=== PATIENT | male | born 1945 | race Caucasian/White ===

== ENCOUNTER → 2017-03-11 09:25 | Outpatient (CLI) | payer MEDICARE, SELFPAY ==
--- NOTE | 2017-03-11 12:16 | RAD_ITS ---
STUDY: X-RAY - ABDOMEN/PELVIS REASON FOR EXAM: Male, 71 years old. Nausea and vomiting. TECHNIQUE: Two AP supine views of the abdomen and pelvis. COMPARISON: None. FINDINGS: Normal visualized lung bases. There is an unremarkable bowel gas pattern. The patient is status post cholecystectomy. Normal soft tissue structures. There are diffuse degenerative changes of the visualized lumbar spine. RAD/Abdomen Single View IMPRESSION: Nonspecific bowel gas pattern. Status post cholecystectomy. Electronically Signed: Bjorn Naqvi MD at 13:04 EST Tel [phone], Service support ,
[2017-03-11 12:27] LABS: Absolute Neutrophil Count 6.7 X10^3/uL (2.0-7.7); Basophil# 0.05 X10^3/uL; Basophil% 0.5 % (0-1); Eosinophils% 2.1 % (0-5); Hematocrit 51.1 % (40-54); Hemoglobin 17.6 g/dl (13.0-16.5); Lymphocyte % 17.9 % (19-41); Mean Corp Hgb Conc 34.4 g/gl (32-36); Mean Corpuscular Hgb 27.4 pg (27.0-32.0); Mean Corpuscular Volume 79.6 fL (80-94); Mean Platelet Vol. 11.3 fl (6.2-12.0); Monocyte# 0.77 X10^3/uL; Monocyte% 8.1 % (0-10); Neutrophil # 6.74 X10^3/uL (2.7-7.7); Neutrophil % 71.1 % (47-70); Platelet Count 261 K/mm3 (150-450); RBC Distribution Width CV 14.4 % (11.6-14.6); RBC Distribution Width SD 41.8 fl (35.1-43.9); Red Blood Count 6.42 M/mm3 (4.6-6.2); White Blood Count 9.5 K/mm3 (4.4-11.0)
[2017-03-11 12:31] LABS: POSITIVE COUNT NO; POSITIVE DIFFERENTIAL NO; POSITIVE MORPHOLOGY NO
[2017-03-11 12:36] LABS: ALB/GLOB Ratio 0.8 RATIO (0.9-2.4); AST(SGOT) 18 U/L (15-37); Alanine Aminotransfer ALT/SGPT 27 U/L (16-61); Albumin, Serum 3.6 g/dL (3.2-5.0); Alkaline Phosphatase 114 U/L (45-117); Anion Gap 10 (5-15); BUN 24 mg/dL (7-18); BUN/Creat Ratio 16.1 RATIO (10-20); Calcium,Total 10.5 mg/dL (8.5-10.1); Chloride 103 mmol/L (98-107); Creatinine, Serum 1.49 mg/dL (0.70-1.30); EST Glomerular Filtration Rate 50 mL/min (>60); Est Glom Filt Rate - Afr Amer 60 mL/min (>60); Globulin 4.4 g/dL (2.2-4.2); Glucose 278 mg/dL (70-110); Potassium 3.8 mmol/L (3.5-5.1); Sodium Level 138 mmol/L (136-145)
== END ==
LOC: POLAB3 09:29 → RAD 12:14
PROVIDERS: Family Provider Family Medicine Geriatric Medicine; PCP Family Medicine Geriatric Medicine; Visit Provider Family Medicine Geriatric Medicine
DX: E11.9 Type 2 diabetes mellitus without complications (principal); E23.6 Other disorders of pituitary gland; I10 Essential (primary) hypertension; R11.2 Nausea with vomiting, unspecified
CPT/HCPCS: 36415; 74018; 80053; 84403; 84443; 85025

== ENCOUNTER 2017-07-04 13:54 | Inpatient (IN) | payer MEDICARE, SELFPAY ==
[2017-07-04] VITALS (19 sets, daily range): BP systolic 148–195; BP diastolic 63–130; PULSE 83–124; RESP 13–25; TEMP 37.1–38.7; O2SAT 90–97; BMI 37.5; BMI 35.4
--- NOTE | 2017-07-04 14:10 | RAD_ITS ---
STUDY: X-RAY CHEST REASON FOR EXAM: Male, 71 years old. Decreased level of consciousness. TECHNIQUE: Single AP portable view of the chest. COMPARISON: Comparison is made with prior study dated October 12, 2016. FINDINGS: EKG electrodes are seen. The lungs are clear and expanded. There is no demonstrated pleural abnormality. There is borderline cardiomegaly. Normal mediastinum and paula. Normal visualized pulmonary arteries. There is atherosclerotic tortuosity of the aortic arch and descending thoracic aorta. Normal visualized thoracic spine. Normal visualized ribs, clavicles, and shoulders. There is no demonstrated abnormality of the visualized soft tissue structures of the upper abdomen. RAD/Chest 1 View (Portable) IMPRESSION: Borderline cardiomegaly. No acute abnormality is seen. Electronically Signed: Bjorn Naqvi MD at 14:53 EDT Tel [phone], Service support ,
--- NOTE | 2017-07-04 14:10 | CT_ITS ---
STUDY: CT BRAIN WITHOUT CONTRAST REASON FOR EXAM: Male, 71 years old. Altered level of consciousness. RADIATION DOSAGE (If Supplied By Facility): CTDIvol = ( 44.99 ) mGy, DLP = ( 654.65 ) mGycm TECHNIQUE: Transaxial CT imaging of the brain was performed without administration of intravenous contrast material. Individualized dose optimization techniques were used for this CT. COMPARISON: Comparison is made with prior examination dated October 12, 2016. FINDINGS: Normal soft tissue structures. Normal calvarium. There is disproportionate enlargement of the lateral and third ventricles, as compared to the extra-axial spaces. The findings suggest normal pressure hydrocephalus (NPH). There are areas of decreased attenuation within the white matter tracts of the supratentorial brain, consistent with microvascular disease changes. Normal basal ganglia and thalami. Normal brainstem. Normal cerebellum. There is no intracranial hemorrhage. There are no findings of an acute ischemic infarction. Normal visualized paranasal sinuses. CT/Brain/Head without Contrast IMPRESSION: Chronic involutional changes of the brain. Findings suggestive of a normal pressure hydrocephalus. Electronically Signed: Bjorn Naqvi MD at 15:12 EDT Tel [phone], Service support ,
--- NOTE | 2017-07-04 14:10 | EKG12_ITS ---
Test Reason : ALTERED MENTAL STATU Blood Pressure : / mmHG Vent. Rate : 121 BPM Atrial Rate : 121 BPM P-R Int : 162 ms QRS Dur : 108 ms QT Int : 310 ms P-R-T Axes : 045 002 010 degrees QTc Int : 440 ms Sinus tachycardia with occasional Premature ventricular complexes Poor R wave progression Inferior infarct , age undetermined Abnormal ECG Confirmed by LEEROY SOSA, MAGED ([id number]), acquisition editor AUDI TIJERINA ([id number]) on 07/09/2017 1:55:38 PM Referred By: MARIO
--- NOTE | 2017-07-04 14:11 | CT_ITS ---
STUDY: CT CERVICAL SPINE WITHOUT CONTRAST REASON FOR EXAM: Male, 71 years old. Altered level of consciousness. RADIATION DOSAGE (If Supplied By Facility): CTDIvol = ( 30.39 ) mGy, DLP = ( 654.65 ) mGycm TECHNIQUE: High resolution transaxial imaging was performed without contrast material. Sagittal and coronal images were reconstructed. Individualized dose optimization techniques were used for this CT. COMPARISON: Comparison is made with prior study dated October 12, 2016. FINDINGS: Normal craniovertebral junction. Normal anterior atlantoaxial articulation. Normal odontoid process. Normal cervical lordosis. Normal vertebral bodies and posterior osseous elements. C2-3: Normal endplates. Normal disc height and morphology. Normal central canal and intervertebral neuroforamina. C3-4: Facet joint osteoarthritis and hypertrophy worse on the right side with mild degree of right neural foraminal stenosis. C4-5: Facet joint osteoarthritis. Mild degree of bilateral neural foraminal stenosis. C5-6: Normal endplates. Normal disc height and morphology. Normal central canal and intervertebral neuroforamina. C6-7: Normal endplates. Normal disc height and morphology. Normal central canal and intervertebral neuroforamina. C7-T1: Normal endplates. Normal disc height and morphology. Normal central canal and intervertebral neuroforamina. Normal visualized soft tissue structures. CT/Spine Cervical without Contras IMPRESSION: Multilevel degenerative changes, as described above. Electronically Signed: Bjorn Naqvi MD at 15:14 EDT Tel [phone], Service support ,
[2017-07-04 14:24] LABS: Bacteria 0 SEEN /hpf (None Seen); Mucous, Urine 0 SEEN /hpf (<or=2+); Red Blood Cells-Urine 0 SEEN /hpf (0-5); Squamous Epithelial Cells - UA 0 SEEN /hpf (0-5)
[2017-07-04 14:27] LABS: Color, Urine Straw (Yellow); Glucose, Dipstick 1000 mg/dl (Normal); Ketone-Dipstick Negative (Negative); Leukocyte Esterase-Dipstick Negative /ul (Negative); Nitrite-Dipstick Negative (Negative); Occult Blood-Urine 10 /ul (Negative); Protein-Dipstick 100 mg/dl (Negative); Specific Gravity, Urine 1.005 (1.002-1.030); Urine Bilirubin Dipstick Negative (Negative); Urine Clarity Clear (Clear); Urine Urobilinogen Normal (Normal); Urine pH 6.5 (5.0 - 8.0)
[2017-07-04] MEDS: 0.9% Normal Saline 1,000 ML 1000 ML IV ×2 (14:29)
[2017-07-04 14:32] LABS: Absolute Lymphocyte Count 0.88 X10^3/ul (0.83-4.51); Absolute Neutrophil Count 10.8 X10^3/uL (2.0-7.7); Basophil# 0.05 X10^3/uL; Basophil% 0.4 % (0-1); Eosinophil# 0.03 X10^3/uL; Eosinophils% 0.2 % (0-5); Hematocrit 47.1 % (40-54); Hemoglobin 16.4 g/dl (13.0-16.5); Lymphocyte # 0.88 X10^3/ul (4.0); Mean Corp Hgb Conc 34.8 g/gl (32-36); Mean Corpuscular Hgb 28.1 pg (27.0-32.0); Mean Corpuscular Volume 80.7 fL (80-94); Mean Platelet Vol. 10.9 fl (6.2-12.0); Monocyte# 0.86 X10^3/uL; Monocyte% 6.8 % (0-10); Neutrophil % 85.4 % (47-70); POSITIVE COUNT NO; POSITIVE DIFFERENTIAL NO; POSITIVE MORPHOLOGY NO; Platelet Count 211 K/mm3 (150-450); RBC Distribution Width CV 13.6 % (11.6-14.6); RBC Distribution Width SD 39.6 fl (35.1-43.9); Red Blood Count 5.84 M/mm3 (4.6-6.2); White Blood Count 12.7 K/mm3 (4.4-11.0)
[2017-07-04 14:35] LABS: Allen Test POS; Base Excess -2 mmol/L (-2 to +2); Bicarbonate 22.5 mmol/L (22-26); Blood Gas Specimen Type ART; O2 Delivery Device Nasal Can; PO2 63 mmHG (75-100); SITE R Radial; SO2 92 % (95-99); Time Given 1425; Total Carbon Dioxide 24 mmol/L; pCO2 35.1 mmHg (35-45); pH 7.42 (7.35-7.45)
[2017-07-04 14:36] LABS: White Blood Cells 0-5 SEEN /hpf (0-5)
[2017-07-04 14:38] LABS: Prothrombin Time (Protime)PT. 13.1 SECONDS (11.7-14.9)
[2017-07-04 14:39] LABS: Partial Thromboplast Time 25.2 Seconds (24.1-36.2)
[2017-07-04 14:48] LABS: ALB/GLOB Ratio 0.9 RATIO (0.9-2.4); AST(SGOT) 10 U/L (15-37); Alanine Aminotransfer ALT/SGPT 18 U/L (16-61); Albumin, Serum 3.5 g/dL (3.2-5.0); Alkaline Phosphatase 145 U/L (45-117); Anion Gap 13 (5-15); BUN 9 mg/dL (7-18); BUN/Creat Ratio 6.2 RATIO (10-20); CPK Total, Creatine Kinase 65 U/L (39-308); Calcium,Total 9.7 mg/dL (8.5-10.1); Chloride 104 mmol/L (98-107); Creatinine, Serum 1.45 mg/dL (0.70-1.30); EST Glomerular Filtration Rate 51 mL/min (>60); Est Glom Filt Rate - Afr Amer 62 mL/min (>60); Estimated Creatinine Clearance 48.08 ml/min; Globulin 4.1 g/dL (2.2-4.2); Glucose 652 mg/dL (74-106); Potassium 3.5 mmol/L (3.5-5.1); Protein, Total 7.6 g/dL (6.4-8.2); Sodium Level 140 mmol/L (136-145)
[2017-07-04 14:49] LABS: Amphetamine Urine VISTA NEGATIVE (<1000 ng/mL); Barbiturate Urine VISTA NEGATIVE (< 200 ng/mL); Benzodiazepine Urine VISTA NEGATIVE (< 200 ng/mL); Cocaine Urine VISTA NEGATIVE (< 300 ng/mL); Ecstacy Urine VISTA NEGATIVE (< 500 ng/mL); Methadone Urine VISTA NEGATIVE (< 300 ng/mL); PCP Urine VISTA NEGATIVE (< 25 ng/mL); THC Urine VISTA NEGATIVE (< 50 ng/mL); Vista UDS pH Range 6
--- NOTE | 2017-07-04 15:07 | NURSING ---
GLUCOSE READ HIGH
--- NOTE | 2017-07-04 15:35 | NURSING ---
UNABLE TO OBTAIN A MEDICATION LIST FROM THE PT.
[2017-07-04 15:40] LABS: Bedside Glucose > 500 mg/dL (70-110)
--- NOTE | 2017-07-04 15:43 | HP.PCM_ITS ---
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 The patient is a 71 year old M who presents to the emergency room after being found unresponsive. Squad report states patient was lying on the sidewalk of his home unclothed. He was found by mailman who called the squad. Patient is unable to respond appropriately or provide any information during assessment. He does open eyes to noxious stimuli and mumbles incoherently. Mouth is very dry and he has areas of sunburn on front side of body. Per records, patient was admitted October 2016 for a very similar presenting symptoms. He was found at home by his son at that time who noted he was unresponsive. He was found to have acute cystitis, hypotension, and pulmonary embolism at that time. He was discharged to half-way facility at that time but had since returned home. He appears unkempt. Per records, patient has a past medical history of type 2 diabetes mellitus, pulmonary embolism, hypertension, history of SVT, hyperlipidemia, BPH, obesity, right lower kidney pole mass, normal pressure hydrocephalus. Past Medical History Past Medical History (Chronic Problems): Chronic Problems (Last Updated 02/26/17 @ 09:40 by Nikolas Prasad) Diabetes mellitus (Chronic) HTN (hypertension) (Chronic) HLD (hyperlipidemia) (Chronic) Syncope and collapse (Chronic) Pulmonary embolism (Chronic) Fall (Chronic) Normal pressure hydrocephalus (Chronic) SVT (supraventricular tachycardia) (Chronic) BPH with obstruction/lower urinary tract symptoms (Chronic) Ventricular tachycardia (paroxysmal) (Chronic) Allergies No Known Allergies Allergy (Verified 02/26/17 09:34) Home Medications: Ambulatory Orders Medication Instructions Recorded Tamsulosin HCl [Flomax] 0.4 mg PO BID 02/13/16 Finasteride [Proscar] 5 mg PO DAILY 05/14/16 Liraglutide [Victoza 2-Dario] 1.2 mg SQ DAILY 05/15/16 Aspirin [Aspirin, Baby] 81 mg PO DAILY@0800 #30 tab.chew 10/13/16 Apixaban [Eliquis] 5 mg PO BID #60 tab 10/19/16 Insulin Aspart [Novolog Flexpen] 0 units SC ACHS 10/19/16 Insulin Detemir [Levemir FlexPen] 20 units SC BREAKFAST 10/19/16 Lisinopril [Zestril] 10 mg PO BID tab 10/19/16 Metoprolol Tartrate [Lopressor 25 mg PO BID tab 10/19/16 (beta luz maria)] amiodarone 200 mg tablet 200 mg PO QDAY tab 02/26/17 empagliflozin 25 mg tablet 25 mg PO QDAY 02/26/17 famotidine 20 mg tablet 20 mg PO QDAY tab 02/26/17 Surgical History: cholecystectomy, - - right meniscus surgery, deviated septum, Lives: Alone Smoking Status: Unknown if ever smoked - *Family History Paternal History Items: - - als Maternal History Items: Heart Disease - CAD; CABG Review of Systems Unable to obtain accurate/complete ROS d/t: lethargy, confusion. VTE Information - Inpt Only VTE Present on Admission: No VTE Mechan Device Prophylaxis: None VTE Pharm Prophylaxis ordered?: Yes - Physical Exam General: Lethargic, - - Responds to noxious stimuli, tracks visually, and comprehensive mumbling. Oral: Dry Mucosa Neck: Supple, No JVD, Negative Carotid Bruits Lungs: Clear to auscultation, Diminished Cardiovascular: Normal S1, Normal S2, No murmurs, Tachycardic Abdomen: Bowel Sounds Present, Soft, Non Tender, Non-Distended, Obese Extremities: No clubbing, No cyanosis, No edema, Capillary Refill Less than 3 Seconds Skin: No rashes, No breakdown Musculoskeletal: No Tenderness to Palpation of Joints or Extremities Neurological: Cranial nerves II-XII grossly intact Psych/Mental Status: - - Unable to assess. Vital Signs Temp Pulse Resp BP Pulse Ox 99.9 F H 103 H 19 H 176/105 H 93 07/04/17 15:06 07/04/17 15:06 07/04/17 15:06 07/04/17 15:06 07/04/17 15:06 Oxygen Flow Rate (L/min) 2 Oxygen Delivery Method Nasal Cannula Weight: 115.3 kg Body Mass Index (BMI) 37.5 Finger Stick Blood Glucose 439 Laboratory Tests Past 24 Hrs 07/04/17 07/04/17 07/04/17 14:00 14:00 14:00 WBC 12.7 H RBC 5.84 Hgb 16.4 Hct 47.1 MCV 80.7 MCH 28.1 MCHC 34.8 RDW 13.6 RDW Differential 39.6 Plt Count 211 MPV 10.9 Immature Gran % (Auto) 0.200 Neut % (Auto) 85.4 H Lymph % (Auto) 7.0 L [place] % (Auto) 6.8 Eos % (Auto) 0.2 Baso % (Auto) 0.4 Absolute Neuts (auto) 10.8 H Absolute Lymphs (auto) 0.88 Total Counted Not Reportable PT 13.1 INR 1.0 APTT 25.2 Specimen Type Sample Site pH Bicarbonate Actual POC Total CO2 Base Excess O2 Saturation ABG pCO2 ABG pO2 Paras Test O2 Delivery Device Liter Flow Blood Gas Notified Whom Blood Gas Notified Time Sodium 140 Potassium 3.5 Chloride 104 Carbon Dioxide 23.0 Anion Gap 13 BUN 9 Creatinine 1.45 H Estim Creat Clear Calc 48.08 Est GFR (MDRD) Af Amer 62 Est GFR (MDRD) Non-Af 51 L BUN/Creatinine Ratio 6.2 L Glucose 652 H* Lactic Acid Calcium 9.7 Total Bilirubin 0.90 AST 10 L ALT 18 Alkaline Phosphatase 145 H Total Creatine Kinase Troponin I 0.068 H Total Protein 7.6 Albumin 3.5 Globulin 4.1 Albumin/Globulin Ratio 0.9 Urine Color Urine Clarity Urine pH Ur Specific [place] Urine Protein Urine Glucose (UA) Urine Ketones Urine Occult Blood Urine Nitrite Urine Bilirubin Urine Urobilinogen Ur Leukocyte Esterase Urine RBC Urine WBC Ur Squamous Epith Cells Urine Bacteria Urine Mucus Urine Opiates Screen Urine Methadone Screen Ur Barbiturates Screen Ur Phencyclidine Scrn Ur Amphetamines Screen U Methamphetamin-MDMA U Benzodiazepines Scrn Urine Cocaine Screen U Cannabinoids Screen Ur Drug Screen Comment Ethyl Alcohol 07/04/17 07/04/17 07/04/17 14:00 14:00 14:00 WBC RBC Hgb Hct MCV MCH MCHC RDW RDW Differential Plt Count MPV Immature Gran % (Auto) Neut % (Auto) Lymph % (Auto) [place] % (Auto) Eos % (Auto) Baso % (Auto) Absolute Neuts (auto) Absolute Lymphs (auto) Total Counted PT INR APTT Specimen Type Sample Site pH Bicarbonate Actual POC Total CO2 Base Excess O2 Saturation ABG pCO2 ABG pO2 Paras Test O2 Delivery Device Liter Flow Blood Gas Notified Whom Blood Gas Notified Time Sodium Potassium Chloride Carbon Dioxide Anion Gap BUN Creatinine Estim Creat Clear Calc Est GFR (MDRD) Af Amer Est GFR (MDRD) Non-Af BUN/Creatinine Ratio Glucose Lactic Acid 3.0 H Calcium Total Bilirubin AST ALT Alkaline Phosphatase Total Creatine Kinase 65 Troponin I Total Protein Albumin Globulin Albumin/Globulin Ratio Urine Color Urine Clarity Urine pH Ur Specific [place] Urine Protein Urine Glucose (UA) Urine Ketones Urine Occult Blood Urine Nitrite Urine Bilirubin Urine Urobilinogen Ur Leukocyte Esterase Urine RBC Urine WBC Ur Squamous Epith Cells Urine Bacteria Urine Mucus Urine Opiates Screen Urine Methadone Screen Ur Barbiturates Screen Ur Phencyclidine Scrn Ur Amphetamines Screen U Methamphetamin-MDMA U Benzodiazepines Scrn Urine Cocaine Screen U Cannabinoids Screen Ur Drug Screen Comment Ethyl Alcohol 11.0 07/04/17 07/04/17 07/04/17 14:08 14:08 14:29 WBC RBC Hgb Hct MCV MCH MCHC RDW RDW Differential Plt Count MPV Immature Gran % (Auto) Neut % (Auto) Lymph % (Auto) [place] % (Auto) Eos % (Auto) Baso % (Auto) Absolute Neuts (auto) Absolute Lymphs (auto) Total Counted PT INR APTT Specimen Type ART Sample Site R Radial pH 7.42 Bicarbonate Actual 22.5 POC Total CO2 24 Base Excess -2 O2 Saturation 92 L ABG pCO2 35.1 ABG pO2 63 L Paras Test POS O2 Delivery Device Nasal Can Liter Flow 2.0 Blood Gas Notified Whom ED Blood Gas Notified Time 1425 Sodium Potassium Chloride Carbon Dioxide Anion Gap BUN Creatinine Estim Creat Clear Calc Est GFR (MDRD) Af Amer Est GFR (MDRD) Non-Af BUN/Creatinine Ratio Glucose Lactic Acid Calcium Total Bilirubin AST ALT Alkaline Phosphatase Total Creatine Kinase Troponin I Total Protein Albumin Globulin Albumin/Globulin Ratio Urine Color Straw Urine Clarity Clear Urine pH 6.5 Ur Specific [place] 1.005 Urine Protein 100 H Urine Glucose (UA) 1000 H Urine Ketones Negative Urine Occult Blood 10 H Urine Nitrite Negative Urine Bilirubin Negative Urine Urobilinogen Normal Ur Leukocyte Esterase Negative Urine RBC 0 SEEN Urine WBC 0-5 SEEN Ur Squamous Epith Cells 0 SEEN Urine Bacteria 0 SEEN Urine Mucus 0 SEEN Urine Opiates Screen NEGATIVE Urine Methadone Screen NEGATIVE Ur Barbiturates Screen NEGATIVE Ur Phencyclidine Scrn NEGATIVE Ur Amphetamines Screen NEGATIVE U Methamphetamin-MDMA NEGATIVE U Benzodiazepines Scrn NEGATIVE Urine Cocaine Screen NEGATIVE U Cannabinoids Screen NEGATIVE Ur Drug Screen Comment Ethyl Alcohol Assessment/Plan 1. Acute encephalopathy-unclear etiology. Patient had very similar presenting episode in the past. Cycle enzymes. MRI of brain. Consult neurology. PT/OT/ ST. NPO pending ST assessment. Urinalysis unremarkable. Brain CT shows no acute changes. Chest x-ray unremarkable. CT of cervical spine showed multilevel degenerative changes. 2. Acute kidney injury-IV fluids. Monitor BMP. Check FENa. 3. Lactic acidosis-unclear etiology. Repeat lactic acid. Do not suspect infectious etiology. 4. Elevated troponin-cycle enzymes. Consult cardiology. Patient was recommended to complete outpatient cardiac catheterization during previous admission October 2016. Patient failed to complete this. Rectal aspirin. 5. Hyperglycemia in the presence of type 2 diabetes mellitus-glucose on admission 652. Previous hemoglobin A1c 05/15/16 8.6%. Insulin gtt with Accu- Cheks per protocol. Repeat hemoglobin A1c. 6. History of pulmonary embolism-occurred in October 2016. Eliquis listed on home medication list. Unclear if patient is compliant. Begin heparin drip. 7. Hypertension-permissive given unclear cause of #1/rule out neural etiology. As needed hydralazine. Resume home oral regimen including amiodarone, lisinopril, metoprolol when able to tolerate oral intake. 8. History of SVT-on amiodarone regimen at home. Monitor telemetry. 9. Hyperlipidemia-not on statin. Check fasting lipid panel. 10. BPH-continue Flomax, Proscar regimen when cleared by speech therapy. 11. Obesity-nutrition consult when patient alert and able to participate in education regarding diet and lifestyle modifications. 12. Normal pressure hydrocephalus-chronic. Continue outpatient follow-up with neurology. DVT prophylaxis-heparin drip. Discharge planning- consult CM for possible need for placement. This patient was seen by CRISS Anderson under the supervision of Dr. Thomas.
--- NOTE | 2017-07-04 15:59 | NURSING ---
Dr. Gallardo's office closed. Unable to obtain home medication list.
--- NOTE | 2017-07-04 16:22 | NURSING ---
ADMISSION NURSE CALLING FOR MEDICATIONS AT [facility].
--- NOTE | 2017-07-04 16:26 | NURSING ---
Jaspreet muñoz contacted to attempt to update medlist. Pt has not filled any medications there since .
--- NOTE | 2017-07-04 16:32 | ED.VISSUMM ---
- ER Visit Summary Date of Service: 07/04/17 Chief Complaint: Found unresponsive History of Present Illness: The patient is a 71 M who EMS reports was found sleeping naked outside. Is unclear how long he was like this. Patient is not speaking with them. I am unable to obtain any history. Physical Examination: Vitals: 98.7, 183/103, 124, 18, 90% on room air which is hypoxic. General: Well-nourished and well-developed. Head: Normocephalic atraumatic. Neck: Supple, no lymphadenopathy. No JVD. Nontender. Cardiovascular: Tachycardic regular rhythm with no murmur. Respiratory: No respiratory distress. Clear to auscultation bilaterally. Abdominal: Soft, nontender, nondistended, normal bowel sounds. No guarding, rebound, or peritoneal signs. Back: Nontender. Extremities: Nontender, no edema. Skin: Sunburn to chest and abdomen. Sunburn to medial right thigh and lateral left thigh. There are no blisters. He also has a candidal rash in the intertriginous regions.. Neurologic: Lethargic. Arouses to voice. Moves all extremities to painful stimulus.. Psych: Normal affect. Test Results: EKG is sinus tach 121 with PVCs. Initial troponin 0 0.068. CPK is 65. UA shows glucose. LFTs marked for alk phos 145 and AST of 10. Coags are normal. Chem-7 is marked for glucose of 652 and creatinine 1.45. CBC is marked for white count of 12.7 with 85 segmented neutrophils and 7 lymphocytes. ABG shows a pH of 7.42 with PCO2 35 and a PO2 of 63 on 2 L nasal cannula. Lactic acid is 3.0. Blood alcohol level 0. Tox screen is negative. Chest x-ray shows borderline cardiomegaly no acute disease. CT C-spine shows degenerative changes. CT brain shows chronic changes and questionable NPH. Emergency Department Course and Treatment: Patient was given 2 L of normal saline his heart rate is decreased into the low 100s and he is more arousable. He is still not conversational. However, he is protecting his airway. Treatment Plan: Patient was discussed with Dr. Thomas. He was started on insulin drip. He will be admitted to the hospital for further evaluation and treatment. Disposition: Admitted in serious condition. Impression: 1. Hyperosmolar nonketotic hyperglycemia. 2. Type 2 diabetes mellitus. 3. Acute delirium. 4. Sunburn. 5. Intertriginous jono. 6. Elevated troponin. 7. Critical care time 30 minutes. This note was generated with [employer] dictation software. It may contain incorrect words, spelling, and punctuation that were not noted in review of the chart prior to signing ED Disposition - Plan for ED Patient: Chief Complaint: Alt LOC
[2017-07-04 16:36] LABS: Bedside Glucose 485 mg/dL (70-110)
--- NOTE | 2017-07-04 17:01 | MRI_ITS ---
STUDY: MRA NECK WITHOUT CONTRAST REASON FOR EXAM: Male, 71 years old. Confusion and unresponsiveness TECHNIQUE: Source images were obtained, MIPs were performed. The study was performed unenhanced. COMPARISON: None. FINDINGS: Exam is limited due to patient motion artifact. RIGHT CAROTID ARTERIES: Normal right common carotid artery (CCA). Normal right common carotid bulb. Normal origin of the right internal carotid (ICA) artery without a hemodynamically significant stenosis. Normal visualized cervical portion of the right internal carotid artery. Normal origin of the right external carotid artery (ECA). LEFT CAROTID ARTERIES: Normal left common carotid artery (CCA). Normal left common carotid bulb. Normal origin of the left internal carotid (ICA) artery without a hemodynamically significant stenosis. Normal visualized cervical portion of the left internal carotid artery. Normal origin of the left external carotid artery (ECA). VERTEBRAL ARTERIES: Normal antegrade flow within the bilateral vertebral artery without a hemodynamically significant stenosis. MRI/MRA Neck without Contrast IMPRESSION: Limited study due to motion artifact but no definitive evidence for hemodynamically significant stenosis of the carotids. Would recommend correlation with CTA or ultrasound for further assessment if clinically warranted Electronically Signed: Tate Hendrix MD at 21:18 EDT , Service support ,
--- NOTE | 2017-07-04 17:01 | MRI_ITS ---
STUDY: MRI BRAIN WITHOUT CONTRAST REASON FOR EXAM: Male, 71 years old. Confusion and unresponsive TECHNIQUE: Standardized multiplanar fat and water weighted pulse sequences were obtained. COMPARISON: CT of the brain July 04, 2017 MRI of the brain on November 23, 2016 FINDINGS: There is diffuse ventricular dilatation with is disproportionate to the size of the cortical sulci. With mild periventricular white matter hyperintensity likely representing resorption of CSF which may be consistent with communicating hydrocephalus or NPH. . Cannot exclude coexisting ischemic changes in the white matter but no evidence for acute infarct. Normal bilateral basal ganglia. Normal thalami. There is no extra-axial fluid accumulation. Normal flow voids within the major intracranial circulation suggesting patency by spin echo criteria. Empty sella deformity of uncertain significance. Normal, infundibular stalk, optic chiasm and hypothalamus. Normal tectal plate and pineal gland. Normal midbrain, michael and medulla. Normal cerebellum. Normal basal cisterns. Normal bilateral temporal bones. Normal bilateral internal auditory canals. No demonstrated orbital abnormality, within the constraints of a routine brain study. Normal visualized paranasal sinuses. Normal calvarium and skull base. Normal visualized soft tissue structures. Normal visualized upper cervical spine. MRI/Brain without Contrast IMPRESSION: Findings which may be consistent with communicating hydrocephalus or NPH in association with periventricular white matter ischemic changes. No evidence for acute infarct Electronically Signed: Tate Hendrix MD at 20:13 EDT , Service support ,
--- NOTE | 2017-07-04 17:01 | MRI_ITS ---
STUDY: MRA OF THE HEAD WITHOUT CONTRAST REASON FOR EXAM: Male, 71 years old. Confusion TECHNIQUE: 3-D [id number] (TOF) imaging was performed with MIPs. The study was performed unenhanced. COMPARISON: None. FINDINGS: Normal bilateral petrous carotid arteries. Normal right cavernous carotid artery with a normal supraclinoid bifurcation. Normal left cavernous carotid artery with a normal supraclinoid bifurcation. Normal right A1 segments of the anterior cerebral artery. Normal left A1 segments of the anterior cerebral artery. Normal intact anterior communicating artery (ACOM). Normal bilateral A2 segments of the anterior cerebral arteries. Normal right M1 and M2 segments of the middle cerebral arteries, with a normal M1 bifurcation. Normal left M1 and M2 segments of the middle cerebral arteries, with a normal M1 bifurcation. Posterior communicating arteries are not visualized consistent with normal variant). The left vertebral is normal. The right vertebral is nonvisualized possibly due to proximal occlusion.. Normal basilar artery with a normal basilar bifurcation. The visualized bilateral superior cerebellar (SCA) arteries are normal. Normal bilateral P1, P2 and visualized P3 segments of the posterior cerebral arteries. There is no demonstrated aneurysm of the [place]. There is no major vessel occlusion or hemodynamically significant stenosis. There is no demonstrated abnormality of the visualized brain. MRI/MRA Head ONLY without Contrast IMPRESSION: Nonvisualization of the right vertebral possibly due to proximal occlusion. MRA of the neck would be helpful for further evaluation in this regard if indicated Electronically Signed: Tate Hendrix MD at 20:36 EDT , Service support ,
--- NOTE | 2017-07-04 17:01 | ECHOD_ITS ---
Reason For Study: Arrhythmia Procedure This was a 2D Doppler, Color Flow transthoracic echocardiogram. Techncially difficult study due to patient body habitus. Patient was also in restraints and had a hard time remaining still for the test. The study was technically difficult. Exam performed portable in ICU/CCU. Left Ventricle Mild concentric left ventricular hypertrophy. Based upon the 2D echocardiographic images obtained there appears to be grossly normal left size, ventricular wall motion, and systolic function. The estimated ejection fraction is 55 %. Unable to assess diastolic dysfunction. Right Ventricle Normal RV size. Normal systolic function. Atria The left atrium is mildly enlarged. Normal right atrium. No doppler evidence for ASD. Mitral Valve There is no mitral annular calcification. Mild focal mitral valve calcification of the anterior leaflet. Trivial mitral valve insufficiency. Tricuspid Valve Normal tricuspid valve. Trivial tricuspid valve insufficiency. Unable to estimate RV systolic pressure/pulmonary artery pressure due to technically difficult study. Aortic Valve Trisinus/trileaflet aortic valve. Mild focal aortic valve thickening. Pulmonic Valve The pulmonic valve is not well visualized. Great Vessels Normal sized aortic root. Pericardium/Pleural No pericardial effusion. MMode/2D Measurements & Calculations LVIDd: 4.7 cm IVSd: 1.3 cm Ao root diam: 3.9 cm LVIDs: 3.2 cm LVPWd: 1.4 cm LA dimension: 4.1 cm FS: 32.6 % LAV(MOD-sp4): 50.2 ml LA A4 area: 19.0 cm2 Time Measurements MV dec time: 0.26 sec Doppler Measurements & Calculations MV E max bettina: 72.2 cm/sec MV V2 max: 121.3 cm/sec MV P1/2t max bettina: 54.9 cm/sec MV A max bettina: 108.7 cm/sec MV max P.9 mmHg MV P1/2t: 89.6 msec MV E/A: 0.66 MV V2 mean: 49.9 cm/sec MV dec slope: 179.5 cm/sec2 MV mean P.3 mmHg MVA(P1/2t): 2.5 cm2 MV V2 VTI: 25.8 cm Ao V2 max: 137.7 cm/sec LV V1 max: 92.7 cm/sec PA V2 max: 103.0 cm/sec Ao max P.6 mmHg LV V1 max P.4 mmHg Ao V2 mean: 99.4 cm/sec LV V1 mean P.5 mmHg Ao mean P.4 mmHg LV V1 mean: 54.7 cm/sec Ao V2 VTI: 22.8 cm LV V1 VTI: 16.5 cm Interpretation Summary The study was technically difficult. Based upon the 2D echocardiographic images obtained there appears to be grossly normal left size, ventricular wall motion, and systolic function. The estimated ejection fraction is 55 %. Mild concentric left ventricular hypertrophy. The left atrium is mildly enlarged. Mild focal mitral valve calcification of the anterior leaflet. Trivial mitral valve insufficiency. Trivial tricuspid valve insufficiency. Mild focal aortic valve thickening. Unable to estimate RV systolic pressure/pulmonary artery pressure due to technically difficult study. Unable to assess diastolic dysfunction. Ordering Physician: Peggy Thomas Referring Physician: Moisés Gallardo Chi Performed By: Efrem Kelley RCS
[2017-07-04] MEDS: 0.9% Normal Saline 1,000 ML 999 ML IV (17:31)
[2017-07-04 17:32] LABS: M R Staph aureus DNA By PCR Negative (Negative); Probe Check PASS; Specimen Processing Control PASS
[2017-07-04] MEDS: Heparin Injection 5,000 UNITS/ML Syringe 9500 UNITS IV (17:40)
[2017-07-04 17:55] LABS: Phosphorus 1.9 mg/dL (2.5-4.9)
[2017-07-04 17:57] LABS: Urine Sodium 49 mmol/L (Not Establ.)
[2017-07-04 18:09] LABS: Lactic Acid 2.3 mmol/L (0.4-2.0)
[2017-07-04 18:10] LABS: Anion Gap 9 (5-15); BUN 8 mg/dL (7-18); Calcium,Total 9.7 mg/dL (8.5-10.1); Chloride 109 mmol/L (98-107); Creatinine, Serum 1.34 mg/dL (0.70-1.30); EST Glomerular Filtration Rate 56 mL/min (>60); Est Glom Filt Rate - Afr Amer 68 mL/min (>60); Estimated Creatinine Clearance 50.34 ml/min; Glucose 460 mg/dL (74-106); Potassium 3.3 mmol/L (3.5-5.1); Sodium Level 143 mmol/L (136-145)
[2017-07-04 18:14] LABS: Osmolality, Serum 320 mOsm/KG (280-301)
[2017-07-04 18:20] LABS: Reflex Lactate? Y
[2017-07-04] MEDS: 0.9% Normal Saline 1,000 ML 150 ML IV (18:26)
[2017-07-04] MEDS: Haloperidol Lactate 5 MG/ML Vial IV (18:40)
[2017-07-04 18:45] LABS: Bedside Glucose 471 mg/dL (70-110)
[2017-07-04 18:45] LABS: Bedside Glucose 329 mg/dL (70-110)
[2017-07-04 19:32] LABS: Hemoglobin A1c 11.8 % (4.2-6.3)
[2017-07-04] MEDS: LORazepam 2 MG/ML Syringe IV (19:45)
--- NOTE | 2017-07-04 21:09 | CON.PCM_ITS ---
"Problem List (1) Abnormal cardiac enzyme level Status: Acute (2) SVT (supraventricular tachycardia) Status: Chronic (3) Ventricular tachycardia (paroxysmal) Status: Chronic (4) HLD (hyperlipidemia) Status: Chronic (5) HTN (hypertension) Status: Chronic (6) Diabetes mellitus Status: Chronic (7) Mental status change Status: Chronic Reason for Consult Date of Consultation: 07/04/17 History of Present Illness: The patient is a 71 year old white male past medical history including syncope, PSVT, PVT, positive tilt table study, who is referred for evaluation of abnormal cardiac enzymes in the setting of recurrent acute mental status changes superimposed upon additional findings of fever, leukocytosis, and hyperglycemia. The patient presented being found down at his home, reportedly nearly naked, and unresponsive. He was brought to the [facility] ED where he was evaluated and found to have the aforementioned concerns. He was subsequently placed in the ICU for further evaluation and care. He has remained unresponsive. He has had to be restrained. He is undergoing noncardiovascular evaluation at this time. He was noted to have indeterminate cardiac enzymes. His ECG has demonstrated sinus rhythm with poor R-wave progression with inferior NV of indeterminate age. His cardiac rhythm monitor is demonstrated sinus rhythm with ventricular ectopy including ventricular couplets/triplets. [] Past Medical History Allergies/Adverse Reactions: Allergies No Known Allergies Allergy (Verified 02/26/17 09:34) Home Medications: Ambulatory Orders Medication Instructions Recorded Tamsulosin HCl [Flomax] 0.4 mg PO BID 02/13/16 Finasteride [Proscar] 5 mg PO DAILY 05/14/16 Liraglutide [Victoza 2-Dario] 1.2 mg SQ DAILY 05/15/16 Aspirin [Aspirin, Baby] 81 mg PO DAILY@0800 #30 tab.chew 10/13/16 Apixaban [Eliquis] 5 mg PO BID #60 tab 10/19/16 Insulin Aspart [Novolog Flexpen] 0 units SC ACHS 10/19/16 Insulin Detemir [Levemir FlexPen] 20 units SC BREAKFAST 10/19/16 Lisinopril [Zestril] 10 mg PO BID tab 10/19/16 Metoprolol Tartrate [Lopressor 25 mg PO BID tab 10/19/16 (beta luz maria)] amiodarone 200 mg tablet 200 mg PO QDAY tab 02/26/17 empagliflozin 25 mg tablet 25 mg PO QDAY 02/26/17 famotidine 20 mg tablet 20 mg PO QDAY tab 02/26/17 Past Medical History (Chronic Problems): Chronic Problems (Last Updated 02/26/17 @ 09:40 by Nikolas Prasad) Diabetes mellitus (Chronic) HTN (hypertension) (Chronic) HLD (hyperlipidemia) (Chronic) Syncope and collapse (Chronic) Pulmonary embolism (Chronic) Fall (Chronic) Normal pressure hydrocephalus (Chronic) SVT (supraventricular tachycardia) (Chronic) BPH with obstruction/lower urinary tract symptoms (Chronic) Ventricular tachycardia (paroxysmal) (Chronic) Surgical History: cholecystectomy, - - right meniscus surgery, deviated septum, - *Family History Paternal Family History: Family History (Last Updated 02/26/17 @ 09:36 by Nikolas Prasad) Father Gisella Pierce disease History Items: - - als Maternal Family History: Family History (Last Updated 02/26/17 @ 09:36 by Nikolas Prasad) Father Gisella Pierce disease History Items: Heart Disease - CAD; CABG Lives: Alone Smoking Status: Unknown if ever smoked Review of Systems - Review of Systems General: Reports: Fever. Denies: Fatigue, Night Sweats Neurological: Reports: Falls Subjectve: This is a 71-year-old white male who appears to be unresponsive at this time, demonstrating evidence of sunburn, but in no acute distress. Objective: Vital Signs Temp Pulse Resp BP Pulse Ox 99.6 F H 95 18 180/117 H 95 07/04/17 18:00 07/04/17 18:00 07/04/17 18:00 07/04/17 18:00 07/04/17 20:20 Oxygen Flow Rate (L/min) 2 Oxygen Delivery Method Room Air Weight: 239 lb 10.279 oz Body Mass Index (BMI) 35.4 Finger Stick Blood Glucose 366 Intake and Output for Last 24 Hours 07/02/17 07/03/17 07/04/17 23:59 23:59 23:59 Intake Total 1014 / 1014 Output Total 1250 / 1250 Balance -236 / -236 Lungs: Clear to auscultation Cardiovascular: Regular Rhythm, Premature Ectopic Beats, Normal S1, Normal S2 Abdomen: Bowel Sounds Present, Soft, Non Tender Extremities: Trace RLE Edema, Trace LLE Edema 07/04/17 17:00: Sodium 143, Potassium 3.3 L, Chloride 109 H, Carbon Dioxide 25.0 , Anion Gap 9, BUN 8, Creatinine 1.34 H, Est GFR (MDRD) Af Amer 68, Est GFR ( MDRD) Non-Af 56 L, BUN/Creatinine Ratio 6.0 L, Glucose 460 H*, Calcium 9.7, Magnesium 2.0 07/04/17 17:00: Phosphorus 1.9 L 07/04/17 17:00: Serum Osmolality 320 H 07/04/17 17:00: Lactic Acid 2.3 H 07/04/17 17:00: Troponin I 0.066 H Rhythm: As noted above EKG: As noted above ECHO: 10/16/2016: Left ventricle thought to be normal with an LVEF of 55%; mild concentric LVH; mild left atrial enlargement; trivial MR/TR; mild focal aortic valve calcification Stress Test: 10/03/2013: Pharmacologic stress nuclear imaging study: Considered negative for myocardial ischemia/infarction Event monitor: 06/25/2016: Sinus rhythm with PVCs Electrophysiology consultation: 08/20/2016: [facility]: Findings compatible with SVT with probable reentry mechanism: Conclusion to continue conservative medical management with no immediate plans for further invasive evaluation or care CXR: Preliminary evaluation: No acute cardiopulmonary disease process appreciated: Please see official report Assessment/Plan 1. Abnormal cardiac enzymes The patient does have indeterminant troponin I levels. The etiology is unclear whether this represents a primary acute coronary syndrome event to explain his situation versus a type II event secondary to supply demand mismatch. The patient has had a previous similar presentation. He is undergone noninvasive evaluation in the past. Based upon his mental status changes and other medical conditions including a history of pulmonary emboli, the patient has never proceeded with further invasive evaluation or care. At the present time it is unclear as to whether or not the patient, other than conservative medical management and noninvasive studies, will ever be able to undergo invasive evaluation such as diagnostic cardiac catheterization. In the interim the patient should continue medical therapy as deemed appropriate. It would include agents such as aspirin, nitrates, beta-blockers, lipid-lowering agents, anticoagulant agents, etc. 2. 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 With respect to his electrophysiology history he has been evaluated [facility] in consultation. At that point in time the recommendations were for continued conservative medical management. Thus his medications will be reviewed. He should continue medical therapy which may include beta-luz maria therapy. He can have an echocardiogram to reassess his ventricular wall motion and systolic function based upon his underlying ventricular ectopy. At some point in time if he is able from a medical standpoint and medical standpoint to undergo further evaluation with diagnostic cardiac catheterization to evaluate for coronary artery disease it may not be unreasonable. 3. Hyperlipidemia the patient should should continue lipid-lowering therapy as deemed appropriate. 4. Hypertension The patient's blood pressure will be followed. He should continue medical management as deemed appropriate. 5. Diabetes mellitus The patient presents with hyperglycemia. He is undergoing evaluation care per internal medicine. 6. Mental status changes She does have recurrence of mental status changes. The etiology is unclear. He will continue evaluation per internal medicine, pulmonology/critical care medicine, and neurology. However, in the interim, from a cardiovascular standpoint, this leaves him with continued conservative medical management. Comment: The patient's case was discussed and reviewed with Dr. Eid of the [facility] emergency department staff. This note was generated with [id number] dictation software. It may contain incorrect words, spelling, and punctuation that were not noted in checking the note before signing."
[2017-07-04 21:14] LABS: Reflex Lactate? Y
[2017-07-04 21:44] LABS: Anion Gap 9 (5-15); BUN 7 mg/dL (7-18); BUN/Creat Ratio 5.2 RATIO (10-20); Calcium,Total 9.7 mg/dL (8.5-10.1); Chloride 112 mmol/L (98-107); Creatinine, Serum 1.34 mg/dL (0.70-1.30); EST Glomerular Filtration Rate 56 mL/min (>60); Est Glom Filt Rate - Afr Amer 68 mL/min (>60); Estimated Creatinine Clearance 50.34 ml/min; Glucose 326 mg/dL (74-106); Potassium 3.6 mmol/L (3.5-5.1); Sodium Level 146 mmol/L (136-145)
[2017-07-04] MEDS: Nystatin Powder 15gm Bottle 1 APPLIC TOPICAL (21:47)
[2017-07-04] MEDS: Acetaminophen 650 MG Suppository RECTAL (22:52)
[2017-07-04 23:00] LABS: Bedside Glucose 366 mg/dL (70-110)
[2017-07-04 23:00] LABS: Bedside Glucose 290 mg/dL (70-110)
[2017-07-04] MEDS: Metoprolol Tartrate 5 MG/5 ML Vial IV (23:35)
[2017-07-04] MEDS: 0.9% NaCl Peripheral Flush Adult/Peds IV ×2 (23:35→23:41)
[2017-07-04 23:56] LABS: Bedside Glucose 256 mg/dL (70-110)
[2017-07-04 23:56] LABS: Bedside Glucose 280 mg/dL (70-110)
[2017-07-05] VITALS (15 sets, daily range): BP systolic 117–168; BP diastolic 62–111; PULSE 32–89; RESP 16–24; TEMP 37.4–38.6; O2SAT 93–99
[2017-07-05 00:05] LABS: Anion Gap 5 (5-15); BUN 7 mg/dL (7-18); BUN/Creat Ratio 5.7 RATIO (10-20); Calcium,Total 9.5 mg/dL (8.5-10.1); Chloride 114 mmol/L (98-107); Creatinine, Serum 1.23 mg/dL (0.70-1.30); EST Glomerular Filtration Rate 62 mL/min (>60); Est Glom Filt Rate - Afr Amer 75 mL/min (>60); Estimated Creatinine Clearance 54.84 ml/min; Glucose 234 mg/dL (74-106); Potassium 3.7 mmol/L (3.5-5.1); Sodium Level 146 mmol/L (136-145)
[2017-07-05 00:10] LABS: Partial Thromboplast Time 62.7 Seconds (24.1-36.2)
[2017-07-05 00:51] LABS: Reflex Lactate? Y
[2017-07-05] MEDS: Enalaprilat 1.25 MG/ML Vial 0.625 MG IV ×2 (00:52→05:11)
[2017-07-05 01:46] LABS: Bedside Glucose 186 mg/dL (70-110)
[2017-07-05 01:46] LABS: Bedside Glucose 197 mg/dL (70-110)
[2017-07-05 03:56] LABS: Bedside Glucose 218 mg/dL (70-110)
[2017-07-05 05:10] LABS: Bedside Glucose 220 mg/dL (70-110)
[2017-07-05] MEDS: Nystatin Powder 15gm Bottle 1 APPLIC TOPICAL (05:10)
[2017-07-05] MEDS: 0.9% NaCl Peripheral Flush Adult/Peds IV (05:10)
[2017-07-05] MEDS: Metoprolol Tartrate 5 MG/5 ML Vial IV (05:11)
[2017-07-05] MEDS: CHLORHEXIDINE GLUC 2% CLOTH 1 EACH TOWELETTE TOPICAL (05:28)
--- NOTE | 2017-07-05 05:55 | EKG12_ITS ---
Test Reason : AM EKG Blood Pressure : / mmHG Vent. Rate : 076 BPM Atrial Rate : 076 BPM P-R Int : 080 ms QRS Dur : 136 ms QT Int : 468 ms P-R-T Axes : 074 -53 104 degrees QTc Int : 526 ms Junctional rhythm Right bundle branch block Ventricular pre-excitation, WPW pattern type A Abnormal ECG When compared with ECG of 04-JUL-2017 13:57, MANUAL COMPARISON REQUIRED, DATA IS UNCONFIRMED Confirmed by ROSHAN SOSA, MAURICE ([id number]), medical transcription editor AUDI TIJERINA ([id number]) on 07/24/2017 5:03:23 PM Referred By: ALYSON Confirmed By:MAURICE ISLAS MD
[2017-07-05 06:15] LABS: Absolute Neutrophil Count 12.1 X10^3/uL (2.0-7.7); Basophil# 0.05 X10^3/uL; Basophil% 0.3 % (0-1); Eosinophil# 0.01 X10^3/uL; Eosinophils% 0.1 % (0-5); Hematocrit 45.9 % (40-54); Hemoglobin 15.8 g/dl (13.0-16.5); Lymphocyte % 13.6 % (19-41); Mean Corp Hgb Conc 34.4 g/gl (32-36); Mean Corpuscular Hgb 27.9 pg (27.0-32.0); Mean Platelet Vol. 11.3 fl (6.2-12.0); Monocyte# 1.18 X10^3/uL; Monocyte% 7.6 % (0-10); Neutrophil # 12.05 X10^3/uL (2.7-7.7); Platelet Count 222 K/mm3 (150-450); RBC Distribution Width CV 14.6 % (11.6-14.6); RBC Distribution Width SD 42.9 fl (35.1-43.9); Red Blood Count 5.67 M/mm3 (4.6-6.2); White Blood Count 15.5 K/mm3 (4.4-11.0)
[2017-07-05 06:21] LABS: POSITIVE COUNT NO; POSITIVE DIFFERENTIAL NO; POSITIVE MORPHOLOGY NO
[2017-07-05 06:23] LABS: Partial Thromboplast Time 43.6 Seconds (24.1-36.2)
--- NOTE | 2017-07-05 06:27 | PCM.CON.CC ---
Reason for Consult Date of Consultation: 07/05/17 Reason for Consultation: Encephalopathy History of Present Illness: The patient is a 71-year-old male, with a history as outlined below, who presented to the emergency department on July 04 in an unresponsive state after being found down. The patient does have a history of a prior similar presentation in October 2016. The patient does have a history of normal pressure hydrocephalus along with a prior history of pulmonary embolism. On presentation to the emergency department, the patient was noted to be febrile, tachycardic and hypertensive. Laboratory evaluation revealed a mildly elevated white blood cell count. Coagulation profile revealed an INR of 1.0. Arterial blood gas was within normal limits. Chemistry profile revealed evidence of acute kidney injury with creatinine 1.45. Glucose was elevated to 652. The patient's last hemoglobin A1c was noted to be 11.8. Serum lactate was elevated at 3.0. There was also a troponin leak, which peaked at 0.068. Toxicology screen was negative. Head CT revealed chronic involutional changes with findings suggestive of normal pressure hydrocephalus. Chest x-ray revealed no acute cardiopulmonary process. Overnight, MR/MRA brain was obtained and revealed findings consistent with NPH in association with periventricular white matter ischemic changes. MRA neck revealed no definitive evidence for hemodynamically significant stenosis. However, the study was limited by motion artifact. The patient had been maintained on an insulin drip overnight. Blood sugars have been well controlled. Past Medical History Past Medical History (Chronic Problems): Chronic Problems (Last Updated 02/26/17 @ 09:40 by Nikolas Prasad) Diabetes mellitus (Chronic) HTN (hypertension) (Chronic) HLD (hyperlipidemia) (Chronic) Syncope and collapse (Chronic) Pulmonary embolism (Chronic) Fall (Chronic) Normal pressure hydrocephalus (Chronic) SVT (supraventricular tachycardia) (Chronic) BPH with obstruction/lower urinary tract symptoms (Chronic) Ventricular tachycardia (paroxysmal) (Chronic) Allergies No Known Allergies Allergy (Verified 02/26/17 09:34) Home Medications: Ambulatory Orders Medication Instructions Recorded Tamsulosin HCl [Flomax] 0.4 mg PO BID 02/13/16 Finasteride [Proscar] 5 mg PO DAILY 05/14/16 Liraglutide [Victoza 2-Dario] 1.2 mg SQ DAILY 05/15/16 Aspirin [Aspirin, Baby] 81 mg PO DAILY@0800 #30 tab.chew 10/13/16 Apixaban [Eliquis] 5 mg PO BID #60 tab 10/19/16 Insulin Aspart [Novolog Flexpen] 0 units SC ACHS 10/19/16 Insulin Detemir [Levemir FlexPen] 20 units SC BREAKFAST 10/19/16 Lisinopril [Zestril] 10 mg PO BID tab 10/19/16 Metoprolol Tartrate [Lopressor 25 mg PO BID tab 10/19/16 (beta luz maria)] amiodarone 200 mg tablet 200 mg PO QDAY tab 02/26/17 empagliflozin 25 mg tablet 25 mg PO QDAY 02/26/17 famotidine 20 mg tablet 20 mg PO QDAY tab 02/26/17 Surgical History: cholecystectomy, - - right meniscus surgery, deviated septum, Lives: Alone Smoking Status: Unknown if ever smoked - *Family History Paternal History Items: - - als Maternal History Items: Heart Disease - CAD; CABG Review of Systems Unable to obtain accurate/complete ROS d/t: Due to encephalopathic state Patient Problems: Active and Suspected Problems (Last Updated 02/26/17 @ 09:40 by Nikolas Prasad) Mental status change (Acute) Objective: The patient's most recent lab work, culture data and imaging studies have all been personally reviewed. Blood and urine cultures are pending. - Physical Exam General: Alert, Confused, Disoriented HEENT: Atraumatic, PERRLA, Normocephalic Oral: Dry Mucosa, - - Poor generalized dentition Neck: Supple, No Nodes, Trachea Midline Lungs: No rhonchi, No wheeze, No rales, Diminished Cardiovascular: Regular rate, Regular Rhythm, Normal S1, Normal S2, No murmurs Abdomen: Bowel Sounds Present, Soft, Non Tender, Obese Extremities: No clubbing, No cyanosis, No edema Skin: - - +Sunburn Musculoskeletal: No Muscle Wasting Lymphatic: No Cervical, Supraclavicular, or Inguinal Adenopathy Neurological: - - The patient awakens to verbal stimulation and tracks appropriately. His speech is currently garbled and nonsensical. He is moving all extremities spontaneously. Psych/Mental Status: Restless Vital Signs Temp Pulse Resp BP Pulse Ox 100.0 F H 80 19 H 117/99 H 95 07/05/17 04:00 07/05/17 05:11 07/05/17 05:00 07/05/17 05:11 07/05/17 05:00 Oxygen Flow Rate (L/min) 2 Oxygen Delivery Method Room Air Weight: 241 lb 13.553 oz Body Mass Index (BMI) 35.4 Finger Stick Blood Glucose 218 Intake and Output for Last 24 Hours 07/03/17 07/04/17 07/05/17 23:59 23:59 23:59 Intake Total 1589.2 / 1589.2 Output Total 1725 / 1725 Balance -135.8 / -135.8 Laboratory Tests Past 24 Hrs 07/04/17 07/04/17 07/04/17 17:00 17:00 17:00 WBC RBC Hgb Hct MCV MCH MCHC RDW RDW Differential Plt Count MPV Immature Gran % (Auto) Neut % (Auto) Lymph % (Auto) [place] % (Auto) Eos % (Auto) Baso % (Auto) Absolute Neuts (auto) Absolute Lymphs (auto) Total Counted APTT Sodium 143 Potassium 3.3 L Chloride 109 H Carbon Dioxide 25.0 Anion Gap 9 BUN 8 Creatinine 1.34 H Estim Creat Clear Calc 50.34 Est GFR (MDRD) Af Amer 68 Est GFR (MDRD) Non-Af 56 L BUN/Creatinine Ratio 6.0 L Glucose 460 H* Serum Osmolality 320 H Lactic Acid Calcium 9.7 Phosphorus 1.9 L Magnesium 2.0 Total Bilirubin AST ALT Alkaline Phosphatase Ammonia Troponin I Total Protein Albumin Triglycerides Cholesterol LDL Cholesterol VLDL Cholesterol HDL Cholesterol Ur Random Sodium Urine Creatinine MRSA (PCR) 07/04/17 07/04/17 07/04/17 17:00 17:00 17:00 WBC RBC Hgb Hct MCV MCH MCHC RDW RDW Differential Plt Count MPV Immature Gran % (Auto) Neut % (Auto) Lymph % (Auto) [place] % (Auto) Eos % (Auto) Baso % (Auto) Absolute Neuts (auto) Absolute Lymphs (auto) Total Counted APTT Sodium Potassium Chloride Carbon Dioxide Anion Gap BUN Creatinine Estim Creat Clear Calc Est GFR (MDRD) Af Amer Est GFR (MDRD) Non-Af BUN/Creatinine Ratio Glucose Serum Osmolality Lactic Acid 2.3 H Calcium Phosphorus Magnesium Total Bilirubin AST ALT Alkaline Phosphatase Ammonia 14.0 Troponin I 0.066 H Total Protein Albumin Triglycerides Cholesterol LDL Cholesterol VLDL Cholesterol HDL Cholesterol Ur Random Sodium Urine Creatinine MRSA (PCR) 07/04/17 07/04/17 07/04/17 17:05 17:30 17:30 WBC RBC Hgb Hct MCV MCH MCHC RDW RDW Differential Plt Count MPV Immature Gran % (Auto) Neut % (Auto) Lymph % (Auto) [place] % (Auto) Eos % (Auto) Baso % (Auto) Absolute Neuts (auto) Absolute Lymphs (auto) Total Counted APTT Sodium Potassium Chloride Carbon Dioxide Anion Gap BUN Creatinine Estim Creat Clear Calc Est GFR (MDRD) Af Amer Est GFR (MDRD) Non-Af BUN/Creatinine Ratio Glucose Serum Osmolality Lactic Acid Calcium Phosphorus Magnesium Total Bilirubin AST ALT Alkaline Phosphatase Ammonia Troponin I Total Protein Albumin Triglycerides Cholesterol LDL Cholesterol VLDL Cholesterol HDL Cholesterol Ur Random Sodium 49 Urine Creatinine 35.60 MRSA (PCR) Negative 07/04/17 07/04/17 07/04/17 20:45 20:45 20:45 WBC RBC Hgb Hct MCV MCH MCHC RDW RDW Differential Plt Count MPV Immature Gran % (Auto) Neut % (Auto) Lymph % (Auto) [place] % (Auto) Eos % (Auto) Baso % (Auto) Absolute Neuts (auto) Absolute Lymphs (auto) Total Counted APTT Sodium 146 H Potassium 3.6 Chloride 112 H Carbon Dioxide 25.0 Anion Gap 9 BUN 7 Creatinine 1.34 H Estim Creat Clear Calc 50.34 Est GFR (MDRD) Af Amer 68 Est GFR (MDRD) Non-Af 56 L BUN/Creatinine Ratio 5.2 L Glucose 326 H Serum Osmolality Lactic Acid 4.0 H* Calcium 9.7 Phosphorus Magnesium Total Bilirubin AST ALT Alkaline Phosphatase Ammonia Troponin I 0.058 H Total Protein Albumin Triglycerides Cholesterol LDL Cholesterol VLDL Cholesterol HDL Cholesterol Ur Random Sodium Urine Creatinine MRSA (PCR) 07/04/17 07/04/17 07/05/17 23:35 23:35 05:50 WBC 15.5 H RBC 5.67 Hgb 15.8 Hct 45.9 MCV 81.0 MCH 27.9 MCHC 34.4 RDW 14.6 RDW Differential 42.9 Plt Count 222 MPV 11.3 Immature Gran % (Auto) 0.400 Neut % (Auto) 78.0 H Lymph % (Auto) 13.6 L [place] % (Auto) 7.6 Eos % (Auto) 0.1 Baso % (Auto) 0.3 Absolute Neuts (auto) 12.1 H Absolute Lymphs (auto) 2.10 Total Counted Not Reportable APTT 62.7 H Sodium 146 H Potassium 3.7 Chloride 114 H Carbon Dioxide 27.0 Anion Gap 5 BUN 7 Creatinine 1.23 Estim Creat Clear Calc 54.84 Est GFR (MDRD) Af Amer 75 Est GFR (MDRD) Non-Af 62 BUN/Creatinine Ratio 5.7 L Glucose 234 H Serum Osmolality Lactic Acid Calcium 9.5 Phosphorus Magnesium Total Bilirubin AST ALT Alkaline Phosphatase Ammonia Troponin I Total Protein Albumin Triglycerides Cholesterol LDL Cholesterol VLDL Cholesterol HDL Cholesterol Ur Random Sodium Urine Creatinine MRSA (PCR) 07/05/17 07/05/17 07/05/17 05:50 05:50 05:50 WBC RBC Hgb Hct MCV MCH MCHC RDW RDW Differential Plt Count MPV Immature Gran % (Auto) Neut % (Auto) Lymph % (Auto) [place] % (Auto) Eos % (Auto) Baso % (Auto) Absolute Neuts (auto) Absolute Lymphs (auto) Total Counted APTT 43.6 H Sodium Pending Potassium Pending Chloride Pending Carbon Dioxide Pending Anion Gap Pending BUN Pending Creatinine Pending Estim Creat Clear Calc Est GFR (MDRD) Af Amer Pending Est GFR (MDRD) Non-Af Pending BUN/Creatinine Ratio Pending Glucose Pending Serum Osmolality Lactic Acid Pending Calcium Pending Phosphorus Magnesium Total Bilirubin Pending AST Pending ALT Pending Alkaline Phosphatase Pending Ammonia Troponin I Total Protein Pending Albumin Pending Triglycerides Pending Cholesterol Pending LDL Cholesterol Pending VLDL Cholesterol Pending HDL Cholesterol Pending Ur Random Sodium Urine Creatinine MRSA (PCR) POC Glucose 07/05/17 07/05/17 07/05/17 03:47 02:46 01:38 POC Glucose 220 H 218 H 186 H 07/05/17 07/04/17 07/04/17 00:50 23:46 22:57 POC Glucose 197 H 256 H 280 H 07/04/17 07/04/17 07/04/17 21:44 20:32 18:23 POC Glucose 290 H 366 H 329 H 07/04/17 07/04/17 17:17 16:27 POC Glucose 471 H* 485 H* Clinical Impression(s) from Imaging Studies Brain CT 07/04/17 14:10 IMPRESSION: Chronic involutional changes of the brain. Findings suggestive of a normal pressure hydrocephalus. Electronically Signed: Bjorn Naqvi MD at 15:12 EDT Tel [phone], Service support , Chest X-Ray 07/04/17 14:10 IMPRESSION: Borderline cardiomegaly. No acute abnormality is seen. Electronically Signed: Bjorn Naqvi MD at 14:53 EDT Tel [phone], Service support , Cervical Spine CT 07/04/17 14:11 IMPRESSION: Multilevel degenerative changes, as described above. Electronically Signed: Bjorn Naqvi MD at 15:14 EDT Tel [phone], Service support , Brain MRI 07/04/17 17:01 IMPRESSION: Findings which may be consistent with communicating hydrocephalus or NPH in association with periventricular white matter ischemic changes. No evidence for acute infarct Electronically Signed: Tate Hendrix MD at 20:13 EDT , Service support , Head MRA 07/04/17 17:01 IMPRESSION: Nonvisualization of the right vertebral possibly due to proximal occlusion. MRA of the neck would be helpful for further evaluation in this regard if indicated Electronically Signed: Tate Hendrix MD at 20:36 EDT , Service support , Neck MRA 07/04/17 17:01 IMPRESSION: Limited study due to motion artifact but no definitive evidence for hemodynamically significant stenosis of the carotids. Would recommend correlation with CTA or ultrasound for further assessment if clinically warranted Electronically Signed: Tate Hendrix MD at 21:18 EDT , Service support , Assessment/Plan Active and Suspected Problems (Last Updated 02/26/17 @ 09:40 by Harumi DeFinis) Mental status change (Acute) RECOMMENDATIONS: 1. Given rising sodium and chloride levels, discontinue normal saline and transition to D5W 2. Okay to discontinue insulin drip and transition to sliding scale coverage 3. Repeat chest x-ray and start empiric antibiotics, given fevers noted overnight. 4. Continue heparin drip 5. Potassium repletion 6. Discontinue checking lactic acid levels 7. Avoid sedating medications IMPRESSIONS: 1. Encephalopathy, likely metabolic in etiology / personal history of normal pressure hydrocephalus Per nursing account, the patient appears to be improving slowly. His metabolic/electrolyte derangements are being corrected. Continue current supportive measures as noted above. The patient's normal saline fluid will be transitioned to D5W, given rising sodium and chloride levels. His insulin drip can be transitioned to a medium intensity sliding scale. Given the fevers noted overnight, a repeat plain film chest x-ray will be obtained and broad-spectrum antibiotics initiated. 2. Troponin elevation Cardiology is following. Continue to trend troponins accordingly. The patient does have a history of PSVT and VT. He was evaluated by an flux mixer at [facility] previously. Over concern for his underlying cardiac dysrhythmias, cardiology is recommending consideration for transfer to a tertiary care facility for repeat evaluation by EP. 3. Acute kidney injury Likely prerenal in etiology, as the patient's creatinine stabilized with volume expansion. Continue to monitor urine output. No indication for renal replacement therapy at this time. 4. Hyperosmolar hyperglycemic state The patient's blood glucose levels are under adequate control. His continuous insulin drip can be discontinued and he can be transitioned to sliding scale insulin coverage for now. 5. Personal history of VTE Continue heparin drip as ordered. 6. Questionable medical compliance/hypertension/hyperlipidemia/BPH Complicates care, management, recovery and prognosis. The patient will require eventual evaluation by physical therapy, once medically stabilized. This note was generated with [employer] dictation software. It may contain incorrect words, spelling, and punctuation that were not noted in checking the note before signing. Code Visit Inpatient E&M: 49805 Init Hosp L3
--- NOTE | 2017-07-05 06:35 | CON.PCM_ITS ---
Reason for Consult Date of Consultation: 07/05/17 Reason for Consultation: Encephalopathy History of Present Illness: The patient is a 71-year-old male, with a history as outlined below, who presented to the emergency department on July 04 in an unresponsive state after being found down. The patient does have a history of a prior similar presentation in October 2016. The patient does have a history of normal pressure hydrocephalus along with a prior history of pulmonary embolism. On presentation to the emergency department, the patient was noted to be febrile , tachycardic and hypertensive. Laboratory evaluation revealed a mildly elevated white blood cell count. Coagulation profile revealed an INR of 1.0. Arterial blood gas was within normal limits. Chemistry profile revealed evidence of acute kidney injury with creatinine 1.45. Glucose was elevated to 652. The patient's last hemoglobin A1c was noted to be 11.8. Serum lactate was elevated at 3.0. There was also a troponin leak, which peaked at 0.068. Toxicology screen was negative. Head CT revealed chronic involutional changes with findings suggestive of normal pressure hydrocephalus. Chest x-ray revealed no acute cardiopulmonary process. Overnight, MR/MRA brain was obtained and revealed findings consistent with NPH in association with periventricular white matter ischemic changes. MRA neck revealed no definitive evidence for hemodynamically significant stenosis. However, the study was limited by motion artifact. The patient had been maintained on an insulin drip overnight. Blood sugars have been well controlled. Past Medical History Past Medical History (Chronic Problems): Chronic Problems (Last Updated 02/26/17 @ 09:40 by Nikolas Prasad) Diabetes mellitus (Chronic) HTN (hypertension) (Chronic) HLD (hyperlipidemia) (Chronic) Syncope and collapse (Chronic) Pulmonary embolism (Chronic) Fall (Chronic) Normal pressure hydrocephalus (Chronic) SVT (supraventricular tachycardia) (Chronic) BPH with obstruction/lower urinary tract symptoms (Chronic) Ventricular tachycardia (paroxysmal) (Chronic) Allergies No Known Allergies Allergy (Verified 02/26/17 09:34) Home Medications: Ambulatory Orders Medication Instructions Recorded Tamsulosin HCl [Flomax] 0.4 mg PO BID 02/13/16 Finasteride [Proscar] 5 mg PO DAILY 05/14/16 Liraglutide [Victoza 2-Dario] 1.2 mg SQ DAILY 05/15/16 Aspirin [Aspirin, Baby] 81 mg PO DAILY@0800 #30 tab.chew 10/13/16 Apixaban [Eliquis] 5 mg PO BID #60 tab 10/19/16 Insulin Aspart [Novolog Flexpen] 0 units SC ACHS 10/19/16 Insulin Detemir [Levemir FlexPen] 20 units SC BREAKFAST 10/19/16 Lisinopril [Zestril] 10 mg PO BID tab 10/19/16 Metoprolol Tartrate [Lopressor 25 mg PO BID tab 10/19/16 (beta luz maria)] amiodarone 200 mg tablet 200 mg PO QDAY tab 02/26/17 empagliflozin 25 mg tablet 25 mg PO QDAY 02/26/17 famotidine 20 mg tablet 20 mg PO QDAY tab 02/26/17 Surgical History: cholecystectomy, - - right meniscus surgery, deviated septum, Lives: Alone Smoking Status: Unknown if ever smoked - *Family History Paternal History Items: - - als Maternal History Items: Heart Disease - CAD; CABG Review of Systems Unable to obtain accurate/complete ROS d/t: Due to encephalopathic state Patient Problems: Active and Suspected Problems (Last Updated 02/26/17 @ 09:40 by Nikolas Prasad) Mental status change (Acute) Objective: The patient's most recent lab work, culture data and imaging studies have all been personally reviewed. Blood and urine cultures are pending. - Physical Exam General: Alert, Confused, Disoriented HEENT: Atraumatic, PERRLA, Normocephalic Oral: Dry Mucosa, - - Poor generalized dentition Neck: Supple, No Nodes, Trachea Midline Lungs: No rhonchi, No wheeze, No rales, Diminished Cardiovascular: Regular rate, Regular Rhythm, Normal S1, Normal S2, No murmurs Abdomen: Bowel Sounds Present, Soft, Non Tender, Obese Extremities: No clubbing, No cyanosis, No edema Skin: - - +Sunburn Musculoskeletal: No Muscle Wasting Lymphatic: No Cervical, Supraclavicular, or Inguinal Adenopathy Neurological: - - The patient awakens to verbal stimulation and tracks appropriately. His speech is currently garbled and nonsensical. He is moving all extremities spontaneously. Psych/Mental Status: Restless Vital Signs Temp Pulse Resp BP Pulse Ox 100.0 F H 80 19 H 117/99 H 95 07/05/17 04:00 07/05/17 05:11 07/05/17 05:00 07/05/17 05:11 07/05/17 05:00 Oxygen Flow Rate (L/min) 2 Oxygen Delivery Method Room Air Weight: 241 lb 13.553 oz Body Mass Index (BMI) 35.4 Finger Stick Blood Glucose 218 Intake and Output for Last 24 Hours 07/03/17 07/04/17 07/05/17 23:59 23:59 23:59 Intake Total 1589.2 / 1589.2 Output Total 1725 / 1725 Balance -135.8 / -135.8 Laboratory Tests Past 24 Hrs 07/04/17 07/04/17 07/04/17 17:00 17:00 17:00 WBC RBC Hgb Hct MCV MCH MCHC RDW RDW Differential Plt Count MPV Immature Gran % (Auto) Neut % (Auto) Lymph % (Auto) [place] % (Auto) Eos % (Auto) Baso % (Auto) Absolute Neuts (auto) Absolute Lymphs (auto) Total Counted APTT Sodium 143 Potassium 3.3 L Chloride 109 H Carbon Dioxide 25.0 Anion Gap 9 BUN 8 Creatinine 1.34 H Estim Creat Clear Calc 50.34 Est GFR (MDRD) Af Amer 68 Est GFR (MDRD) Non-Af 56 L BUN/Creatinine Ratio 6.0 L Glucose 460 H* Serum Osmolality 320 H Lactic Acid Calcium 9.7 Phosphorus 1.9 L Magnesium 2.0 Total Bilirubin AST ALT Alkaline Phosphatase Ammonia Troponin I Total Protein Albumin Triglycerides Cholesterol LDL Cholesterol VLDL Cholesterol HDL Cholesterol Ur Random Sodium Urine Creatinine MRSA (PCR) 07/04/17 07/04/17 07/04/17 17:00 17:00 17:00 WBC RBC Hgb Hct MCV MCH MCHC RDW RDW Differential Plt Count MPV Immature Gran % (Auto) Neut % (Auto) Lymph % (Auto) [place] % (Auto) Eos % (Auto) Baso % (Auto) Absolute Neuts (auto) Absolute Lymphs (auto) Total Counted APTT Sodium Potassium Chloride Carbon Dioxide Anion Gap BUN Creatinine Estim Creat Clear Calc Est GFR (MDRD) Af Amer Est GFR (MDRD) Non-Af BUN/Creatinine Ratio Glucose Serum Osmolality Lactic Acid 2.3 H Calcium Phosphorus Magnesium Total Bilirubin AST ALT Alkaline Phosphatase Ammonia 14.0 Troponin I 0.066 H Total Protein Albumin Triglycerides Cholesterol LDL Cholesterol VLDL Cholesterol HDL Cholesterol Ur Random Sodium Urine Creatinine MRSA (PCR) 07/04/17 07/04/17 07/04/17 17:05 17:30 17:30 WBC RBC Hgb Hct MCV MCH MCHC RDW RDW Differential Plt Count MPV Immature Gran % (Auto) Neut % (Auto) Lymph % (Auto) [place] % (Auto) Eos % (Auto) Baso % (Auto) Absolute Neuts (auto) Absolute Lymphs (auto) Total Counted APTT Sodium Potassium Chloride Carbon Dioxide Anion Gap BUN Creatinine Estim Creat Clear Calc Est GFR (MDRD) Af Amer Est GFR (MDRD) Non-Af BUN/Creatinine Ratio Glucose Serum Osmolality Lactic Acid Calcium Phosphorus Magnesium Total Bilirubin AST ALT Alkaline Phosphatase Ammonia Troponin I Total Protein Albumin Triglycerides Cholesterol LDL Cholesterol VLDL Cholesterol HDL Cholesterol Ur Random Sodium 49 Urine Creatinine 35.60 MRSA (PCR) Negative 07/04/17 07/04/17 07/04/17 20:45 20:45 20:45 WBC RBC Hgb Hct MCV MCH MCHC RDW RDW Differential Plt Count MPV Immature Gran % (Auto) Neut % (Auto) Lymph % (Auto) [place] % (Auto) Eos % (Auto) Baso % (Auto) Absolute Neuts (auto) Absolute Lymphs (auto) Total Counted APTT Sodium 146 H Potassium 3.6 Chloride 112 H Carbon Dioxide 25.0 Anion Gap 9 BUN 7 Creatinine 1.34 H Estim Creat Clear Calc 50.34 Est GFR (MDRD) Af Amer 68 Est GFR (MDRD) Non-Af 56 L BUN/Creatinine Ratio 5.2 L Glucose 326 H Serum Osmolality Lactic Acid 4.0 H* Calcium 9.7 Phosphorus Magnesium Total Bilirubin AST ALT Alkaline Phosphatase Ammonia Troponin I 0.058 H Total Protein Albumin Triglycerides Cholesterol LDL Cholesterol VLDL Cholesterol HDL Cholesterol Ur Random Sodium Urine Creatinine MRSA (PCR) 07/04/17 07/04/17 07/05/17 23:35 23:35 05:50 WBC 15.5 H RBC 5.67 Hgb 15.8 Hct 45.9 MCV 81.0 MCH 27.9 MCHC 34.4 RDW 14.6 RDW Differential 42.9 Plt Count 222 MPV 11.3 Immature Gran % (Auto) 0.400 Neut % (Auto) 78.0 H Lymph % (Auto) 13.6 L [place] % (Auto) 7.6 Eos % (Auto) 0.1 Baso % (Auto) 0.3 Absolute Neuts (auto) 12.1 H Absolute Lymphs (auto) 2.10 Total Counted Not Reportable APTT 62.7 H Sodium 146 H Potassium 3.7 Chloride 114 H Carbon Dioxide 27.0 Anion Gap 5 BUN 7 Creatinine 1.23 Estim Creat Clear Calc 54.84 Est GFR (MDRD) Af Amer 75 Est GFR (MDRD) Non-Af 62 BUN/Creatinine Ratio 5.7 L Glucose 234 H Serum Osmolality Lactic Acid Calcium 9.5 Phosphorus Magnesium Total Bilirubin AST ALT Alkaline Phosphatase Ammonia Troponin I Total Protein Albumin Triglycerides Cholesterol LDL Cholesterol VLDL Cholesterol HDL Cholesterol Ur Random Sodium Urine Creatinine MRSA (PCR) 07/05/17 07/05/17 07/05/17 05:50 05:50 05:50 WBC RBC Hgb Hct MCV MCH MCHC RDW RDW Differential Plt Count MPV Immature Gran % (Auto) Neut % (Auto) Lymph % (Auto) [place] % (Auto) Eos % (Auto) Baso % (Auto) Absolute Neuts (auto) Absolute Lymphs (auto) Total Counted APTT 43.6 H Sodium Pending Potassium Pending Chloride Pending Carbon Dioxide Pending Anion Gap Pending BUN Pending Creatinine Pending Estim Creat Clear Calc Est GFR (MDRD) Af Amer Pending Est GFR (MDRD) Non-Af Pending BUN/Creatinine Ratio Pending Glucose Pending Serum Osmolality Lactic Acid Pending Calcium Pending Phosphorus Magnesium Total Bilirubin Pending AST Pending ALT Pending Alkaline Phosphatase Pending Ammonia Troponin I Total Protein Pending Albumin Pending Triglycerides Pending Cholesterol Pending LDL Cholesterol Pending VLDL Cholesterol Pending HDL Cholesterol Pending Ur Random Sodium Urine Creatinine MRSA (PCR) POC Glucose 07/05/17 07/05/17 07/05/17 03:47 02:46 01:38 POC Glucose 220 H 218 H 186 H 07/05/17 07/04/17 07/04/17 00:50 23:46 22:57 POC Glucose 197 H 256 H 280 H 07/04/17 07/04/17 07/04/17 21:44 20:32 18:23 POC Glucose 290 H 366 H 329 H 07/04/17 07/04/17 17:17 16:27 POC Glucose 471 H* 485 H* Clinical Impression(s) from Imaging Studies Brain CT 07/04/17 14:10 IMPRESSION: Chronic involutional changes of the brain. Findings suggestive of a normal pressure hydrocephalus. Electronically Signed: Bjorn Naqvi MD at 15:12 EDT Tel [phone], Service support , Chest X-Ray 07/04/17 14:10 IMPRESSION: Borderline cardiomegaly. No acute abnormality is seen. Electronically Signed: Bjorn Naqvi MD at 14:53 EDT Tel [phone], Service support , Cervical Spine CT 07/04/17 14:11 IMPRESSION: Multilevel degenerative changes, as described above. Electronically Signed: Bjorn Naqvi MD at 15:14 EDT Tel [phone], Service support , Brain MRI 07/04/17 17:01 IMPRESSION: Findings which may be consistent with communicating hydrocephalus or NPH in association with periventricular white matter ischemic changes. No evidence for acute infarct Electronically Signed: Tate Hendrix MD at 20:13 EDT , Service support , Head MRA 07/04/17 17:01 IMPRESSION: Nonvisualization of the right vertebral possibly due to proximal occlusion. MRA of the neck would be helpful for further evaluation in this regard if indicated Electronically Signed: Tate Hendrix MD at 20:36 EDT , Service support , Neck MRA 07/04/17 17:01 IMPRESSION: Limited study due to motion artifact but no definitive evidence for hemodynamically significant stenosis of the carotids. Would recommend correlation with CTA or ultrasound for further assessment if clinically warranted Electronically Signed: Tate Hendrix MD at 21:18 EDT , Service support , Assessment/Plan Active and Suspected Problems (Last Updated 02/26/17 @ 09:40 by Harumi DeFinis) Mental status change (Acute) RECOMMENDATIONS: 1. Given rising sodium and chloride levels, discontinue normal saline and transition to D5W 2. Okay to discontinue insulin drip and transition to sliding scale coverage 3. Repeat chest x-ray and start empiric antibiotics, given fevers noted overnight. 4. Continue heparin drip 5. Potassium repletion 6. Discontinue checking lactic acid levels 7. Avoid sedating medications IMPRESSIONS: 1. Encephalopathy, likely metabolic in etiology / personal history of normal pressure hydrocephalus Per nursing account, the patient appears to be improving slowly. His metabolic/ electrolyte derangements are being corrected. Continue current supportive measures as noted above. The patient's normal saline fluid will be transitioned to D5W, given rising sodium and chloride levels. His insulin drip can be transitioned to a medium intensity sliding scale. Given the fevers noted overnight, a repeat plain film chest x-ray will be obtained and broad- spectrum antibiotics initiated. 2. Troponin elevation Cardiology is following. Continue to trend troponins accordingly. The patient does have a history of PSVT and VT. He was evaluated by an licensed insurance sales agent at [facility] previously. Over concern for his underlying cardiac dysrhythmias, cardiology is recommending consideration for transfer to a tertiary care facility for repeat evaluation by EP. 3. Acute kidney injury Likely prerenal in etiology, as the patient's creatinine stabilized with volume expansion. Continue to monitor urine output. No indication for renal replacement therapy at this time. 4. Hyperosmolar hyperglycemic state The patient's blood glucose levels are under adequate control. His continuous insulin drip can be discontinued and he can be transitioned to sliding scale insulin coverage for now. 5. Personal history of VTE Continue heparin drip as ordered. 6. Questionable medical compliance/hypertension/hyperlipidemia/BPH Complicates care, management, recovery and prognosis. The patient will require eventual evaluation by physical therapy, once medically stabilized. This note was generated with #waywire dictation software. It may contain incorrect words, spelling, and punctuation that were not noted in checking the note before signing. Code Visit Inpatient E&M: 44060 Init Hosp L3
--- NOTE | 2017-07-05 06:35 | PCM.PN.HOSP ---
Patient Problems: Active and Suspected Problems (Last Updated 02/26/17 @ 09:40 by Nikolas Prasad) Mental status change (Acute) Subjective: Patient overnight with continued agitation and intermittent increased alertness requiring restraints and sedation intermittently. Overnight telemetry w/ new atypical wide complex arrhythmia possible per Cardiology secondary to pre-excitation syndrome/idioventricular rhythm w/ encouraged transfer to Tertiary Facility for EP evaluation, insulin drip d/c 7 am given improvement w/ HHS. Patient occasionally answering but still lethargic and unsafe oral intake. MRI without acute CVA. Unable to answer ROS questions secondary to lethargy and mental status alteration. Objective: Physical Examination: General: awakens to stimuli, intermittently alert, not oriented, not cooperative, trying to occasional exit ICU bed. Skin: Sunburn to the abdomen as well as the right lower extremity, improved but initially notable intertrigo beneath the pannus and in the groin folds, decreased skin turgor. HEENT: AT/NC, EOM difficult to be assessed secondary to inability to follow commands, PERRLA, improved less dry MM. Lungs: Diminished BS BL, > bases, poor effort, no rales, ronchi or wheezing. Heart: Irregular; no gallop, rub audible. Abdomen: soft, obese, NTTP, ND, normal BS, sunburn on thorax/abd. Extremities: no cyanosis, clubbing, see skin. Neurological: awakens to stimuli, intermittently alert, not oriented, not cooperative; cognitive function not baseline intact; pupils equally reactive to light and accomodation; cranial nerves II-XII grossly normal and moving extremities but not following commands, difficult to assess strength but appears severely diffusely dimininshed. Psychiatric: affect appears fatigued, not interactive, flat, no acute evidence of depressive or anxiety feelings. Vitals/I&O's: Vital Signs Temp Pulse Resp BP Pulse Ox 100.0 F H 64 16 132/97 H 94 07/05/17 04:00 07/05/17 06:00 07/05/17 06:00 07/05/17 06:00 07/05/17 06:00 Oxygen Flow Rate (L/min) 2 Oxygen Delivery Method Room Air Weight: 241 lb 13.553 oz Body Mass Index (BMI) 35.4 Finger Stick Blood Glucose 218 Intake and Output for Last 24 Hours 07/03/17 07/04/17 07/05/17 23:59 23:59 23:59 Intake Total 1589.2 / 1589.2 945.4 / 945.4 Output Total 1725 / 1725 150 / 150 Balance -135.8 / -135.8 795.4 / 795.4 Laboratory Results 07/04/17 16:27: POC Glucose 485 H* 07/04/17 17:00: Sodium 143, Potassium 3.3 L, Chloride 109 H, Carbon Dioxide 25.0, Anion Gap 9, BUN 8, Creatinine 1.34 H, Estim Creat Clear Calc 50.34, Est GFR (MDRD) Af Amer 68, Est GFR (MDRD) Non-Af 56 L, BUN/Creatinine Ratio 6.0 L, Glucose 460 H*, Calcium 9.7, Magnesium 2.0 07/04/17 17:00: Phosphorus 1.9 L 07/04/17 17:00: Serum Osmolality 320 H 07/04/17 17:00: Ammonia 14.0 07/04/17 17:00: Lactic Acid 2.3 H 07/04/17 17:00: Troponin I 0.066 H 07/04/17 17:05: MRSA (PCR) Negative 07/04/17 17:17: POC Glucose 471 H* 07/04/17 17:30: Urine Creatinine 35.60 07/04/17 17:30: Ur Random Sodium 49 07/04/17 18:23: POC Glucose 329 H 07/04/17 20:32: POC Glucose 366 H 07/04/17 20:45: Sodium 146 H, Potassium 3.6, Chloride 112 H, Carbon Dioxide 25.0, Anion Gap 9, BUN 7, Creatinine 1.34 H, Estim Creat Clear Calc 50.34, Est GFR (MDRD) Af Amer 68, Est GFR (MDRD) Non-Af 56 L, BUN/Creatinine Ratio 5.2 L, Glucose 326 H, Calcium 9.7 07/04/17 20:45: Troponin I 0.058 H 07/04/17 20:45: Lactic Acid 4.0 H* 07/04/17 21:44: POC Glucose 290 H 07/04/17 22:57: POC Glucose 280 H 07/04/17 23:35: Sodium 146 H, Potassium 3.7, Chloride 114 H, Carbon Dioxide 27.0, Anion Gap 5, BUN 7, Creatinine 1.23, Estim Creat Clear Calc 54.84, Est GFR (MDRD) Af Amer 75, Est GFR (MDRD) Non-Af 62, BUN/Creatinine Ratio 5.7 L, Glucose 234 H, Calcium 9.5 07/04/17 23:35: APTT 62.7 H 07/04/17 23:46: POC Glucose 256 H 07/05/17 00:50: POC Glucose 197 H 07/05/17 01:38: POC Glucose 186 H 07/05/17 02:46: POC Glucose 218 H 07/05/17 03:47: POC Glucose 220 H 07/05/17 05:50: WBC 15.5 H, RBC 5.67, Hgb 15.8, Hct 45.9, MCV 81.0, MCH 27.9, MCHC 34.4, RDW 14.6, RDW Differential 42.9, Plt Count 222, MPV 11.3, Immature Gran % (Auto) 0.400, Neut % (Auto) 78.0 H, Lymph % (Auto) 13.6 L, [place] % (Auto) 7.6, Eos % (Auto) 0.1, Baso % (Auto) 0.3, Absolute Neuts (auto) 12.1 H, Absolute Lymphs (auto) 2.10, Total Counted Not Reportable 07/05/17 05:50: Sodium Pending, Potassium Pending, Chloride Pending, Carbon Dioxide Pending, Anion Gap Pending, BUN Pending, Creatinine Pending, Est GFR (MDRD) Af Amer Pending, Est GFR (MDRD) Non-Af Pending, BUN/Creatinine Ratio Pending, Glucose Pending, Calcium Pending, Total Bilirubin Pending, AST Pending, ALT Pending, Alkaline Phosphatase Pending, Total Protein Pending, Albumin Pending, Triglycerides Pending, Cholesterol Pending, LDL Cholesterol Pending, VLDL Cholesterol Pending, HDL Cholesterol Pending 07/05/17 05:50: Lactic Acid Pending 07/05/17 05:50: APTT 43.6 H Current Medications Acetaminophen (Tylenol) 650 mg RECTAL Q6H PRN PRN PRN Reason: Pain/Fever Last Admin: 07/04/17 22:52 Dose: 650 mg Aspirin (Aspirin) 300 mg RECTAL DAILY SHANELLE Chlorhexidine Gluconate () 1 each TOPICAL DAILY [facility] Last Admin: 07/05/17 05:28 Dose: 1 each Dextrose (D50w Syringe) 0 gm IV X1 PRN; Protocol PRN Reason: HYPOGLYCEMIA Enalaprilat (Vasotec) 0.625 mg IV Q6 [facility] Last Admin: 07/05/17 05:11 Dose: 0.625 mg Haloperidol Lactate (Haldol) 1 mg IV Q4H PRN PRN PRN Reason: AGITATION Heparin Sodium (Porcine) () 0 units IV UD PRN PRN Reason: Protocol Sodium Chloride () 1,000 mls @ 150 mls/hr IV .Q6H40M [facility] Last Admin: 07/05/17 01:01 Dose: Not Given Insulin Aspart 100 unit/ (Sodium Chloride) 100 mls @ 11.53 mls/hr IV .Q8H41M [facility]; 0.1 UNITS/KG/HR PRN Reason: Protocol Last Admin: 07/05/17 01:54 Dose: Not Given Pantoprazole Sodium 40 mg/ (Sodium Chloride) 110 mls @ 330 mls/hr IV Q12 [facility] Last Admin: 07/04/17 21:47 Dose: 330 mls/hr Heparin Sodium/Sodium Chloride () 25,000 unit in 250 mls @ 16 mls/hr IV .[id number] [facility]; As Directed PRN Reason: Protocol Last Admin: 07/04/17 17:50 Dose: 16 mls/hr Labetalol HCl (Trandate) 10 mg IV Q10M PRN PRN Reason: MAINTAIN SBP GOALS Stop: 07/05/17 17:02 Magnesium Hydroxide (Milk Of Magnesia) 30 ml PO DAILY PRN PRN Reason: Constipation Metoprolol Tartrate (Lopressor (Beta Audrey)) 5 mg IV Q6 [facility] Last Admin: 07/05/17 05:11 Dose: 5 mg Nystatin (Mycostatin Powder) 1 applic TOPICAL TID [facility] PRN Reason: Protocol Last Admin: 07/05/17 05:10 Dose: 1 applicatio Ondansetron HCl (Zofran) 4 mg IV Q8H PRN PRN PRN Reason: NAUSEA Sodium Chloride () 5 - 30 ml IV UD PRN PRN Reason: SALINE FLUSH Last Admin: 07/05/17 05:10 Dose: 30 ml Throat Lozenges (Dermoplast (Sp)) 1 applic TOPICAL TID SHANELLE PRN Reason: Protocol Last Admin: 07/05/17 05:09 Dose: 1 applic Medical Necessity - Tobacco Use Smoking Status: Unknown if ever smoked Assessment/Plan Active and Suspected Problems (Last Updated 02/26/17 @ 09:40 by Nikolas Prasad) Mental status change (Acute) The patient is a 71 y/o M w/ PMHx: Diabetes mellitus type II, Hx PE, Hx SVT, NPH, BPH, HTN, HLD, history of frequent presentations w/ similar history of found unresponsive w/ elevated BS, elevated LA who presents to the [facility] ED on 07/04/17 w/ history of again being found unresponsive on his front lawn, nearly naked per the post delivery individual. In the ED patient noted markedly responsiven although did improved w/ occasional word following hydration. (1) Acute Encephalopathy, Unclear Etiology, Possible CVA, Possible Metabolic secondary to concurrently noted #2, #3, #4: Admitted to the ICU, MRI Brain with findings consistent with communicating hydrocephalus or NPH in association with periventricular white matter ischemic changes with no acute evidence of acute infarct, MRA Head with nonvisualization of the right vertebral possibly due to proximal occlusion and MRA Neck w/ limited study secondary to motion artifact with no definitive evidence for hemodynamically significant stenosis of the carotids, ECHO pending, PT/OT/Speech/Nutrition evaluation per protocol. Pending consultation w/ Neurology, Cardiology and ICU physician for evaluation. Initially permissive HTN pending imaging, Cardiology added scheduled ACEI and BB IV w/ PRN hydralazine. Mental status still not improved markedly, not following commands, maintain on [place] asa, heparin drip as noted for concurrent PE history not able to take oral regimen currently, AM FLP, fall precautions, position changes, Mag, phos, ammonia not marked. (2) Acute kidney injury: Secondary to poor intake w/ possible HHS. Admission BUN/Cr 9/1.45, prior baseline creatinine noted to be 1. Hydrated, held nephrotoxic medications, UA not marked appearing. 07/05/17 BUN/Cr 7/1.23, improved. (3) Hyperglycemia Hyperosmolar State: Serum Osm obtained, elevated, consistent w/ HHS, initially insulin drip, levels improved, still poor mental status, unsafe oral intake, mag and phos levels obtained and supplemented as needed. Transitioned off insulin drip, nutrition consulted once able to interact, HgbA1c 11.8%. (4) Indeterminate cardiac enzymes w/ Hx PSVT and PVT w/ New Wide Complex Arrhythmia: EKG in ED w/ sinus rhythm with poor R-wave progression with inferior DC of indeterminate age, CXR w/ chronic changes, Trop elevated, 0.068 in ED. Trending w/ 0.068-->0.066-->0.058. Maintained on a monitored bed. Mag normal. Prior admission w/ elevated enzymes w/ SVT w/ prior evaluation per EP per Cardiology note at that time. Patient was supposed to follow-up for outpatient cardiac catheterization but per records did not thus will consult Cardiology for assessment. Repeat ECHO requested. Continued [place] ASA. Telemetry per review and discussion with Cardiology noting new wide complex tachycardia, suspected secondary to pre-excitation syndrome/idioventricular rhythm w/ recommendation for transfer to Tertiary Facility for EP Cardiology evaluation. Cardiology addition scheduled enalapril, metoprolol IV. (5) History of PE: On anticoagulation per history, unclear when taken last, unclear down time but TCK not markedly elevated and sunburn not severe, administered heparin bolus and maintain on drip until clinical status w/ po intake allowance. (6) Sunburn, Distal Thorax, RLE: Continue TID administration of aloe mixture/spray. 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 Neurology consulted, pending. (8) Hypertension: MRI negative for acute ischemic events thus once appropriate for oral intake will add back home hypertensive regimen, PRN hydralazine in interim. (9) Hyperlipidemia: Not on statin, FLP with triglyceride 176, cholesterol 224, LDL 147, VLDL 35, HDL 42.. (10) BPH: Holding oral agents. (11) DVT Prophylaxis: SCDs, heparin drip as noted. Code Visit Inpatient E&M: 99699 Subs Hosp L3
--- NOTE | 2017-07-05 06:43 | PN_ITS ---
Patient Problems: Active and Suspected Problems (Last Updated 02/26/17 @ 09:40 by Nikolas Prasad) Mental status change (Acute) Subjective: Patient overnight with continued agitation and intermittent increased alertness requiring restraints and sedation intermittently. Overnight telemetry w/ new atypical wide complex arrhythmia possible per Cardiology secondary to pre- excitation syndrome/idioventricular rhythm w/ encouraged transfer to Tertiary Facility for EP evaluation, insulin drip d/c 7 am given improvement w/ HHS. Patient occasionally answering but still lethargic and unsafe oral intake. MRI without acute CVA. Unable to answer ROS questions secondary to lethargy and mental status alteration. Objective: Physical Examination: General: awakens to stimuli, intermittently alert, not oriented, not cooperative , trying to occasional exit ICU bed. Skin: Sunburn to the abdomen as well as the right lower extremity, improved but initially notable intertrigo beneath the pannus and in the groin folds, decreased skin turgor. HEENT: AT/NC, EOM difficult to be assessed secondary to inability to follow commands, PERRLA, improved less dry MM. Lungs: Diminished BS BL, > bases, poor effort, no rales, ronchi or wheezing. Heart: Irregular; no gallop, rub audible. Abdomen: soft, obese, NTTP, ND, normal BS, sunburn on thorax/abd. Extremities: no cyanosis, clubbing, see skin. Neurological: awakens to stimuli, intermittently alert, not oriented, not cooperative; cognitive function not baseline intact; pupils equally reactive to light and accomodation; cranial nerves II-XII grossly normal and moving extremities but not following commands, difficult to assess strength but appears severely diffusely dimininshed. Psychiatric: affect appears fatigued, not interactive, flat, no acute evidence of depressive or anxiety feelings. Vitals/I&O's: Vital Signs Temp Pulse Resp BP Pulse Ox 100.0 F H 64 16 132/97 H 94 07/05/17 04:00 07/05/17 06:00 07/05/17 06:00 07/05/17 06:00 07/05/17 06:00 Oxygen Flow Rate (L/min) 2 Oxygen Delivery Method Room Air Weight: 241 lb 13.553 oz Body Mass Index (BMI) 35.4 Finger Stick Blood Glucose 218 Intake and Output for Last 24 Hours 07/03/17 07/04/17 07/05/17 23:59 23:59 23:59 Intake Total 1589.2 / 1589.2 945.4 / 945.4 Output Total 1725 / 1725 150 / 150 Balance -135.8 / -135.8 795.4 / 795.4 Laboratory Results 07/04/17 16:27: POC Glucose 485 H* 07/04/17 17:00: Sodium 143, Potassium 3.3 L, Chloride 109 H, Carbon Dioxide 25.0 , Anion Gap 9, BUN 8, Creatinine 1.34 H, Estim Creat Clear Calc 50.34, Est GFR ( MDRD) Af Amer 68, Est GFR (MDRD) Non-Af 56 L, BUN/Creatinine Ratio 6.0 L, Glucose 460 H*, Calcium 9.7, Magnesium 2.0 07/04/17 17:00: Phosphorus 1.9 L 07/04/17 17:00: Serum Osmolality 320 H 07/04/17 17:00: Ammonia 14.0 07/04/17 17:00: Lactic Acid 2.3 H 07/04/17 17:00: Troponin I 0.066 H 07/04/17 17:05: MRSA (PCR) Negative 07/04/17 17:17: POC Glucose 471 H* 07/04/17 17:30: Urine Creatinine 35.60 07/04/17 17:30: Ur Random Sodium 49 07/04/17 18:23: POC Glucose 329 H 07/04/17 20:32: POC Glucose 366 H 07/04/17 20:45: Sodium 146 H, Potassium 3.6, Chloride 112 H, Carbon Dioxide 25.0 , Anion Gap 9, BUN 7, Creatinine 1.34 H, Estim Creat Clear Calc 50.34, Est GFR ( MDRD) Af Amer 68, Est GFR (MDRD) Non-Af 56 L, BUN/Creatinine Ratio 5.2 L, Glucose 326 H, Calcium 9.7 07/04/17 20:45: Troponin I 0.058 H 07/04/17 20:45: Lactic Acid 4.0 H* 07/04/17 21:44: POC Glucose 290 H 07/04/17 22:57: POC Glucose 280 H 07/04/17 23:35: Sodium 146 H, Potassium 3.7, Chloride 114 H, Carbon Dioxide 27.0 , Anion Gap 5, BUN 7, Creatinine 1.23, Estim Creat Clear Calc 54.84, Est GFR ( MDRD) Af Amer 75, Est GFR (MDRD) Non-Af 62, BUN/Creatinine Ratio 5.7 L, Glucose 234 H, Calcium 9.5 07/04/17 23:35: APTT 62.7 H 07/04/17 23:46: POC Glucose 256 H 07/05/17 00:50: POC Glucose 197 H 07/05/17 01:38: POC Glucose 186 H 07/05/17 02:46: POC Glucose 218 H 07/05/17 03:47: POC Glucose 220 H 07/05/17 05:50: WBC 15.5 H, RBC 5.67, Hgb 15.8, Hct 45.9, MCV 81.0, MCH 27.9, MCHC 34.4, RDW 14.6, RDW Differential 42.9, Plt Count 222, MPV 11.3, Immature Gran % (Auto) 0.400, Neut % (Auto) 78.0 H, Lymph % (Auto) 13.6 L, [place] % (Auto) 7.6, Eos % (Auto) 0.1, Baso % (Auto) 0.3, Absolute Neuts (auto) 12.1 H, Absolute Lymphs (auto) 2.10, Total Counted Not Reportable 07/05/17 05:50: Sodium Pending, Potassium Pending, Chloride Pending, Carbon Dioxide Pending, Anion Gap Pending, BUN Pending, Creatinine Pending, Est GFR ( MDRD) Af Amer Pending, Est GFR (MDRD) Non-Af Pending, BUN/Creatinine Ratio Pending, Glucose Pending, Calcium Pending, Total Bilirubin Pending, AST Pending , ALT Pending, Alkaline Phosphatase Pending, Total Protein Pending, Albumin Pending, Triglycerides Pending, Cholesterol Pending, LDL Cholesterol Pending, VLDL Cholesterol Pending, HDL Cholesterol Pending 07/05/17 05:50: Lactic Acid Pending 07/05/17 05:50: APTT 43.6 H Current Medications Acetaminophen (Tylenol) 650 mg RECTAL Q6H PRN PRN PRN Reason: Pain/Fever Last Admin: 07/04/17 22:52 Dose: 650 mg Aspirin (Aspirin) 300 mg RECTAL DAILY SHANELLE Chlorhexidine Gluconate () 1 each TOPICAL DAILY [facility] Last Admin: 07/05/17 05:28 Dose: 1 each Dextrose (D50w Syringe) 0 gm IV X1 PRN; Protocol PRN Reason: HYPOGLYCEMIA Enalaprilat (Vasotec) 0.625 mg IV Q6 [facility] Last Admin: 07/05/17 05:11 Dose: 0.625 mg Haloperidol Lactate (Haldol) 1 mg IV Q4H PRN PRN PRN Reason: AGITATION Heparin Sodium (Porcine) () 0 units IV UD PRN PRN Reason: Protocol Sodium Chloride () 1,000 mls @ 150 mls/hr IV .Q6H40M [facility] Last Admin: 07/05/17 01:01 Dose: Not Given Insulin Aspart 100 unit/ (Sodium Chloride) 100 mls @ 11.53 mls/hr IV .Q8H41M [facility]; 0.1 UNITS/KG/HR PRN Reason: Protocol Last Admin: 07/05/17 01:54 Dose: Not Given Pantoprazole Sodium 40 mg/ (Sodium Chloride) 110 mls @ 330 mls/hr IV Q12 [facility] Last Admin: 07/04/17 21:47 Dose: 330 mls/hr Heparin Sodium/Sodium Chloride () 25,000 unit in 250 mls @ 16 mls/hr IV .[id number] [facility]; As Directed PRN Reason: Protocol Last Admin: 07/04/17 17:50 Dose: 16 mls/hr Labetalol HCl (Trandate) 10 mg IV Q10M PRN PRN Reason: MAINTAIN SBP GOALS Stop: 07/05/17 17:02 Magnesium Hydroxide (Milk Of Magnesia) 30 ml PO DAILY PRN PRN Reason: Constipation Metoprolol Tartrate (Lopressor (Beta Audrey)) 5 mg IV Q6 [facility] Last Admin: 07/05/17 05:11 Dose: 5 mg Nystatin (Mycostatin Powder) 1 applic TOPICAL TID [facility] PRN Reason: Protocol Last Admin: 07/05/17 05:10 Dose: 1 applicatio Ondansetron HCl (Zofran) 4 mg IV Q8H PRN PRN PRN Reason: NAUSEA Sodium Chloride () 5 - 30 ml IV UD PRN PRN Reason: SALINE FLUSH Last Admin: 07/05/17 05:10 Dose: 30 ml Throat Lozenges (Dermoplast (Sp)) 1 applic TOPICAL TID SHANELLE PRN Reason: Protocol Last Admin: 07/05/17 05:09 Dose: 1 applic Medical Necessity - Tobacco Use Smoking Status: Unknown if ever smoked Assessment/Plan Active and Suspected Problems (Last Updated 02/26/17 @ 09:40 by Nikolas Prasad) Mental status change (Acute) The patient is a 71 y/o M w/ PMHx: Diabetes mellitus type II, Hx PE, Hx SVT, NPH , BPH, HTN, HLD, history of frequent presentations w/ similar history of found unresponsive w/ elevated BS, elevated LA who presents to the [facility] ED on 07/04/17 w / history of again being found unresponsive on his front lawn, nearly naked per the post delivery individual. In the ED patient noted markedly responsiven although did improved w/ occasional word following hydration. (1) Acute Encephalopathy, Unclear Etiology, Possible CVA, Possible Metabolic secondary to concurrently noted #2, #3, #4: Admitted to the ICU, MRI Brain with findings consistent with communicating hydrocephalus or NPH in association with periventricular white matter ischemic changes with no acute evidence of acute infarct, MRA Head with nonvisualization of the right vertebral possibly due to proximal occlusion and MRA Neck w/ limited study secondary to motion artifact with no definitive evidence for hemodynamically significant stenosis of the carotids, ECHO pending, PT/OT/Speech/Nutrition evaluation per protocol. Pending consultation w/ Neurology, Cardiology and ICU physician for evaluation. Initially permissive HTN pending imaging, Cardiology added scheduled ACEI and BB IV w/ PRN hydralazine. Mental status still not improved markedly, not following commands, maintain on [place] asa, heparin drip as noted for concurrent PE history not able to take oral regimen currently, AM FLP, fall precautions, position changes, Mag, phos, ammonia not marked. (2) Acute kidney injury: Secondary to poor intake w/ possible HHS. Admission BUN /Cr 9/1.45, prior baseline creatinine noted to be 1. Hydrated, held nephrotoxic medications, UA not marked appearing. 07/05/17 BUN/Cr 7/1.23, improved. (3) Hyperglycemia Hyperosmolar State: Serum Osm obtained, elevated, consistent w / HHS, initially insulin drip, levels improved, still poor mental status, unsafe oral intake, mag and phos levels obtained and supplemented as needed. Transitioned off insulin drip, nutrition consulted once able to interact, HgbA1c 11.8%. (4) Indeterminate cardiac enzymes w/ Hx PSVT and PVT w/ New Wide Complex Arrhythmia: EKG in ED w/ sinus rhythm with poor R-wave progression with inferior ID of indeterminate age, CXR w/ chronic changes, Trop elevated, 0.068 in ED. Trending w/ 0.068-->0.066-->0.058. Maintained on a monitored bed. Mag normal. Prior admission w/ elevated enzymes w/ SVT w/ prior evaluation per EP per Cardiology note at that time. Patient was supposed to follow-up for outpatient cardiac catheterization but per records did not thus will consult Cardiology for assessment. Repeat ECHO requested. Continued [place] ASA. Telemetry per review and discussion with Cardiology noting new wide complex tachycardia, suspected secondary to pre-excitation syndrome/idioventricular rhythm w/ recommendation for transfer to Tertiary Facility for EP Cardiology evaluation. Cardiology addition scheduled enalapril, metoprolol IV. (5) History of PE: On anticoagulation per history, unclear when taken last, unclear down time but TCK not markedly elevated and sunburn not severe, administered heparin bolus and maintain on drip until clinical status w/ po intake allowance. (6) Sunburn, Distal Thorax, RLE: Continue TID administration of aloe mixture/ spray. 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 Neurology consulted, pending. (8) Hypertension: MRI negative for acute ischemic events thus once appropriate for oral intake will add back home hypertensive regimen, PRN hydralazine in interim. (9) Hyperlipidemia: Not on statin, FLP with triglyceride 176, cholesterol 224, LDL 147, VLDL 35, HDL 42.. (10) BPH: Holding oral agents. (11) DVT Prophylaxis: SCDs, heparin drip as noted. Code Visit Inpatient E&M: 50509 Subs Hosp L3
[2017-07-05 06:45] LABS: ALB/GLOB Ratio 0.8 RATIO (0.9-2.4); AST(SGOT) 16 U/L (15-37); Alanine Aminotransfer ALT/SGPT 13 U/L (16-61); Albumin, Serum 2.9 g/dL (3.2-5.0); Alkaline Phosphatase 116 U/L (45-117); Anion Gap 6 (5-15); BUN 8 mg/dL (7-18); BUN/Creat Ratio 7.3 RATIO (10-20); Calcium,Total 9.2 mg/dL (8.5-10.1); Chloride 116 mmol/L (98-107); Cholesterol 224 mg/dL (200); Creatinine, Serum 1.09 mg/dL (0.70-1.30); EST Glomerular Filtration Rate 71 mL/min (>60); Est Glom Filt Rate - Afr Amer 86 mL/min (>60); Estimated Creatinine Clearance 61.88 ml/min; Globulin 3.8 g/dL (2.2-4.2); Glucose 140 mg/dL (74-106); High Density Lipoprotein 42 mg/dL; Potassium 3.2 mmol/L (3.5-5.1); Protein, Total 6.7 g/dL (6.4-8.2); Sodium Level 148 mmol/L (136-145); Triglycerides 176 mg/dL; Very Low Density Lipoprotein 35 mg/dL (5-40)
[2017-07-05] MEDS: Heparin Injection 5,000 UNITS/ML Syringe IV (06:55)
[2017-07-05] MEDS: 0.9% Normal Saline 1,000 ML 150 ML IV (06:56)
[2017-07-05 07:07] LABS: Lactic Acid 2.5 mmol/L (0.4-2.0)
[2017-07-05 08:01] LABS: Bedside Glucose 150 mg/dL (70-110)
[2017-07-05 08:01] LABS: Bedside Glucose 141 mg/dL (70-110)
[2017-07-05 08:01] LABS: Bedside Glucose 165 mg/dL (70-110)
[2017-07-05] MEDS: Piperacil/Tazobactam 3.375 GM/50 ML ML IV (08:04)
--- NOTE | 2017-07-05 08:50 | NURSING ---
Son Jevon notified this am of his fathers admission to ICU [facility]. condition report given.
--- NOTE | 2017-07-05 09:10 | PCM.PN.CARD ---
Subjectve: The patient remains positive. Straight spontaneous movement of all extremities. Objective: Vital Signs Temp Pulse Resp BP Pulse Ox 100.0 F H 64 16 132/97 H 94 07/05/17 04:00 07/05/17 06:00 07/05/17 06:00 07/05/17 06:00 07/05/17 06:00 Oxygen Flow Rate (L/min) 2 Oxygen Delivery Method Room Air Weight: 241 lb 13.553 oz Body Mass Index (BMI) 35.4 Finger Stick Blood Glucose 141 Intake and Output for Last 24 Hours 07/03/17 07/04/17 07/05/17 23:59 23:59 23:59 Intake Total 1589.2 / 1589.2 945.4 / 945.4 Output Total 1725 / 1725 150 / 150 Balance -135.8 / -135.8 795.4 / 795.4 Neck: No JVD Lungs: Clear to auscultation Cardiovascular: Regular Rhythm, Premature Ectopic Beats, Normal S1, Normal S2 Abdomen: Bowel Sounds Present, Soft, Non Tender Extremities: Trace RLE Edema, Trace LLE Edema 07/04/17 17:00: Sodium 143, Potassium 3.3 L, Chloride 109 H, Carbon Dioxide 25.0, Anion Gap 9, BUN 8, Creatinine 1.34 H, Est GFR (MDRD) Af Amer 68, Est GFR (MDRD) Non-Af 56 L, BUN/Creatinine Ratio 6.0 L, Glucose 460 H*, Calcium 9.7, Magnesium 2.0 07/04/17 17:00: Phosphorus 1.9 L 07/04/17 17:00: Serum Osmolality 320 H 07/04/17 17:00: Lactic Acid 2.3 H 07/04/17 17:00: Troponin I 0.066 H 07/04/17 20:45: Sodium 146 H, Potassium 3.6, Chloride 112 H, Carbon Dioxide 25.0, Anion Gap 9, BUN 7, Creatinine 1.34 H, Est GFR (MDRD) Af Amer 68, Est GFR (MDRD) Non-Af 56 L, BUN/Creatinine Ratio 5.2 L, Glucose 326 H, Calcium 9.7 07/04/17 20:45: Troponin I 0.058 H 07/04/17 20:45: Lactic Acid 4.0 H* 07/04/17 23:35: Sodium 146 H, Potassium 3.7, Chloride 114 H, Carbon Dioxide 27.0, Anion Gap 5, BUN 7, Creatinine 1.23, Est GFR (MDRD) Af Amer 75, Est GFR (MDRD) Non-Af 62, BUN/Creatinine Ratio 5.7 L, Glucose 234 H, Calcium 9.5 07/04/17 23:35: APTT 62.7 H 07/05/17 05:50: WBC 15.5 H, RBC 5.67, Hgb 15.8, Hct 45.9, MCV 81.0, MCH 27.9, MCHC 34.4, RDW 14.6, RDW Differential 42.9, Plt Count 222, MPV 11.3, Immature Gran % (Auto) 0.400, Neut % (Auto) 78.0 H, Lymph % (Auto) 13.6 L, [place] % (Auto) 7.6, Eos % (Auto) 0.1, Baso % (Auto) 0.3, Absolute Neuts (auto) 12.1 H, Total Counted Not Reportable 07/05/17 05:50: Sodium 148 H, Potassium 3.2 L, Chloride 116 H, Carbon Dioxide 26.0, Anion Gap 6, BUN 8, Creatinine 1.09, Est GFR (MDRD) Af Amer 86, Est GFR (MDRD) Non-Af 71, BUN/Creatinine Ratio 7.3 L, Glucose 140 H, Calcium 9.2, Total Bilirubin 0.90, Triglycerides 176, Cholesterol 224 H, LDL Cholesterol 147 H, VLDL Cholesterol 35, HDL Cholesterol 42 07/05/17 05:50: Lactic Acid 2.5 H 07/05/17 05:50: APTT 43.6 H Rhythm: Sinus rhythm; PACs; PVCs; episodes of wide complex rhythm potentially compatible with an underlying idioventricular rhythm EKG: Wide complex rhythm with a right bundle branch block pattern potentially compatible with an underlying idioventricular rhythm Medical Necessity - Tobacco Use Smoking Status: Unknown if ever smoked Assessment/Plan 1. Abnormal cardiac enzymes The patient does have indeterminant troponin I levels. The etiology is unclear whether this represents a primary acute coronary syndrome event to explain his situation versus a type II event secondary to supply demand mismatch. The patient has had a previous similar presentation. He is undergone noninvasive evaluation in the past. Based upon his mental status changes and other medical conditions including a history of pulmonary emboli, the patient has never proceeded with further invasive evaluation or care. At the present time it is unclear as to whether or not the patient, other than conservative medical management and noninvasive studies, will ever be able to undergo invasive evaluation such as diagnostic cardiac catheterization. In the interim the patient should continue medical therapy as deemed appropriate. It would include agents such as aspirin, nitrates, beta-blockers, lipid-lowering agents, anticoagulant agents, etc. 2. 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 With respect to his electrophysiology history he has been evaluated [facility] in consultation. At that point in time the recommendations were for continued conservative medical management. Thus his medications will be reviewed. He should continue medical therapy which may include beta-luz maria therapy. He can have an echocardiogram to reassess his ventricular wall motion and systolic function based upon his underlying ventricular ectopy. At some point in time if he is able from a medical standpoint and medical standpoint to undergo further evaluation with diagnostic cardiac catheterization to evaluate for coronary artery disease it may not be unreasonable. In the interim, he has noted prolonged episodes of an underlying wide complex rhythm. He episodes are concerning for an underlying idioventricular rhythm, however, other cardiac dysrhythmias being supraventricular with conduction system abnormalities cannot necessarily be excluded. Thus, noting his complex cardiac dysrhythmias, it would not be unreasonable for the patient to be considered to be transferred to a tertiary care center or electrophysiology is available to further comment on his underlying multiple cardiac dysrhythmias. 3. Hyperlipidemia The patient should should continue lipid-lowering therapy as deemed appropriate. 4. Hypertension The patient's blood pressure will be followed. He should continue medical management as deemed appropriate. 5. Diabetes mellitus The patient presents with hyperglycemia. He is undergoing evaluation care per internal medicine. 6. Mental status changes She does have recurrence of mental status changes. The etiology is unclear. He will continue evaluation per internal medicine, pulmonology/critical care medicine, and neurology. However, in the interim, from a cardiovascular standpoint, this leaves him with continued conservative medical management. Comment: The patient's case was discussed and reviewed with Dr. Thomas and Dr. Thomas of the [facility] medical staff. This note was generated with [employer] software. It may contain incorrect words, spelling, and punctuation that were not noted in checking the note before signing.
--- NOTE | 2017-07-05 09:14 | PN.CARD_ITS ---
Subjectve: The patient remains positive. Straight spontaneous movement of all extremities. Objective: Vital Signs Temp Pulse Resp BP Pulse Ox 100.0 F H 64 16 132/97 H 94 07/05/17 04:00 07/05/17 06:00 07/05/17 06:00 07/05/17 06:00 07/05/17 06:00 Oxygen Flow Rate (L/min) 2 Oxygen Delivery Method Room Air Weight: 241 lb 13.553 oz Body Mass Index (BMI) 35.4 Finger Stick Blood Glucose 141 Intake and Output for Last 24 Hours 07/03/17 07/04/17 07/05/17 23:59 23:59 23:59 Intake Total 1589.2 / 1589.2 945.4 / 945.4 Output Total 1725 / 1725 150 / 150 Balance -135.8 / -135.8 795.4 / 795.4 Neck: No JVD Lungs: Clear to auscultation Cardiovascular: Regular Rhythm, Premature Ectopic Beats, Normal S1, Normal S2 Abdomen: Bowel Sounds Present, Soft, Non Tender Extremities: Trace RLE Edema, Trace LLE Edema 07/04/17 17:00: Sodium 143, Potassium 3.3 L, Chloride 109 H, Carbon Dioxide 25.0 , Anion Gap 9, BUN 8, Creatinine 1.34 H, Est GFR (MDRD) Af Amer 68, Est GFR ( MDRD) Non-Af 56 L, BUN/Creatinine Ratio 6.0 L, Glucose 460 H*, Calcium 9.7, Magnesium 2.0 07/04/17 17:00: Phosphorus 1.9 L 07/04/17 17:00: Serum Osmolality 320 H 07/04/17 17:00: Lactic Acid 2.3 H 07/04/17 17:00: Troponin I 0.066 H 07/04/17 20:45: Sodium 146 H, Potassium 3.6, Chloride 112 H, Carbon Dioxide 25.0 , Anion Gap 9, BUN 7, Creatinine 1.34 H, Est GFR (MDRD) Af Amer 68, Est GFR ( MDRD) Non-Af 56 L, BUN/Creatinine Ratio 5.2 L, Glucose 326 H, Calcium 9.7 07/04/17 20:45: Troponin I 0.058 H 07/04/17 20:45: Lactic Acid 4.0 H* 07/04/17 23:35: Sodium 146 H, Potassium 3.7, Chloride 114 H, Carbon Dioxide 27.0 , Anion Gap 5, BUN 7, Creatinine 1.23, Est GFR (MDRD) Af Amer 75, Est GFR (MDRD ) Non-Af 62, BUN/Creatinine Ratio 5.7 L, Glucose 234 H, Calcium 9.5 07/04/17 23:35: APTT 62.7 H 07/05/17 05:50: WBC 15.5 H, RBC 5.67, Hgb 15.8, Hct 45.9, MCV 81.0, MCH 27.9, MCHC 34.4, RDW 14.6, RDW Differential 42.9, Plt Count 222, MPV 11.3, Immature Gran % (Auto) 0.400, Neut % (Auto) 78.0 H, Lymph % (Auto) 13.6 L, [place] % (Auto) 7.6, Eos % (Auto) 0.1, Baso % (Auto) 0.3, Absolute Neuts (auto) 12.1 H, Total Counted Not Reportable 07/05/17 05:50: Sodium 148 H, Potassium 3.2 L, Chloride 116 H, Carbon Dioxide 26.0, Anion Gap 6, BUN 8, Creatinine 1.09, Est GFR (MDRD) Af Amer 86, Est GFR ( MDRD) Non-Af 71, BUN/Creatinine Ratio 7.3 L, Glucose 140 H, Calcium 9.2, Total Bilirubin 0.90, Triglycerides 176, Cholesterol 224 H, LDL Cholesterol 147 H, VLDL Cholesterol 35, HDL Cholesterol 42 07/05/17 05:50: Lactic Acid 2.5 H 07/05/17 05:50: APTT 43.6 H Rhythm: Sinus rhythm; PACs; PVCs; episodes of wide complex rhythm potentially compatible with an underlying idioventricular rhythm EKG: Wide complex rhythm with a right bundle branch block pattern potentially compatible with an underlying idioventricular rhythm Medical Necessity - Tobacco Use Smoking Status: Unknown if ever smoked Assessment/Plan 1. Abnormal cardiac enzymes The patient does have indeterminant troponin I levels. The etiology is unclear whether this represents a primary acute coronary syndrome event to explain his situation versus a type II event secondary to supply demand mismatch. The patient has had a previous similar presentation. He is undergone noninvasive evaluation in the past. Based upon his mental status changes and other medical conditions including a history of pulmonary emboli, the patient has never proceeded with further invasive evaluation or care. At the present time it is unclear as to whether or not the patient, other than conservative medical management and noninvasive studies, will ever be able to undergo invasive evaluation such as diagnostic cardiac catheterization. In the interim the patient should continue medical therapy as deemed appropriate. It would include agents such as aspirin, nitrates, beta-blockers, lipid-lowering agents, anticoagulant agents, etc. 2. 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 With respect to his electrophysiology history he has been evaluated [facility] in consultation. At that point in time the recommendations were for continued conservative medical management. Thus his medications will be reviewed. He should continue medical therapy which may include beta-luz maria therapy. He can have an echocardiogram to reassess his ventricular wall motion and systolic function based upon his underlying ventricular ectopy. At some point in time if he is able from a medical standpoint and medical standpoint to undergo further evaluation with diagnostic cardiac catheterization to evaluate for coronary artery disease it may not be unreasonable. In the interim, he has noted prolonged episodes of an underlying wide complex rhythm. He episodes are concerning for an underlying idioventricular rhythm, however, other cardiac dysrhythmias being supraventricular with conduction system abnormalities cannot necessarily be excluded. Thus, noting his complex cardiac dysrhythmias, it would not be unreasonable for the patient to be considered to be transferred to a tertiary care center or electrophysiology is available to further comment on his underlying multiple cardiac dysrhythmias. 3. Hyperlipidemia The patient should should continue lipid-lowering therapy as deemed appropriate. 4. Hypertension The patient's blood pressure will be followed. He should continue medical management as deemed appropriate. 5. Diabetes mellitus The patient presents with hyperglycemia. He is undergoing evaluation care per internal medicine. 6. Mental status changes She does have recurrence of mental status changes. The etiology is unclear. He will continue evaluation per internal medicine, pulmonology/critical care medicine, and neurology. However, in the interim, from a cardiovascular standpoint, this leaves him with continued conservative medical management. Comment: The patient's case was discussed and reviewed with Dr. Thomas and Dr. Thomas of the [facility] medical staff. This note was generated with [employer] software. It may contain incorrect words, spelling, and punctuation that were not noted in checking the note before signing.
--- NOTE | 2017-07-05 09:21 | PCM.DC.SUM ---
Discharge Date and Diagnosis - Problem List Patient Problems: Active and Suspected Problems (Last Updated 02/26/17 @ 09:40 by Nikolas Prasad) Mental status change (Acute) Date of Admission: 07/04/17 Date of Discharge: 07/05/17 - Primary Discharge Diagnosis Active and Suspected Problems (Last Updated 02/26/17 @ 09:40 by Nikolas Prasad) (1) Acute Encephalopathy, Unclear Etiology, Multifactorial, Metabolic secondary to concurrently noted #2, #3, #4 (2) Acute kidney injury (3) Hyperglycemia Hyperosmolar State (4) Indeterminate cardiac enzymes w/ Hx PSVT and PVT w/ New Wide Complex Arrhythmia (5) History of PE w/ unclear anticoagulant last intake upon presentation (6) Sunburn, Distal Thorax, RLE (7) Hx NPH (8) Hypertension (9) Hyperlipidemia (10) BPH (11) Intertrigo - Secondary Discharge Diagnosis Chronic Problems (Last Updated 02/26/17 @ 09:40 by Nikolas Prasad) Diabetes mellitus (Chronic) HTN (hypertension) (Chronic) HLD (hyperlipidemia) (Chronic) Syncope and collapse (Chronic) Pulmonary embolism (Chronic) Fall (Chronic) Normal pressure hydrocephalus (Chronic) SVT (supraventricular tachycardia) (Chronic) BPH with obstruction/lower urinary tract symptoms (Chronic) Ventricular tachycardia (paroxysmal) (Chronic) Hospital Course and Treatment Dr. Fernandez Cardiology Dr. Thomas ICU physician Dr. Corral Neurology Operations: None Procedures: 2-D Echocardiogram Summary of Care Provided: The patient is a 71 y/o M w/ PMHx: Diabetes mellitus type II, Hx PE, Hx SVT, NPH, BPH, HTN, HLD, history of frequent presentations w/ similar history of found unresponsive w/ elevated BS, elevated LA who presented to the [facility] ED on 07/04/17 w/ history of again being found unresponsive on his front lawn, nearly naked per the post delivery individual. In the ED patient noted markedly responsive although did improved w/ occasional word following hydration. Admitted to the ICU, MRI Brain with findings consistent with communicating hydrocephalus or NPH in association with periventricular white matter ischemic changes with no acute evidence of acute infarct, MRA Head with nonvisualization of the right vertebral possibly due to proximal occlusion and MRA Neck w/ limited study secondary to motion artifact with no definitive evidence for hemodynamically significant stenosis of the carotids, ECHO pending upon transfer, PT/OT/Speech/Nutrition evaluation per protocol. Pending consultation w/ Neurology upon transfer. Evaluated per Cardiology and ICU physician. Initially permissive HTN pending imaging w/ then Cardiology addition scheduled ACEI and BB IV w/ PRN hydralazine. Mental status still did not improved markedly, continued to not follow commands and required restraints. He was maintained on MA asa, heparin drip as noted for concurrent PE history not able to take oral regimen currently. Mag, phos, ammonia not marked. Admission BUN/Cr 9/1.45, prior baseline creatinine noted to be 1. Hydrated, held nephrotoxic medications initially, UA not marked appearing. 07/05/17 BUN/Cr 7/1.23, improved. Upon ED presentation appeared likely HHS, serum Osm obtained, elevated, consistent w/ HHS, initially insulin drip, levels improved, transitioned off insulin drip 07/05/17 7 am w/ transition to ISS, nutrition consulted once able to interact, HgbA1c 11.8%. History of PE on anticoagulation per history, unclear when taken last, unclear down time but TCK not markedly elevated and sunburn not severe, administered heparin bolus and maintained on drip until clinical status especially given possible interventional needs. Additionally, patient w/ indeterminate cardiac enzymes w/ Hx PSVT and PVT w/ New Wide Complex Arrhythmia w/ EKG in ED w/ sinus rhythm with poor R-wave progression with inferior TN of indeterminate age, CXR w/ chronic changes, Trop elevated, 0.068 in ED. Trending w/ 0.068-->0.066-->0.058. Prior admission w/ elevated enzymes w/ SVT w/ prior evaluation per EP per Cardiology note at that time. Patient was supposed to follow-up for outpatient cardiac catheterization but per records did not follow up and had been evaluated and following w/ EP Adjunct Professor Of [employer] at [facility]. Repeat ECHO requested, pending upon transfer. Telemetry per review and discussion with Cardiology noting new wide complex tachycardia, suspected secondary to pre-excitation syndrome/idioventricular rhythm w/ recommendation for transfer to Tertiary Facility for EP Cardiology evaluation. Given ongoing presentation and cardiac concerns, patient transferred to [facility], [facility] ED per CCU Fellow with Dr. Hernandez for evaluation for consideration of placement/intervention needs. DAY OF DISCHARGE PROGRESS NOTE: Subjective: Patient overnight with continued agitation and intermittent increased alertness requiring restraints and sedation intermittently. Overnight telemetry w/ new atypical wide complex arrhythmia possible per Cardiology secondary to pre-excitation syndrome/idioventricular rhythm w/ encouraged transfer to Tertiary Facility for EP evaluation, insulin drip d/c 7 am given improvement w/ HHS. Patient occasionally answering but still lethargic and unsafe oral intake. MRI without acute CVA. Unable to answer ROS questions secondary to lethargy and mental status alteration. Objective: T1 100, heart rate 89, BP 136/72, respiratory rate 17, 95% on room air. Physical Examination: General: awakens to stimuli, intermittently alert, not oriented, not cooperative, trying to occasional exit ICU bed. Skin: Sunburn to the abdomen as well as the right lower extremity, improved but initially notable intertrigo beneath the pannus and in the groin folds, decreased skin turgor. HEENT: AT/NC, EOM difficult to be assessed secondary to inability to follow commands, PERRLA, improved less dry MM. Lungs: Diminished BS BL, > bases, poor effort, no rales, ronchi or wheezing. Heart: Irregular; no gallop, rub audible. Abdomen: soft, obese, NTTP, ND, normal BS, sunburn on thorax/abd. Extremities: no cyanosis, clubbing, see skin. Neurological: awakens to stimuli, intermittently alert, not oriented, not cooperative; cognitive function not baseline intact; pupils equally reactive to light and accomodation; cranial nerves II-XII grossly normal and moving extremities but not following commands, difficult to assess strength but appears severely diffusely dimininshed. Psychiatric: affect appears fatigued, not interactive, flat, no acute evidence of depressive or anxiety feelings. Assessment and Plan: Please see hospital summary above. Prolonged CARE time: Patient evaluation, transfer, coordination of care with ICU as well as cardiology required 65 minutes beyond 70 minutes initial evaluation. Active Medications Generic Name Dose Route Start Last Admin Trade Name Freq PRN Reason Stop Dose Admin Acetaminophen 650 mg 07/04/17 22:02 07/04/17 22:52 Tylenol RECTAL 650 mg Q6H PRN PRN Administration Pain/Fever Aspirin 300 mg 07/05/17 10:00 Aspirin RECTAL DAILY SHANELLE Chlorhexidine Gluconate 1 each 07/05/17 10:00 07/05/17 05:28 TOPICAL 1 each DAILY SHANELLE Administration Dextrose 0 gm 07/04/17 17:01 D50w Syringe IV X1 PRN HYPOGLYCEMIA Protocol Enalaprilat 0.625 mg 07/05/17 00:00 07/05/17 05:11 Vasotec IV 0.625 mg Q6 SHANELLE Administration Haloperidol Lactate 1 mg 07/04/17 18:33 Haldol IV Q4H PRN PRN AGITATION Heparin Sodium (Porcine) 0 units 07/04/17 17:09 07/05/17 06:55 IV 1,000 units UD PRN Administration Protocol Pantoprazole Sodium 40 mg/ 110 mls @ 330 mls/hr 07/04/17 22:00 07/04/17 21:47 Sodium Chloride IV 330 mls/hr Q12 SHANELLE Administration Heparin Sodium/Sodium Chloride 25,000 unit in 250 mls @ 16 mls/hr 07/04/17 17:45 07/04/17 17:50 IV 16 mls/hr .[id number] SHANELLE Administration Protocol As Directed Dextrose 1,000 mls @ 125 mls/hr 07/05/17 07:45 07/05/17 08:08 IV 125 mls/hr .Q8H SHANELLE Administration Piperacillin Sod/Tazobactam Sod 3.375 gm in 50 mls @ 12.5 mls/hr 07/05/17 08:00 07/05/17 08:04 Zosyn IV 12.5 mls/hr Q8 SHANELLE Administration Potassium Chloride 10 meq in 100 mls @ 100 mls/hr 07/05/17 09:00 07/05/17 09:02 Kcl 10meq/100ml IV BOLUS 07/05/17 12:59 100 mls/hr Q1H SHANELLE Administration Insulin Human Lispro 0 unit 07/05/17 10:00 Humalog Kwikpen (Bkc) SC Q4 SHANELLE Protocol Labetalol HCl 10 mg 07/04/17 17:01 Trandate IV 07/05/17 17:02 Q10M PRN MAINTAIN SBP GOALS Magnesium Hydroxide 30 ml 07/04/17 17:01 Milk Of Magnesia PO DAILY PRN Constipation Metoprolol Tartrate 5 mg 07/05/17 00:00 07/05/17 05:11 Lopressor (Beta Audrey) IV 5 mg Q6 SHANELLE Administration Nystatin 1 applic 07/04/17 22:00 07/05/17 05:10 Mycostatin Powder TOPICAL 1 applicatio TID SHANELLE Administration Protocol Ondansetron HCl 4 mg 07/04/17 17:01 Zofran IV Q8H PRN PRN NAUSEA Sodium Chloride 5 - 30 ml 07/04/17 16:41 07/05/17 05:10 IV 30 ml UD PRN Administration SALINE FLUSH Throat Lozenges 1 applic 07/04/17 22:00 07/05/17 05:09 Dermoplast (Sp) TOPICAL 1 applic TID SHANELLE Administration Protocol Home Medications: Medications to take at Discharge Tamsulosin HCl [Flomax] 0.4 mg PO BID 02/13/16 Finasteride [Proscar] 5 mg PO DAILY 05/14/16 Liraglutide [Victoza 2-Dario] 1.2 mg SQ DAILY 05/15/16 Aspirin [Aspirin, Baby] 81 mg PO DAILY@0800 #30 tab.chew 10/13/16 Apixaban [Eliquis] 5 mg PO BID #60 tab 10/19/16 Insulin Aspart [Novolog Flexpen] 0 units SC ACHS 10/19/16 Insulin Detemir [Levemir FlexPen] 20 units SC BREAKFAST 10/19/16 Lisinopril [Zestril] 10 mg PO BID tab 10/19/16 Metoprolol Tartrate [Lopressor (beta audrey)] 25 mg PO BID tab 10/19/16 amiodarone 200 mg tablet 200 mg PO QDAY tab 02/26/17 empagliflozin 25 mg tablet 25 mg PO QDAY 02/26/17 famotidine 20 mg tablet 20 mg PO QDAY tab 02/26/17 Primary Care Physician: Moisés Gallardo Chi, MD [Primary Care Provider] - Medical Necessity - Tobacco Use Smoking Status: Unknown if ever smoked Meaningful Use Info Meaningful Use Diagnoses (Choose all that apply): None applicable Code Visit Inpatient E&M: 64035 Disch Hosp Procedures: 10897 Prolonged InPt Service; first hour
--- NOTE | 2017-07-05 09:38 | DS.PCM_ITS ---
Discharge Date and Diagnosis - Problem List Patient Problems: Active and Suspected Problems (Last Updated 02/26/17 @ 09:40 by Nikolas Prasad) Mental status change (Acute) Date of Admission: 07/04/17 Date of Discharge: 07/05/17 - Primary Discharge Diagnosis Active and Suspected Problems (Last Updated 02/26/17 @ 09:40 by Nikolas Prasad) (1) Acute Encephalopathy, Unclear Etiology, Multifactorial, Metabolic secondary to concurrently noted #2, #3, #4 (2) Acute kidney injury (3) Hyperglycemia Hyperosmolar State (4) Indeterminate cardiac enzymes w/ Hx PSVT and PVT w/ New Wide Complex Arrhythmia (5) History of PE w/ unclear anticoagulant last intake upon presentation (6) Sunburn, Distal Thorax, RLE (7) Hx NPH (8) Hypertension (9) Hyperlipidemia (10) BPH (11) Intertrigo - Secondary Discharge Diagnosis Chronic Problems (Last Updated 02/26/17 @ 09:40 by Nikolas Prasad) Diabetes mellitus (Chronic) HTN (hypertension) (Chronic) HLD (hyperlipidemia) (Chronic) Syncope and collapse (Chronic) Pulmonary embolism (Chronic) Fall (Chronic) Normal pressure hydrocephalus (Chronic) SVT (supraventricular tachycardia) (Chronic) BPH with obstruction/lower urinary tract symptoms (Chronic) Ventricular tachycardia (paroxysmal) (Chronic) Hospital Course and Treatment Dr. Fernandez Cardiology Dr. Thomas ICU physician Dr. Corral Neurology Operations: None Procedures: 2-D Echocardiogram Summary of Care Provided: The patient is a 71 y/o M w/ PMHx: Diabetes mellitus type II, Hx PE, Hx SVT, NPH , BPH, HTN, HLD, history of frequent presentations w/ similar history of found unresponsive w/ elevated BS, elevated LA who presented to the [facility] ED on 07/04/17 w/ history of again being found unresponsive on his front lawn, nearly naked per the post delivery individual. In the ED patient noted markedly responsive although did improved w/ occasional word following hydration. Admitted to the ICU, MRI Brain with findings consistent with communicating hydrocephalus or NPH in association with periventricular white matter ischemic changes with no acute evidence of acute infarct, MRA Head with nonvisualization of the right vertebral possibly due to proximal occlusion and MRA Neck w/ limited study secondary to motion artifact with no definitive evidence for hemodynamically significant stenosis of the carotids, ECHO pending upon transfer, PT/OT/Speech/ Nutrition evaluation per protocol. Pending consultation w/ Neurology upon transfer. Evaluated per Cardiology and ICU physician. Initially permissive HTN pending imaging w/ then Cardiology addition scheduled ACEI and BB IV w/ PRN hydralazine. Mental status still did not improved markedly, continued to not follow commands and required restraints. He was maintained on UT asa, heparin drip as noted for concurrent PE history not able to take oral regimen currently. Mag, phos, ammonia not marked. Admission BUN/Cr 9/1.45, prior baseline creatinine noted to be 1. Hydrated, held nephrotoxic medications initially, UA not marked appearing. 07/05/17 BUN/Cr 7/1.23, improved. Upon ED presentation appeared likely HHS, serum Osm obtained, elevated, consistent w/ HHS, initially insulin drip, levels improved, transitioned off insulin drip 07/05 7 am w/ transition to ISS, nutrition consulted once able to interact, HgbA1c 11.8%. History of PE on anticoagulation per history, unclear when taken last, unclear down time but TCK not markedly elevated and sunburn not severe, administered heparin bolus and maintained on drip until clinical status especially given possible interventional needs. Additionally, patient w/ indeterminate cardiac enzymes w/ Hx PSVT and PVT w/ New Wide Complex Arrhythmia w/ EKG in ED w/ sinus rhythm with poor R-wave progression with inferior FL of indeterminate age, CXR w/ chronic changes, Trop elevated, 0.068 in ED. Trending w/ 0.068-->0.066-->0.058. Prior admission w/ elevated enzymes w/ SVT w/ prior evaluation per EP per Cardiology note at that time. Patient was supposed to follow-up for outpatient cardiac catheterization but per records did not follow up and had been evaluated and following w/ EP Poultry Trimmer at [facility]. Repeat ECHO requested, pending upon transfer. Telemetry per review and discussion with Cardiology noting new wide complex tachycardia, suspected secondary to pre-excitation syndrome/idioventricular rhythm w/ recommendation for transfer to Tertiary Facility for EP Cardiology evaluation. Given ongoing presentation and cardiac concerns, patient transferred to [facility], [facility] ED per CCU Fellow with Dr. Hernandez for evaluation for consideration of placement/ intervention needs. DAY OF DISCHARGE PROGRESS NOTE: Subjective: Patient overnight with continued agitation and intermittent increased alertness requiring restraints and sedation intermittently. Overnight telemetry w/ new atypical wide complex arrhythmia possible per Cardiology secondary to pre-excitation syndrome/idioventricular rhythm w/ encouraged transfer to Tertiary Facility for EP evaluation, insulin drip d/c 7 am given improvement w/ HHS. Patient occasionally answering but still lethargic and unsafe oral intake. MRI without acute CVA. Unable to answer ROS questions secondary to lethargy and mental status alteration. Objective: T1 100, heart rate 89, BP 136/72, respiratory rate 17, 95% on room air. Physical Examination: General: awakens to stimuli, intermittently alert, not oriented, not cooperative , trying to occasional exit ICU bed. Skin: Sunburn to the abdomen as well as the right lower extremity, improved but initially notable intertrigo beneath the pannus and in the groin folds, decreased skin turgor. HEENT: AT/NC, EOM difficult to be assessed secondary to inability to follow commands, PERRLA, improved less dry MM. Lungs: Diminished BS BL, > bases, poor effort, no rales, ronchi or wheezing. Heart: Irregular; no gallop, rub audible. Abdomen: soft, obese, NTTP, ND, normal BS, sunburn on thorax/abd. Extremities: no cyanosis, clubbing, see skin. Neurological: awakens to stimuli, intermittently alert, not oriented, not cooperative; cognitive function not baseline intact; pupils equally reactive to light and accomodation; cranial nerves II-XII grossly normal and moving extremities but not following commands, difficult to assess strength but appears severely diffusely dimininshed. Psychiatric: affect appears fatigued, not interactive, flat, no acute evidence of depressive or anxiety feelings. Assessment and Plan: Please see hospital summary above. Prolonged CARE time: Patient evaluation, transfer, coordination of care with ICU as well as cardiology required 65 minutes beyond 70 minutes initial evaluation. Active Medications Generic Name Dose Route Start Last Admin Trade Name Freq PRN Reason Stop Dose Admin Acetaminophen 650 mg 07/04/17 22:02 07/04/17 22:52 Tylenol RECTAL 650 mg Q6H PRN PRN Administration Pain/Fever Aspirin 300 mg 07/05/17 10:00 Aspirin RECTAL DAILY SHANELLE Chlorhexidine Gluconate 1 each 07/05/17 10:00 07/05/17 05:28 TOPICAL 1 each DAILY SHANELLE Administration Dextrose 0 gm 07/04/17 17:01 D50w Syringe IV X1 PRN HYPOGLYCEMIA Protocol Enalaprilat 0.625 mg 07/05/17 00:00 07/05/17 05:11 Vasotec IV 0.625 mg Q6 SHANELLE Administration Haloperidol Lactate 1 mg 07/04/17 18:33 Haldol IV Q4H PRN PRN AGITATION Heparin Sodium (Porcine) 0 units 07/04/17 17:09 07/05/17 06:55 IV 1,000 units UD PRN Administration Protocol Pantoprazole Sodium 40 mg/ 110 mls @ 330 mls/hr 07/04/17 22:00 07/04/17 21:47 Sodium Chloride IV 330 mls/hr Q12 SHANELLE Administration Heparin Sodium/Sodium Chloride 25,000 unit in 250 mls @ 16 mls/hr 07/04/17 17: 45 07/04/17 17:50 IV 16 mls/hr .[id number] SHANELLE Administration Protocol As Directed Dextrose 1,000 mls @ 125 mls/hr 07/05/17 07:45 07/05/17 08:08 IV 125 mls/hr .Q8H SHANELLE Administration Piperacillin Sod/Tazobactam Sod 3.375 gm in 50 mls @ 12.5 mls/hr 07/05/17 08: 00 07/05/17 08:04 Zosyn IV 12.5 mls/hr Q8 SHANELLE Administration Potassium Chloride 10 meq in 100 mls @ 100 mls/hr 07/05/17 09:00 07/05/17 09: 02 Kcl 10meq/100ml IV BOLUS 07/05/17 12:59 100 mls/hr Q1H SHANELLE Administration Insulin Human Lispro 0 unit 07/05/17 10:00 Humalog Kwikpen (Bkc) SC Q4 SHANELLE Protocol Labetalol HCl 10 mg 07/04/17 17:01 Trandate IV 07/05/17 17:02 Q10M PRN MAINTAIN SBP GOALS Magnesium Hydroxide 30 ml 07/04/17 17:01 Milk Of Magnesia PO DAILY PRN Constipation Metoprolol Tartrate 5 mg 07/05/17 00:00 07/05/17 05:11 Lopressor (Beta Audrey) IV 5 mg Q6 SHANELLE Administration Nystatin 1 applic 07/04/17 22:00 07/05/17 05:10 Mycostatin Powder TOPICAL 1 applicatio TID SHANELLE Administration Protocol Ondansetron HCl 4 mg 07/04/17 17:01 Zofran IV Q8H PRN PRN NAUSEA Sodium Chloride 5 - 30 ml 07/04/17 16:41 07/05/17 05:10 IV 30 ml UD PRN Administration SALINE FLUSH Throat Lozenges 1 applic 07/04/17 22:00 07/05/17 05:09 Dermoplast (Sp) TOPICAL 1 applic TID SHANELLE Administration Protocol Home Medications: Medications to take at Discharge Tamsulosin HCl [Flomax] 0.4 mg PO BID 02/13/16 Finasteride [Proscar] 5 mg PO DAILY 05/14/16 Liraglutide [Victoza 2-Dario] 1.2 mg SQ DAILY 05/15/16 Aspirin [Aspirin, Baby] 81 mg PO DAILY@0800 #30 tab.chew 10/13/16 Apixaban [Eliquis] 5 mg PO BID #60 tab 10/19/16 Insulin Aspart [Novolog Flexpen] 0 units SC ACHS 10/19/16 Insulin Detemir [Levemir FlexPen] 20 units SC BREAKFAST 10/19/16 Lisinopril [Zestril] 10 mg PO BID tab 10/19/16 Metoprolol Tartrate [Lopressor (beta audrey)] 25 mg PO BID tab 10/19/16 amiodarone 200 mg tablet 200 mg PO QDAY tab 02/26/17 empagliflozin 25 mg tablet 25 mg PO QDAY 02/26/17 famotidine 20 mg tablet 20 mg PO QDAY tab 02/26/17 Primary Care Physician: Moisés Gallardo Chi, MD [Primary Care Provider] - Medical Necessity - Tobacco Use Smoking Status: Unknown if ever smoked Meaningful Use Info Meaningful Use Diagnoses (Choose all that apply): None applicable Code Visit Inpatient E&M: 02408 Disch Hosp Procedures: 80046 Prolonged InPt Service; first hour
[2017-07-05 10:07] LABS: Reflex Lactate? Y
[2017-07-05] MEDS: Insulin Lispro 100 UNIT/ML INSULN.PEN SC (10:32)
[2017-07-05] MEDS: Aspirin 300 MG Suppository RECTAL (10:32)
[2017-07-05 11:06] LABS: Bedside Glucose 264 mg/dL (70-110)
--- NOTE | 2017-07-05 11:15 | NURSING ---
to [facility] per mobile unit. report called to Shaniqua HASKINS
== END 2017-07-05 11:20 | disposition short-term general hospital (02) | DRG 70 ==
LOC: ED 14:19 → ICU 16:05
PROVIDERS: Internal Medicine; Admitting Provider Family Medicine; Emergency Provider Emergency Medicine; Family Provider Family Medicine Geriatric Medicine; PCP Family Medicine Geriatric Medicine; Visit Provider Family Medicine
DX: G93.41 Metabolic encephalopathy (principal); E11.00 Type 2 diabetes mellitus with hyperosmolarity without nonketotic hyperglycemic-hyperosmolar coma (NKHHC); I47.1 Supraventricular tachycardia; N17.9 Acute kidney failure, unspecified; I47.2 Ventricular tachycardia; G91.0 Communicating hydrocephalus; G91.2 (Idiopathic) normal pressure hydrocephalus; L30.4 Erythema intertrigo; L55.9 Sunburn, unspecified; I45.6 Pre-excitation syndrome; R74.8 Abnormal levels of other serum enzymes; I10 Essential (primary) hypertension; E78.5 Hyperlipidemia, unspecified; N40.0 Benign prostatic hyperplasia without lower urinary tract symptoms; Z78.1 Physical restraint status; Z79.01 Long term (current) use of anticoagulants; Z79.82 Long term (current) use of aspirin; Z79.4 Long term (current) use of insulin; Z79.899 Other long term (current) drug therapy; I25.2 Old myocardial infarction; Z86.711 Personal history of pulmonary embolism; Z86.718 Personal history of other venous thrombosis and embolism
CPT/HCPCS: 36600; 51702; 70450; 70544; 70547; 70551; 71045; 72125; 80048; 80053; 80061; 80307; 80320; 81001; 82140; 82550; 82570; 82803; 82962; 83036; 83605; 83735; 83930; 84100; 84300; 84484; 85025; 85610; 85730; 87040; 87086; 87641; 93005; 93306; 99285; J7030; A4216; G0480

== ENCOUNTER → 2017-08-20 08:00 | Outpatient (CLI) | payer MEDICARE, SELFPAY ==
[2017-08-20 10:38] LABS: AST(SGOT) 17 U/L (15-37); Alanine Aminotransfer ALT/SGPT 23 U/L (16-61); Albumin, Serum 3.2 g/dL (3.2-5.0); Alkaline Phosphatase 96 U/L (45-117); Anion Gap 9 (5-15); BUN 15 mg/dL (7-18); Bilirubin, Direct 0.09 mg/dL (0.00-0.30); Calcium,Total 9.6 mg/dL (8.5-10.1); Chloride 105 mmol/L (98-107); Cholesterol 219 mg/dL (200); Creatinine, Serum 0.94 mg/dL (0.70-1.30); EST Glomerular Filtration Rate 85 mL/min (>60); Est Glom Filt Rate - Afr Amer 102 mL/min (>60); Glucose 148 mg/dL (74-106); High Density Lipoprotein 44 mg/dL; PSA,Total - Annual Screen 2.34 ng/mL (0.00-4.00); Potassium 3.9 mmol/L (3.5-5.1); Protein, Total 7.2 g/dL (6.4-8.2); Sodium Level 142 mmol/L (136-145); Triglycerides 173 mg/dL; Very Low Density Lipoprotein 35 mg/dL (5-40)
[2017-08-20 11:16] LABS: Microalbumin:Creatinine Ratio 1708.7 mg/g CRE (<30 mg/g CRE)
== END ==
PROVIDERS: Family Provider Family Medicine; PCP Family Medicine; Visit Provider Family Medicine
DX: E11.9 Type 2 diabetes mellitus without complications (principal); N40.0 Benign prostatic hyperplasia without lower urinary tract symptoms; Z12.5 Encounter for screening for malignant neoplasm of prostate
CPT/HCPCS: 36415; 80048; 80061; 80076; 82043; 82570; 83036; 84153; G0103

== ENCOUNTER → 2017-09-01 14:28 | Outpatient (CLI) | payer MEDICARE, SELFPAY ==
--- NOTE | 2017-09-01 14:33 | RAD_ITS ---
STUDY: X-RAY - RIGHT KNEE REASON FOR EXAM: Male, 71 years old. Right knee pain TECHNIQUE: 3 view(s) of the knee. With weightbearing COMPARISON: None. FINDINGS: Normal visualized distal femur. Normal visualized proximal tibia and fibula. Normal proximal tibiofibular articulation. There is severe degenerative arthrosis of the medial femorotibial compartment with severe joint space narrowing. No complete joint space loss of the medial compartment. There is moderate degenerative arthrosis of the lateral femorotibial compartment with moderate joint space narrowing. There is moderate degenerative arthrosis of the patellofemoral articulation. The soft tissue structures are unremarkable. RAD/Knee 3 Views IMPRESSION: Moderate to severe tricompartmental degenerative changes Electronically Signed: Rohan Holly DO at 15:25 EDT Tel , Service support ,
== END ==
PROVIDERS: Family Provider Family Medicine; PCP Family Medicine; Visit Provider Family Medicine
DX: M25.561 Pain in right knee (principal)
CPT/HCPCS: 73562

== ENCOUNTER → 2018-12-03 10:07 | Outpatient (CLI) | payer MEDICARE, SELFPAY ==
[2017-09-19 14:20] VITALS: BMI 39.8
[2018-12-03 12:51] LABS: Absolute Lymphocyte Count 1.32 X10^3/uL (0.83-4.51); Basophil% 1.3 % (0-1); Eosinophil# 0.49 X10^3/uL; Eosinophils% 6.6 % (0-5); Hematocrit 49.4 % (40-54); Hemoglobin 16.3 g/dL (13.0-16.5); Lymphocyte # 1.32 X10^3/ul (4.0); Lymphocyte % 17.7 % (19-41); Mean Corpuscular Hgb 27.1 pg (27.0-32.0); Mean Corpuscular Volume 82.1 fL (80-94); Mean Platelet Vol. 11.5 fl (6.2-12.0); Monocyte# 0.55 X10^3/uL; Monocyte% 7.4 % (0-10); NRBC Flagged by Analyzer 0 % (0-5); Neutrophil # 4.98 X10^3/uL (2.7-7.7); Neutrophil % 66.6 % (47-70); Platelet Count 242 K/mm3 (150-450); RBC Distribution Width CV 13.3 % (11.6-14.6); RBC Distribution Width SD 39.7 fl (35.1-43.9); Red Blood Count 6.02 M/mm3 (4.6-6.2); White Blood Count 7.5 K/mm3 (4.4-11.0)
[2018-12-03 13:32] LABS: ALB/GLOB Ratio 0.8 RATIO (0.9-2.4); AST(SGOT) 14 U/L (15-37); Alanine Aminotransfer ALT/SGPT 17 U/L (16-61); Albumin, Serum 3.4 g/dL (3.2-5.0); Alkaline Phosphatase 113 U/L (45-117); Anion Gap 10 (5-15); BUN 12 mg/dL (7-18); BUN/Creat Ratio 10.1 RATIO (10-20); Calcium,Total 9.6 mg/dL (8.5-10.1); Chloride 101 mmol/L (98-107); Cholesterol 227 mg/dL (200); Creatinine, Serum 1.19 mg/dL (0.70-1.30); EST Glomerular Filtration Rate 64 mL/min (>60); Est Glom Filt Rate - Afr Amer 78 mL/min (>60); Globulin 4.2 g/dL (2.2-4.2); Glucose 303 mg/dL (74-106); High Density Lipoprotein 45 mg/dL; Potassium 3.7 mmol/L (3.5-5.1); Protein, Total 7.6 g/dL (6.4-8.2); Sodium Level 136 mmol/L (136-145); Thyroid Stim Hormone (TSH) 2.22 uIU/mL (0.358-3.74); Triglycerides 189 mg/dL; Very Low Density Lipoprotein 38 mg/dL (5-40)
== END ==
PROVIDERS: Visit Provider Family Medicine Geriatric Medicine
DX: E11.9 Type 2 diabetes mellitus without complications (principal); I10 Essential (primary) hypertension; E78.5 Hyperlipidemia, unspecified; E55.9 Vitamin D deficiency, unspecified; E23.6 Other disorders of pituitary gland
CPT/HCPCS: 36415; 80053; 80061; 82306; 84403; 84443; 85025

== ENCOUNTER 2019-01-16 18:22 | Inpatient (IN) | payer MEDICARE, SELFPAY ==
[2019-01-16 18:23] VITALS: BP 186/112; PULSE 83; RESP 15; TEMP 36.7; O2SAT 98; BMI 38.5
--- NOTE | 2019-01-16 19:04 | EKG12_ITS ---
Test Reason : DYSRHYTHMIA Blood Pressure : / mmHG Vent. Rate : 092 BPM Atrial Rate : 092 BPM P-R Int : 168 ms QRS Dur : 112 ms QT Int : 354 ms P-R-T Axes : 016 -07 043 degrees QTc Int : 437 ms Sinus rhythm with Premature supraventricular complexes Inferior infarct , age undetermined Abnormal ECG Confirmed by FRANK SOSA, ANKITA ([id number]), editor greeting card AUDI TIJERINA ([id number]) on 01/17/2019 12:07:00 PM Referred By: AMERICA Confirmed By:JJ MARIE MD
--- NOTE | 2019-01-16 19:04 | CT_ITS ---
STUDY: CT BRAIN WITHOUT CONTRAST REASON FOR EXAM: Male, 73 years old. LEFT ARM WEAKNESS,DIARRHEA AND SEVERAL FALLS OVER THE PAST 2 DAYS HX:DIABETES,HTN,CKD,DC,SEPSIS RADIATION DOSAGE (If Supplied By Facility): CTDIvol = ( 044.99 ) mGy, DLP = ( 849.54 ) mGycm TECHNIQUE: Transaxial CT imaging of the brain was performed without administration of intravenous contrast material. Individualized dose optimization techniques were used for this CT. COMPARISON: Head CT dated July 04, 2017 FINDINGS: Normal soft tissue structures. Normal calvarium. There is mild cerebral atrophy with widening of the extra-axial spaces and ventricular dilatation. There are areas of decreased attenuation within the white matter tracts of the supratentorial brain, consistent with microvascular disease changes. Normal basal ganglia and thalami. Normal brainstem. Normal cerebellum. There is no intracranial hemorrhage. There are no findings of an acute ischemic infarction. Normal visualized paranasal sinuses. CT/Brain/Head without Contrast IMPRESSION: Chronic ischemic and involutional changes of the brain. Electronically Signed: Elieser Dorman MD at 20:29 EST , Service support ,
--- NOTE | 2019-01-16 19:08 | ED.VISSUMM ---
- ER Visit Summary Date of Service: 01/16/19 Chief Complaint: Diarrhea, falls and weakness left hand and arm History of Present Illness: The patient is a 73 M with he and his dog. History of diabetes, hypertension and A. fib. Currently not on any blood thinners. Said since Friday has had diarrhea episodes for last 4 days. No melena. He is never had C. difficile. No recent hospitalization. He is on no antibiotics. Denies fever chills. He also had nausea vomiting for couple days that is since resolved. Says he was lightheaded and fell several times did not hit his head. Denies any LOC. States yesterday morning he awoke and was not using his left arm well. It has been continuous for probably 40 hours now. He is never had a stroke before. He denies any headache. Physical Examination: Older male vital signs are stable. He is afebrile. He does not look septic or toxic. He is actively nauseated and vomiting into a bag. H EENT exam pupils are unreactive eyes motions are intact. Moist his membranes. No signs of trauma to his face or scalp. C-spine nontender. Trachea midline. No lymphadenopathy. Lungs clear to auscultation bilaterally. Heart regular rhythm rate about 80 no murmur. Chest were nontender. Abdomen soft and nontender. Normal bowel sounds no peritoneal signs. No signs of obstruction. Pelvic girdle intact. 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 He also has decreased dexterity of the left arm. His right upper, right lower extremity and left lower extremity otherwise are unremarkable nontender. There is no tenderness or deformity of the left upper extremity. Neurologically is awake alert. Answering questions. No facial droop. Extra motions are intact. Patient has normal strength and sensation of the right upper, right lower and left lower extremities. The left hand is weak and clenched. He also has weakness and loss dexterity to the left upper extremity. He has an NIH score of 4. Again this is more than 40 hours old. Test Results: Chest x-ray portable 1 view shows no acute abnormality. Read both by myself and the radiologist. CAT scan of the brain without contrast shows no acute abnormality. Chronic changes read by the radiologist and reviewed by me. EKG sinus rhythm rate of 92 no acute signs of NH or ischemia. CBC White count 12.5. Hemoglobin 16. No bands. Electrolytes potassium 3.3. Normal gap. Creatinine 1.3. Troponin normal. Emergency Department Course and Treatment: Normal with diarrhea that could be C. difficile. He is also been nausea vomiting for which he be given Zofran. Screening labs. IV fluids. And a CAT scan for possible stroke involving his left arm. He will need to be admitted. Treatment Plan: Repeat exam unchanged. C. difficile is pending. Spoke to the hospitalist about the admission. Disposition: Admission Impression: Acute nausea, vomiting and diarrhea Acute falls Acute left upper extremity weakness secondary to acute stroke. History of diabetes and hypertension This note was generated with Ang[employer] dictation software. It may contain incorrect words, spelling, and punctuation that were not noted in review of the chart prior to signing ED Disposition - Plan for ED Patient: Referrals: Moisés Gallardo Chi, MD [Primary Care Provider] -
[2019-01-16 19:10] VITALS: BP 194/98; PULSE 91; RESP 17
[2019-01-16] MEDS: 0.9% Normal Saline 1,000 ML 1000 ML IV (19:18)
[2019-01-16] MEDS: Ondansetron 4 MG/2 ML Vial IV (19:18)
[2019-01-16 19:19] LABS: Absolute Lymphocyte Count 1.44 X10^3/uL (0.83-4.51); Absolute Neutrophil Count 9.8 X10^3/uL (2.0-7.7); Basophil# 0.03 X10^3/uL; Basophil% 0.2 % (0-1); Eosinophil# 0.39 X10^3/uL; Eosinophils% 3.1 % (0-5); Hemoglobin 16.8 g/dL (13.0-16.5); Lymphocyte # 1.44 X10^3/ul (4.0); Lymphocyte % 11.5 % (19-41); Mean Corp Hgb Conc 33.6 g/dL (32-36); Mean Corpuscular Hgb 27.2 pg (27.0-32.0); Mean Corpuscular Volume 80.9 fL (80-94); Mean Platelet Vol. 10.2 fl (6.2-12.0); Monocyte# 0.79 X10^3/uL; Monocyte% 6.3 % (0-10); NRBC Flagged by Analyzer 0 % (0-5); Neutrophil % 78.5 % (47-70); Platelet Count 233 K/mm3 (150-450); RBC Distribution Width CV 13.1 % (11.6-14.6); RBC Distribution Width SD 37.4 fl (35.1-43.9); Red Blood Count 6.18 M/mm3 (4.6-6.2); White Blood Count 12.5 K/mm3 (4.4-11.0)
--- NOTE | 2019-01-16 19:30 | RAD_ITS ---
STUDY: X-RAY CHEST REASON FOR EXAM: Male, 73 years old. diarrhea, generalized weakness TECHNIQUE: Single AP portable view of the chest. COMPARISON: July 04, 2017 FINDINGS: The lungs are clear and expanded. There is no demonstrated pleural abnormality. Normal size heart. Normal mediastinum and paula. Stable osseous structures. RAD/Chest 1 View (Portable) IMPRESSION: No acute process Electronically Signed: Elieser Dorman MD at 20:18 EST , Service support ,
[2019-01-16 19:45] LABS: ALB/GLOB Ratio 0.8 RATIO (0.9-2.4); AST(SGOT) 11 U/L (15-37); Alanine Aminotransfer ALT/SGPT 16 U/L (16-61); Albumin, Serum 3.4 g/dL (3.2-5.0); Alkaline Phosphatase 110 U/L (45-117); Anion Gap 6 (5-15); BUN 14 mg/dL (7-18); BUN/Creat Ratio 10.7 RATIO (10-20); Calcium,Total 9.8 mg/dL (8.5-10.1); Chloride 105 mmol/L (98-107); Creatinine, Serum 1.31 mg/dL (0.70-1.30); EST Glomerular Filtration Rate 57 mL/min (>60); Est Glom Filt Rate - Afr Amer 69 mL/min (>60); Estimated Creatinine Clearance 48.36 ml/min; Globulin 4.3 g/dL (2.2-4.2); Glucose 272 mg/dL (74-106); Potassium 3.3 mmol/L (3.5-5.1); Protein, Total 7.7 g/dL (6.4-8.2); Sodium Level 137 mmol/L (136-145)
[2019-01-16 20:12] VITALS: BP 188/98; PULSE 86; RESP 16
--- NOTE | 2019-01-16 21:37 | PCM.HP.STD ---
History of Present Illness Date of Admission: 01/16/19 Chief Complaint: Diarrhea and left arm weakness The patient is a 73 year old M with a PMH as below who presents with 4 days of acute onset diarrhea. He says at its unrelenting and watery. He denies eating anything the day that the diarrhea started over the day before, he lives alone with his dog so has no sick contacts. Denies any abdominal pain or bloody stools. Also for the last several days he has felt weak in his left lower extremity and has had some falls without any head injury or loss of consciousness. And then yesterday morning he states that that he noticed he could not move his left arm. In the ER he had a normal CT scan of his brain and a C. difficile was sent for the diarrhea which was ultimately negative. He says that he is never had a stroke before, but he says that he has significant arthritis and thinks that his left leg has been weak for years now. Past Medical History Past Medical History (Chronic Problems): Chronic Problems (Last Updated 10/26/18 @ 15:35 by Millicent Parkinson) Type 2 diabetes mellitus (Chronic) Pure hypercholesterolemia (Chronic) Essential hypertension (Chronic) Syncope and collapse (Chronic) SVT (supraventricular tachycardia) (Chronic) Medical History: Medical History (Last Updated 10/26/18 @ 15:35 by Millicent Parkinson) Type 2 diabetes mellitus (Chronic) E11.9 Pure hypercholesterolemia (Chronic) E78.00 Paroxysmal ventricular tachycardia (Acute) I47.2 Essential hypertension (Chronic) I10 Syncope and collapse (Chronic) R55 SVT (supraventricular tachycardia) (Chronic) I47.1 Abnormal cardiac enzyme level (Acute) R74.8 BPH (benign prostatic hyperplasia) N40.0 BPH with obstruction/lower urinary tract symptoms N40.1, N13.8 Fall W19.XXXA Normal pressure hydrocephalus G91.2 Pulmonary embolism I26.99 ZE (acute kidney injury) (Resolved) N17.9 Mental status change (Resolved) R41.82 Allergies No Known Allergies Allergy (Verified 01/16/19 18:54) Home Medications: Ambulatory Orders Medication Instructions Recorded Tamsulosin HCl [Flomax] 0.4 mg PO BID 02/13/16 Atorvastatin Calcium [Lipitor] 40 mg PO QHS 01/16/19 Furosemide [Lasix] 40 mg PO DAILY 01/16/19 Metformin HCl 1,000 mg PO BID 01/16/19 Semaglutide [Ozempic] 0.25 mg SQ QWEEK 01/16/19 Valsartan/Hydrochlorothiazide 1 ea PO DAILY 01/16/19 [Valsartan-Hctz 320-12.5 mg Tab] Surgical History: Surgical History (Last Updated 02/26/17 @ 09:40 by Nikolas Prasad) H/O nasal septoplasty Z98.890 H/O vasectomy Z98.52 Hx of cholecystectomy Z98.890, Z90.49 Surgical History: cholecystectomy, - - right meniscus surgery, deviated septum, Smoking Status: Never smoker Alcohol: None Drugs: None - *Family History Paternal Family History: Family History (Last Updated 02/26/17 @ 09:36 by Nikolas Prasad) Father Gisella Pierce disease History Items: - - als Maternal Family History: Family History (Last Updated 02/26/17 @ 09:36 by Nikolas Prasad) Father Gisella Pierce disease History Items: Heart Disease - CAD; CABG Review of Systems Constitutional: Denies: Chills, Fever, Weight Change HEENT: Denies: Head Aches, Sinus Congestion, Sinus Drainage Cardiovascular: Denies: Chest Pain, Palpitations Respiratory: Denies: Cough, Shortness of breath at rest, Sputum production Gastrointestinal: Reports: Diarrhea. Denies: Abdominal Pain, Nausea, Melena, Vomiting Genitourinary: Denies: Dysuria Musculoskeletal: Denies: Joint Pain, Joint Tenderness Skin: Denies: Rash, Wounds Neurological: Reports: Focal weakness. Denies: Numbness, Tingling Psychiatric: Denies: Anxiety, Depression Hematologic/ Lymphatic: Denies: Easy Bruising, Easy Bleeding VTE Information - Inpt Only VTE Present on Admission: No - Physical Exam Vitals/I&O's: Vital Signs Temp Pulse Resp BP Pulse Ox 98.1 F 86 16 188/98 H 98 01/16/19 18:23 01/16/19 20:12 01/16/19 20:12 01/16/19 20:12 01/16/19 18:23 Oxygen Delivery Method Room Air Weight: 245 lb 9.519 oz Body Mass Index (BMI) 38.5 Finger Stick Blood Glucose 141 General: Alert, Oriented x3, Cooperative, No apparent distress HEENT: Atraumatic, PERRLA, EOMI, Normocephalic Oral: Dry Mucosa Neck: Supple, No JVD Lungs: Clear to auscultation, Normal air movement, No rhonchi, No wheeze, No rales, Diminished Cardiovascular: Regular rate, Regular Rhythm, Normal S1, Normal S2, No murmurs Abdomen: Soft, Non Tender, Non-Distended, No Hepato-splenomegaly Extremities: Capillary Refill Less than 3 Seconds, Edema - 2+ Skin: No rashes, No breakdown, - - Chronic venous stasis Neurological: Cranial nerves II-XII grossly intact, Sensory exam intact to light touch and pain, - - 1 out of 5 left upper extremity, 5 out of 5 right upper extremity no change in his lower extremity baseline strength. NIH of 4 Psych/Mental Status: Normal Affect, Appropriate Microbiology Past 72 Hours 01/16/19 19:00 Stool C. difficile DNA Amplification - Final Laboratory Results 01/16/19 19:10: WBC 12.5 H, RBC 6.18, Hgb 16.8 H, Hct 50.0, MCV 80.9, MCH 27.2, MCHC 33.6, RDW Std Deviation 37.4, RDW Coeff of Srikanth 13.1, Plt Count 233, MPV 10.2, Immature Gran % (Auto) 0.400, Neut % (Auto) 78.5 H, Lymph % (Auto) 11.5 L, Grimes % (Auto) 6.3, Eos % (Auto) 3.1, Baso % (Auto) 0.2, Absolute Neuts (auto) 9.8 H, Absolute Lymphs (auto) 1.44, Nucleated RBC % 0 01/16/19 19:10: PT 13.0, INR 1.0 01/16/19 19:10: Sodium 137, Potassium 3.3 L, Chloride 105, Carbon Dioxide 26.0, Anion Gap 6, BUN 14, Creatinine 1.31 H, Estim Creat Clear Calc 48.36, Est GFR (MDRD) Af Amer 69, Est GFR (MDRD) Non-Af 57 L, BUN/Creatinine Ratio 10.7, Glucose 272 H, Calcium 9.8, Total Bilirubin 0.60, AST 11 L, ALT 16, Alkaline Phosphatase 110, Troponin I 0.027, Total Protein 7.7, Albumin 3.4, Globulin 4.3 H, Albumin/Globulin Ratio 0.8 L Assessment/Plan All Active Problems (Last Updated 10/26/18 @ 15:35 by Millicent Parkinson) Paroxysmal ventricular tachycardia (Acute) Abnormal cardiac enzyme level (Acute) ZE (acute kidney injury) (Resolved) Mental status change (Resolved) Sepsis (Resolved) 1. Likely CVA -Over 24 hours of being unable to move his arm -I discussed with him the fact that we do not have any neurology coverage for non-acute stroke at this facility however he would prefer to stay for an MRI and an echo on Friday -We will continue with PT/OT -Case management for discharge planning -[facility] per protocol -We will start him on aspirin -Increase Lipitor to 80 mg 2. Diarrhea -C. difficile was negative -Enteric pathogens pending -Continue with supportive treatments with IV fluids 3. HTN/HLD/history of SVT -We will hold off on his Lasix for now while he is getting fluid given his diarrhea -We will continue with Lipitor and add aspirin -We will hold his valsartan hydrochlorothiazide for permissive hypertension for another 12 to 24 hours 4. DM 2 -We will hold his oral medications -Short on Lantus 5 units nightly with sliding scale insulin and Accu-Cheks AC at bedtime 5. BPH -Stable -Continue with Flomax DVT: Lovenox Code Visit Inpatient E&M: 44526 Init Hosp L3
[2019-01-16 22:38] VITALS: BMI 37.0
[2019-01-16 22:40] VITALS: BP 154/73; PULSE 96; RESP 18; TEMP 36.7; O2SAT 97
--- NOTE | 2019-01-16 22:54 | MRI_ITS ---
STUDY: MRA NECK WITHOUT CONTRAST REASON FOR EXAM: Male, 73 years old. Left arm flaccid. TECHNIQUE: Source images were obtained, MIPs were performed. The study was performed unenhanced. There is motion artifact COMPARISON: July 04, 2017 FINDINGS: RIGHT CAROTID ARTERIES: Normal right common carotid artery (CCA). Normal right common carotid bulb. Normal origin of the right internal carotid (ICA) artery without a hemodynamically significant stenosis. Normal visualized cervical portion of the right internal carotid artery. Normal origin of the right external carotid artery (ECA). LEFT CAROTID ARTERIES: Normal left common carotid artery (CCA). Normal left common carotid bulb. Normal origin of the left internal carotid (ICA) artery without a hemodynamically significant stenosis. Normal visualized cervical portion of the left internal carotid artery. Normal origin of the left external carotid artery (ECA). VERTEBRAL ARTERIES: There is antegrade flow within the bilateral vertebral arteries with a small left vertebral artery, and a dominant right vertebral artery. MRI/MRA Neck without Contrast IMPRESSION: No occlusion or focal stenosis. Detail limited by motion. Electronically Signed: Steve Weston MD at 10:59 EST , Service support ,
--- NOTE | 2019-01-16 22:54 | ECHOCS_ITS ---
Reason For Study: TIA/CVA Procedure This was a 2D Doppler, Color Flow transthoracic echocardiogram. The study was technically difficult. Contrast injection was performed. Exam performed portable in patient room. Left Ventricle Normal LV size. Left ventricular systolic function is normal. The estimated ejection fraction is 55 %. Stage 1 diastolic dysfunction. No regional wall motion abnormalities noted. Right Ventricle Normal RV size. Normal systolic function. Atria The left atrium is moderately enlarged. Normal right atrium. Mitral Valve Mitral valve not well visualized. Tricuspid Valve The tricuspid valve is not well visualized. Aortic Valve Mild focal aortic valve calcification. Trisinus/trileaflet aortic valve. Pulmonic Valve Normal pulmonic valve. Great Vessels Normal aortic root. The pulmonary artery is normal size. Normal inferior vena cava. Pericardium/Pleural No pericardial effusion. Medication Performed a rapid injection of agitated mix of 9 cc saline and 1cc air to assess for atrial septal defect. Diluted definity 4ml given slow IV push to enhance endocardial definition. MMode/2D Measurements & Calculations LVIDd: 5.7 cm IVSd: 1.3 cm Ao root diam: 3.8 cm LVIDs: 4.1 cm LVPWd: 1.0 cm RVDd: 4.1 cm FS: 28.4 % LAV(MOD-bp): 82.9 ml LVAd ap4: 39.5 cm2 SV(MOD-sp4): 91.5 ml LAV(MOD-bp) Indexed: 37.6 ml/m2 EDV(MOD-sp4): 145.7 ml LAV(MOD-sp2): 79.1 ml EDV(sp4-el): 152.6 ml LAV(MOD-sp4): 80.6 ml LVAs ap4: 22.0 cm2 ESV(MOD-sp4): 54.2 ml ESV(sp4-el): 54.8 ml EF(MOD-sp4): 62.8 % EF(sp4-el): 64.1 % SV(sp4-el): 97.8 ml LA A4 area: 25.3 cm2 LA dimension(2D): 4.2 cm RA A4 area: 15.0 cm2 Doppler Measurements & Calculations MV E max jordy: 70.2 cm/sec Lat Peak E' Jordy: 7.9 cm/sec Med Peak E' Jordy: 6.0 cm/sec MV A max jordy: 117.8 cm/sec E/E' lat: 8.8 E/E' med: 11.7 MV E/A: 0.60 Ao V2 max: 154.7 cm/sec LV V1 max: 104.0 cm/sec PA V2 max: 94.4 cm/sec Ao max P.6 mmHg LV V1 max P.3 mmHg Ao V2 mean: 115.5 cm/sec Ao mean P.8 mmHg Ao V2 VTI: 29.3 cm Interpretation Summary Normal LV size. Left ventricular systolic function is normal. The estimated ejection fraction is 55 %. Stage 1 diastolic dysfunction. The left atrium is moderately enlarged. Contrast injection was performed. Ordering Physician: Arthur Harrell Referring Physician: Moisés Gallardo Chi Performed By: Imani Arias, CANDIE, RVT
--- NOTE | 2019-01-16 22:54 | MRI_ITS ---
STUDY: MRA OF THE HEAD WITHOUT CONTRAST REASON FOR EXAM: Male, 73 years old. Left arm flaccid TECHNIQUE: 3-D [id number] (TOF) imaging was performed with MIPs. The study was performed unenhanced. There is motion artifact. COMPARISON: July 04, 2017. FINDINGS: Normal bilateral petrous carotid arteries. Normal right cavernous carotid artery with a normal supraclinoid bifurcation. Normal left cavernous carotid artery with a normal supraclinoid bifurcation. Normal right A1 segments of the anterior cerebral artery. Normal left A1 segments of the anterior cerebral artery. Normal intact anterior communicating artery (ACOM). Normal bilateral A2 segments of the anterior cerebral arteries. Normal right M1 and M2 segments of the middle cerebral arteries, with a normal M1 bifurcation. There is irregularity of the left M1 and M2 branches with moderate to severe luminal narrowing, suggesting atherosclerotic plaque formation, without an occlusion. There is non-visualization of the right posterior communicating artery (PCOM). There is a persistent origin of the left posterior cerebral artery with absence of the P1 segment of the left posterior cerebral artery. There is a small atretic right vertebral artery with a dominant left vertebral artery. Normal basilar artery with a normal basilar bifurcation. The visualized bilateral superior cerebellar (SCA) arteries are normal. Normal bilateral P2 and visualized P3 segments of the posterior cerebral arteries. There is no demonstrated aneurysm of the [place] of [place]. There is no major vessel occlusion . There is no demonstrated abnormality of the visualized brain. 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 Electronically Signed: Steve Weston MD at 10:57 EST , Service support ,
--- NOTE | 2019-01-16 22:54 | MRI_ITS ---
We are attempting to reach an attending provider to discuss findings. An addendum with communication details will be sent when the communication is complete. STUDY: MRI BRAIN WITHOUT CONTRAST REASON FOR EXAM: Male, 73 years old. Left arm flaccid. TECHNIQUE: Standardized multiplanar fat and water weighted pulse sequences were obtained. COMPARISON: CT January 16, 2019. FINDINGS: There is disproportionate ventricular enlargement with prominence of the anterior horns and temporal tips of the bilateral lateral ventricles. There is confluent periventricular hyperintensity cloaking the lateral ventricles. There is thinning with bowing of the corpus callosum. There is moderate enlargement of the third ventricle. 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 There are a limited number of small white matter hyperintensities, distributed throughout the deep white matter tracts of the cerebral hemispheres, consistent with mild chronic white matter ischemic changes. There is focal restricted diffusion of the right frontal, parietal, and occipital lobes with recent, acute or subacute, infarct, series 4 images through . Normal bilateral basal ganglia. Normal thalami. There is no extra-axial fluid accumulation. Normal flow voids within the major intracranial circulation suggesting patency by spin echo criteria. Normal sella turcica, pituitary gland, infundibular stalk, optic chiasm and hypothalamus. Normal tectal plate and pineal gland. Normal midbrain, michael and medulla. Normal cerebellum. Normal basal cisterns. Normal bilateral temporal bones. Normal bilateral internal auditory canals. No demonstrated orbital abnormality, within the constraints of a routine brain study. Normal visualized paranasal sinuses. Normal calvarium and skull base. Normal visualized soft tissue structures. Normal visualized upper cervical spine. MRI/Brain without Contrast IMPRESSION: Involutional changes of the brain, as described above. Acute or subacute right frontal, parietal, and occipital infarcts. No hemorrhage. Electronically Signed: Steve Weston MD at 10:52 EST , Service support ,
[2019-01-16] MEDS: 0.9% Normal Saline 1,000 ML 100 ML IV (23:52)
[2019-01-16] MEDS: Aspirin 81 MG TAB.CHEW PO (23:52)
[2019-01-16] MEDS: Insulin Lispro 100 UNIT/ML INSULN.PEN SC (23:52)
[2019-01-16] MEDS: 0.9% Saline Lock 10 ML Syringe IV (23:53)
[2019-01-17] VITALS (11 sets, daily range): BP systolic 136–169; BP diastolic 71–98; PULSE 68–88; RESP 14–18; TEMP 36.6–36.9; O2SAT 94–97; BMI 37.0
[2019-01-17 00:10] LABS: Bedside Glucose 262 mg/dL (70-110)
[2019-01-17] MEDS: Insulin Lispro 100 UNIT/ML INSULN.PEN SC ×5 (06:51→22:24)
[2019-01-17 07:05] LABS: Bedside Glucose 231 mg/dL (70-110)
[2019-01-17 07:10] LABS: Absolute Lymphocyte Count 1.24 X10^3/uL (0.83-4.51); Basophil# 0.01 X10^3/uL; Basophil% 0.1 % (0-1); Eosinophil# 0.36 X10^3/uL; Eosinophils% 3.5 % (0-5); Hematocrit 45.6 % (40-54); Hemoglobin 15.1 g/dL (13.0-16.5); Lymphocyte # 1.24 X10^3/ul (4.0); Lymphocyte % 12.1 % (19-41); Mean Corp Hgb Conc 33.1 g/dL (32-36); Mean Corpuscular Volume 81.6 fL (80-94); Mean Platelet Vol. 10.6 fl (6.2-12.0); Monocyte# 0.63 X10^3/uL; Monocyte% 6.1 % (0-10); NRBC Flagged by Analyzer 0 % (0-5); Neutrophil # 7.98 X10^3/uL (2.7-7.7); Neutrophil % 77.8 % (47-70); Platelet Count 201 K/mm3 (150-450); RBC Distribution Width CV 13.2 % (11.6-14.6); RBC Distribution Width SD 38.8 fl (35.1-43.9); Red Blood Count 5.59 M/mm3 (4.6-6.2); White Blood Count 10.3 K/mm3 (4.4-11.0)
[2019-01-17 07:26] LABS: Anion Gap 6 (5-15); BUN 13 mg/dL (7-18); BUN/Creat Ratio 13.7 RATIO (10-20); Calcium,Total 8.9 mg/dL (8.5-10.1); Chloride 110 mmol/L (98-107); Cholesterol 172 mg/dL (200); Creatinine, Serum 0.95 mg/dL (0.70-1.30); EST Glomerular Filtration Rate 83 mL/min (>60); Est Glom Filt Rate - Afr Amer 100 mL/min (>60); Estimated Creatinine Clearance 66.68 ml/min; Glucose 237 mg/dL (74-106); High Density Lipoprotein 37 mg/dL; Potassium 4.2 mmol/L (3.5-5.1); Sodium Level 141 mmol/L (136-145); Triglycerides 155 mg/dL; Very Low Density Lipoprotein 31 mg/dL (5-40)
[2019-01-17] MEDS: Nystatin Powder 15gm Bottle 1 APPLIC TOPICAL ×2 (07:34→22:19)
[2019-01-17] MEDS: Tamsulosin HCl 0.4 MG Capsule PO ×2 (07:35→22:23)
[2019-01-17] MEDS: Aspirin 81 MG TAB.CHEW PO (07:35)
[2019-01-17] MEDS: Enoxaparin 40 MG/0.4 ML Syringe SC (07:35)
[2019-01-17] MEDS: 0.9% Normal Saline 1,000 ML 100 ML IV ×2 (08:51→20:22)
[2019-01-17 09:38] LABS: Hemoglobin A1c 10.7 % (4.2-6.3)
[2019-01-17 09:41] LABS: Magnesium 1.7 mg/dL (1.6-2.6); Thyroid Stim Hormone (TSH) 1.17 uIU/mL (0.358-3.74)
[2019-01-17] MEDS: Menthol/Lanolin/Calamine/Znox 113 GM Tube 1 APPLIC TOPICAL ×4 (10:34→22:20)
[2019-01-17 10:40] LABS: Bedside Glucose 304 mg/dL (70-110)
[2019-01-17] MEDS: oxyCODONE 5 MG Tablet PO (11:35)
--- NOTE | 2019-01-17 12:43 | PCM.PROGNOTE ---
Subjective: Patient seen and examined. Discussed MRI results with patient and son which showed acute right frontal, parietal and occipital infarcts. Patient continues to have severe left-sided weakness. Reports left eye vision changes overnight which have since resolved. Denies new neurologic symptoms or complaints. - Physical Exam Vitals/I&O's: Vital Signs Temp Pulse Resp BP Pulse Ox 98.0 F 88 18 155/98 H 95 01/17/19 10:40 01/17/19 10:40 01/17/19 10:40 01/17/19 10:40 01/17/19 10:40 Oxygen Delivery Method Room Air Weight: 236 lb 8.896 oz Body Mass Index (BMI) 37.0 Finger Stick Blood Glucose 141 Intake and Output for Last 24 Hours 01/15/19 01/16/19 01/17/19 23:59 23:59 23:59 Intake Total 1000 / 1000 1250.00 / 1250.00 Balance 1000 / 1000 1250.00 / 1250.00 General: Alert, Oriented x3, Cooperative HEENT: Atraumatic, PERRLA, EOMI, Normocephalic, - - Left hemianopia Neck: Supple, No JVD, Negative Carotid Bruits Lungs: Clear to auscultation, Normal air movement Cardiovascular: Regular rate, Regular Rhythm, Normal S1, Normal S2, No murmurs Abdomen: Bowel Sounds Present, Soft, Non Tender, Non-Distended, Obese Extremities: No clubbing, No cyanosis, No edema, Capillary Refill Less than 3 Seconds Skin: No rashes, No breakdown Neurological: Cranial nerves II-XII grossly intact, - - Left upper extremity and left lower extremity 1/5 strength. Psych/Mental Status: Normal Affect, Appropriate Microbiology Past 72 Hours 01/16/19 17:00 Stool Enteric Bacteriology - Final 01/16/19 19:00 Stool C. difficile DNA Amplification - Final Laboratory Results 01/16/19 19:10: WBC 12.5 H, RBC 6.18, Hgb 16.8 H, Hct 50.0, MCV 80.9, MCH 27.2, MCHC 33.6, RDW Std Deviation 37.4, RDW Coeff of Srikanth 13.1, Plt Count 233, MPV 10.2, Immature Gran % (Auto) 0.400, Neut % (Auto) 78.5 H, Lymph % (Auto) 11.5 L, [place] % (Auto) 6.3, Eos % (Auto) 3.1, Baso % (Auto) 0.2, Absolute Neuts (auto) 9.8 H, Absolute Lymphs (auto) 1.44, Nucleated RBC % 0 01/16/19 19:10: PT 13.0, INR 1.0 01/16/19 19:10: Sodium 137, Potassium 3.3 L, Chloride 105, Carbon Dioxide 26.0, Anion Gap 6, BUN 14, Creatinine 1.31 H, Estim Creat Clear Calc 48.36, Est GFR (MDRD) Af Amer 69, Est GFR (MDRD) Non-Af 57 L, BUN/Creatinine Ratio 10.7, Glucose 272 H, Calcium 9.8, Total Bilirubin 0.60, AST 11 L, ALT 16, Alkaline Phosphatase 110, Troponin I 0.027, Total Protein 7.7, Albumin 3.4, Globulin 4.3 H, Albumin/Globulin Ratio 0.8 L 01/16/19 23:51: POC Glucose 262 H 01/17/19 06:21: WBC 10.3, RBC 5.59, Hgb 15.1, Hct 45.6, MCV 81.6, MCH 27.0, MCHC 33.1, RDW Std Deviation 38.8, RDW Coeff of Srikanth 13.2, Plt Count 201, MPV 10.6, Immature Gran % (Auto) 0.400, Neut % (Auto) 77.8 H, Lymph % (Auto) 12.1 L, [place] % (Auto) 6.1, Eos % (Auto) 3.5, Baso % (Auto) 0.1, Absolute Neuts (auto) 8.0 H, Absolute Lymphs (auto) 1.24, Nucleated RBC % 0 01/17/19 06:21: Sodium 141, Potassium 4.2, Chloride 110 H, Carbon Dioxide 25.0, Anion Gap 6, BUN 13, Creatinine 0.95, Estim Creat Clear Calc 66.68, Est GFR (MDRD) Af Amer 100, Est GFR (MDRD) Non-Af 83, BUN/Creatinine Ratio 13.7, Glucose 237 H, Calcium 8.9, Triglycerides 155, Cholesterol 172, LDL Cholesterol 104, VLDL Cholesterol 31, HDL Cholesterol 37 L 01/17/19 06:21: Magnesium 1.7, TSH 1.17 01/17/19 06:21: Hemoglobin A1c 10.7 H 01/17/19 06:43: POC Glucose 231 H 01/17/19 10:31: POC Glucose 304 H Current Medications Acetaminophen (Tylenol) 650 mg PO Q6H PRN PRN PRN Reason: Pain Score 1-10/10 Aspirin (Aspirin, Baby) 81 mg PO DAILY@0800 [facility] Last Admin: 01/17/19 07:35 Dose: 81 mg Documented by: Atorvastatin Calcium (Lipitor) 80 mg PO QHS [facility] Calamine/Phenol (Calmoseptine Ointment) 1 applic TOPICAL 4X/DAY [facility]; Protocol Last Admin: 01/17/19 10:34 Dose: 1 applicatio Documented by: Dextrose (D50w Syringe) 0 gm IV X1 PRN; Protocol PRN Reason: Hypoglycemia Enoxaparin Sodium (Lovenox) 40 mg SC DAILY [facility] Last Admin: 01/17/19 07:35 Dose: 40 mg Documented by: Glucagon () 1 mg IM .X1 PRN PRN Reason: Hypoglycemia Sodium Chloride () 250 mls @ 15 mls/hr IV .[id number] PRN PRN Reason: Saline Flush Sodium Chloride () 1,000 mls @ 100 mls/hr IV .Q10H [facility] Last Infusion: 01/17/19 08:52 Dose: 0 mls/hr Documented by: Insulin Glargine (Lantus (Bkc)) 5 units SC QHS [facility] Last Admin: 01/16/19 23:53 Dose: 5 u Documented by: Insulin Human Lispro (Humalog Kwikpen (Bk)) 0 unit SC ACHS [facility]; Protocol Last Admin: 01/17/19 10:34 Dose: 6 u Documented by: Nystatin (Mycostatin Powder) 1 applic TOPICAL BID [facility]; Protocol Last Admin: 01/17/19 07:34 Dose: 1 applic Documented by: Oxycodone HCl (Oxyir) 5 mg PO Q4H PRN PRN PRN Reason: Pain Score 6-10/10 Last Admin: 01/17/19 11:35 Dose: 5 mg Documented by: Sodium Chloride () 10 - 40 ml IV UD PRN PRN Reason: SALINE FLUSH Last Admin: 01/16/19 23:53 Dose: 10 ml Documented by: Tamsulosin HCl (Flomax) 0.4 mg PO BID [facility] Last Admin: 01/17/19 07:35 Dose: 0.4 mg Documented by: Medical Necessity - Tobacco Use Smoking Status: Never smoker Tobacco Use: Non-smoker Assessment/Plan All Active Problems (Last Updated 10/26/18 @ 15:35 by Millicent Parkinson) Paroxysmal ventricular tachycardia (Acute) Abnormal cardiac enzyme level (Acute) ZE (acute kidney injury) (Resolved) Mental status change (Resolved) Sepsis (Resolved) 1. Acute right frontal, parietal and occipital infarcts-Per MRI of brain. MRA of head shows narrowing of right middle cerebral artery. MRA of neck shows no occlusion or focal stenosis. Continue aspirin, high-dose statin. PT/OT/ST. Obtain echo. Will obtain tele-neurology consult in a.m. 2. Suspected viral gastroenteritis with diarrhea-C. difficile and enteric pathogen negative. Calmoseptine for perineum excoriation. PRN Imodium if diarrhea remains persistent. 3. History of paroxysmal ventricular tachycardia-follows with Dr. Fernandez. 4. Type 2 diabetes mellitus, uncontrolled-hemoglobin A1c 10.7%. Accu-Cheks ACHS with SSI. Lantus 15 units nightly. 5. 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 6. Hypertension-permissive given #1. Home BP regimen on hold. 7. Hyperlipidemia-increased to high-dose statin. 8. BPH-continue Flomax regimen. 9. Noncompliance with medication regimen and [id number] with son who reports patient has not been following with his doctors over the last year and does not feel he has been taking his prescribed medications. Consult case management for discharge planning. DVT prophylaxis-Lovenox subcu This patient was seen by CRISS Anderson under the supervision of Dr. Thomas.
[2019-01-17] MEDS: Loperamide 2 MG Capsule PO (13:55)
[2019-01-17 17:05] LABS: Bedside Glucose 216 mg/dL (70-110)
[2019-01-17] MEDS: Atorvastatin Calcium 80 MG Tablet PO (22:23)
[2019-01-17 22:40] LABS: Bedside Glucose 218 mg/dL (70-110)
[2019-01-18] VITALS (13 sets, daily range): BP systolic 141–176; BP diastolic 78–98; PULSE 65–92; RESP 16–18; TEMP 36.5–37.1; O2SAT 93–97; BMI 37.0
[2019-01-18] MEDS: 0.9% Normal Saline 1,000 ML 100 ML IV ×2 (04:47→14:08)
[2019-01-18] MEDS: Insulin Lispro 100 UNIT/ML INSULN.PEN SC ×7 (07:56→21:39)
[2019-01-18 08:00] LABS: Bedside Glucose 176 mg/dL (70-110)
--- NOTE | 2019-01-18 09:56 | CASEMGMT ---
Assessment- SW completed assessment with patient. Living situation- Patient lives alone with his dog in a 1 story home with 7 entry steps. PCP: Dr Gallardo Specialists: He said he saw a foot and ankle Dr, but could not remember the Dr.'s name Pharmacy: [facility]: wheeled walker, standard walker, standard cane, shower chair, grab bars ADL's/IADL's: Patient usually uses his cane to get around. Otherwise he is independent Past SNF/rehab: none Past HH: none LW: He said he has one, but does not know where it is located POA: He said he has one, but does not know where it is located SW met with patient, introduced self and role at [facility]. Patient had a Stroke and he is very debilitated. He has a son who lives in [place]. He said he is out of town right now. Discussed d/c plan and patient said he would like to stay at [facility] for rehab. SW told him SW can check on bed availability. SW did give him a list of other facilities that are in network with his insurance in the event our units don't work out. SW told him SW will work on this. Patient mentioned he would like to do a new healthcare POA and LW since he cannot find the ones he did previously. SW will also need to complete a PHQ 9 with patient since he had a stroke. SW called [facility] post acute referral line and left a message regarding patient for rehab vs TCU Plan: TCU VS Rehab VS community SNF [facility]
[2019-01-18] MEDS: Tamsulosin HCl 0.4 MG Capsule PO ×2 (10:12→21:39)
[2019-01-18] MEDS: Aspirin 81 MG TAB.CHEW PO (10:12)
[2019-01-18] MEDS: Enoxaparin 40 MG/0.4 ML Syringe SC (10:13)
[2019-01-18] MEDS: Nystatin Powder 15gm Bottle 1 APPLIC TOPICAL ×2 (10:14→21:39)
[2019-01-18] MEDS: Menthol/Lanolin/Calamine/Znox 113 GM Tube 1 APPLIC TOPICAL ×4 (10:18→21:38)
[2019-01-18] MEDS: Loperamide 2 MG Capsule PO (10:22)
[2019-01-18 11:25] LABS: Bedside Glucose 198 mg/dL (70-110)
--- NOTE | 2019-01-18 11:44 | CASEMGMT ---
SW received a return call from Maegan and she will talk with therapy about patient to see if they feel he could do three hours of therapy. She said if they don't think he can do three hours she will start the pre-cert for TCU. YANET will let patient know this information. Plan: [facility] 4th floor Rehab Unit vs [facility] TCU Fab[facility] MACEDO MSW
--- NOTE | 2019-01-18 11:56 | NURSING ---
Was asked to see patient for redness to groin. pt is incontinent and states he thinks it is just diaper rash. states seems much better today. there is some redness noted to the perianal area and scrotum. calmoseptine is currently being used. will monitor the redness. does appear to be from incontinence.
--- NOTE | 2019-01-18 13:23 | CASEMGMT ---
SW completed a PHQ 9 with patient as he had a Stroke. He scored a 6 which indicates mild Depression. He would not take any resources. He does not like counseling as, They just mess with your head. SW tried to share with him that they can help him with coping skills and dealing with his feelings regarding recent Stroke. Fabienne MACEDO MSW
--- NOTE | 2019-01-18 13:28 | CASEMGMT ---
SW completed Healthcare POA and Healthcare LW with patient. Copies were made and given to patient along with originals. SW also placed a copy in patient's chart. Plan: Inpatient rehab vs TCU [facility]
--- NOTE | 2019-01-18 14:07 | PCM.PROGNOTE ---
<Rema Matias - Last Filed: 01/18/19 14:11> Subjective: Patient seen and examined. No new neurologic symptoms or deficits. Continues to have severe left-sided weakness. Denies vision changes. - Physical Exam Vitals/I&O's: Vital Signs Temp Pulse Resp BP Pulse Ox 97.9 F 66 18 141/83 H 97 01/18/19 10:00 01/18/19 10:59 01/18/19 10:00 01/18/19 10:00 01/18/19 10:00 Oxygen Delivery Method Room Air Weight: 236 lb 8.896 oz Body Mass Index (BMI) 37.0 Finger Stick Blood Glucose 141 Intake and Output for Last 24 Hours 01/16/19 01/17/19 01/18/19 23:59 23:59 23:59 Intake Total 1000 / 1000 3091.66 / 3291.66 886.67 / 886.67 Balance 1000 / 1000 3091.66 / 3291.66 886.67 / 886.67 General: Alert, Oriented x3, Cooperative HEENT: Atraumatic, PERRLA, EOMI, Normocephalic, - - Left hemianopia Neck: Supple, No JVD, Negative Carotid Bruits Lungs: Clear to auscultation, Normal air movement Cardiovascular: Regular rate, Regular Rhythm, Normal S1, Normal S2, No murmurs Abdomen: Bowel Sounds Present, Soft, Non Tender, Non-Distended Extremities: No edema, Capillary Refill Less than 3 Seconds Skin: No rashes, No breakdown Musculoskeletal: No Tenderness to Palpation of Joints or Extremities Neurological: Cranial nerves II-XII grossly intact, - - Left upper extremity and left lower extremity 1/5 strength. Psych/Mental Status: Normal Affect, Appropriate Microbiology Past 72 Hours 01/16/19 17:00 Stool Enteric Bacteriology - Final 01/16/19 19:00 Stool C. difficile DNA Amplification - Final Laboratory Results 01/17/19 16:55: POC Glucose 216 H 01/17/19 22:18: POC Glucose 218 H 01/18/19 07:48: POC Glucose 176 H 01/18/19 11:19: POC Glucose 198 H Current Medications Acetaminophen (Tylenol) 650 mg PO Q6H PRN PRN PRN Reason: Pain Score 1-10/10 Aspirin (Aspirin, Baby) 81 mg PO DAILY@0800 [facility] Last Admin: 01/18/19 10:12 Dose: 81 mg Documented by: Atorvastatin Calcium (Lipitor) 80 mg PO QHS [facility] Last Admin: 01/17/19 22:23 Dose: 80 mg Documented by: Calamine/Phenol (Calmoseptine Ointment) 1 applic TOPICAL 4X/DAY [facility]; Protocol Last Admin: 01/18/19 10:18 Dose: 1 applicatio Documented by: Dextrose (D50w Syringe) 0 gm IV X1 PRN; Protocol PRN Reason: Hypoglycemia Dextrose (D50w Syringe) 0 gm IV X1 PRN; Protocol PRN Reason: Hypoglycemia Enoxaparin Sodium (Lovenox) 40 mg SC DAILY [facility] Last Admin: 01/18/19 10:13 Dose: 40 mg Documented by: Glucagon () 1 mg IM .X1 PRN PRN Reason: Hypoglycemia Glucagon () 1 mg IM .X1 PRN PRN Reason: Hypoglycemia Sodium Chloride () 250 mls @ 15 mls/hr IV .[id number] PRN PRN Reason: Saline Flush Sodium Chloride () 1,000 mls @ 100 mls/hr IV .Q10H [facility] Last Admin: 01/18/19 04:47 Dose: 100 mls/hr Documented by: Insulin Glargine (Lantus (Bkc)) 20 units SC BID [facility] Last Admin: 01/18/19 10:13 Dose: 20 unit Documented by: Insulin Human Lispro (Humalog Kwikpen (Bkc)) 0 unit SC ACHS [facility]; Protocol Last Admin: 01/18/19 11:20 Dose: 2 u Documented by: Insulin Human Lispro (Humalog Kwikpen (Bkc)) 5 unit SC TIDAC [facility] Last Admin: 01/18/19 11:20 Dose: 5 units Documented by: Loperamide HCl (Imodium) 2 mg PO Q4H PRN PRN PRN Reason: Diarrhea Last Admin: 01/18/19 10:22 Dose: 2 mg Documented by: Nystatin (Mycostatin Powder) 1 applic TOPICAL BID [facility]; Protocol Last Admin: 01/18/19 10:14 Dose: 1 applic Documented by: Oxycodone HCl (Oxyir) 5 mg PO Q4H PRN PRN PRN Reason: Pain Score 6-10/10 Last Admin: 01/17/19 11:35 Dose: 5 mg Documented by: Sodium Chloride () 10 - 40 ml IV UD PRN PRN Reason: SALINE FLUSH Last Admin: 01/16/19 23:53 Dose: 10 ml Documented by: Tamsulosin HCl (Flomax) 0.4 mg PO BID [facility] Last Admin: 01/18/19 10:12 Dose: 0.4 mg Documented by: Medical Necessity - Tobacco Use Smoking Status: Never smoker Tobacco Use: Non-smoker Assessment/Plan 1. Acute right frontal, parietal and occipital infarcts-Per MRI of brain. MRA of head shows narrowing of right middle cerebral artery. MRA of neck shows no occlusion or focal stenosis. Continue aspirin, high-dose statin. PT/OT/ST. echo pending. Telemetry neurology consult pending. 2. Suspected viral gastroenteritis with diarrhea-C. difficile and enteric pathogen negative. Calmoseptine for perineum excoriation. PRN Imodium if diarrhea remains persistent. Ova and parasites added. 3. History of paroxysmal ventricular tachycardia-follows with Dr. Fernandez. 4. Type 2 diabetes mellitus, uncontrolled-hemoglobin A1c 10.7%. Accu-Cheks ACHS with SSI. Lantus 20 units twice daily. 5. 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 6. Hypertension-permissive given #1. Resume home BP regimen. 7. Hyperlipidemia-increased to high-dose statin. 8. BPH-continue Flomax regimen. 9. Noncompliance with medication regimen and [id number] with son who reports patient has not been following with his doctors over the last year and does not feel he has been taking his prescribed medications. Consult case management for discharge planning. DVT prophylaxis-Lovenox subcu This patient was seen by CRISS Anderson under the supervision of Dr. Colon. <Juliane Colon - Last Filed: 01/18/19 14:44> - Physical Exam Vitals/I&O's: Vital Signs Temp Pulse Resp BP Pulse Ox 98.3 F 92 18 153/84 H 96 01/18/19 14:00 01/18/19 14:00 01/18/19 14:00 01/18/19 14:00 01/18/19 14:00 Oxygen Delivery Method Room Air Weight: 236 lb 8.896 oz Body Mass Index (BMI) 37.0 Finger Stick Blood Glucose 141 Intake and Output for Last 24 Hours 01/16/19 01/17/19 01/18/19 23:59 23:59 23:59 Intake Total 1000 / 1000 3091.66 / 3291.66 1821.67 / 1821.67 Balance 1000 / 1000 3091.66 / 3291.66 1821.67 / 1821.67 Microbiology Past 72 Hours 01/16/19 17:00 Stool Enteric Bacteriology - Final 01/16/19 19:00 Stool C. difficile DNA Amplification - Final Laboratory Results 01/17/19 16:55: POC Glucose 216 H 01/17/19 22:18: POC Glucose 218 H 01/18/19 07:48: POC Glucose 176 H 01/18/19 11:19: POC Glucose 198 H Current Medications Acetaminophen (Tylenol) 650 mg PO Q6H PRN PRN PRN Reason: Pain Score 1-10/10 Aspirin (Aspirin, Baby) 81 mg PO DAILY@0800 [facility] Last Admin: 01/18/19 10:12 Dose: 81 mg Documented by: Atorvastatin Calcium (Lipitor) 80 mg PO QHS [facility] Last Admin: 01/17/19 22:23 Dose: 80 mg Documented by: Calamine/Phenol (Calmoseptine Ointment) 1 applic TOPICAL 4X/DAY [facility]; Protocol Last Admin: 01/18/19 14:08 Dose: 1 applicatio Documented by: Dextrose (D50w Syringe) 0 gm IV X1 PRN; Protocol PRN Reason: Hypoglycemia Dextrose (D50w Syringe) 0 gm IV X1 PRN; Protocol PRN Reason: Hypoglycemia Enoxaparin Sodium (Lovenox) 40 mg SC DAILY [facility] Last Admin: 01/18/19 10:13 Dose: 40 mg Documented by: Furosemide (Lasix) 40 mg PO DAILY [facility] Glucagon () 1 mg IM .X1 PRN PRN Reason: Hypoglycemia Glucagon () 1 mg IM .X1 PRN PRN Reason: Hypoglycemia Hydrochlorothiazide () 12.5 mg PO DAILY [facility] Sodium Chloride () 250 mls @ 15 mls/hr IV .[id number] PRN PRN Reason: Saline Flush Sodium Chloride () 1,000 mls @ 100 mls/hr IV .Q10H [facility] Last Admin: 01/18/19 14:08 Dose: 100 mls/hr Documented by: Insulin Glargine (Lantus (Bk)) 20 units SC BID [facility] Last Admin: 01/18/19 10:13 Dose: 20 unit Documented by: Insulin Human Lispro (Humalog Kwikpen (Bk)) 0 unit SC ACHS [facility]; Protocol Last Admin: 01/18/19 11:20 Dose: 2 u Documented by: Insulin Human Lispro (Humalog Kwikpen (Bk)) 5 unit SC TIDAC [facility] Last Admin: 01/18/19 11:20 Dose: 5 units Documented by: Loperamide HCl (Imodium) 2 mg PO Q4H PRN PRN PRN Reason: Diarrhea Last Admin: 01/18/19 10:22 Dose: 2 mg Documented by: Losartan Potassium (Cozaar) 100 mg PO DAILY [facility] Nystatin (Mycostatin Powder) 1 applic TOPICAL BID [facility]; Protocol Last Admin: 01/18/19 10:14 Dose: 1 applic Documented by: Oxycodone HCl (Oxyir) 5 mg PO Q4H PRN PRN PRN Reason: Pain Score 6-10/10 Last Admin: 01/17/19 11:35 Dose: 5 mg Documented by: Sodium Chloride () 10 - 40 ml IV UD PRN PRN Reason: SALINE FLUSH Last Admin: 01/16/19 23:53 Dose: 10 ml Documented by: Tamsulosin HCl (Flomax) 0.4 mg PO BID [facility] Last Admin: 01/18/19 10:12 Dose: 0.4 mg Documented by: Assessment/Plan Hospitalist note: I am seeing this patient in conjunction with Rema Matias. I independently seen and examined the patient. Progress note above, laboratory data and imaging studies reviewed and I concur with the above treatment plan. Patient denied any new complaints. Continued to have left-sided weakness, flaccid. Denied headache or vision changes. His vital signs are stable. - Physical Exam General: Alert, Oriented x3, Cooperative, No apparent distress. HEENT: Atraumatic, PERRLA, EOMI, left hemianopsia. Neck: Supple, No JVD, Negative Carotid Bruits, Trachea Midline, Thyroid Normal. Lungs: Clear to auscultation, Normal air movement, No rhonchi, No wheeze, No rales. Cardiovascular: Regular rate, Regular Rhythm, Normal S1, Normal S2, PMI Normal. Abdomen: Bowel Sounds Present, Soft, Non Tender, Non-Distended, No Hepato-splenomegaly. Extremities: No clubbing, No cyanosis, No edema Skin: No rashes, No breakdown Neurological: Left TM obscured, left side hemiparesis. Vital Signs are stable. 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 Patient is on aspirin and statins. His vital signs are stable, blood pressure under control. MRA of the head revealed narrowing of the right middle cerebral artery. MRA of the neck was unremarkable. EKG revealed normal sinus rhythm, no cardiac arrhythmias. 2D echocardiogram done, awaiting the report. Teleneurology consult is pending. Plan to continue same treatment, PT OT evaluation and treatment. #2 gastroenteritis, likely viral: Stool for C. difficile was negative. Vital signs are stable, afebrile. #3 noncompliance: Patient is noncompliant, admitted not taking aspirin for several years but he was on aspirin before that. Plan as above. #4 other chronic medical problems: Stable, continue current medication as above. This note was generated with [employer] dictation software. It may contain incorrect words, spelling, and punctuation that were not noted in checking the note before signing. Code Visit Inpatient E&M: 48533 Subs Hosp L2
--- NOTE | 2019-01-18 14:25 | CASEMGMT ---
YANET received a call from Maegan in rehab and she will work on obtaining pre-cert for patient for the Inpatient Rehab Unit. Plan: [facility] 4th floor Rehab Unit pending insurance approval. Fabienne MACEDO MSW
--- NOTE | 2019-01-18 16:29 | CDU_ITS ---
Reason For Study: CVA Rt. Velocities/BP Lt. Velocities/BP Prox CCA 59.7/11.3 cm/sec. Prox CCA 71.1/11.6 cm/sec. Mid CCA 50.9/10.2 cm/sec. Mid CCA 53.2/12.6 cm/sec. Dist CCA 46.6/9.7 cm/sec. Dist CCA 56.9/9.7 cm/sec. Prox ICA 54.1/11.6 cm/sec. Prox ICA 34.4/11.6 cm/sec. Mid ICA 52.2/13.5 cm/sec. Mid ICA 30.1/8 cm/sec. Dist ICA 59.8/14.5 cm/sec. Dist ICA 57.9/20.9 cm/sec. Rt. ICA/CCA = 1.2. Lt. ICA/CCA = 1.0. Prox ECA 47.5/6 cm/sec. Prox ECA 52.2 cm/sec. Rt. Vert. 28.6/8.8 cm/sec. Lt. Vert. 41.5/13 cm/sec. Right Extracranial There is intimal thickening but no significant atherosclerotic plaque noted in the right common carotid artery. There is heterogeneous, smooth atherosclerotic plaque noted in the right internal carotid artery. There is no significant atherosclerotic plaque noted in the right external carotid artery. Antegrade flow is noted in the right vertebral artery. Left Extracranial There is homogeneous, smooth atherosclerotic plaque noted in the left common carotid artery. There is heterogeneous, irregular atherosclerotic plaque noted in the left internal carotid artery. There is no significant atherosclerotic plaque noted in the left external carotid artery. Antegrade flow is noted in the left vertebral artery. Procedure Carotid Duplex [id number]. Exam performed portable in patient room. Interpretation Summary Minimal plaque at the proximal bilateral internal carotid arteries <50% stenosis bilateral internal carotid arteries <50% stenosis bilateral external carotid arteries Patent, antegrade, <50% stenosis bilateral vertebrals Ordering Physician: Rema Matias Referring Physician: Moisés Gallardo Chi Performed By: Charity Gong RVT
[2019-01-18 16:55] LABS: Bedside Glucose 215 mg/dL (70-110)
[2019-01-18] MEDS: hydroCHLOROthiazide 12.5mg 12.5 MG PO (18:41)
[2019-01-18] MEDS: Losartan Potassium 100 MG Tablet PO (18:42)
[2019-01-18] MEDS: Atorvastatin Calcium 80 MG Tablet PO (21:39)
[2019-01-18 21:50] LABS: Bedside Glucose 158 mg/dL (70-110)
[2019-01-19] VITALS (10 sets, daily range): BP systolic 157–161; BP diastolic 84–118; PULSE 60–77; RESP 14–18; TEMP 36.6–37; O2SAT 94–97; BMI 37.0
[2019-01-19] MEDS: 0.9% Normal Saline 1,000 ML 100 ML IV (00:51)
[2019-01-19 06:40] LABS: Bedside Glucose 176 mg/dL (70-110)
--- NOTE | 2019-01-19 08:54 | CASEMGMT ---
YANET received call from Maegan in the Rehab Unit. She said that [employer] is indicating they are likely going to deny patient for the rehab unit so they are withdrawing it and submitting for TCU pre-cert instead. Plan: [facility] TCU pending insurance approval. Fabienne MACEDO MSW
[2019-01-19] MEDS: Insulin Lispro 100 UNIT/ML INSULN.PEN SC ×6 (09:19→17:22)
[2019-01-19] MEDS: Losartan Potassium 100 MG Tablet PO (09:20)
[2019-01-19] MEDS: Enoxaparin 40 MG/0.4 ML Syringe SC (09:20)
[2019-01-19] MEDS: Aspirin 81 MG TAB.CHEW PO (09:20)
[2019-01-19] MEDS: hydroCHLOROthiazide 12.5mg 12.5 MG PO (09:20)
[2019-01-19] MEDS: Furosemide 40 MG Tablet PO (09:20)
[2019-01-19] MEDS: Nystatin Powder 15gm Bottle 1 APPLIC TOPICAL ×2 (09:21→22:48)
[2019-01-19] MEDS: Tamsulosin HCl 0.4 MG Capsule PO ×2 (09:21→22:49)
[2019-01-19] MEDS: Menthol/Lanolin/Calamine/Znox 113 GM Tube 1 APPLIC TOPICAL ×4 (09:21→22:47)
[2019-01-19 12:10] LABS: Bedside Glucose 203 mg/dL (70-110)
--- NOTE | 2019-01-19 13:24 | CASEMGMT ---
Patient was approved to go to TCU, but he is not ready today. SW let Brigida know patient is not ready today. SW will let patient know he was approved. Fabienne MACEDO MSW
--- NOTE | 2019-01-19 13:33 | PN_ITS ---
<Rema Matias - Last Filed: 01/19/19 13:43> Subjective: Patient seen and examined. No new neurologic symptoms or deficits. Plan for TCU at discharge. - Physical Exam Vitals/I&O's: Vital Signs Temp Pulse Resp BP Pulse Ox 98.0 F 68 14 161/94 H 95 01/19/19 08:00 01/19/19 08:00 01/19/19 08:00 01/19/19 08:00 01/19/19 08:00 Oxygen Delivery Method Room Air Weight: 236 lb 8.896 oz Body Mass Index (BMI) 37.0 Finger Stick Blood Glucose 141 Intake and Output for Last 24 Hours 01/17/19 01/18/19 01/19/19 23:59 23:59 23:59 Intake Total 3091.66 / 3291.66 2281.67 / 2281.67 2059 Balance 3091.66 / 3291.66 2281.67 / 2281.67 2059 General: Alert, Oriented x3, Cooperative HEENT: Atraumatic, PERRLA, EOMI, Normocephalic, - - Left hemianopia Neck: Supple, No JVD, Negative Carotid Bruits Lungs: Clear to auscultation, Normal air movement Cardiovascular: Regular rate, Regular Rhythm, Normal S1, Normal S2, No murmurs Abdomen: Bowel Sounds Present, Soft, Non Tender, Non-Distended Extremities: No clubbing, No cyanosis, No edema, Capillary Refill Less than 3 Seconds Skin: No rashes, No breakdown Musculoskeletal: No Tenderness to Palpation of Joints or Extremities Neurological: Cranial nerves II-XII grossly intact, - - Left upper extremity and left lower extremity 1/5 strength. Psych/Mental Status: Normal Affect, Appropriate Microbiology Past 72 Hours 01/16/19 17:00 Stool Enteric Bacteriology - Final 01/16/19 19:00 Stool C. difficile DNA Amplification - Final Laboratory Results 01/18/19 16:45: POC Glucose 215 H 01/18/19 21:37: POC Glucose 158 H 01/19/19 06:34: POC Glucose 176 H 01/19/19 11:48: POC Glucose 203 H Current Medications Acetaminophen (Tylenol) 650 mg PO Q6H PRN PRN PRN Reason: Pain Score 1-10 Aspirin (Aspirin, Baby) 81 mg PO DAILY@0800 [facility] Last Admin: 01/19/19 09:20 Dose: 81 mg Documented by: Atorvastatin Calcium (Lipitor) 80 mg PO QHS [facility] Last Admin: 01/18/19 21:39 Dose: 80 mg Documented by: Calamine/Phenol (Calmoseptine Ointment) 1 applic TOPICAL 4X/DAY [facility]; Protocol Last Admin: 01/19/19 09:21 Dose: 1 applicatio Documented by: Dextrose (D50w Syringe) 0 gm IV X1 PRN; Protocol PRN Reason: Hypoglycemia Dextrose (D50w Syringe) 0 gm IV X1 PRN; Protocol PRN Reason: Hypoglycemia Enoxaparin Sodium (Lovenox) 40 mg SC DAILY [facility] Last Admin: 01/19/19 09:20 Dose: 40 mg Documented by: Furosemide (Lasix) 40 mg PO DAILY [facility] Last Admin: 01/19/19 09:20 Dose: 40 mg Documented by: Glucagon () 1 mg IM .X1 PRN PRN Reason: Hypoglycemia Glucagon () 1 mg IM .X1 PRN PRN Reason: Hypoglycemia Hydrochlorothiazide () 12.5 mg PO DAILY [facility] Last Admin: 01/19/19 09:20 Dose: 12.5 mg Documented by: Sodium Chloride () 250 mls @ 15 mls/hr IV .[id number] PRN PRN Reason: Saline Flush Insulin Glargine (Lantus (Bkc)) 20 units SC BID [facility] Last Admin: 01/19/19 09:22 Dose: 20 unit Documented by: Insulin Human Lispro (Humalog Kwikpen (Bkc)) 0 unit SC ACHS [facility]; Protocol Last Admin: 01/19/19 11:52 Dose: 4 u Documented by: Insulin Human Lispro (Humalog Kwikpen (Bkc)) 5 unit SC TIDAC [facility] Last Admin: 01/19/19 11:52 Dose: 5 units Documented by: Loperamide HCl (Imodium) 2 mg PO Q4H PRN PRN PRN Reason: Diarrhea Last Admin: 01/18/19 10:22 Dose: 2 mg Documented by: Losartan Potassium (Cozaar) 100 mg PO DAILY [facility] Last Admin: 01/19/19 09:20 Dose: 100 mg Documented by: Nystatin (Mycostatin Powder) 1 applic TOPICAL BID [facility]; Protocol Last Admin: 01/19/19 09:21 Dose: 1 applic Documented by: Oxycodone HCl (Oxyir) 5 mg PO Q4H PRN PRN PRN Reason: Pain Score 6-10 Last Admin: 01/17/19 11:35 Dose: 5 mg Documented by: Sodium Chloride () 10 - 40 ml IV UD PRN PRN Reason: SALINE FLUSH Last Admin: 01/16/19 23:53 Dose: 10 ml Documented by: Tamsulosin HCl (Flomax) 0.4 mg PO BID [facility] Last Admin: 01/19/19 09:21 Dose: 0.4 mg Documented by: Medical Necessity - Tobacco Use Smoking Status: Never smoker Tobacco Use: Non-smoker Assessment/Plan 1. Acute right frontal, parietal and occipital infarcts-Per MRI of brain. MRA of head shows narrowing of right middle cerebral artery. MRA of neck shows no occlusion or focal stenosis. Continue aspirin, high-dose statin. PT/OT/ST. tele-neurology consulted. Recommending SALVADOR. If cardioembolic source found will begin anticoagulation 01/24/2019. 30-day event recorder at discharge. Carotid ultrasound with less than 50% stenosis bilaterally. Echocardiogram demonstrated an EF of 55%, stage I diastolic dysfunction. Will add Plavix 01/21/2019 if no cardioembolic source found. 2. Suspected viral gastroenteritis with diarrhea-C. difficile and enteric pathogen negative. Calmoseptine for perineum excoriation. PRN Imodium if diarrhea remains persistent. Ova and parasites added. 3. History of paroxysmal ventricular tachycardia-follows with Dr. Fernandez. 4. Type 2 diabetes mellitus, uncontrolled-hemoglobin A1c 10.7%. Accu-Cheks ACHS with SSI. Lantus 20 units twice daily. 5. 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 6. Hypertension-permissive given #1. Resume home BP regimen. 7. Hyperlipidemia-increased to high-dose statin. 8. BPH-continue Flomax regimen. 9. Noncompliance with medication regimen and [id number]-sy-[id number] with son who reports patient has not been following with his doctors over the last year and does not feel he has been taking his prescribed medications. Consult case management for discharge planning. DVT prophylaxis-Lovenox subcu Discharge planning: TCU pending SALVADOR and pre-cert. This patient was seen by CRISS Anderson under the supervision of Dr. Colon. <Juliane Colon E - Last Filed: 01/19/19 14:30> - Physical Exam Vitals/I&O's: Vital Signs Temp Pulse Resp BP Pulse Ox 98.6 F 75 16 158/96 H 97 01/19/19 14:00 01/19/19 14:00 01/19/19 14:00 01/19/19 14:00 01/19/19 14:00 Oxygen Delivery Method Room Air Weight: 236 lb 8.896 oz Body Mass Index (BMI) 37.0 Finger Stick Blood Glucose 141 Intake and Output for Last 24 Hours 01/17/19 01/18/19 01/19/19 23:59 23:59 23:59 Intake Total 3091.66 / 3291.66 2281.67 / 2281.67 2059 Balance 3091.66 / 3291.66 2281.67 / 2281.67 2059 Microbiology Past 72 Hours 01/16/19 17:00 Stool Enteric Bacteriology - Final 01/16/19 19:00 Stool C. difficile DNA Amplification - Final Laboratory Results 01/18/19 16:45: POC Glucose 215 H 01/18/19 21:37: POC Glucose 158 H 01/19/19 06:34: POC Glucose 176 H 01/19/19 11:48: POC Glucose 203 H Current Medications Acetaminophen (Tylenol) 650 mg PO Q6H PRN PRN PRN Reason: Pain Score 1-10/10 Aspirin (Aspirin, Baby) 81 mg PO DAILY@0800 [facility] Last Admin: 01/19/19 09:20 Dose: 81 mg Documented by: Atorvastatin Calcium (Lipitor) 80 mg PO QHS [facility] Last Admin: 01/18/19 21:39 Dose: 80 mg Documented by: Calamine/Phenol (Calmoseptine Ointment) 1 applic TOPICAL 4X/DAY [facility]; Protocol Last Admin: 01/19/19 09:21 Dose: 1 applicatio Documented by: Dextrose (D50w Syringe) 0 gm IV X1 PRN; Protocol PRN Reason: Hypoglycemia Dextrose (D50w Syringe) 0 gm IV X1 PRN; Protocol PRN Reason: Hypoglycemia Enoxaparin Sodium (Lovenox) 40 mg SC DAILY [facility] Last Admin: 01/19/19 09:20 Dose: 40 mg Documented by: Furosemide (Lasix) 40 mg PO DAILY [facility] Last Admin: 01/19/19 09:20 Dose: 40 mg Documented by: Glucagon () 1 mg IM .X1 PRN PRN Reason: Hypoglycemia Glucagon () 1 mg IM .X1 PRN PRN Reason: Hypoglycemia Hydrochlorothiazide () 12.5 mg PO DAILY [facility] Last Admin: 01/19/19 09:20 Dose: 12.5 mg Documented by: Sodium Chloride () 250 mls @ 15 mls/hr IV .[id number] PRN PRN Reason: Saline Flush Insulin Glargine (Lantus (Bkc)) 20 units SC BID [facility] Last Admin: 01/19/19 09:22 Dose: 20 unit Documented by: Insulin Human Lispro (Humalog Kwikpen (Bkc)) 0 unit SC ACHS [facility]; Protocol Last Admin: 01/19/19 11:52 Dose: 4 u Documented by: Insulin Human Lispro (Humalog Kwikpen (Bkc)) 5 unit SC TIDAC [facility] Last Admin: 01/19/19 11:52 Dose: 5 units Documented by: Loperamide HCl (Imodium) 2 mg PO Q4H PRN PRN PRN Reason: Diarrhea Last Admin: 01/18/19 10:22 Dose: 2 mg Documented by: Losartan Potassium (Cozaar) 100 mg PO DAILY [facility] Last Admin: 01/19/19 09:20 Dose: 100 mg Documented by: Nystatin (Mycostatin Powder) 1 applic TOPICAL BID [facility]; Protocol Last Admin: 01/19/19 09:21 Dose: 1 applic Documented by: Oxycodone HCl (Oxyir) 5 mg PO Q4H PRN PRN PRN Reason: Pain Score 6-10/10 Last Admin: 01/17/19 11:35 Dose: 5 mg Documented by: Sodium Chloride () 10 - 40 ml IV UD PRN PRN Reason: SALINE FLUSH Last Admin: 01/16/19 23:53 Dose: 10 ml Documented by: Tamsulosin HCl (Flomax) 0.4 mg PO BID [facility] Last Admin: 01/19/19 09:21 Dose: 0.4 mg Documented by: Assessment/Plan Hospitalist note: I am seeing this patient in conjunction with Rema Matias. I independently seen and examined the patient. Progress note above reviewed and I concur with the above treatment plan. Patient denied any new complaints. Continued to have left-sided weakness, flaccid. Blood pressure stable, other vital signs are stable. - Physical Exam General: Alert, Oriented x3, Cooperative, No apparent distress. HEENT: Atraumatic, PERRLA, EOMI, left hemianopsia. Neck: Supple, No JVD, Negative Carotid Bruits, Trachea Midline, Thyroid Normal. Lungs: Clear to auscultation, Normal air movement, No rhonchi, No wheeze, No rales. Cardiovascular: Regular rate, Regular Rhythm, Normal S1, Normal S2, PMI Normal. Abdomen: Bowel Sounds Present, Soft, Non Tender, Non-Distended, No Hepato- splenomegaly. Extremities: No clubbing, No cyanosis, No edema Skin: No rashes, No breakdown Neurological: Left hemianopsia, left side hemiparesis. Vital Signs are stable. 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 Patient is on aspirin and statins. His vital signs are stable, blood pressure under control. MRA of the head revealed narrowing of the right middle cerebral artery. MRA of the neck was unremarkable. EKG revealed normal sinus rhythm, no cardiac arrhythmias. 2D echocardiogram revealed normal LV size, ejection fraction is 55%, stage I diastolic dysfunction. Bilateral carotid Doppler reviewed as above.. Teleneurology consult recommended SALVADOR and to add Plavix in a day or 2. Plan for SALVADOR tomorrow morning. #2 gastroenteritis, likely viral: Stool for C. difficile was negative. Vital signs are stable, afebrile. #3 noncompliance: Patient is noncompliant, admitted not taking aspirin for several years but he was on aspirin before that. Plan as above. #4 other chronic medical problems: Stable, continue current medication as above. This note was generated with [employer] dictation software. It may contain incorrect words, spelling, and punctuation that were not noted in checking the note before signing. Code Visit Inpatient E&M: 02922 Subs Hosp L2
[2019-01-19 16:40] LABS: Bedside Glucose 192 mg/dL (70-110)
[2019-01-19] MEDS: 0.9% Saline Lock 10 ML Syringe IV (19:39)
[2019-01-19] MEDS: Atorvastatin Calcium 80 MG Tablet PO (22:49)
[2019-01-19 23:00] LABS: Bedside Glucose 130 mg/dL (70-110)
[2019-01-20 01:16] VITALS: BMI 37.0
[2019-01-20 03:00] VITALS: PULSE 62
[2019-01-20 04:30] VITALS: BP 152/90; PULSE 72; RESP 18; TEMP 37; O2SAT 93
[2019-01-20 07:00] VITALS: PULSE 68
--- NOTE | 2019-01-20 08:00 | E[place]OTEE_ITS ---
Reason For Study: TIA/CVA Medication SALVADOR probe 6VT-D (SN [id number]) passed without difficulty. No complications were noted. [id number] gargled and swallowed. Cetacaine Topical [place] given X2 orally. Fentanyl 25 mcg given slow IVP. Versed 2 mg given slow IVP. Performed a rapid injection of agitated mix of 9 cc saline and 1cc air to assess for atrial septal defect. Left Ventricle Normal size and thickness. The estimated ejection fraction is 65 %. No regional wall motion abnormalities noted. Right Ventricle Normal size and thickness. The right ventricular wall motion is normal. Atria Normal atrial septum. Bubble contrast study negative for right to left interatrial shunt. Normal left atrium. No thrombus is detected in the left atrial appendage. Normal right atrium. Mitral Valve The mitral valve is structurally normal. No prolapse or stenosis seen. Trivial mitral valve insufficiency. Tricuspid Valve Normal tricuspid valve. Unable to estimate RV systolic pressure due to insufficient tricuspid regurgitant envelope. Aortic Valve Normal aortic valve. Trisinus/trileaflet aortic valve. Pulmonic Valve Normal pulmonic valve. Vessels Normal aortic root. Normal arch. Normal pulmonary veins. Pulmonary venous flow normal. Interpretation Summary There is no comparison study available. The estimated ejection fraction is 65 %. Bubble contrast study negative for right to left interatrial shunt. Trivial mitral valve insufficiency. Unable to estimate RV systolic pressure due to insufficient tricuspid regurgitant envelope. No thrombus is detected in the left atrial appendage. Ordering Physician: Rema Matias Referring Physician: Moisés Gallardo Chi Performed By: Rebecca Chiu RDCS, RVT
[2019-01-20 09:03] VITALS: BP 179/105; PULSE 74; RESP 20; TEMP 36.4; O2SAT 96
[2019-01-20 10:17] VITALS: BP 151/106; PULSE 67; RESP 16; O2SAT 95
[2019-01-20] MEDS: Furosemide 40 MG Tablet PO (10:18)
[2019-01-20] MEDS: Tamsulosin HCl 0.4 MG Capsule PO (10:18)
[2019-01-20] MEDS: Aspirin 81 MG TAB.CHEW PO (10:18)
[2019-01-20] MEDS: Menthol/Lanolin/Calamine/Znox 113 GM Tube 1 APPLIC TOPICAL (10:18)
[2019-01-20] MEDS: Enoxaparin 40 MG/0.4 ML Syringe SC (10:19)
[2019-01-20] MEDS: Nystatin Powder 15gm Bottle 1 APPLIC TOPICAL (10:19)
[2019-01-20 11:30] LABS: Bedside Glucose 153 mg/dL (70-110)
--- NOTE | 2019-01-20 11:50 | PCM.EXTCARCO ---
- Diet 01/20/19 10:42 Diet: Cardiac: Calorie-Controlled Is pt able to select menu?: Yes How many daily calories?: 1600 calorie - Routine Orders/Code Status Enema Type: Fleetz Enema Frequency: Daily PRN Suppository Type: Dulcolax 10mg Suppository Frequency: Daily PRN O2 Liters per Minute: 2 O2 Frequency: Continuous Keep PO Greater than or Equal to (%): 90 Routine Lab Work: CBC, BMP, - - Q Week - Wound(s) RIGHT LEG Wound Type: SCABBED AREA - Suggestions for Active Care Change Position every (hours): 2 Times a day to sit in chair: 3 - Therapies Physical Therapy: Eval and Treat Occupational Therapy: Eval and Treat Speech Therapy: Eval and Treat - Problem/Diagnosis (1) Essential hypertension Status: Chronic Current Visit: No (2) Paroxysmal ventricular tachycardia Status: Chronic Current Visit: No (3) Pure hypercholesterolemia Status: Chronic Current Visit: No (4) Type 2 diabetes mellitus Status: Chronic Current Visit: No (5) Stroke Status: Acute Current Visit: Yes - Allergies/Procedures Done in Hospital Allergies/Adverse Reactions: Allergies No Known Allergies Allergy (Verified 01/16/19 18:54) Procedures: 2-D Echocardiogram, Transesophageal Echo - Type of Care/Length of Stay Estimated LOS: More Than 30 Days Type of Care Needed: Skilled Rehab Potential: Fair Prognosis: Fair - Additional Orders/Day of Discharge H&P will serve as current which was dated: 01/16/19 Day of Discharge: 01/20/19 - Dietary and Speech Recommendations Dietitian Recommendations/Changes: Rec diet change to 1800 calorie; Cardiac. Speech Linguistic Eval Summary: Pt is a 73 y/o male with PMH of DM Type 2, pure hypercholesterolemia, HTN, syncope and collapse, SVT. Pt presented to ED with 4 days acute onset of diarrhea, experienced some falls over the past several days d/t lower extremity weakness but reported no head injury or loss of consciousness. Upon admission, pt dx with CVA (acute or subacute right frontal, parietal, and occipital infarcts), diarrhea, HTN/HLD/hx of SVT, DM 2, and BPH. Informal cognitive-linguistic evaluation completed this date. 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 Oriented to name, age, , place, reason for admission, month, year and day of week. Reoriented to date, off by 4. Answered complex/comparison yes/no ?s and executed 3 step commands w/ 100 accuracy. Immediate recall of 3 word sequence: 3/3 Delayed recall of 3 weord sequence: 0/3, able to accurately recall 1/3 when given category cue and 1/3 when given a choice of 3. Slightly slowed processing speed noted w/ min prompting required for problem solving tasks. Mild dysarthria w/ left sided oral mechanism weakness/asymemtry. No anomia or apraxia identified. Left visual field deficits present, suspected to be neglect w/ further assessment indicated. Required mod verabl and visual cues to attend to the far left to read at the sentence level. Did not assess writing. Patient reports that he managed his pown medications and finances prior to admission and that he was somewhat forgetful but denies any significant premorbid cognitive deficits. No family present to confirm or refute patient's report. Will follow for continued skilled ST intervention targeting the above listed deficits resultant of acute CVA w/ anticipated need for additional intensive skilled ST intervention at the next level of care prior to discharge home. - Follow Up Care Primary Care Physician: Moisés Gallardo Chi, MD [Primary Care Provider] - Please follow up with your Primary Care Physician in: 1 Week Please Follow Up With: Nitesh Fernandez MD When: 4 Weeks Please Follow Up With: Gary Brock MD - Neurology When: May see IRONWORKER MACHINE OPERATOR, 2 Weeks
[2019-01-20] MEDS: Losartan Potassium 100 MG Tablet PO (11:54)
[2019-01-20] MEDS: hydroCHLOROthiazide 12.5mg 12.5 MG PO (11:54)
[2019-01-20] MEDS: Insulin Lispro 100 UNIT/ML INSULN.PEN SC ×2 (11:54→11:55)
--- NOTE | 2019-01-20 11:58 | PCM.DC.SUM ---
<Rema Matias - Last Filed: 01/20/19 12:15> Discharge Date and Diagnosis Date of Admission: 01/16/19 Date of Discharge: 01/20/19 - Primary Discharge Diagnosis Active and Suspected Problems (Last Updated 01/18/19 @ 14:04 by Juliane Colon MD) 1. Acute right frontal, parietal and occipital infarcts 2. Suspected viral gastroenteritis 3. Paroxysmal ventricular tachycardia, chronic 4. Type 2 diabetes mellitus, uncontrolled 5. History of PE 6. Hypertension 7. Hyperlipidemia 8. BPH 9. Noncompliance with medication regimen and follow-up - Secondary Discharge Diagnosis Chronic Problems (Last Updated 01/18/19 @ 14:04 by Juliane Colon MD) Type 2 diabetes mellitus (Chronic) Pure hypercholesterolemia (Chronic) Paroxysmal ventricular tachycardia (Chronic) Essential hypertension (Chronic) Syncope and collapse (Chronic) SVT (supraventricular tachycardia) (Chronic) Hospital Course and Treatment Imaging Results: Diagnostic Data Brain CT 01/16/19 19:04 IMPRESSION: Chronic ischemic and involutional changes of the brain. Electronically Signed: Elieser Dorman MD at 20:29 EST , Service support , Chest X-Ray 01/16/19 19:30 IMPRESSION: No acute process Electronically Signed: Elieser Dorman MD at 20:18 EST , Service support , Brain MRI 01/16/19 22:54 IMPRESSION: Involutional changes of the brain, as described above. Acute or subacute right frontal, parietal, and occipital infarcts. No hemorrhage. Electronically Signed: Steve Weston MD at 10:52 EST , Service support , ADDENDUM: 01/17/19 1105 IMPRESSION: Involutional changes of the brain, as described above. Acute or subacute right frontal, parietal, and occipital infarcts. No hemorrhage. N.B. : The above information has been verbally conveyed by Steve Weston MD to Janet Mtz RN, on 01/17/2019 10:58:54 (ET). Electronically Signed: Steve Weston MD at 10:52 EST , Service support , ADDENDUM: 01/17/19 1107 Head MRA 01/16/19 22:54 IMPRESSION: There is narrowing of the right middle cerebral artery. Electronically Signed: Steve Weston MD at 10:57 EST , Service support , Neck MRA 01/16/19 22:54 IMPRESSION: No occlusion or focal stenosis. Detail limited by motion. Electronically Signed: Steve Weston MD at 10:59 EST , Service support , Consultations 01/17/19 08:36 Consult: Onc/Wound/vaccine customer representative Routine Comment: Tele-neurology Operations: None Procedures: 2-D Echocardiogram, Transesophageal Echo Summary of Care Provided: The patient is a 73 year old M admitted 01/16/19 due to left arm weakness. 1. Acute right frontal, parietal and occipital infarcts-Per MRI of brain. MRA of head shows narrowing of right middle cerebral artery. MRA of neck shows no occlusion or focal stenosis. Continue aspirin, high-dose statin. PT/OT/ST. Tele-neurology consulted. SALVADOR completed and did not show any embolic source. 30-day event recorder at discharge. Carotid ultrasound with less than 50% stenosis bilaterally. Echocardiogram demonstrated an EF of 55%, stage I diastolic dysfunction. Add Plavix 01/21/2019 given no cardioembolic source found. If atrial fibrillation found on a 30-day event monitor, recommend transition to oral anticoagulation and discontinuing aspirin. Follow-up with cardiology in 4 weeks. Patient follows with Dr. Fernandez. Follow-up with neurology in 2 weeks. 2. Suspected viral gastroenteritis with diarrhea-C. difficile and enteric pathogen negative. Calmoseptine for perineum excoriation. 3. History of paroxysmal ventricular tachycardia-follows with Dr. Fernandez. 4. Type 2 diabetes mellitus, uncontrolled-hemoglobin A1c 10.7%. Accu-Cheks ACHS with SSI. Lantus 20 units twice daily. 5. 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 6. Hypertension-stable, continue current regimen. 7. Hyperlipidemia-increased to high-dose statin. 8. BPH-continue Flomax regimen. 9. Noncompliance with medication regimen and [id number] with son who reports patient has not been following with his doctors over the last year and does not feel he has been taking his prescribed medications. General: Alert, Oriented x3, Cooperative HEENT: Atraumatic, PERRLA, EOMI, Normocephalic, Left hemianopia Neck: Supple, No JVD, Negative Carotid Bruits Lungs: Clear to auscultation, Normal air movement Cardiovascular: Regular rate, Regular Rhythm, Normal S1, Normal S2, No murmurs Abdomen: Bowel Sounds Present, Soft, Non Tender, Non-Distended Extremities: No clubbing, No cyanosis, No edema, Capillary Refill Less than 3 Seconds Skin: No rashes, No breakdown Musculoskeletal: No Tenderness to Palpation of Joints or Extremities Neurological: Cranial nerves II-XII grossly intact, left-sided hemiparesis Psych/Mental Status: Normal Affect, Appropriate Patient seen and examined prior to discharge. Physical assessment as noted above. Patient is stable for discharge with follow up recommendations as noted above. This patient was seen by CRISS Anderson under the supervision of Dr. Colon. - Physical Exam Vitals/I&O's: Vital Signs Temp Pulse Resp BP Pulse Ox 97.6 F L 67 16 151/106 H 95 01/20/19 09:03 01/20/19 10:17 01/20/19 10:17 01/20/19 10:17 01/20/19 10:17 Oxygen Flow Rate (L/min) 2 Oxygen Delivery Method Nasal Cannula Weight: 236 lb 8.896 oz Body Mass Index (BMI) 37.0 Finger Stick Blood Glucose 141 Intake and Output for Last 24 Hours 01/18/19 01/19/19 01/20/19 23:59 23:59 23:59 Intake Total 2281.67 / 2281.67 2059 240 / 240 Balance 2281.67 / 2281.67 2059 240 / 240 Microbiology Past 72 Hours 01/16/19 17:00 Stool Enteric Bacteriology - Final Laboratory Results 01/19/19 11:48: POC Glucose 203 H 01/19/19 16:14: POC Glucose 192 H 01/19/19 22:43: POC Glucose 130 H 01/20/19 11:25: POC Glucose 153 H Current Medications Acetaminophen (Tylenol) 650 mg PO Q6H PRN PRN PRN Reason: Pain Score 1-1010 Aspirin (Aspirin, Baby) 81 mg PO DAILY@0800 [facility] Last Admin: 01/20/19 10:18 Dose: 81 mg Documented by: Atorvastatin Calcium (Lipitor) 80 mg PO QHS [facility] Last Admin: 01/19/19 22:49 Dose: 80 mg Documented by: Calamine/Phenol (Calmoseptine Ointment) 1 applic TOPICAL 4X/DAY [facility]; Protocol Last Admin: 01/20/19 10:18 Dose: 1 applicatio Documented by: Clopidogrel Bisulfate (Plavix) 75 mg PO DAILY [facility] Enoxaparin Sodium (Lovenox) 40 mg SC DAILY [facility] Last Admin: 01/20/19 10:19 Dose: 40 mg Documented by: Furosemide (Lasix) 40 mg PO DAILY [facility] Last Admin: 01/20/19 10:18 Dose: 40 mg Documented by: Glucagon () 1 mg IM .X1 PRN PRN Reason: Hypoglycemia Glucagon () 1 mg IM .X1 PRN PRN Reason: Hypoglycemia Hydrochlorothiazide () 12.5 mg PO DAILY [facility] Last Admin: 01/19/19 09:20 Dose: 12.5 mg Documented by: Sodium Chloride () 250 mls @ 15 mls/hr IV .[id number] PRN PRN Reason: Saline Flush Dextrose (Dextrose 10%-Water) 250 mls @ 999 mls/hr IV X1 PRN; Protocol PRN Reason: HYPOGLYCEMIA Insulin Glargine (Lantus (Bkc)) 20 units SC BID [facility] Last Admin: 01/19/19 22:59 Dose: Not Given Documented by: Insulin Human Lispro (Humalog Kwikpen (Bkc)) 0 unit SC ACHS [facility]; Protocol Last Admin: 01/20/19 08:35 Dose: Not Given Documented by: Insulin Human Lispro (Humalog Kwikpen (Bkc)) 5 unit SC TIDAC [facility] Last Admin: 01/20/19 08:36 Dose: Not Given Documented by: Loperamide HCl (Imodium) 2 mg PO Q4H PRN PRN PRN Reason: Diarrhea Last Admin: 01/18/19 10:22 Dose: 2 mg Documented by: Losartan Potassium (Cozaar) 100 mg PO DAILY [facility] Last Admin: 01/19/19 09:20 Dose: 100 mg Documented by: Nystatin (Mycostatin Powder) 1 applic TOPICAL BID [facility]; Protocol Last Admin: 01/20/19 10:19 Dose: 1 applic Documented by: Oxycodone HCl (Oxyir) 5 mg PO Q4H PRN PRN PRN Reason: Pain Score 6-1010 Last Admin: 01/17/19 11:35 Dose: 5 mg Documented by: Sodium Chloride () 10 - 40 ml IV UD PRN PRN Reason: SALINE FLUSH Last Admin: 01/19/19 19:39 Dose: 10 ml Documented by: Tamsulosin HCl (Flomax) 0.4 mg PO BID [facility] Last Admin: 01/20/19 10:18 Dose: 0.4 mg Documented by: Home Medications: Medications to take at Discharge Tamsulosin HCl [Flomax] 0.4 mg PO BID 02/13/16 Furosemide [Lasix] 40 mg PO DAILY 01/16/19 Metformin HCl 1,000 mg PO BID 01/16/19 Semaglutide [Ozempic] 0.25 mg SQ QWEEK 01/16/19 Valsartan/Hydrochlorothiazide [Valsartan-Hctz 320-12.5 mg Tab] 1 ea PO DAILY 01/16/19 Aspirin [Aspirin, Baby] 81 mg PO DAILY@0800 tab.chew 01/20/19 Atorvastatin Calcium [Lipitor] 80 mg PO QHS tab 01/20/19 Clopidogrel Bisulfate [Plavix] 75 mg PO DAILY tab 01/20/19 Insulin Glargine [Lantus SoloStar Pen] 20 units SUBCUT BID pen 01/20/19 Insulin Lispro [Humalog KwikPen] 5 unit SUBCUT TIDAC insuln.pen 01/20/19 Insulin Lispro [Humalog KwikPen] See Protocol SUBCUT ACHS insuln.pen 01/20/19 Menthol/Lanolin/Calamine/Znox [Calmoseptine Ointment] 1 applic TOPICAL 4X/DAY tube 01/20/19 Nystatin Powder [Mycostatin Powder] 1 applic TOPICAL BID bottle 01/20/19 Other Amb Orders: 30-Day Event Recorder [[facility]] Location: None Selected Primary Care Physician: Moisés Gallardo Chi, MD [Primary Care Provider] - Please follow up with your Primary Care Physician in: 1 Week Please Follow Up With: Nitesh Fernandez MD When: 4 Weeks Please Follow Up With: Gary Brock MD - Neurology When: May see TECHNICAL SERVICES MANAGER, 2 Weeks Disposition: Residential facility Minutes spent on discharge:: 35 Patient Condition:: Stable Medical Necessity - Tobacco Use Smoking Status: Never smoker Tobacco Use: Non-smoker Meaningful Use Info Meaningful Use Diagnoses (Choose all that apply): Ischemic CVA - CVA Therapy Assessed for PT,OT and/or ST?: Yes - Ischemic Stroke Antithrombotic order at d/c?: Yes Dx of Atrial fib/flutter?: No Statins at discharge?: Yes Primary Dx Acute Ischemic CVA?: Yes IV tPA ordered during stay?: No Reason IV t-PA not ordered: Medical Contraindication <Juliane Colon - Last Filed: 01/20/19 12:34> Discharge Date and Diagnosis - Secondary Discharge Diagnosis Chronic Problems (Last Updated 01/18/19 @ 14:04 by Juliane Colon MD) Type 2 diabetes mellitus (Chronic) Pure hypercholesterolemia (Chronic) Paroxysmal ventricular tachycardia (Chronic) Essential hypertension (Chronic) Syncope and collapse (Chronic) SVT (supraventricular tachycardia) (Chronic) Hospital Course and Treatment Imaging Results: 01/20/19 08:00 Echo Transesophageal (SALVADOR) [ECHO] Routine Consultations 01/17/19 08:36 Consult: Onc/Wound/vaccine customer representative Routine Comment: Summary of Care Provided: Hospitalist note: Discharge summary above reviewed and I concur with the above discharge and treatment plan. Patient presented to the emergency room because of fall and left-sided body weakness and he was found to have acute versus subacute right MCA stroke. On admission, CT scan brain reported as normal without evidence of acute stroke. Teleneurology consulted and patient was not a candidate for TPA. MRI brain revealed acute or subacute right frontal, parietal and occipital infarcts. Patient was treated with aspirin and statins. MRA of the head revealed narrowing of the right middle cerebral artery. MRA of the neck was unremarkable. His EKG revealed normal sinus rhythm without evidence of cardiac arrhythmias. 2D echocardiogram revealed ejection fraction of 55%, normal LV size and stage I diastolic dysfunction. Bilateral carotid Doppler revealed less than 50% stenosis. Teleneurology consult recommended transesophageal echocardiogram which was done and reportedly was unremarkable without evidence of valve vegetations. 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 His blood pressure has been under fair control which is desired. Routine blood work was unremarkable. Teleneurology recommended 30-day event monitor after discharge as well as to start Plavix 1 day after discharge which will be January 21, 2019. There was no clear evidence that patient has atrial fibrillation. Patient discharged to custodial facility in a stable medical condition, discharged on aspirin and statins, plan to start Plavix tomorrow, plan for 30-day event monitor, follow-up with neurology in 2 weeks and follow-up with cardiology in 4 weeks. - Physical Exam General: Alert, Oriented x3, Cooperative, No apparent distress. HEENT: Atraumatic, PERRLA, EOMI, left hemianopsia. Neck: Supple, No JVD, Negative Carotid Bruits, Trachea Midline, Thyroid Normal. Lungs: Clear to auscultation, Normal air movement, No rhonchi, No wheeze, No rales. Cardiovascular: Regular rate, Regular Rhythm, Normal S1, Normal S2, PMI Normal. Abdomen: Bowel Sounds Present, Soft, Non Tender, Non-Distended, No Hepato-splenomegaly. Extremities: No clubbing, No cyanosis, No edema Skin: No rashes, No breakdown Neurological: Left hemianopsia, left side hemiparesis. Vital Signs are stable. This note was generated with [employer] dictation software. It may contain incorrect words, spelling, and punctuation that were not noted in checking the note before signing. - Physical Exam Vitals/I&O's: Vital Signs Temp Pulse Resp BP Pulse Ox 97.6 F L 67 16 151/106 H 95 01/20/19 09:03 01/20/19 10:17 01/20/19 10:17 01/20/19 10:17 01/20/19 10:17 Oxygen Flow Rate (L/min) 2 Oxygen Delivery Method Nasal Cannula Weight: 236 lb 8.896 oz Body Mass Index (BMI) 37.0 Finger Stick Blood Glucose 141 Intake and Output for Last 24 Hours 01/18/19 01/19/19 01/20/19 23:59 23:59 23:59 Intake Total 2281.67 / 2281.67 2059 240 / 240 Balance 2281.67 / 2281.67 2059 240 / 240 Microbiology Past 72 Hours 01/16/19 17:00 Stool Enteric Bacteriology - Final Laboratory Results 01/19/19 16:14: POC Glucose 192 H 01/19/19 22:43: POC Glucose 130 H 01/20/19 11:25: POC Glucose 153 H Current Medications Acetaminophen (Tylenol) 650 mg PO Q6H PRN PRN PRN Reason: Pain Score 1-11/19 Aspirin (Aspirin, Baby) 81 mg PO DAILY@0800 [facility] Last Admin: 01/20/19 10:18 Dose: 81 mg Documented by: Atorvastatin Calcium (Lipitor) 80 mg PO QHS [facility] Last Admin: 01/19/19 22:49 Dose: 80 mg Documented by: Calamine/Phenol (Calmoseptine Ointment) 1 applic TOPICAL 4X/DAY [facility]; Protocol Last Admin: 01/20/19 10:18 Dose: 1 applicatio Documented by: Clopidogrel Bisulfate (Plavix) 75 mg PO DAILY [facility] Enoxaparin Sodium (Lovenox) 40 mg SC DAILY [facility] Last Admin: 01/20/19 10:19 Dose: 40 mg Documented by: Furosemide (Lasix) 40 mg PO DAILY [facility] Last Admin: 01/20/19 10:18 Dose: 40 mg Documented by: Glucagon () 1 mg IM .X1 PRN PRN Reason: Hypoglycemia Glucagon () 1 mg IM .X1 PRN PRN Reason: Hypoglycemia Hydrochlorothiazide () 12.5 mg PO DAILY [facility] Last Admin: 01/20/19 11:54 Dose: 12.5 mg Documented by: Sodium Chloride () 250 mls @ 15 mls/hr IV .[id number] PRN PRN Reason: Saline Flush Dextrose (Dextrose 10%-Water) 250 mls @ 999 mls/hr IV X1 PRN; Protocol PRN Reason: HYPOGLYCEMIA Insulin Glargine (Lantus (Bk)) 20 units SC BID [facility] Last Admin: 01/20/19 11:55 Dose: 20 unit Documented by: Insulin Human Lispro (Humalog Kwikpen (Bk)) 0 unit SC ACHS [facility]; Protocol Last Admin: 01/20/19 11:55 Dose: 2 u Documented by: Insulin Human Lispro (Humalog Kwikpen (Bkc)) 5 unit SC TIDAC [facility] Last Admin: 01/20/19 11:54 Dose: 5 units Documented by: Loperamide HCl (Imodium) 2 mg PO Q4H PRN PRN PRN Reason: Diarrhea Last Admin: 01/18/19 10:22 Dose: 2 mg Documented by: Losartan Potassium (Cozaar) 100 mg PO DAILY [facility] Last Admin: 01/20/19 11:54 Dose: 100 mg Documented by: Nystatin (Mycostatin Powder) 1 applic TOPICAL BID [facility]; Protocol Last Admin: 01/20/19 10:19 Dose: 1 applic Documented by: Oxycodone HCl (Oxyir) 5 mg PO Q4H PRN PRN PRN Reason: Pain Score 6-1010 Last Admin: 01/17/19 11:35 Dose: 5 mg Documented by: Sodium Chloride () 10 - 40 ml IV UD PRN PRN Reason: SALINE FLUSH Last Admin: 01/19/19 19:39 Dose: 10 ml Documented by: Tamsulosin HCl (Flomax) 0.4 mg PO BID [facility] Last Admin: 01/20/19 10:18 Dose: 0.4 mg Documented by: Disposition: Residential facility Minutes spent on discharge:: 33 Patient Condition:: Stable Meaningful Use Info Meaningful Use Diagnoses (Choose all that apply): Ischemic CVA - CVA Therapy Assessed for PT,OT and/or ST?: Yes - Ischemic Stroke Antithrombotic order at d/c?: Yes Dx of Atrial fib/flutter?: No Statins at discharge?: Yes Primary Dx Acute Ischemic CVA?: Yes IV tPA ordered during stay?: No Reason IV t-PA not ordered: Medical Contraindication Code Visit Inpatient E&M: 09169 Disch Hosp
[2019-01-20 14:35] VITALS: BP 173/90; PULSE 69; RESP 18; TEMP 36.2; O2SAT 97
--- NOTE | 2019-01-20 14:47 | CASEMGMT ---
SW spoke with patient and let him know he will be going to TCU today. YANET asked if he would like SW to call anyone to let them know. He said he did not want SW to call anyone. Plan: d/c to [facility] under skilled level of care. Fabienne BACK
== END 2019-01-20 15:34 | disposition skilled nursing facility (03) | DRG 65 ==
LOC: ED 19:21 → PCU 21:43
PROVIDERS: Family Medicine; Admitting Provider Family Medicine; Emergency Provider Emergency Medicine; Family Provider Family Medicine Geriatric Medicine; PCP Family Medicine Geriatric Medicine; Visit Provider Hospitalist
DX: I63.511 Cerebral infarction due to unspecified occlusion or stenosis of right middle cerebral artery (principal); G81.04 Flaccid hemiplegia affecting left nondominant side; N17.9 Acute kidney failure, unspecified; I47.2 Ventricular tachycardia; H53.47 Heteronymous bilateral field defects; N40.0 Benign prostatic hyperplasia without lower urinary tract symptoms; E78.5 Hyperlipidemia, unspecified; I10 Essential (primary) hypertension; A08.4 Viral intestinal infection, unspecified; E87.6 Hypokalemia; E11.65 Type 2 diabetes mellitus with hyperglycemia; Z86.711 Personal history of pulmonary embolism; Z91.14 Patient's other noncompliance with medication regimen; Z79.84 Long term (current) use of oral hypoglycemic drugs; R29.704 NIHSS score 4
CPT/HCPCS: 36415; 70450; 70544; 70547; 70551; 71045; 80048; 80053; 80061; 82962; 83036; 83735; 84443; 84484; 85025; 85610; 87177; 87209; 87493; 87506; 92507; 92523; 92526; 92610; 93005; 93306; 93312; 93320; 93325; 93880; 94762; 97116; 97162; 97166; 97530; 97803; 99284; J7030; J7040; Q9957; A4216; C8929; J2405

== ENCOUNTER 2019-01-20 15:45 | Inpatient (IN) | payer MEDICARE, SELFPAY ==
[2019-01-20 15:45] VITALS: BMI 38.5
[2019-01-20 15:52] VITALS: BP 176/85; PULSE 71; RESP 20; TEMP 36.4; O2SAT 95
[2019-01-20 15:57] VITALS: BMI 37.1
[2019-01-20 16:00] VITALS: BMI 37.1
[2019-01-20 16:45] LABS: Bedside Glucose 154 mg/dL (70-110)
[2019-01-20 17:13] VITALS: O2SAT 94
[2019-01-20] MEDS: Tamsulosin HCl 0.4 MG Capsule PO (17:27)
[2019-01-20] MEDS: metFORMIN HCl 1,000 MG Tablet 1000 MG PO (17:27)
[2019-01-20] MEDS: Insulin Lispro 100 UNIT/ML INSULN.PEN SC ×3 (17:46→21:48)
[2019-01-20] MEDS: Nystatin Powder 15gm Bottle 1 APPLIC TOPICAL (17:47)
[2019-01-20 21:45] LABS: Bedside Glucose 196 mg/dL (70-110)
[2019-01-20] MEDS: Atorvastatin Calcium 80 MG Tablet PO (21:48)
[2019-01-20] MEDS: Menthol/Lanolin/Calamine/Znox 113 GM Tube 1 APPLIC TOPICAL (21:50)
--- NOTE | 2019-01-20 21:59 | NURSING ---
Code Status discussed with pt. Pt reported he did not want chest compressions during an event of cardiac arrest. Pt reported he would accept intubation. DNRCC-A formed sign and purple bracelet placed.
--- NOTE | 2019-01-20 22:11 | HP.PCM_ITS ---
Problem List (1) Debility Status: Acute (2) Acute right MCA stroke Status: Acute (3) Diarrhea Status: Acute (4) Nausea & vomiting Status: Acute (5) Dehydration Status: Acute (6) Falls Status: Acute (7) Hypertension Status: Chronic (8) Hyperlipidemia Status: Chronic (9) Osteoarthritis Status: Chronic (10) BPH (benign prostatic hyperplasia) Status: Chronic (11) Normal pressure hydrocephalus Status: Chronic (12) Pulmonary hypertension Status: Chronic (13) Acute kidney injury Status: Acute (14) Edema Status: Chronic (15) Type 2 diabetes mellitus Status: Chronic (16) Paroxysmal ventricular tachycardia Status: Chronic History of Present Illness Date of Admission: 01/20/19 Chief Complaint: Here for rehabilitation, strengthening, prior to disposition determination. The patient is a 73 year old Male with below past medical history presented to [facility] Emergency Department 01/16/2019 with left arm weakness, left hand weakness, falls, diarrhea. 01/16/2019 CT brain chronic ischemic involutional changes of brain. 01/16/2019 EKG sinus rhythm with premature supraventricular contractions, inferior infarct, age undetermined. Lives with dog, diarrhea x 4 days, nausea/vomiting x 2 days. Lightheaded, fell several times. Unable to use left arm x 40 hours, too late for TPA. Active nausea, vomiting. Chest X-ray okay, WBC 12.5, Hemoglobin 16, K 3.3. Cr 1.3, Troponin okay. Zofran, IV fluids given. C. Diff pending. 01/16/2019 Admit to Hospital. Aspirin, Atorvastatin 80MG, PT/OT, MRI brain for stroke. IV Fluids, C. difficile negative for diarrhea. Hold Lasix, Hold Valsartan HCT. 01/16/2019 MRI brain acute/subacute right frontal stroke, right parietal stroke, right occipital stroke. 01/16/2019 MRA head right middle cerebral artery narrowing. 01/16/2019 MRA neck negative. 01/18/2019 Carotid duplex negative for significant stenosis. 01/18/2019 Echo Normal LV size. Left ventricular systolic function normal. EF 55% Stage 1 diastolic dysfunction. 01/20/2019 SALVADOR EF 65% No thrombus left atrial appendage. 30 day event recorder upon discharge. Plavix added to Aspirin. If atrial fibrillation, change Aspirin/Plavix to oral anticoagulation. 01/20/2019 Admit to TCU with debility, here for rehabilitation, strengthening, prior to disposition determination. Past Medical History Past Medical History (Chronic Problems): Chronic Problems (Last Updated 01/18/19 @ 14:04 by Juliane Colon MD) Hypertension (Chronic) Hyperlipidemia (Chronic) Osteoarthritis (Chronic) BPH (benign prostatic hyperplasia) (Chronic) Normal pressure hydrocephalus (Chronic) Pulmonary hypertension (Chronic) Edema (Chronic) Type 2 diabetes mellitus (Chronic) Pure hypercholesterolemia (Chronic) Paroxysmal ventricular tachycardia (Chronic) Essential hypertension (Chronic) Syncope and collapse (Chronic) SVT (supraventricular tachycardia) (Chronic) Medical History: Medical History (Last Updated 01/18/19 @ 14:04 by Juliane Colon MD) Type 2 diabetes mellitus (Chronic) E11.9 Pure hypercholesterolemia (Chronic) E78.00 Paroxysmal ventricular tachycardia (Chronic) I47.2 Essential hypertension (Chronic) I10 SVT (supraventricular tachycardia) (Chronic) I47.1 BPH (benign prostatic hyperplasia) N40.0 BPH with obstruction/lower urinary tract symptoms N40.1, N13.8 Normal pressure hydrocephalus G91.2 Pulmonary embolism I26.99 Allergies No Known Allergies Allergy (Verified 01/16/19 18:54) Home Medications: Ambulatory Orders Medication Instructions Recorded Tamsulosin HCl [Flomax] 0.4 mg PO BID 02/13/16 Furosemide [Lasix] 40 mg PO DAILY 01/16/19 Metformin HCl 1,000 mg PO BID 01/16/19 Semaglutide [Ozempic] 0.25 mg SQ QWEEK 01/16/19 Valsartan/Hydrochlorothiazide 1 ea PO DAILY 01/16/19 [Valsartan-Hctz 320-12.5 mg Tab] Aspirin [Aspirin, Baby] 81 mg PO DAILY@0800 01/20/19 Atorvastatin Calcium [Lipitor] 80 mg PO QHS 01/20/19 Clopidogrel Bisulfate [Plavix] 75 mg PO DAILY 01/20/19 Insulin Glargine [Lantus SoloStar 20 units SUBCUT BID 01/20/19 Pen] Insulin Lispro [Humalog KwikPen] 5 unit SUBCUT TIDAC 01/20/19 Insulin Lispro [Humalog KwikPen] See Protocol SUBCUT ACHS 01/20/19 Menthol/Lanolin/Calamine/Znox 1 applic TOPICAL 0600,2200 01/20/19 [Calmoseptine Ointment] Nystatin Powder [Mycostatin Powder] 1 applic TOPICAL BID 01/20/19 Surgical History: Surgical History (Last Updated 02/26/17 @ 09:40 by Nikolas Prasad) H/O nasal septoplasty Z98.890 H/O vasectomy Z98.52 Hx of cholecystectomy Z98.890, Z90.49 Surgical History: cholecystectomy, - - right meniscus surgery, deviated septum, Psychiatric History: Depression Lives: Alone - Lives with dog. Smoking Status: Never smoker Tobacco Use: Non-smoker Alcohol: None Drugs: None - *Family History Paternal Family History: Family History (Last Updated 02/26/17 @ 09:36 by Nikolas Prasad) Father Gisella Gehrig disease History Items: - - als Maternal Family History: Family History (Last Updated 02/26/17 @ 09:36 by Nikolas Prasad) Father Gisella Gehrig disease History Items: Heart Disease - CAD; CABG Review of Systems Constitutional: Reports: Weakness, Fatigue. Denies: Chills, Fever, Weight Change HEENT: Denies: Head Aches, Sinus Congestion, Sinus Drainage Cardiovascular: Denies: Chest Pain, Palpitations Respiratory: Denies: Cough, Shortness of breath at rest, Sputum production Gastrointestinal: Denies: Abdominal Pain, Nausea, Vomiting Genitourinary: Denies: Dysuria Musculoskeletal: Denies: Joint Pain, Joint Tenderness Skin: Denies: Rash, Wounds Neurological: Denies: Numbness, Tingling, Focal weakness Psychiatric: Denies: Anxiety, Depression, Homicidal Ideations, Suicidal Ideations Hematologic/ Lymphatic: Denies: Easy Bruising, Easy Bleeding VTE Information - Inpt Only VTE Present on Admission: No VTE Mechan Device Prophylaxis: Knee High AV Hose VTE Pharm Prophylaxis ordered?: No Reason prophylaxis not ordered:: Treatment Not Indicated Patient Problems: Active and Suspected Problems (Last Updated 01/18/19 @ 14:04 by Juliane Colon MD) Debility (Acute) Acute right MCA stroke (Acute) Diarrhea (Acute) Nausea & vomiting (Acute) Dehydration (Acute) Falls (Acute) Acute kidney injury (Acute) - Physical Exam Vitals/I&O's: Vital Signs Temp Pulse Resp BP Pulse Ox 97.6 F L 71 20 H 176/85 H 94 01/20/19 15:52 01/20/19 15:52 01/20/19 15:52 01/20/19 15:52 01/20/19 17:13 Oxygen Delivery Method Room Air Weight: 107.3 kg Body Mass Index (BMI) 37.1 Finger Stick Blood Glucose 141 General: Alert, Oriented x3, Cooperative HEENT: Atraumatic, PERRLA, EOMI, Normocephalic Neck: Supple, No JVD, Negative Carotid Bruits Lungs: Clear to auscultation, Normal air movement Cardiovascular: Regular rate, No murmurs Abdomen: Bowel Sounds Present, Soft, Non Tender Extremities: No edema, Capillary Refill Less than 3 Seconds Skin: No rashes, No breakdown Musculoskeletal: No Tenderness to Palpation of Joints or Extremities Neurological: Cranial nerves II-XII grossly intact, Facial Droop - Left., - - Left hemiplegia, Left vision loss, Left sided neglect. Psych/Mental Status: Normal Affect, Appropriate Laboratory Results 01/20/19 16:42: POC Glucose 154 H 01/20/19 21:34: POC Glucose 196 H Current Medications Aspirin (Aspirin, Baby) 81 mg PO DAILY@0800 [facility] Atorvastatin Calcium (Lipitor) 80 mg PO QHS [facility] Last Admin: 01/20/19 21:48 Dose: 80 mg Documented by: Calamine/Phenol (Calmoseptine Ointment) 1 applic TOPICAL 0600,2200 [facility]; Protocol Last Admin: 01/20/19 21:50 Dose: 1 applicatio Documented by: Clopidogrel Bisulfate (Plavix) 75 mg PO DAILY [facility] Furosemide (Lasix) 40 mg PO DAILY [facility] Hydrochlorothiazide () 12.5 mg PO DAILY [facility] Insulin Glargine (Lantus (Bkc)) 20 units SC BID [facility] Last Admin: 01/20/19 19:08 Dose: 20 u Documented by: Insulin Human Lispro (Humalog Kwikpen (Bkc)) 5 unit SC TIDAC [facility] Last Admin: 01/20/19 17:46 Dose: 5 u Documented by: Insulin Human Lispro (Humalog Kwikpen (Bkc)) 0 unit SC ACHS [facility]; Protocol Last Admin: 01/20/19 21:48 Dose: 2 u Documented by: Losartan Potassium (Cozaar) 100 mg PO DAILY [facility] Last Admin: 01/20/19 17:27 Dose: 1,000 mg Documented by: Non-Formulary Medication (Semaglutide [Ozempic]) 0.25 mg SQ QWEEK [facility] Nystatin (Mycostatin Powder) 1 applic TOPICAL BID [facility]; Protocol Last Admin: 01/20/19 17:47 Dose: 1 applicatio Documented by: Tamsulosin HCl (Flomax) 0.4 mg PO BID@0830,1730 [facility] Last Admin: 01/20/19 17:27 Dose: 0.4 mg Documented by: Tuberculin PPD (Tubersol, Aplisol, Ppd) 5 tu ID X1 ONE Stop: 01/21/19 10:01 Tuberculin PPD (Tubersol, Aplisol, Ppd) 5 tu ID X1 ONE Stop: 01/28/19 10:01 Assessment/Plan All Active Problems (Last Updated 01/18/19 @ 14:04 by Juliane Colon MD) Debility (Acute) Acute right MCA stroke (Acute) Diarrhea (Acute) Nausea & vomiting (Acute) Dehydration (Acute) Falls (Acute) Acute kidney injury (Acute) Stroke (Acute) 73 year old male with below past medical history hospitalized for acute right middle cerebral artery stroke, admitted to TCU with debility, here for rehabilitation, strengthening, prior to disposition determination. * Debility - PT/OT. * Dysphagia - ST. * Pain - Tylenol 1000MG Q6H PRN pain (1-3) * Bowel - he is having diarrhea, order X-ray of abdomen. * Adult immunization - Administer Prevnar 13, Pneumovax 23, Fluzone as necessary. * DVT prophylaxis - Not necessary, on oral anticoagulation. * Acute right MCA stroke - Rx Eliquis 5MG twice daily, more effective than dual antiplatelet therapy, less risk than warfarin. * Hyperlipidemia - Atorvastatin 80MG QHS. * Edema - Lasix 40MG daily. * Hypertension - Valsartan 320MG daily, HCTZ 12.5MG daily. * Diabetes Mellitus II - Metformin 1000MG twice daily, Lantus 20 units BID, Humalog 5 units TID. * Skin irritation - Calmoseptine BID. * Tinea Corporis - Nystatin powder BID. * BPH - Tamsulosin 0.4MG BID. * Diarrhea - 2/2 to Metformin, may need to lower Metformin dose or stop altogether. * Depression - Rx Citalopram 10MG daily. * Non-compliance with medical card - resident is my personal office patient, he was lost to follow up for over 1 year, and he had stopped all of his medications.
--- NOTE | 2019-01-20 22:40 | RAD_ITS ---
STUDY: X-RAY - ABDOMEN/PELVIS REASON FOR EXAM: Male, 73 years old. Diarrhea. TECHNIQUE: 1 view COMPARISON: None. FINDINGS: Normal visualized lung bases. Mild gaseous distention of the nondependent stomach. Nondistended small bowel and colon. No substantial stool present Negative for gross organomegaly. Status post cholecystectomy. Calcifications of the aorta. Degenerative changes of the spine. RAD/Abdomen Single View (Portable) IMPRESSION: Mild gaseous distention of the nondependent portion of the stomach with no distention of the small bowel or colon. Negative for substantial stool collection. Negative for gross organomegaly. Status post cholecystectomy. Atherosclerotic changes of the aorta. Electronically Signed: Dilcia Sotelo MD at 22:59 EST , Service support ,
[2019-01-20] MEDS: Losartan Potassium 100 MG Tablet PO (22:56)
[2019-01-21] MEDS: hydroCHLOROthiazide 12.5mg 12.5 MG PO (04:26)
[2019-01-21] MEDS: Losartan Potassium 100 MG Tablet PO (04:27)
[2019-01-21] MEDS: Furosemide 40 MG Tablet PO (04:27)
[2019-01-21] MEDS: APIXABAN 5 MG TABLET PO ×2 (04:27→17:50)
[2019-01-21] MEDS: Citalopram 10 MG Tablet PO (04:27)
[2019-01-21] MEDS: Menthol/Lanolin/Calamine/Znox 113 GM Tube 1 APPLIC TOPICAL ×2 (04:29→21:52)
[2019-01-21] MEDS: Nystatin Powder 15gm Bottle 1 APPLIC TOPICAL ×2 (04:30→17:52)
[2019-01-21 06:01] LABS: Absolute Lymphocyte Count 1.62 X10^3/uL (0.83-4.51); Basophil# 0.05 X10^3/uL; Basophil% 0.6 % (0-1); Eosinophil# 0.69 X10^3/uL; Eosinophils% 7.7 % (0-5); Hemoglobin 16.7 g/dL (13.0-16.5); Lymphocyte # 1.62 X10^3/ul (4.0); Mean Corp Hgb Conc 33.4 g/dL (32-36); Mean Corpuscular Hgb 27.1 pg (27.0-32.0); Mean Corpuscular Volume 81.2 fL (80-94); Monocyte# 0.63 X10^3/uL; NRBC Flagged by Analyzer 0 % (0-5); Neutrophil # 5.95 X10^3/uL (2.7-7.7); Neutrophil % 65.9 % (47-70); Platelet Count 208 K/mm3 (150-450); RBC Distribution Width CV 13.3 % (11.6-14.6); RBC Distribution Width SD 38.6 fl (35.1-43.9); Red Blood Count 6.16 M/mm3 (4.6-6.2)
[2019-01-21 06:25] LABS: Bedside Glucose 161 mg/dL (70-110)
[2019-01-21 06:48] LABS: Anion Gap 8 (5-15); BUN 21 mg/dL (7-18); BUN/Creat Ratio 20.2 RATIO (10-20); Chloride 106 mmol/L (98-107); Creatinine, Serum 1.04 mg/dL (0.70-1.30); EST Glomerular Filtration Rate 75 mL/min (>60); Est Glom Filt Rate - Afr Amer 91 mL/min (>60); Estimated Creatinine Clearance 58.79 ml/min; Glucose 134 mg/dL (74-106); Potassium 3.3 mmol/L (3.5-5.1); Sodium Level 139 mmol/L (136-145)
[2019-01-21] MEDS: Insulin Lispro 100 UNIT/ML INSULN.PEN SC ×3 (07:54→17:49)
[2019-01-21] MEDS: metFORMIN HCl 1,000 MG Tablet 1000 MG PO ×2 (07:54→17:50)
[2019-01-21] MEDS: Tamsulosin HCl 0.4 MG Capsule PO ×2 (07:54→17:50)
--- NOTE | 2019-01-21 09:54 | NURSING ---
This nurse entered pt room to administer potassium. This nurse administered potassium and a few minutes later the pt began to vomit. The pt states he also vomits when he drinks orange juice. Charge nurse notified.
[2019-01-21 10:00] VITALS: PULSE 84; RESP 16; O2SAT 96
[2019-01-21 11:05] LABS: Bedside Glucose 128 mg/dL (70-110)
[2019-01-21] MEDS: Tuberculin,Purif.prot.deriv. 50 TU/ML Vial 5 ML ID (12:01)
[2019-01-21 16:00] VITALS: BP 175/82; PULSE 79; RESP 20; TEMP 36.6; O2SAT 95
[2019-01-21 17:11] LABS: Bedside Glucose 234 mg/dL (70-110)
[2019-01-21 21:36] LABS: Bedside Glucose 196 mg/dL (70-110)
[2019-01-21] MEDS: Atorvastatin Calcium 80 MG Tablet PO (21:52)
[2019-01-22 06:46] LABS: Bedside Glucose 149 mg/dL (70-110)
[2019-01-22] MEDS: hydroCHLOROthiazide 12.5mg 12.5 MG PO (06:48)
[2019-01-22] MEDS: Losartan Potassium 100 MG Tablet PO (06:48)
[2019-01-22] MEDS: Citalopram 10 MG Tablet PO (06:48)
[2019-01-22] MEDS: APIXABAN 5 MG TABLET PO ×2 (06:48→17:55)
[2019-01-22] MEDS: Furosemide 40 MG Tablet PO (06:48)
[2019-01-22] MEDS: Menthol/Lanolin/Calamine/Znox 113 GM Tube 1 APPLIC TOPICAL ×2 (06:48→20:32)
[2019-01-22] MEDS: Nystatin Powder 15gm Bottle 1 APPLIC TOPICAL ×2 (06:49→18:03)
[2019-01-22] MEDS: Insulin Lispro 100 UNIT/ML INSULN.PEN SC ×3 (08:13→18:00)
[2019-01-22] MEDS: Tamsulosin HCl 0.4 MG Capsule PO ×2 (08:14→17:55)
[2019-01-22] MEDS: metFORMIN HCl 1,000 MG Tablet 1000 MG PO ×2 (08:14→17:55)
[2019-01-22 11:01] LABS: Bedside Glucose 190 mg/dL (70-110)
--- NOTE | 2019-01-22 12:20 | PHA.CONS_ITS ---
<NighatmitchImani M - Last Filed: 01/22/19 12:20> Progress Note - Pharmacy Subjective: TCU ADMISSION Objective: Allergies No Known Allergies Allergy (Verified 01/16/19 18:54) Current Medications Generic Name Dose Route Start Last Admin Trade Name Freq PRN Reason Stop Dose Admin Acetaminophen 1,000 mg 01/20/19 22:34 Tylenol PO Q6H PRN PRN Pain Score 1-10/10 Apixaban 5 mg 01/21/19 06:00 01/22/19 06:48 Eliquis PO 5 mg BID SHANELLE Administration Atorvastatin Calcium 80 mg 01/20/19 22:00 01/21/19 21:52 Lipitor PO 80 mg QHS SHANELLE Administration Calamine/Phenol 1 applic 01/20/19 22:00 01/22/19 06:48 Calmoseptine Ointment TOPICAL 1 applicatio 0600,2200 [facility] Administration Protocol Citalopram Hydrobromide 10 mg 01/21/19 06:00 01/22/19 06:48 Celexa PO 10 mg DAILY SHANELLE Administration Furosemide 40 mg 01/21/19 06:00 01/22/19 06:48 Lasix PO 40 mg DAILY SHANELLE Administration Glucagon 1 mg 01/21/19 06:53 IM .X1 PRN Hypoglycemia Hydrochlorothiazide 12.5 mg 01/21/19 06:00 01/22/19 06:48 PO 12.5 mg DAILY SHANELLE Administration Dextrose 250 mls @ 999 mls/hr 01/21/19 07:05 Dextrose 10%-Water IV X1 PRN HYPOGLYCEMIA Protocol Insulin Glargine 20 units 01/20/19 18:00 01/22/19 06:49 Lantus (Bkc) SC 20 u BID SHANELLE Administration Insulin Human Lispro 5 unit 01/20/19 16:45 01/22/19 11:50 Humalog Kwikpen (Bkc) SC 5 u TIDAC SHANELLE Administration Losartan Potassium 100 mg 01/21/19 06:00 01/22/19 06:48 Cozaar PO 100 mg DAILY SHANELLE Administration Metformin HCl 1,000 mg 01/20/19 17:00 01/22/19 08:14 Glucophage PO 1,000 mg BIDCM SHANELLE Administration Multi-Ingredient Cream 1 applic 01/21/19 22:00 01/21/19 21:54 Eucerin TOPICAL 1 applicatio QHS [facility] Administration Protocol Nystatin 1 applic 01/20/19 18:00 01/22/19 06:49 Mycostatin Powder TOPICAL 1 applicatio BID [facility] Administration Protocol Potassium Chloride 20 meq 01/22/19 08:00 01/21/19 09:39 K-Dur PO 20 meq DAILYCM SHANELLE Administration Tamsulosin HCl 0.4 mg 01/20/19 17:30 01/22/19 08:14 Flomax PO 0.4 mg BID@0830,1730 SHANELLE Administration Tuberculin PPD 5 tu 01/28/19 10:00 Tubersol, Aplisol, Ppd ID 01/28/19 10:01 X1 ONE Problem List (Last Updated 01/18/19 @ 14:04 by Juliane Colon MD) Debility (Acute) Acute right MCA stroke (Acute) Diarrhea (Acute) Nausea & vomiting (Acute) Dehydration (Acute) Falls (Acute) Hypertension (Chronic) Hyperlipidemia (Chronic) Osteoarthritis (Chronic) BPH (benign prostatic hyperplasia) (Chronic) Normal pressure hydrocephalus (Chronic) Pulmonary hypertension (Chronic) Acute kidney injury (Acute) Edema (Chronic) Vital Signs Temp Pulse Resp BP Pulse Ox 97.9 F 79 20 H 175/82 H 95 01/21/19 16:00 01/21/19 16:00 01/21/19 16:00 01/21/19 16:00 01/21/19 16:00 Oxygen Flow Rate (L/min) 2 Oxygen Delivery Method Room Air Weight: 107.3 kg Body Mass Index (BMI) 37.1 Finger Stick Blood Glucose 141 Sodium 139 mmol/L (136-145) 01/21/19 05:05 Potassium 3.3 mmol/L (3.5-5.1) L 01/21/19 05:05 Chloride 106 mmol/L (98-107) 01/21/19 05:05 Carbon Dioxide 25.0 mmol/L (21.0-32.0) 01/21/19 05:05 Anion Gap 8 (5-15) 01/21/19 05:05 BUN 21 mg/dL (7-18) H 01/21/19 05:05 Creatinine 1.04 mg/dL (0.70-1.30) 01/21/19 05:05 Est GFR (MDRD) Af Amer 91 mL/min (>60) 01/21/19 05:05 Est GFR (MDRD) Non-Af 75 mL/min (>60) 01/21/19 05:05 BUN/Creatinine Ratio 20.2 RATIO (10-20) H 01/21/19 05:05 Glucose 134 mg/dL (74-106) H 01/21/19 05:05 Assessment/Plan: 1. Pain: Tylenol 1000mg PO Q6H PRN pain (-11/19). Please continue to monitor for PRN usage, S/S increased/decreased pain 2. Acute stroke: Eliquis 5mg PO BID, Atorvastatin 80mg PO QHS. Please continue to monitor for S/S bleeding and/or bruising, consider ordering a lipid panel annually or more frequently if clinically indicated 3. Edema: Lasix 40mg PO daily. Please continue to monitor fluid status, electrolytes, renal function 4. Hypokalemia: K-Dur 20mEq PO daily. Please continue to monitor potassium levels 5. Hypertension: Losartan 100mg PO daily, HCTZ 12.5mg PO daily. Please continue to monitor BP, electrolytes 6. Diabetes Mellitus II: Metformin 1000mg PO twice daily, Lantus 20 units BID, Humalog 5 units TID. Please continue to monitor renal function, S/S hypogly cemia, A1C every 3 months as clinically indicated 7. BPH: Tamsulosin 0.4mg PO BID. Please continue to monitor urinary status, clinical improvement with medication use Psychotropic Medications: *8. Depression: Citalopram 10mg PO daily. Please consider a GDR by 06/2019 if clinically indicated Unnecessary Medications: None *Bowel Regimen: None at this time. Per H/P, the patient has had reported diarrhea, so a bowel regimen would not be appropriate at this time. Could consider adding Imodium PRN if diarrhea has not subsided within a reasonable time. Should the patient become constipated during stay, consider adding a bowel regimen at that time if clinically appropriate Date of Note:: 01/22/19 - Provider Comments Provider responsibility: Provider responsible to enter orders to implement recommendations <Moisés Gallardo Chi - Last Filed: 01/22/19 13:34> Progress Note - Pharmacy Subjective: [] Objective: Allergies No Known Allergies Allergy (Verified 01/16/19 18:54) Current Medications Generic Name Dose Route Start Last Admin Trade Name Freq PRN Reason Stop Dose Admin Acetaminophen 1,000 mg 01/20/19 22:34 Tylenol PO Q6H PRN PRN Pain Score 1-10 Apixaban 5 mg 01/21/19 06:00 01/22/19 06:48 Eliquis PO 5 mg BID SHANELLE Administration Atorvastatin Calcium 80 mg 01/20/19 22:00 01/21/19 21:52 Lipitor PO 80 mg QHS SHANELLE Administration Calamine/Phenol 1 applic 01/20/19 22:00 01/22/19 06:48 Calmoseptine Ointment TOPICAL 1 applicatio 0600,2200 [facility] Administration Protocol Citalopram Hydrobromide 10 mg 01/21/19 06:00 01/22/19 06:48 Celexa PO 10 mg DAILY SHAN[facility]LE Administration Furosemide 40 mg 01/21/19 06:00 01/22/19 06:48 Lasix PO 40 mg DAILY SHANELLE Administration Glucagon 1 mg 01/21/19 06:53 IM .X1 PRN Hypoglycemia Hydrochlorothiazide 12.5 mg 01/21/19 06:00 01/22/19 06:48 PO 12.5 mg DAILY SHANELLE Administration Dextrose 250 mls @ 999 mls/hr 01/21/19 07:05 Dextrose 10%-Water IV X1 PRN HYPOGLYCEMIA Protocol Insulin Glargine 20 units 01/20/19 18:00 01/22/19 06:49 Lantus ([facility]) SC 20 u BID SHANELLE Administration Insulin Human Lispro 5 unit 01/20/19 16:45 01/22/19 11:50 Humalog Kwikpen ([facility]) SC 5 u TIDAC SHANELLE Administration Losartan Potassium 100 mg 01/21/19 06:00 01/22/19 06:48 Cozaar PO 100 mg DAILY SHANELLE Administration Metformin HCl 1,000 mg 01/20/19 17:00 01/22/19 08:14 Glucophage PO 1,000 mg BIDCM [facility] Administration Multi-Ingredient Cream 1 applic 01/21/19 22:00 01/21/19 21:54 Eucerin TOPICAL 1 applicatio QHS [facility] Administration Protocol Nystatin 1 applic 01/20/19 18:00 01/22/19 06:49 Mycostatin Powder TOPICAL 1 applicatio BID [facility] Administration Protocol Potassium Chloride 20 meq 01/22/19 08:00 01/21/19 09:39 K-Dur PO 20 meq DAILYCM SHAN[facility]LE Administration Tamsulosin HCl 0.4 mg 01/20/19 17:30 01/22/19 08:14 Flomax PO 0.4 mg BID@0830,1730 [facility] Administration Tuberculin PPD 5 tu 01/28/19 10:00 Tubersol, Aplisol, Ppd ID 01/28/19 10:01 X1 ONE Problem List (Last Updated 01/18/19 @ 14:04 by Juliane Colon MD) Debility (Acute) Acute right MCA stroke (Acute) Diarrhea (Acute) Nausea & vomiting (Acute) Dehydration (Acute) Falls (Acute) Hypertension (Chronic) Hyperlipidemia (Chronic) Osteoarthritis (Chronic) BPH (benign prostatic hyperplasia) (Chronic) Normal pressure hydrocephalus (Chronic) Pulmonary hypertension (Chronic) Acute kidney injury (Acute) Edema (Chronic) Vital Signs Temp Pulse Resp BP Pulse Ox 97.9 F 79 20 H 175/82 H 95 01/21/19 16:00 01/21/19 16:00 01/21/19 16:00 01/21/19 16:00 01/21/19 16:00 Oxygen Flow Rate (L/min) 2 Oxygen Delivery Method Room Air Weight: 107.3 kg Body Mass Index (BMI) 37.1 Finger Stick Blood Glucose 141 Sodium 139 mmol/L (136-145) 01/21/19 05:05 Potassium 3.3 mmol/L (3.5-5.1) L 01/21/19 05:05 Chloride 106 mmol/L (98-107) 01/21/19 05:05 Carbon Dioxide 25.0 mmol/L (21.0-32.0) 01/21/19 05:05 Anion Gap 8 (5-15) 01/21/19 05:05 BUN 21 mg/dL (7-18) H 01/21/19 05:05 Creatinine 1.04 mg/dL (0.70-1.30) 01/21/19 05:05 Est GFR (MDRD) Af Amer 91 mL/min (>60) 01/21/19 05:05 Est GFR (MDRD) Non-Af 75 mL/min (>60) 01/21/19 05:05 BUN/Creatinine Ratio 20.2 RATIO (10-20) H 01/21/19 05:05 Glucose 134 mg/dL (74-106) H 01/21/19 05:05 Assessment/Plan: Psychotropic Medications: Unnecessary Medications: Bowel Regimen: - Provider Comments Provider responsibility: Provider responsible to enter orders to implement recommendations Provider Comments to Recommendations by Pharmacy: Agree
[2019-01-22 16:00] VITALS: BP 125/87; PULSE 94; RESP 14; TEMP 36.8; O2SAT 95
[2019-01-22 17:31] LABS: Bedside Glucose 107 mg/dL (70-110)
[2019-01-22 20:20] VITALS: RESP 16
[2019-01-22] MEDS: Atorvastatin Calcium 80 MG Tablet PO (20:31)
--- NOTE | 2019-01-22 22:21 | NURSING ---
Pt had a one time emesis episode 300cc straw color liquid states, I ate a salad with meatloaf earlier and potato for dinner. BS 108 reported to JOZEF Yusuf.
[2019-01-22 22:25] LABS: Bedside Glucose 108 mg/dL (70-110)
[2019-01-23] MEDS: Acetaminophen 500 MG Tablet 1000 MG PO (01:10)
[2019-01-23] MEDS: Losartan Potassium 100 MG Tablet PO (05:47)
[2019-01-23] MEDS: hydroCHLOROthiazide 12.5mg 12.5 MG PO (05:47)
[2019-01-23] MEDS: Citalopram 10 MG Tablet PO (05:47)
[2019-01-23] MEDS: APIXABAN 5 MG TABLET PO ×2 (05:47→18:34)
[2019-01-23] MEDS: Furosemide 40 MG Tablet PO (05:49)
[2019-01-23] MEDS: Nystatin Powder 15gm Bottle 1 APPLIC TOPICAL ×2 (05:52→18:34)
[2019-01-23] MEDS: Menthol/Lanolin/Calamine/Znox 113 GM Tube 1 APPLIC TOPICAL ×2 (05:53→20:59)
[2019-01-23 06:21] LABS: Bedside Glucose 146 mg/dL (70-110)
[2019-01-23 07:42] LABS: Anion Gap 6 (5-15); BUN 29 mg/dL (7-18); BUN/Creat Ratio 24.2 RATIO (10-20); Calcium,Total 9.8 mg/dL (8.5-10.1); Chloride 102 mmol/L (98-107); EST Glomerular Filtration Rate 63 mL/min (>60); Est Glom Filt Rate - Afr Amer 77 mL/min (>60); Estimated Creatinine Clearance 50.95 ml/min; Glucose 132 mg/dL (74-106); Potassium 3.4 mmol/L (3.5-5.1); Sodium Level 135 mmol/L (136-145)
[2019-01-23] MEDS: metFORMIN HCl 1,000 MG Tablet 1000 MG PO ×2 (09:48→18:34)
[2019-01-23] MEDS: Insulin Lispro 100 UNIT/ML INSULN.PEN SC ×3 (09:48→18:48)
[2019-01-23] MEDS: Tamsulosin HCl 0.4 MG Capsule PO ×2 (09:48→18:34)
[2019-01-23 11:05] LABS: Bedside Glucose 183 mg/dL (70-110)
[2019-01-23 16:00] VITALS: BP 117/78; PULSE 75; RESP 20; TEMP 36.2; O2SAT 96
[2019-01-23 18:45] LABS: Bedside Glucose 177 mg/dL (70-110)
[2019-01-23] MEDS: Atorvastatin Calcium 80 MG Tablet PO (20:57)
[2019-01-23 21:00] VITALS: RESP 16
[2019-01-23 22:01] LABS: Bedside Glucose 120 mg/dL (70-110)
--- NOTE | 2019-01-24 04:41 | ED.RN ---
Pt had a 1 x episode of emesis today 50cc had small chunks in it. Pt has been having diarrhea. Rn made aware put on Dr.Kwok coronado.
[2019-01-24] MEDS: Furosemide 40 MG Tablet PO (06:07)
[2019-01-24] MEDS: APIXABAN 5 MG TABLET PO ×2 (06:07→18:11)
[2019-01-24] MEDS: Citalopram 10 MG Tablet PO (06:07)
[2019-01-24] MEDS: Losartan Potassium 100 MG Tablet PO (06:07)
[2019-01-24] MEDS: Nystatin Powder 15gm Bottle 1 APPLIC TOPICAL ×2 (06:08→18:16)
[2019-01-24] MEDS: Menthol/Lanolin/Calamine/Znox 113 GM Tube 1 APPLIC TOPICAL ×2 (06:08→22:28)
--- NOTE | 2019-01-24 06:12 | NURSING ---
Pt had a 1 x episode of emesis today 50cc had small chunks in it. Pt has been having diarrhea. Rn made aware put on Dr.Kwok coronado. Initialized on 01/24/19 04:41 - END OF NOTE
--- NOTE | 2019-01-24 06:13 | NURSING ---
Battery change to heart monitor at this time. No concerns voiced during this time.
[2019-01-24 06:31] LABS: Bedside Glucose 122 mg/dL (70-110)
[2019-01-24] MEDS: metFORMIN HCl 1,000 MG Tablet 1000 MG PO (08:51)
[2019-01-24] MEDS: Insulin Lispro 100 UNIT/ML INSULN.PEN SC ×3 (08:51→18:11)
[2019-01-24] MEDS: Tamsulosin HCl 0.4 MG Capsule PO ×2 (08:53→18:11)
[2019-01-24 11:05] LABS: Bedside Glucose 191 mg/dL (70-110)
[2019-01-24 14:15] VITALS: RESP 20; O2SAT 98
[2019-01-24 15:57] VITALS: BP 130/83; PULSE 71; RESP 16; TEMP 36.3; O2SAT 93
[2019-01-24 17:41] LABS: Bedside Glucose 160 mg/dL (70-110)
[2019-01-24 21:25] LABS: Bedside Glucose 160 mg/dL (70-110)
[2019-01-24] MEDS: Atorvastatin Calcium 80 MG Tablet PO (22:25)
[2019-01-25] MEDS: Losartan Potassium 100 MG Tablet PO (05:15)
[2019-01-25] MEDS: Furosemide 40 MG Tablet PO (05:15)
[2019-01-25] MEDS: APIXABAN 5 MG TABLET PO ×2 (05:15→17:03)
[2019-01-25] MEDS: Citalopram 10 MG Tablet PO (05:15)
[2019-01-25] MEDS: Menthol/Lanolin/Calamine/Znox 113 GM Tube 1 APPLIC TOPICAL ×2 (05:18→22:45)
[2019-01-25] MEDS: Nystatin Powder 15gm Bottle 1 APPLIC TOPICAL ×2 (05:18→17:04)
[2019-01-25 06:26] LABS: Bedside Glucose 147 mg/dL (70-110)
[2019-01-25 07:33] VITALS: O2SAT 97
[2019-01-25] MEDS: Insulin Lispro 100 UNIT/ML INSULN.PEN SC ×3 (07:56→17:02)
[2019-01-25] MEDS: Tamsulosin HCl 0.4 MG Capsule PO ×2 (07:57→17:03)
[2019-01-25 11:20] LABS: Bedside Glucose 168 mg/dL (70-110)
[2019-01-25 15:43] VITALS: BP 129/83; PULSE 71; RESP 18; TEMP 36.6; O2SAT 96
[2019-01-25 17:00] LABS: Bedside Glucose 170 mg/dL (70-110)
[2019-01-25 20:15] VITALS: PULSE 102
[2019-01-25] MEDS: guaiFENesin 10 ML UDC (200MG/10ML) PO (20:25)
[2019-01-25] MEDS: MELATONIN 10 MG TABLET PO (20:27)
[2019-01-25] MEDS: Atorvastatin Calcium 80 MG Tablet PO (20:27)
[2019-01-25 21:31] LABS: Bedside Glucose 176 mg/dL (70-110)
--- NOTE | 2019-01-26 00:41 | NURSING ---
Addendum entered by Niki Norwood 01/26/19 09:50: Dr Gallardo ordered robitussin, BMX, sputum sample to lab, resp panel, doxy to start now. pt updated on all. placed in droplet precautions. Original Note: Resident is having frequent coughing, robitussin not helping. He is upset and wants to go home. Will let Dr. Gallardo know.
[2019-01-26] MEDS: guaiFENesin 10 ML UDC (200MG/10ML) PO (02:25)
[2019-01-26] MEDS: APIXABAN 5 MG TABLET PO ×2 (06:49→17:23)
[2019-01-26] MEDS: Furosemide 40 MG Tablet PO (06:49)
[2019-01-26] MEDS: Citalopram 10 MG Tablet PO (06:49)
[2019-01-26] MEDS: Losartan Potassium 100 MG Tablet PO (06:50)
[2019-01-26] MEDS: Menthol/Lanolin/Calamine/Znox 113 GM Tube 1 APPLIC TOPICAL ×2 (06:54→21:34)
[2019-01-26] MEDS: Nystatin Powder 15gm Bottle 1 APPLIC TOPICAL ×2 (06:55→17:23)
[2019-01-26 06:56] LABS: Bedside Glucose 133 mg/dL (70-110)
[2019-01-26] MEDS: Tamsulosin HCl 0.4 MG Capsule PO ×2 (07:56→17:23)
[2019-01-26] MEDS: Insulin Lispro 100 UNIT/ML INSULN.PEN SC ×3 (07:58→17:26)
[2019-01-26] MEDS: Doxycycline 100 MG CAPSULE PO ×2 (09:46→17:23)
[2019-01-26] MEDS: guaiFENesin/Codeine 5 ML UDC 10 ML PO ×2 (09:49→17:26)
[2019-01-26 10:30] VITALS: PULSE 68; RESP 18; O2SAT 97
--- NOTE | 2019-01-26 11:01 | NURSING ---
BATTERY TO MONITOR CHANGED BY THIS NURSE.
[2019-01-26 11:05] LABS: Bedside Glucose 153 mg/dL (70-110)
[2019-01-26 15:21] VITALS: BP 124/35; PULSE 68; RESP 18; TEMP 36.7; O2SAT 95
[2019-01-26 17:06] LABS: Bedside Glucose 244 mg/dL (70-110)
[2019-01-26] MEDS: MELATONIN 10 MG TABLET PO (21:31)
[2019-01-26] MEDS: Atorvastatin Calcium 80 MG Tablet PO (21:31)
[2019-01-26 21:41] LABS: Bedside Glucose 203 mg/dL (70-110)
[2019-01-27] MEDS: Furosemide 40 MG Tablet PO (05:11)
[2019-01-27] MEDS: Citalopram 10 MG Tablet PO (05:11)
[2019-01-27] MEDS: Doxycycline 100 MG CAPSULE PO ×2 (05:11→17:42)
[2019-01-27] MEDS: Menthol/Lanolin/Calamine/Znox 113 GM Tube 1 APPLIC TOPICAL ×2 (05:12→21:32)
[2019-01-27] MEDS: Losartan Potassium 100 MG Tablet PO (05:12)
[2019-01-27] MEDS: APIXABAN 5 MG TABLET PO ×2 (05:12→17:42)
[2019-01-27] MEDS: Nystatin Powder 15gm Bottle 1 APPLIC TOPICAL ×2 (05:12→17:38)
[2019-01-27 05:14] VITALS: PULSE 64; RESP 18; O2SAT 95
[2019-01-27 06:27] LABS: Bedside Glucose 158 mg/dL (70-110)
[2019-01-27 07:23] VITALS: O2SAT 95
[2019-01-27] MEDS: Insulin Lispro 100 UNIT/ML INSULN.PEN SC ×3 (07:53→17:37)
[2019-01-27] MEDS: Tamsulosin HCl 0.4 MG Capsule PO ×2 (07:54→17:42)
--- NOTE | 2019-01-27 09:44 | CASEMGMT ---
Social Work IDT met with patient and son via conference call for care plan meeting. Discussed patient's progress in therapy. Pt is max x2-3 for stand pivot transfers with therapy and zachery lift with nursing, total/dependent for ADLs. Pt standing in the parallel bars max x2 for [address] working on dysarthria with max cues, cognition for memory and flat affect. PT starting with ESTEM for left leg. Explained [employer] insurance with [employer] 01/28 and continued stay is not guaranteed. Explained and provided POC with anticipated DC adte 02/09. Discussed alternative DC options. Pt requested referral to [facility] in [place]. Will make referral. Will continue to follow. Idalmis Sims, MOTION PICTURE FILM EXAMINER JAVA TECH LEAD
[2019-01-27 11:30] LABS: Bedside Glucose 178 mg/dL (70-110)
[2019-01-27 16:00] VITALS: BP 125/73; PULSE 53; RESP 24; TEMP 36.9; O2SAT 94
[2019-01-27 17:30] LABS: Bedside Glucose 123 mg/dL (70-110)
[2019-01-27] MEDS: Atorvastatin Calcium 80 MG Tablet PO (21:35)
[2019-01-27] MEDS: MELATONIN 10 MG TABLET PO (21:35)
[2019-01-27 21:36] LABS: Bedside Glucose 162 mg/dL (70-110)
[2019-01-28] MEDS: Menthol/Lanolin/Calamine/Znox 113 GM Tube 1 APPLIC TOPICAL ×2 (05:01→21:22)
[2019-01-28] MEDS: Doxycycline 100 MG CAPSULE PO ×2 (05:02→17:45)
[2019-01-28] MEDS: Nystatin Powder 15gm Bottle 1 APPLIC TOPICAL ×2 (05:02→17:46)
[2019-01-28] MEDS: APIXABAN 5 MG TABLET PO ×2 (05:03→17:45)
[2019-01-28] MEDS: Citalopram 10 MG Tablet PO (05:03)
[2019-01-28] MEDS: Losartan Potassium 100 MG Tablet PO (05:03)
[2019-01-28] MEDS: Furosemide 40 MG Tablet PO (05:04)
--- NOTE | 2019-01-28 05:26 | NURSING ---
Battery to heart monitor changed this morning tolerated well no concerns voiced during this time.
[2019-01-28 06:03] LABS: Absolute Lymphocyte Count 1.69 X10^3/uL (0.83-4.51); Basophil# 0.14 X10^3/uL; Basophil% 1.6 % (0-1); Eosinophil# 0.41 X10^3/uL; Eosinophils% 4.6 % (0-5); Hematocrit 47.6 % (40-54); Hemoglobin 15.4 g/dL (13.0-16.5); Lymphocyte # 1.69 X10^3/ul (4.0); Mean Corp Hgb Conc 32.4 g/dL (32-36); Mean Corpuscular Hgb 27.1 pg (27.0-32.0); Mean Corpuscular Volume 83.7 fL (80-94); Mean Platelet Vol. 10.7 fl (6.2-12.0); Monocyte# 0.62 X10^3/uL; NRBC Flagged by Analyzer 0 % (0-5); Neutrophil # 5.99 X10^3/uL (2.7-7.7); Neutrophil % 67.2 % (47-70); Platelet Count 194 K/mm3 (150-450); RBC Distribution Width CV 13.6 % (11.6-14.6); RBC Distribution Width SD 41.7 fl (35.1-43.9); Red Blood Count 5.69 M/mm3 (4.6-6.2); White Blood Count 8.9 K/mm3 (4.4-11.0)
[2019-01-28 06:31] LABS: Anion Gap 3 (5-15); BUN 32 mg/dL (7-18); BUN/Creat Ratio 32.2 RATIO (10-20); Calcium,Total 9.7 mg/dL (8.5-10.1); Chloride 109 mmol/L (98-107); Creatinine, Serum 0.99 mg/dL (0.70-1.30); EST Glomerular Filtration Rate 79 mL/min (>60); Est Glom Filt Rate - Afr Amer 95 mL/min (>60); Estimated Creatinine Clearance 61.76 ml/min; Glucose 123 mg/dL (74-106); Potassium 4.1 mmol/L (3.5-5.1); Sodium Level 139 mmol/L (136-145)
[2019-01-28 06:31] LABS: Bedside Glucose 130 mg/dL (70-110)
--- NOTE | 2019-01-28 07:22 | NURSING ---
All care provided in pt room remains in precautions
[2019-01-28] MEDS: Tamsulosin HCl 0.4 MG Capsule PO ×2 (08:06→17:45)
[2019-01-28] MEDS: Insulin Lispro 100 UNIT/ML INSULN.PEN SC ×3 (08:06→17:47)
[2019-01-28] MEDS: Tuberculin,Purif.prot.deriv. 50 TU/ML Vial 5 ML ID (09:30)
[2019-01-28 09:50] VITALS: PULSE 60; RESP 18; O2SAT 97
[2019-01-28 11:10] LABS: Bedside Glucose 175 mg/dL (70-110)
--- NOTE | 2019-01-28 11:20 | NURSING ---
THIS NURSE CHANGED BATTERY AND APPLIED NEW STRIP PER ORDER. CELL PHONE MONITOR PLUGGED IN TO CHARGE. REPORTED TO JOZEF LOPEZ
--- NOTE | 2019-01-28 13:09 | NURSING ---
THIS NURSE INTO CHECK ON PT AND PT STATED WHAT DO U WANT NOW! YOU HAVE DONE EVERY THING TO ME TODAY BUT USE MY BUTT HOLE A THIMBLE.
[2019-01-28 16:00] VITALS: BP 158/80; PULSE 69; RESP 20; TEMP 36.9; O2SAT 95
[2019-01-28 16:10] VITALS: O2SAT 96
[2019-01-28 17:21] LABS: Bedside Glucose 145 mg/dL (70-110)
[2019-01-28] MEDS: Atorvastatin Calcium 80 MG Tablet PO (20:58)
[2019-01-28] MEDS: MELATONIN 10 MG TABLET PO (20:58)
[2019-01-28] MEDS: guaiFENesin/Codeine 5 ML UDC 10 ML PO (21:20)
[2019-01-28 22:00] LABS: Bedside Glucose 168 mg/dL (70-110)
[2019-01-29] MEDS: Menthol/Lanolin/Calamine/Znox 113 GM Tube 1 APPLIC TOPICAL ×2 (05:55→21:32)
[2019-01-29] MEDS: Citalopram 10 MG Tablet PO (05:56)
[2019-01-29] MEDS: APIXABAN 5 MG TABLET PO ×2 (05:56→17:36)
[2019-01-29] MEDS: Doxycycline 100 MG CAPSULE PO ×2 (05:56→17:36)
[2019-01-29] MEDS: Nystatin Powder 15gm Bottle 1 APPLIC TOPICAL (05:56)
[2019-01-29] MEDS: Losartan Potassium 100 MG Tablet PO (05:56)
[2019-01-29] MEDS: Furosemide 40 MG Tablet PO (06:00)
[2019-01-29 06:11] LABS: Bedside Glucose 125 mg/dL (70-110)
[2019-01-29 06:46] VITALS: O2SAT 95
[2019-01-29] MEDS: Insulin Lispro 100 UNIT/ML INSULN.PEN SC ×3 (08:49→17:35)
[2019-01-29] MEDS: Tamsulosin HCl 0.4 MG Capsule PO ×2 (08:49→17:36)
[2019-01-29] MEDS: guaiFENesin/Codeine 5 ML UDC 10 ML PO (11:09)
[2019-01-29 11:11] LABS: Bedside Glucose 144 mg/dL (70-110)
--- NOTE | 2019-01-29 12:21 | CASEMGMT ---
Social Work Spoke with [facility] and they are out of network with [facility] and does not have any availability. Spoke with pt for alternative. Provided pt with SNF list. Discussed finances. Pt stated he will need Medicaid. Provided application and offered assistance with completion. Explained insurance approved more days with [employer] 02/04 with possible [facility] and DC plans in place. Will continue to follow and assist. Idalmis Sims, CONTRACTS LAW PROFESSOR FUR CUTTING MACHINE OPERATOR
[2019-01-29 16:00] VITALS: BP 143/77; PULSE 55; RESP 16; TEMP 36.6; O2SAT 94
[2019-01-29 17:41] LABS: Bedside Glucose 129 mg/dL (70-110)
[2019-01-29] MEDS: Atorvastatin Calcium 80 MG Tablet PO (21:34)
[2019-01-29] MEDS: Doxepin Hcl 25 MG Capsule PO (21:34)
[2019-01-29 21:55] LABS: Bedside Glucose 176 mg/dL (70-110)
[2019-01-30] MEDS: Menthol/Lanolin/Calamine/Znox 113 GM Tube 1 APPLIC TOPICAL ×2 (05:13→21:23)
[2019-01-30] MEDS: Losartan Potassium 100 MG Tablet PO (05:14)
[2019-01-30] MEDS: Furosemide 40 MG Tablet PO (05:14)
[2019-01-30] MEDS: Nystatin Powder 15gm Bottle 1 APPLIC TOPICAL ×2 (05:14→17:47)
[2019-01-30] MEDS: Doxycycline 100 MG CAPSULE PO ×2 (05:14→17:38)
[2019-01-30] MEDS: APIXABAN 5 MG TABLET PO ×2 (05:14→17:38)
[2019-01-30] MEDS: Citalopram 10 MG Tablet PO (05:14)
[2019-01-30 06:36] LABS: Bedside Glucose 139 mg/dL (70-110)
[2019-01-30] MEDS: Tamsulosin HCl 0.4 MG Capsule PO ×2 (07:46→17:38)
[2019-01-30] MEDS: Insulin Lispro 100 UNIT/ML INSULN.PEN SC ×3 (07:47→17:39)
[2019-01-30 09:00] VITALS: PULSE 50; RESP 18; O2SAT 96
[2019-01-30 10:56] LABS: Bedside Glucose 159 mg/dL (70-110)
[2019-01-30 16:00] VITALS: BP 159/92; PULSE 53; RESP 17; TEMP 36.7; O2SAT 96
[2019-01-30 17:01] LABS: Bedside Glucose 131 mg/dL (70-110)
--- NOTE | 2019-01-30 19:06 | NURSING ---
BATTERY CHANGED TO STRIP. PLUGGED MONITOR IN TO CHARGE.
[2019-01-30 21:21] LABS: Bedside Glucose 166 mg/dL (70-110)
[2019-01-30] MEDS: Atorvastatin Calcium 80 MG Tablet PO (21:22)
[2019-01-30] MEDS: Doxepin Hcl 25 MG Capsule PO (21:22)
[2019-01-31] MEDS: APIXABAN 5 MG TABLET PO ×2 (05:03→17:15)
[2019-01-31] MEDS: Losartan Potassium 100 MG Tablet PO (05:03)
[2019-01-31] MEDS: Doxycycline 100 MG CAPSULE PO ×2 (05:03→17:15)
[2019-01-31] MEDS: Furosemide 40 MG Tablet PO (05:03)
[2019-01-31] MEDS: Citalopram 10 MG Tablet PO (05:03)
[2019-01-31] MEDS: Menthol/Lanolin/Calamine/Znox 113 GM Tube 1 APPLIC TOPICAL ×2 (05:03→19:42)
[2019-01-31] MEDS: Nystatin Powder 15gm Bottle 1 APPLIC TOPICAL ×2 (05:04→17:25)
[2019-01-31 06:31] LABS: Bedside Glucose 118 mg/dL (70-110)
[2019-01-31] MEDS: Insulin Lispro 100 UNIT/ML INSULN.PEN SC ×3 (07:43→17:21)
[2019-01-31] MEDS: Tamsulosin HCl 0.4 MG Capsule PO ×2 (07:43→17:15)
[2019-01-31 11:00] LABS: Bedside Glucose 149 mg/dL (70-110)
[2019-01-31 16:00] VITALS: BP 156/80; PULSE 55; RESP 18; TEMP 36.7; O2SAT 93
[2019-01-31 16:50] LABS: Bedside Glucose 145 mg/dL (70-110)
--- NOTE | 2019-01-31 17:57 | NURSING ---
BATTERY CHANGED TO MONITOR STRIP, HEART MONITOR PLUGGED IN TO CHARGE AND MONITORING HEART INFORMATION AT THIS TIME.
[2019-01-31 19:35] VITALS: RESP 18
[2019-01-31] MEDS: Doxepin Hcl 25 MG Capsule PO (19:40)
[2019-01-31] MEDS: Atorvastatin Calcium 80 MG Tablet PO (19:40)
[2019-01-31] MEDS: guaiFENesin/Codeine 5 ML UDC 10 ML PO (20:55)
[2019-01-31 21:01] LABS: Bedside Glucose 165 mg/dL (70-110)
[2019-02-01] MEDS: APIXABAN 5 MG TABLET PO ×2 (05:17→17:10)
[2019-02-01] MEDS: Losartan Potassium 100 MG Tablet PO (05:17)
[2019-02-01] MEDS: Doxycycline 100 MG CAPSULE PO ×2 (05:17→17:10)
[2019-02-01] MEDS: Citalopram 10 MG Tablet PO (05:17)
[2019-02-01] MEDS: Menthol/Lanolin/Calamine/Znox 113 GM Tube 1 APPLIC TOPICAL ×2 (05:17→20:27)
[2019-02-01] MEDS: Furosemide 40 MG Tablet PO (05:17)
[2019-02-01] MEDS: Nystatin Powder 15gm Bottle 1 APPLIC TOPICAL ×2 (05:19→17:11)
[2019-02-01 06:21] LABS: Bedside Glucose 107 mg/dL (70-110)
[2019-02-01] MEDS: Tamsulosin HCl 0.4 MG Capsule PO ×2 (07:58→17:10)
[2019-02-01 08:00] VITALS: RESP 18
[2019-02-01 11:31] LABS: Bedside Glucose 148 mg/dL (70-110)
[2019-02-01] MEDS: Insulin Lispro 100 UNIT/ML INSULN.PEN SC ×2 (11:43→17:11)
--- NOTE | 2019-02-01 12:13 | MDS.RN ---
Information for the mds was obtained from review of the clinical record, interview of resident, staff, and direct observation of resident's care.
[2019-02-01 16:00] VITALS: BP 160/90; PULSE 51; RESP 17; TEMP 36.6; O2SAT 96
--- NOTE | 2019-02-01 16:56 | CASEMGMT ---
Addendum entered by Idalmis Sims 02/02/19 09:54: [facility] does not have bed availability. Awaiting outcome from [facility]. Original Note: Social Work Spoke with patient about DC plans. Dtr called in and explained DC plans and care plan meeting information as well. Pt chose [facility], [facility] and [facility]. [facility] does not accept pt's insurance. W may not have bed availability. Will await outcome. Insurance update 02/04. Pt to complete Medicaid application. Will continue to follow. WONG DasilvaW
[2019-02-01 17:10] LABS: Bedside Glucose 129 mg/dL (70-110)
[2019-02-01] MEDS: Doxepin Hcl 25 MG Capsule PO (20:12)
[2019-02-01] MEDS: Atorvastatin Calcium 80 MG Tablet PO (20:13)
[2019-02-01] MEDS: guaiFENesin/Codeine 5 ML UDC 10 ML PO (20:25)
[2019-02-01 21:50] LABS: Bedside Glucose 158 mg/dL (70-110)
[2019-02-02] MEDS: Furosemide 40 MG Tablet PO (04:57)
[2019-02-02] MEDS: Citalopram 10 MG Tablet PO (04:57)
[2019-02-02] MEDS: Losartan Potassium 100 MG Tablet PO (04:57)
[2019-02-02] MEDS: Nystatin Powder 15gm Bottle 1 APPLIC TOPICAL ×2 (04:58→18:02)
[2019-02-02] MEDS: Doxycycline 100 MG CAPSULE PO ×2 (04:58→18:02)
[2019-02-02] MEDS: APIXABAN 5 MG TABLET PO ×2 (04:58→18:02)
[2019-02-02] MEDS: Menthol/Lanolin/Calamine/Znox 113 GM Tube 1 APPLIC TOPICAL ×2 (04:59→20:11)
[2019-02-02 06:31] LABS: Bedside Glucose 123 mg/dL (70-110)
[2019-02-02] MEDS: Insulin Lispro 100 UNIT/ML INSULN.PEN SC ×3 (08:03→18:05)
[2019-02-02] MEDS: Tamsulosin HCl 0.4 MG Capsule PO ×2 (08:05→18:02)
[2019-02-02 11:10] LABS: Bedside Glucose 159 mg/dL (70-110)
--- NOTE | 2019-02-02 11:12 | NURSING ---
Addendum entered by Lisa Erazo 02/02/19 18:12: Battery change to heart monitor by previous shift Original Note: Battery change to heart monitor at thi
[2019-02-02 15:52] VITALS: BP 171/85; PULSE 52; RESP 16; TEMP 36.7; O2SAT 94
[2019-02-02 17:06] LABS: Bedside Glucose 127 mg/dL (70-110)
[2019-02-02] MEDS: Atorvastatin Calcium 80 MG Tablet PO (20:11)
[2019-02-02] MEDS: Doxepin Hcl 25 MG Capsule PO (20:11)
[2019-02-02 21:16] LABS: Bedside Glucose 194 mg/dL (70-110)
[2019-02-03] MEDS: Acetaminophen 500 MG Tablet 1000 MG PO (02:32)
[2019-02-03] MEDS: APIXABAN 5 MG TABLET PO ×2 (05:30→17:05)
[2019-02-03] MEDS: Citalopram 10 MG Tablet PO (05:30)
[2019-02-03] MEDS: Furosemide 40 MG Tablet PO (05:30)
[2019-02-03] MEDS: Menthol/Lanolin/Calamine/Znox 113 GM Tube 1 APPLIC TOPICAL ×2 (05:31→22:06)
[2019-02-03] MEDS: Losartan Potassium 100 MG Tablet PO (05:32)
[2019-02-03] MEDS: Nystatin Powder 15gm Bottle 1 APPLIC TOPICAL ×2 (05:32→17:05)
[2019-02-03 06:36] LABS: Bedside Glucose 116 mg/dL (70-110)
[2019-02-03] MEDS: Tamsulosin HCl 0.4 MG Capsule PO ×2 (07:48→17:04)
[2019-02-03] MEDS: Insulin Lispro 100 UNIT/ML INSULN.PEN SC ×3 (07:49→17:04)
[2019-02-03 09:36] VITALS: RESP 16; O2SAT 96
[2019-02-03 11:00] LABS: Bedside Glucose 129 mg/dL (70-110)
[2019-02-03 15:32] VITALS: BP 159/81; PULSE 55; RESP 16; TEMP 36.6; O2SAT 95
[2019-02-03 17:01] LABS: Bedside Glucose 244 mg/dL (70-110)
[2019-02-03 21:21] LABS: Bedside Glucose 203 mg/dL (70-110)
[2019-02-03] MEDS: Doxepin Hcl 25 MG Capsule PO (22:06)
[2019-02-03] MEDS: Atorvastatin Calcium 80 MG Tablet PO (22:06)
[2019-02-04 05:41] LABS: Absolute Lymphocyte Count 1.88 X10^3/uL (0.83-4.51); Absolute Neutrophil Count 6.4 X10^3/uL (2.0-7.7); Basophil# 0.08 X10^3/uL; Basophil% 0.9 % (0-1); Eosinophils% 4.3 % (0-5); Hematocrit 46.2 % (40-54); Hemoglobin 15.2 g/dL (13.0-16.5); Lymphocyte # 1.88 X10^3/ul (4.0); Lymphocyte % 20.2 % (19-41); Mean Corp Hgb Conc 32.9 g/dL (32-36); Mean Corpuscular Hgb 27.5 pg (27.0-32.0); Mean Corpuscular Volume 83.7 fL (80-94); Mean Platelet Vol. 10.1 fl (6.2-12.0); Monocyte# 0.53 X10^3/uL; Monocyte% 5.7 % (0-10); NRBC Flagged by Analyzer 0 % (0-5); Neutrophil # 6.39 X10^3/uL (2.7-7.7); Neutrophil % 68.4 % (47-70); Platelet Count 223 K/mm3 (150-450); RBC Distribution Width CV 13.6 % (11.6-14.6); RBC Distribution Width SD 41.1 fl (35.1-43.9); Red Blood Count 5.52 M/mm3 (4.6-6.2); White Blood Count 9.3 K/mm3 (4.4-11.0)
[2019-02-04 06:07] LABS: Anion Gap 6 (5-15); BUN 22 mg/dL (7-18); BUN/Creat Ratio 21.8 RATIO (10-20); Calcium,Total 8.9 mg/dL (8.5-10.1); Chloride 108 mmol/L (98-107); Creatinine, Serum 1.01 mg/dL (0.70-1.30); EST Glomerular Filtration Rate 77 mL/min (>60); Est Glom Filt Rate - Afr Amer 94 mL/min (>60); Estimated Creatinine Clearance 60.54 ml/min; Glucose 203 mg/dL (74-106); Potassium 4.1 mmol/L (3.5-5.1); Sodium Level 139 mmol/L (136-145)
[2019-02-04 06:35] LABS: Bedside Glucose 184 mg/dL (70-110)
[2019-02-04] MEDS: APIXABAN 5 MG TABLET PO ×2 (06:58→17:36)
[2019-02-04] MEDS: Furosemide 40 MG Tablet PO (06:58)
[2019-02-04] MEDS: Citalopram 10 MG Tablet PO (06:58)
[2019-02-04] MEDS: Losartan Potassium 100 MG Tablet PO (06:58)
[2019-02-04] MEDS: Menthol/Lanolin/Calamine/Znox 113 GM Tube 1 APPLIC TOPICAL ×2 (06:59→20:14)
[2019-02-04] MEDS: Insulin Lispro 100 UNIT/ML INSULN.PEN SC ×3 (07:00→17:37)
[2019-02-04] MEDS: Nystatin Powder 15gm Bottle 1 APPLIC TOPICAL ×2 (07:01→17:35)
[2019-02-04] MEDS: Tamsulosin HCl 0.4 MG Capsule PO ×2 (08:50→17:36)
--- NOTE | 2019-02-04 09:00 | NURSING ---
BATTERY AND MONITOR STRIP CHANGED TO PT CHEST. HEART MONITOR FULLY CHARGED AND GOOD CONTACT AND MONITORING HEART INFO AT THIS TIME.
[2019-02-04 10:46] LABS: Bedside Glucose 175 mg/dL (70-110)
--- NOTE | 2019-02-04 14:32 | CASEMGMT ---
Social Work Spoke with Jessica Dean whom is still reviewing patient's clinicals. Assisted pt with completing Medicaid application. Faxed to S. Will continue to follow. WONG DasilvaW
[2019-02-04 16:00] VITALS: BP 148/76; PULSE 54; RESP 17; TEMP 36.7; O2SAT 95
[2019-02-04 17:01] LABS: Bedside Glucose 164 mg/dL (70-110)
[2019-02-04] MEDS: Atorvastatin Calcium 80 MG Tablet PO (20:14)
[2019-02-04] MEDS: Doxepin Hcl 25 MG Capsule PO (20:15)
[2019-02-04 21:30] LABS: Bedside Glucose 133 mg/dL (70-110)
[2019-02-05] MEDS: Citalopram 10 MG Tablet PO (04:37)
[2019-02-05] MEDS: Furosemide 40 MG Tablet PO (04:37)
[2019-02-05] MEDS: Menthol/Lanolin/Calamine/Znox 113 GM Tube 1 APPLIC TOPICAL ×2 (04:37→20:12)
[2019-02-05] MEDS: APIXABAN 5 MG TABLET PO ×2 (04:37→18:12)
[2019-02-05] MEDS: Nystatin Powder 15gm Bottle 1 APPLIC TOPICAL ×2 (04:37→18:16)
[2019-02-05] MEDS: Losartan Potassium 100 MG Tablet PO (04:37)
[2019-02-05 06:31] LABS: Bedside Glucose 116 mg/dL (70-110)
[2019-02-05] MEDS: Insulin Lispro 100 UNIT/ML INSULN.PEN SC ×3 (08:29→18:12)
[2019-02-05] MEDS: Tamsulosin HCl 0.4 MG Capsule PO ×2 (08:31→18:12)
[2019-02-05 08:35] VITALS: PULSE 59; RESP 18; O2SAT 96
--- NOTE | 2019-02-05 08:47 | NURSING ---
THIS NURSE CHANGED BATTERY AT STRIP AREA AND HEART MONITOR IS FULLY CHARGED AND MONITORING.
[2019-02-05 11:30] LABS: Bedside Glucose 140 mg/dL (70-110)
--- NOTE | 2019-02-05 11:54 | CASEMGMT ---
Social Work Spoke with Concetta at [facility] - pt received Medicaid Pending #[id number]. Insurance issued LCD 02/07, [place] 02/08. Left message with Jessica Dean. WONG Dasilva CORPORATE LAW SPECIALIST
--- NOTE | 2019-02-05 14:37 | CASEMGMT ---
Addendum entered by Idalmis Sims 02/05/19 16:57: [facility] accepted pt but d/t assets, requesting 30 days payment up front. Spoke with son whom is able to assist with Medicaid process and providing pt with check from home to pay [facility]. Spoke with pt who understands and is agreeable. [facility] to transport pt at 4 pm 02/08. PASRR completed. Original Note: Social Work Insurance issued LCD 02/07, [place] 02/08. Jessica Dean unable to accept. Spoke with pt with information, pt requested referral to [facility]. Referral made. Will await outcome. Idalmis Sism, WONG R D MANAGER
--- NOTE | 2019-02-05 15:08 | PCM.DC ---
- Discharge Diagnoses Current Active Problems: Current Active and Chronic Problems (Last Updated 01/18/19 @ 14:04 by Juliane Colon MD) Debility (Acute) Acute right MCA stroke (Acute) Diarrhea (Acute) Nausea & vomiting (Acute) Dehydration (Acute) Falls (Acute) Hypertension (Chronic) Hyperlipidemia (Chronic) Osteoarthritis (Chronic) BPH (benign prostatic hyperplasia) (Chronic) Normal pressure hydrocephalus (Chronic) Pulmonary hypertension (Chronic) Acute kidney injury (Acute) Edema (Chronic) You will use the following diet at home:: No restrictions, Regular Your food should be the consistency of: Regular Your liquids should be the consistency of: Regular/Thin Discharge Activity: Return to Normal Activity, May Shower, Use Walker Weight Bearing Status: Weight bearing as tolerated Call your doctor if you observe: Fever of 101 or Higher, Inability to urinate, Inability to have a bowel movement, Shortness of breath, Chest pain, Uncontrolled pain Allergies/Adverse Reactions: Allergies No Known Allergies Allergy (Verified 01/16/19 18:54) Medications to take at Discharge Tamsulosin HCl [Flomax] 0.4 mg PO BID 02/13/16 Furosemide [Lasix] 40 mg PO DAILY 01/16/19 Atorvastatin Calcium [Lipitor] 80 mg PO QHS 01/20/19 Insulin Lispro [Humalog KwikPen] 5 unit SUBCUT TIDAC 01/20/19 Menthol/Lanolin/Calamine/Znox [Calmoseptine Ointment] 1 applic TOPICAL 0600,2200 01/20/19 Nystatin Powder [Mycostatin Powder] 1 applic TOPICAL BID 01/20/19 Acetaminophen [Tylenol] 1,000 mg PO Q6H PRN PRN tablet 02/05/19 Apixaban [Eliquis] 5 mg PO BID tablet 02/05/19 Citalopram [Celexa] 10 mg PO DAILY tablet 02/05/19 Doxepin HCl [Sinequan] 25 mg PO QHS capsule 02/05/19 Insulin Glargine [Lantus SoloStar Pen] 10 units SC BID pen 02/05/19 Losartan Potassium [Cozaar] 100 mg PO DAILY tablet 02/05/19 Mineral Oil/Petrolatum,White [Eucerin] 1 applic TOPICAL QHS jar 02/05/19 Potassium Chloride [K-Dur] 20 meq PO DAILYCM tablet 02/05/19 Primary Care Physician: Moisés Gallardo Chi, MD [Primary Care Provider] - Please follow up with your Primary Care Physician in: After discharge from intermediate [facility] care. Test Results: Test results from this visit will be discussed in further detail at your follow-up appointment, if applicable. Please Follow Up With: Gary Brock MD When: 2 weeks Please Follow Up With: Nitesh Fernandez MD When: 4 weeks Proposed Discharge Date: 02/08/19
--- NOTE | 2019-02-05 15:10 | PCM.DC.SUM ---
Discharge Date and Diagnosis - Problem List Patient Problems: Active and Suspected Problems (Last Updated 01/18/19 @ 14:04 by Juliane Colon MD) Debility (Acute) Acute right MCA stroke (Acute) Diarrhea (Acute) Nausea & vomiting (Acute) Dehydration (Acute) Falls (Acute) Acute kidney injury (Acute) Date of Admission: 01/20/19 Date of Discharge: 02/08/19 - Primary Discharge Diagnosis Active and Suspected Problems (Last Updated 01/18/19 @ 14:04 by Juliane Colon MD) Debility (Acute) Acute right MCA stroke (Acute) Diarrhea (Acute) Nausea & vomiting (Acute) Dehydration (Acute) Falls (Acute) Acute kidney injury (Acute) - Secondary Discharge Diagnosis Chronic Problems (Last Updated 01/18/19 @ 14:04 by Juliane Colon MD) Hypertension (Chronic) Hyperlipidemia (Chronic) Osteoarthritis (Chronic) BPH (benign prostatic hyperplasia) (Chronic) Normal pressure hydrocephalus (Chronic) Pulmonary hypertension (Chronic) Edema (Chronic) Type 2 diabetes mellitus (Chronic) Pure hypercholesterolemia (Chronic) Paroxysmal ventricular tachycardia (Chronic) Essential hypertension (Chronic) Syncope and collapse (Chronic) SVT (supraventricular tachycardia) (Chronic) Hospital Course and Treatment Imaging Results: 01/20/19 16:11 Diet: Cardiac: Calorie-Controlled Diet Comments: no OJ How many daily calories?: 1800 calorie Clinical Impression(s) from Imaging Studies KUB X-Ray 01/20/19 22:40 IMPRESSION: Mild gaseous distention of the nondependent portion of the stomach with no distention of the small bowel or colon. Negative for substantial stool collection. Negative for gross organomegaly. Status post cholecystectomy. Atherosclerotic changes of the aorta. Electronically Signed: Dilcia Sotelo MD at 22:59 EST , Service support , Labs (Last 48 Hours) 02/03/19 02/03/19 02/04/19 16:49 21:14 05:10 WBC 9.3 RBC 5.52 Hgb 15.2 Hct 46.2 MCV 83.7 MCH 27.5 MCHC 32.9 RDW Std Deviation 41.1 RDW Coeff of Srikanth 13.6 Plt Count 223 MPV 10.1 Immature Gran % (Auto) 0.500 Neut % (Auto) 68.4 Lymph % (Auto) 20.2 [place] % (Auto) 5.7 Eos % (Auto) 4.3 Baso % (Auto) 0.9 Absolute Neuts (auto) 6.4 Absolute Lymphs (auto) 1.88 Nucleated RBC % 0 Sodium Potassium Chloride Carbon Dioxide Anion Gap BUN Creatinine Estim Creat Clear Calc Est GFR (MDRD) Af Amer Est GFR (MDRD) Non-Af BUN/Creatinine Ratio Glucose Calcium POC Glucose 244 H 203 H 02/04/19 02/04/19 02/04/19 05:10 06:16 10:34 WBC RBC Hgb Hct MCV MCH MCHC RDW Std Deviation RDW Coeff of Srikanth Plt Count MPV Immature Gran % (Auto) Neut % (Auto) Lymph % (Auto) [place] % (Auto) Eos % (Auto) Baso % (Auto) Absolute Neuts (auto) Absolute Lymphs (auto) Nucleated RBC % Sodium 139 Potassium 4.1 Chloride 108 H Carbon Dioxide 25.0 Anion Gap 6 BUN 22 H Creatinine 1.01 Estim Creat Clear Calc 60.54 Est GFR (MDRD) Af Amer 94 Est GFR (MDRD) Non-Af 77 BUN/Creatinine Ratio 21.8 H Glucose 203 H Calcium 8.9 POC Glucose 184 H 175 H 02/04/19 02/04/19 02/05/19 16:55 21:25 06:11 WBC RBC Hgb Hct MCV MCH MCHC RDW Std Deviation RDW Coeff of Srikanth Plt Count MPV Immature Gran % (Auto) Neut % (Auto) Lymph % (Auto) [place] % (Auto) Eos % (Auto) Baso % (Auto) Absolute Neuts (auto) Absolute Lymphs (auto) Nucleated RBC % Sodium Potassium Chloride Carbon Dioxide Anion Gap BUN Creatinine Estim Creat Clear Calc Est GFR (MDRD) Af Amer Est GFR (MDRD) Non-Af BUN/Creatinine Ratio Glucose Calcium POC Glucose 164 H 133 H 116 H 02/05/19 11:21 WBC RBC Hgb Hct MCV MCH MCHC RDW Std Deviation RDW Coeff of Srikanth Plt Count MPV Immature Gran % (Auto) Neut % (Auto) Lymph % (Auto) [place] % (Auto) Eos % (Auto) Baso % (Auto) Absolute Neuts (auto) Absolute Lymphs (auto) Nucleated RBC % Sodium Potassium Chloride Carbon Dioxide Anion Gap BUN Creatinine Estim Creat Clear Calc Est GFR (MDRD) Af Amer Est GFR (MDRD) Non-Af BUN/Creatinine Ratio Glucose Calcium POC Glucose 140 H Operations: None Procedures: None Summary of Care Provided: The patient is a 73 year old Male with below past medical history hospitalized for acute right middle cerebral artery stroke, admitted to TCU with debility, here for rehabilitation, strengthening, prior to disposition determination. Discharge to intermediate [facility] care facility. Patient Problems: Active and Suspected Problems (Last Updated 01/18/19 @ 14:04 by Juliane Colon MD) Debility (Acute) Acute right MCA stroke (Acute) Diarrhea (Acute) Nausea & vomiting (Acute) Dehydration (Acute) Falls (Acute) Acute kidney injury (Acute) - Physical Exam Vitals/I&O's: Vital Signs Temp Pulse Resp BP Pulse Ox 98.1 F 59 L 18 148/76 H 96 02/04/19 16:00 02/05/19 08:35 02/05/19 08:35 02/04/19 16:00 02/05/19 08:35 Oxygen Flow Rate (L/min) 2 Oxygen Delivery Method Room Air Weight: 104.95 kg Body Mass Index (BMI) 37.1 Finger Stick Blood Glucose 141 Intake and Output for Last 24 Hours 02/03/19 02/04/19 02/05/19 23:59 23:59 23:59 Intake Total 680 / 680 1060 / 1060 600 / 600 Output Total 200 / 200 100 / 100 150 / 150 Balance 480 / 480 960 / 960 450 / 450 Laboratory Results 02/04/19 16:55: POC Glucose 164 H 02/04/19 21:25: POC Glucose 133 H 02/05/19 06:11: POC Glucose 116 H 02/05/19 11:21: POC Glucose 140 H Current Medications Acetaminophen (Tylenol) 1,000 mg PO Q6H PRN PRN PRN Reason: Pain Score 1-10/10 Last Admin: 02/03/19 02:32 Dose: 1,000 mg Documented by: Apixaban (Eliquis) 5 mg PO BID [facility] Last Admin: 02/05/19 04:37 Dose: 5 mg Documented by: Atorvastatin Calcium (Lipitor) 80 mg PO QHS [facility] Last Admin: 12/26/19 20:14 Dose: 80 mg Documented by: Calamine/Phenol (Calmoseptine Ointment) 1 applic TOPICAL 0600,2200 [facility]; Protocol Last Admin: 02/05/19 04:37 Dose: 1 applicatio Documented by: Citalopram Hydrobromide (Celexa) 10 mg PO DAILY [facility] Last Admin: 02/05/19 04:37 Dose: 10 mg Documented by: Doxepin HCl (Sinequan) 25 mg PO QHS [facility] Last Admin: 02/04/19 20:15 Dose: 25 mg Documented by: Furosemide (Lasix) 40 mg PO DAILY [facility] Last Admin: 02/05/19 04:37 Dose: 40 mg Documented by: Glucagon () 1 mg IM .X1 PRN PRN Reason: Hypoglycemia Guaifenesin/Codeine Phosphate (Robitussin Ac) 10 ml PO Q4H PRN PRN Reason: COUGH Last Admin: 02/01/19 20:25 Dose: 10 ml Documented by: Dextrose (Dextrose 10%-Water) 250 mls @ 999 mls/hr IV X1 PRN; Protocol PRN Reason: HYPOGLYCEMIA Insulin Glargine (Lantus (Bkc)) 10 units SC BID [facility] Last Admin: 02/05/19 06:57 Dose: 10 units Documented by: Insulin Human Lispro (Humalog Kwikpen (Bk)) 5 unit SC TIDAC [facility] Last Admin: 02/05/19 11:36 Dose: 5 u Documented by: Lidocaine/Diphenhydr/Alum/Mg/Simeth () 15 ml PO Q3H PRN PRN PRN Reason: SORE THROAT Losartan Potassium (Cozaar) 100 mg PO DAILY [facility] Last Admin: 02/05/19 04:37 Dose: 100 mg Documented by: Multi-Ingredient Cream (Eucerin) 1 applic TOPICAL QHS [facility]; Protocol Last Admin: 02/04/19 20:14 Dose: 1 applicatio Documented by: Nystatin (Mycostatin Powder) 1 applic TOPICAL BID [facility]; Protocol Last Admin: 02/05/19 04:37 Dose: 1 applicatio Documented by: Ondansetron HCl (Zofran Odt) 4 mg PO Q6H PRN PRN PRN Reason: NAUSEA/VOMITING [facility] Admin: 02/05/19 08:31 Dose: 20 meq Documented by: Tamsulosin HCl (Flomax) 0.4 mg PO BID@0830,1730 [facility] Last Admin: 02/05/19 08:31 Dose: 0.4 mg Documented by: Discharge Diet: No Restrictions Discharge Activity: Return to Normal Activity, May Shower, Use Walker Weight Bearing Status: Weight bearing as tolerated Call your doctor if you observe: Fever of 101 or Higher, Inability to urinate, Inability to have a bowel movement, Shortness of breath, Chest pain, Uncontrolled pain Home Medications: Medications to take at Discharge Tamsulosin HCl [Flomax] 0.4 mg PO BID 02/13/16 Furosemide [Lasix] 40 mg PO DAILY 01/16/19 Atorvastatin Calcium [Lipitor] 80 mg PO QHS 01/20/19 Insulin Lispro [Humalog KwikPen] 5 unit SUBCUT TIDAC 01/20/19 Menthol/Lanolin/Calamine/Znox [Calmoseptine Ointment] 1 applic TOPICAL 0600,2200 01/20/19 Nystatin Powder [Mycostatin Powder] 1 applic TOPICAL BID 01/20/19 Acetaminophen [Tylenol] 1,000 mg PO Q6H PRN PRN tablet 02/05/19 Apixaban [Eliquis] 5 mg PO BID tablet 02/05/19 Citalopram [Celexa] 10 mg PO DAILY tablet 02/05/19 Doxepin HCl [Sinequan] 25 mg PO QHS capsule 02/05/19 Insulin Glargine [Lantus SoloStar Pen] 10 units SC BID pen 02/05/19 Losartan Potassium [Cozaar] 100 mg PO DAILY tablet 02/05/19 Mineral Oil/Petrolatum,White [Eucerin] 1 applic TOPICAL QHS jar 02/05/19 Potassium Chloride [K-Dur] 20 meq PO DAILYCM tablet 02/05/19 Primary Care Physician: Moisés Gallardo Chi, MD [Primary Care Provider] - Please follow up with your Primary Care Physician in: After discharge from intermediate [facility]ite exterminator helper care. Please Follow Up With: Gary Brock MD When: 2 weeks Please Follow Up With: Nitesh Fernandez MD When: 4 weeks Disposition: Asstd Living/Non-Skill NH Minutes spent on discharge:: 30 Patient Condition:: Stable Medical Necessity - Tobacco Use Smoking Status: Never smoker Tobacco Use: Non-smoker Meaningful Use Info Meaningful Use Diagnoses (Choose all that apply): None applicable
--- NOTE | 2019-02-05 15:11 | PCM.TXEXTCAR ---
- Diet 01/20/19 16:11 Diet: Cardiac: Calorie-Controlled Diet Comments: no OJ How many daily calories?: 1800 calorie - Routine Orders/Code Status Suppository Type: Dulcolax 10mg Suppository Frequency: Daily PRN Code Status: DNC-A - Wound(s) bilateral lower extrem Wound Type: Abrasion - Therapies Weight Bearing: Weight bearing as tolerated Extremity Affected:: Bilateral Lower - Problem/Diagnosis (1) Debility Status: Acute Current Visit: Yes (2) Acute right MCA stroke Status: Acute Current Visit: Yes (3) Diarrhea Status: Acute Current Visit: Yes (4) Nausea & vomiting Status: Acute Current Visit: Yes (5) Dehydration Status: Acute Current Visit: Yes (6) Falls Status: Acute Current Visit: Yes (7) Hypertension Status: Chronic Current Visit: Yes (8) Hyperlipidemia Status: Chronic Current Visit: Yes (9) Osteoarthritis Status: Chronic Current Visit: Yes (10) BPH (benign prostatic hyperplasia) Status: Chronic Current Visit: Yes (11) Normal pressure hydrocephalus Status: Chronic Current Visit: Yes (12) Pulmonary hypertension Status: Chronic Current Visit: Yes (13) Acute kidney injury Status: Acute Current Visit: Yes (14) Edema Status: Chronic Current Visit: Yes (15) Type 2 diabetes mellitus Status: Chronic Current Visit: No (16) Paroxysmal ventricular tachycardia Status: Chronic Current Visit: No - Allergies/Procedures Done in Hospital Allergies/Adverse Reactions: Allergies No Known Allergies Allergy (Verified 01/16/19 18:54) - Type of Care/Length of Stay Estimated LOS: More Than 30 Days Type of Care Needed: Intermediate Rehab Potential: Fair Prognosis: Fair - Additional Orders/Day of Discharge Day of Discharge: 02/08/19 - Dietary and Speech Recommendations Dietitian Recommendations/Changes: Please continue to weigh res using same scale for greater accuracy of wts. - Follow Up Care Primary Care Physician: Moisés Gallardo Chi, MD [Primary Care Provider] - Please follow up with your Primary Care Physician in: After discharge from intermediate intermediate designer care. Please Follow Up With: Gary Brock MD When: 2 weeks Please Follow Up With: Nitesh Fernandez MD When: 4 weeks
[2019-02-05 15:54] VITALS: BP 166/98; BP 171/84; PULSE 54; RESP 18; TEMP 36.8; O2SAT 95
--- NOTE | 2019-02-05 15:55 | NURSING ---
THIS NURSE CHECKED PT BP MANUALLY DUE TO AID GETTING A HIGH READING FROM MACHINE. 171/84 SFR MANUAL. REPORTED TO JOZEF RAHMAN WILL CONTINUE TO MONITOR. NO COMPLAINTS AT THIS TIME FROM PT.
[2019-02-05 17:01] LABS: Bedside Glucose 126 mg/dL (70-110)
[2019-02-05 18:18] VITALS: BP 165/86; PULSE 62
--- NOTE | 2019-02-05 19:15 | NURSING ---
HEART MONITOR PLUGGED IN TO CHARGE.
[2019-02-05] MEDS: Doxepin Hcl 25 MG Capsule PO (20:12)
[2019-02-05] MEDS: Atorvastatin Calcium 80 MG Tablet PO (20:12)
[2019-02-05 22:06] LABS: Bedside Glucose 170 mg/dL (70-110)
[2019-02-06] MEDS: Menthol/Lanolin/Calamine/Znox 113 GM Tube 1 APPLIC TOPICAL ×2 (04:16→21:41)
[2019-02-06] MEDS: Furosemide 40 MG Tablet PO (04:16)
[2019-02-06] MEDS: Citalopram 10 MG Tablet PO (04:16)
[2019-02-06] MEDS: APIXABAN 5 MG TABLET PO ×2 (04:16→17:45)
[2019-02-06] MEDS: Losartan Potassium 100 MG Tablet PO (04:16)
[2019-02-06] MEDS: Nystatin Powder 15gm Bottle 1 APPLIC TOPICAL ×2 (04:17→17:59)
[2019-02-06 06:40] LABS: Bedside Glucose 134 mg/dL (70-110)
[2019-02-06] MEDS: Tamsulosin HCl 0.4 MG Capsule PO ×2 (07:56→17:45)
[2019-02-06] MEDS: Insulin Lispro 100 UNIT/ML INSULN.PEN SC ×3 (07:56→17:43)
[2019-02-06 11:20] LABS: Bedside Glucose 132 mg/dL (70-110)
[2019-02-06 15:46] VITALS: BP 150/78; PULSE 62; RESP 18; TEMP 36.9; O2SAT 96
[2019-02-06 16:56] LABS: Bedside Glucose 130 mg/dL (70-110)
[2019-02-06 21:06] LABS: Bedside Glucose 160 mg/dL (70-110)
[2019-02-06] MEDS: Atorvastatin Calcium 80 MG Tablet PO (21:40)
[2019-02-06] MEDS: Doxepin Hcl 25 MG Capsule PO (21:40)
[2019-02-07] MEDS: Citalopram 10 MG Tablet PO (05:06)
[2019-02-07] MEDS: APIXABAN 5 MG TABLET PO ×2 (05:06→17:28)
[2019-02-07] MEDS: Acetaminophen 500 MG Tablet 1000 MG PO (05:07)
[2019-02-07] MEDS: Menthol/Lanolin/Calamine/Znox 113 GM Tube 1 APPLIC TOPICAL ×2 (05:07→22:16)
[2019-02-07] MEDS: Furosemide 40 MG Tablet PO (05:07)
[2019-02-07] MEDS: Losartan Potassium 100 MG Tablet PO (05:07)
[2019-02-07] MEDS: Nystatin Powder 15gm Bottle 1 APPLIC TOPICAL ×2 (05:10→17:29)
[2019-02-07 06:46] LABS: Bedside Glucose 124 mg/dL (70-110)
[2019-02-07] MEDS: Insulin Lispro 100 UNIT/ML INSULN.PEN SC ×3 (07:17→17:27)
[2019-02-07] MEDS: Tamsulosin HCl 0.4 MG Capsule PO ×2 (07:49→17:28)
[2019-02-07 10:00] VITALS: PULSE 62; RESP 16; O2SAT 96
[2019-02-07 11:31] LABS: Bedside Glucose 163 mg/dL (70-110)
[2019-02-07 15:49] VITALS: BP 130/77; PULSE 88; RESP 20; TEMP 36.9; O2SAT 94
[2019-02-07 17:11] LABS: Bedside Glucose 152 mg/dL (70-110)
[2019-02-07 21:21] LABS: Bedside Glucose 144 mg/dL (70-110)
[2019-02-07] MEDS: Atorvastatin Calcium 80 MG Tablet PO (22:15)
[2019-02-07] MEDS: Doxepin Hcl 25 MG Capsule PO (22:16)
[2019-02-08] MEDS: Citalopram 10 MG Tablet PO (04:55)
[2019-02-08] MEDS: Furosemide 40 MG Tablet PO (04:55)
[2019-02-08] MEDS: Losartan Potassium 100 MG Tablet PO (04:55)
[2019-02-08] MEDS: Menthol/Lanolin/Calamine/Znox 113 GM Tube 1 APPLIC TOPICAL (04:55)
[2019-02-08] MEDS: APIXABAN 5 MG TABLET PO (04:55)
[2019-02-08] MEDS: Nystatin Powder 15gm Bottle 1 APPLIC TOPICAL (04:56)
[2019-02-08 06:40] LABS: Bedside Glucose 112 mg/dL (70-110)
[2019-02-08] MEDS: Insulin Lispro 100 UNIT/ML INSULN.PEN SC ×2 (06:59→11:38)
[2019-02-08] MEDS: Tamsulosin HCl 0.4 MG Capsule PO (07:59)
--- NOTE | 2019-02-08 08:01 | NURSING ---
BATTERY TO HEART MONITOR CHANGED AND INFORMATION BEING MONITORED ON PHONE. PHONE CHARGED 100% AT THIS TIME.
[2019-02-08 10:56] LABS: Bedside Glucose 126 mg/dL (70-110)
--- NOTE | 2019-02-08 11:02 | NURSING ---
PT SON INTO GET PT WALLET AND CHECK AT [facility] ON ACCOUNT PER PT WISHES. JOZEF LOPEZ AWARE
[2019-02-08 12:50] VITALS: PULSE 61; RESP 18; O2SAT 95
[2019-02-08 15:49] VITALS: BP 152/83; PULSE 71; RESP 22; TEMP 36.3; O2SAT 95
--- NOTE | 2019-02-08 16:40 | NURSING ---
Report called to MARQUIS Mon at [facility].
== END 2019-02-08 16:30 | disposition intermediate care facility (04) | DRG 57 ==
PROVIDERS: Admitting Provider Family Medicine Geriatric Medicine; Family Provider Family Medicine Geriatric Medicine; PCP Family Medicine Geriatric Medicine; Referring Provider Family Medicine Geriatric Medicine; Visit Provider Family Medicine Geriatric Medicine
DX: I69.354 Hemiplegia and hemiparesis following cerebral infarction affecting left non-dominant side (principal); G91.2 (Idiopathic) normal pressure hydrocephalus; N13.8 Other obstructive and reflux uropathy; I47.1 Supraventricular tachycardia; I10 Essential (primary) hypertension; E78.5 Hyperlipidemia, unspecified; M19.90 Unspecified osteoarthritis, unspecified site; I27.20 Pulmonary hypertension, unspecified; E11.9 Type 2 diabetes mellitus without complications; N40.1 Benign prostatic hyperplasia with lower urinary tract symptoms; F32.9 Major depressive disorder, single episode, unspecified; I69.392 Facial weakness following cerebral infarction; I69.398 Other sequelae of cerebral infarction; H53.8 Other visual disturbances; B35.4 Tinea corporis; Z91.19 Patient's noncompliance with other medical treatment and regimen; Z86.711 Personal history of pulmonary embolism
CPT/HCPCS: 36415; 74018; 80048; 82962; 85025; 87070; 87205; 87633; 92507; 92523; 92610; 97032; 97110; 97162; 97166; 97530; 97535; 97802; 99251; G0463

== ENCOUNTER → 2020-09-13 05:00 | Outpatient (REF) | payer MEDICARE, SELFPAY ==
[2020-05-22 16:43] VITALS: BMI 42.5
[2020-09-13 09:06] LABS: Absolute Lymphocyte Count 1.92 X10^3/uL (0.83-4.51); Absolute Neutrophil Count 5.9 X10^3/uL (2.0-7.7); Basophil# 0.06 X10^3/uL; Basophil% 0.7 % (0-1); Eosinophil# 0.44 X10^3/uL; Eosinophils% 4.9 % (0-5); Hematocrit 40.8 % (40-54); Hemoglobin 12.9 g/dL (13.0-16.5); Lymphocyte # 1.92 X10^3/ul (0.83-4.51); Lymphocyte % 21.5 % (19-41); Mean Corp Hgb Conc 31.6 g/dL (32-36); Mean Corpuscular Volume 85.5 fL (80-94); Monocyte# 0.57 X10^3/uL; Monocyte% 6.4 % (0-10); NRBC Flagged by Analyzer 0 % (0-5); Neutrophil # 5.89 X10^3/uL (2.7-7.7); Neutrophil % 65.8 % (47-70); Platelet Count 253 K/mm3 (150-450); RBC Distribution Width CV 14.4 % (11.6-14.6); Red Blood Count 4.77 M/mm3 (4.6-6.2); White Blood Count 8.9 K/mm3 (4.4-11.0)
[2020-09-13 09:24] LABS: Hemoglobin A1c 8.3 % (3.8-5.6)
[2020-09-13 09:37] LABS: ALB/GLOB Ratio 0.7 RATIO (0.9-2.4); AST(SGOT) 15 U/L (15-37); Alanine Aminotransfer ALT/SGPT 26 U/L (16-61); Albumin, Serum 2.9 g/dL (3.2-5.0); Alkaline Phosphatase 113 U/L (45-117); Anion Gap 6 (5-15); BUN 24 mg/dL (7-18); BUN/Creat Ratio 25.2 RATIO (10-20); Calcium,Total 9.8 mg/dL (8.5-10.1); Chloride 102 mmol/L (98-107); Cholesterol 123 mg/dL (200); Creatinine, Serum 0.95 mg/dL (0.70-1.30); EST Glomerular Filtration Rate 82 mL/min (>60); Est Glom Filt Rate - Afr Amer 100 mL/min (>60); Globulin 4.4 g/dL (2.2-4.2); Glucose 202 mg/dL (74-106); High Density Lipoprotein 34 mg/dL; Potassium 3.3 mmol/L (3.5-5.1); Protein, Total 7.3 g/dL (6.4-8.2); Sodium Level 137 mmol/L (136-145); Triglycerides 151 mg/dL; Very Low Density Lipoprotein 30 mg/dL (5-40)
== END ==
LOC: OLS.SW300 05:00
PROVIDERS: PCP Family Medicine Geriatric Medicine; Referring Provider Family Medicine; Visit Provider Family Medicine
DX: E11.9 Type 2 diabetes mellitus without complications (principal); I10 Essential (primary) hypertension; E78.5 Hyperlipidemia, unspecified
CPT/HCPCS: 36415; 80053; 80061; 83036; 85025

== ENCOUNTER → 2020-10-06 05:00 | Outpatient (REF) | payer MEDICARE, SELFPAY ==
[2020-10-06 08:14] LABS: Anion Gap 7 (5-15); BUN 22 mg/dL (7-18); BUN/Creat Ratio 26.3 RATIO (10-20); Calcium,Total 9.5 mg/dL (8.5-10.1); Chloride 101 mmol/L (98-107); Creatinine, Serum 0.84 mg/dL (0.70-1.30); EST Glomerular Filtration Rate 96 mL/min (>60); Est Glom Filt Rate - Afr Amer 116 mL/min (>60); Glucose 234 mg/dL (74-106); Potassium 3.3 mmol/L (3.5-5.1); Sodium Level 137 mmol/L (136-145)
== END ==
LOC: OLS.SW300 05:00
PROVIDERS: PCP Family Medicine Geriatric Medicine
DX: E87.5 Hyperkalemia (principal)
CPT/HCPCS: 36415; 80048

== ENCOUNTER → 2020-12-13 05:00 | Outpatient (REF) | payer MEDICARE, SELFPAY ==
[2020-12-13 08:46] LABS: Absolute Lymphocyte Count 1.44 X10^3/uL (0.83-4.51); Absolute Neutrophil Count 4.4 X10^3/uL (2.0-7.7); Basophil# 0.01 X10^3/uL; Basophil% 0.2 % (0-1); Hematocrit 41.5 % (40-54); Hemoglobin 13.1 g/dL (13.0-16.5); Lymphocyte # 1.44 X10^3/ul (0.83-4.51); Lymphocyte % 22.7 % (19-41); Mean Corp Hgb Conc 31.6 g/dL (32-36); Mean Corpuscular Hgb 26.5 pg (27.0-32.0); Mean Corpuscular Volume 83.8 fL (80-94); Mean Platelet Vol. 10.4 fl (6.2-12.0); Monocyte# 0.48 X10^3/uL; Monocyte% 7.6 % (0-10); NRBC Flagged by Analyzer 0 % (0-5); Neutrophil # 4.38 X10^3/uL (2.7-7.7); Neutrophil % 68.9 % (47-70); Platelet Count 314 K/mm3 (150-450); RBC Distribution Width CV 14.6 % (11.6-14.6); RBC Distribution Width SD 44.3 fl (35.1-43.9); Red Blood Count 4.95 M/mm3 (4.6-6.2); White Blood Count 6.4 K/mm3 (4.4-11.0)
[2020-12-13 09:29] LABS: ALB/GLOB Ratio 0.6 RATIO (0.9-2.4); AST(SGOT) 16 U/L (15-37); Alanine Aminotransfer ALT/SGPT 31 U/L (16-61); Albumin, Serum 2.7 g/dL (3.2-5.0); Alkaline Phosphatase 125 U/L (45-117); Anion Gap 4 (5-15); BUN 29 mg/dL (7-18); Calcium,Total 10.2 mg/dL (8.5-10.1); Chloride 104 mmol/L (98-107); Cholesterol 135 mg/dL (200); Creatinine, Serum 1.26 mg/dL (0.70-1.30); EST Glomerular Filtration Rate 60 mL/min (>60); Est Glom Filt Rate - Afr Amer 72 mL/min (>60); Globulin 4.6 g/dL (2.2-4.2); Glucose 229 mg/dL (74-106); High Density Lipoprotein 34 mg/dL; Potassium 4.4 mmol/L (3.5-5.1); Protein, Total 7.3 g/dL (6.4-8.2); Sodium Level 135 mmol/L (136-145); Triglycerides 171 mg/dL; Very Low Density Lipoprotein 34 mg/dL (5-40)
[2020-12-13 09:37] LABS: Hemoglobin A1c 9.4 % (3.8-5.6)
== END ==
LOC: OLS.SW300 05:00
PROVIDERS: PCP Family Medicine Geriatric Medicine; Visit Provider Family Medicine
DX: E11.9 Type 2 diabetes mellitus without complications (principal); I10 Essential (primary) hypertension; E78.5 Hyperlipidemia, unspecified
CPT/HCPCS: 36415; 80053; 80061; 83036; 85025

== ENCOUNTER → 2021-03-14 | Outpatient (REF) | payer MEDICARE, SELFPAY ==
[2021-03-14 10:10] LABS: Absolute Lymphocyte Count 1.54 X10^3/uL (0.83-4.51); Absolute Neutrophil Count 6.5 X10^3/uL (2.0-7.7); Basophil# 0.06 X10^3/uL; Basophil% 0.7 % (0-1); Eosinophil# 0.28 X10^3/uL; Eosinophils% 3.1 % (0-5); Hematocrit 44.3 % (40-54); Hemoglobin 13.8 g/dL (13.0-16.5); Lymphocyte # 1.54 X10^3/ul (0.83-4.51); Lymphocyte % 17.2 % (19-41); Mean Corp Hgb Conc 31.2 g/dL (32-36); Mean Corpuscular Volume 83.4 fL (80-94); Mean Platelet Vol. 11.7 fl (6.2-12.0); Monocyte# 0.53 X10^3/uL; Monocyte% 5.9 % (0-10); NRBC Flagged by Analyzer 0 % (0-5); Neutrophil # 6.53 X10^3/uL (2.7-7.7); Neutrophil % 72.9 % (47-70); Platelet Count 246 K/mm3 (150-450); RBC Distribution Width CV 14.9 % (11.6-14.6); RBC Distribution Width SD 45.1 fl (35.1-43.9); Red Blood Count 5.31 M/mm3 (4.6-6.2)
[2021-03-14 10:35] LABS: ALB/GLOB Ratio 0.6 RATIO (0.9-2.4); AST(SGOT) 10 U/L (15-37); Alanine Aminotransfer ALT/SGPT 18 U/L (16-61); Albumin, Serum 2.7 g/dL (3.2-5.0); Alkaline Phosphatase 113 U/L (45-117); Anion Gap 8 (5-15); BUN 18 mg/dL (7-18); BUN/Creat Ratio 22.4 RATIO (10-20); Calcium,Total 9.4 mg/dL (8.5-10.1); Chloride 103 mmol/L (98-107); Cholesterol 111 mg/dL (200); EST Glomerular Filtration Rate 100 mL/min (>60); Est Glom Filt Rate - Afr Amer 121 mL/min (>60); Globulin 4.3 g/dL (2.2-4.2); Glucose 161 mg/dL (74-106); High Density Lipoprotein 34 mg/dL; Potassium 3.5 mmol/L (3.5-5.1); Sodium Level 138 mmol/L (136-145); Triglycerides 101 mg/dL; Very Low Density Lipoprotein 20 mg/dL (5-40)
[2021-03-14 10:45] LABS: Hemoglobin A1c 7.4 % (3.8-5.6)
== END | disposition home or self-care (01) ==
LOC: OLS.SW300 05:00
PROVIDERS: PCP Family Medicine Geriatric Medicine; Visit Provider Family Medicine
DX: I10 Essential (primary) hypertension (principal); E11.9 Type 2 diabetes mellitus without complications
CPT/HCPCS: 36415; 80053; 80061; 83036; 85025

== ENCOUNTER → 2021-06-13 | Outpatient (REF) | payer SELFPAY | END | disposition home or self-care (01) | LOC: OLS.SW300 05:00 | PROVIDERS: PCP Family Medicine Geriatric Medicine; Visit Provider Family Medicine | DX: I10 Essential (primary) hypertension (principal); E11.9 Type 2 diabetes mellitus without complications; E78.5 Hyperlipidemia, unspecified ==

== ENCOUNTER → 2021-09-12 | Outpatient (REF) | payer MEDICARE, SELFPAY ==
[2021-09-12 09:58] LABS: Absolute Lymphocyte Count 1.96 X10^3/uL (0.83-4.51); Absolute Neutrophil Count 5.8 X10^3/uL (2.0-7.7); Basophil# 0.05 X10^3/uL; Basophil% 0.6 % (0-1); Eosinophil# 0.21 X10^3/uL; Eosinophils% 2.4 % (0-5); Hematocrit 43.9 % (40-54); Hemoglobin 14.4 g/dL (13.0-16.5); Lymphocyte # 1.96 X10^3/ul (0.83-4.51); Lymphocyte % 22.4 % (19-41); Mean Corp Hgb Conc 32.8 g/dL (32-36); Mean Corpuscular Hgb 27.6 pg (27.0-32.0); Mean Corpuscular Volume 84.1 fL (80-94); Mean Platelet Vol. 11.2 fl (6.2-12.0); Monocyte# 0.69 X10^3/uL; Monocyte% 7.9 % (0-10); NRBC Flagged by Analyzer 0 % (0-5); Neutrophil # 5.82 X10^3/uL (2.7-7.7); Neutrophil % 66.5 % (47-70); Platelet Count 220 K/mm3 (150-450); RBC Distribution Width CV 14.8 % (11.6-14.6); RBC Distribution Width SD 45.3 fl (35.1-43.9); Red Blood Count 5.22 M/mm3 (4.6-6.2); White Blood Count 8.8 K/mm3 (4.4-11.0)
[2021-09-12 10:37] LABS: Anion Gap 4 (5-15); BUN 18 mg/dL (7-18); BUN/Creat Ratio 19.7 RATIO (10-20); Calcium,Total 9.8 mg/dL (8.5-10.1); Chloride 104 mmol/L (98-107); Creatinine, Serum 0.91 mg/dL (0.70-1.30); EST Glomerular Filtration Rate 86 mL/min (>60); Est Glom Filt Rate - Afr Amer 105 mL/min (>60); Glucose 194 mg/dL (74-106); Potassium 3.8 mmol/L (3.5-5.1); Sodium Level 136 mmol/L (136-145)
== END ==
LOC: OLS.SW300 04:00
PROVIDERS: PCP Family Medicine Geriatric Medicine; Referring Provider Family Medicine; Visit Provider Family Medicine
DX: I10 Essential (primary) hypertension (principal)
CPT/HCPCS: 36415; 80048; 85025

== ENCOUNTER → 2021-10-10 | Outpatient (REF) | payer MEDICARE, SELFPAY ==
[2021-10-10 08:05] LABS: Hematocrit 44.5 % (40-54); Hemoglobin 13.8 g/dL (13.0-16.5); Mean Corpuscular Hgb 26.6 pg (27.0-32.0); Mean Corpuscular Volume 85.7 fL (80-94); Mean Platelet Vol. 11.3 fl (6.2-12.0); Platelet Count 202 K/mm3 (150-450); RBC Distribution Width CV 14.6 % (11.6-14.6); RBC Distribution Width SD 45.9 fl (35.1-43.9); Red Blood Count 5.19 M/mm3 (4.6-6.2); White Blood Count 10.2 K/mm3 (4.4-11.0)
[2021-10-10 08:31] LABS: ALB/GLOB Ratio 0.6 RATIO (0.9-2.4); AST(SGOT) 12 U/L (15-37); Alanine Aminotransfer ALT/SGPT 20 U/L (16-61); Albumin, Serum 2.6 g/dL (3.2-5.0); Alkaline Phosphatase 113 U/L (45-117); Anion Gap 3 (5-15); BUN 22 mg/dL (7-18); BUN/Creat Ratio 23.7 RATIO (10-20); Calcium,Total 9.9 mg/dL (8.5-10.1); Chloride 108 mmol/L (98-107); Creatinine, Serum 0.93 mg/dL (0.70-1.30); EST Glomerular Filtration Rate 85 mL/min (>60); Est Glom Filt Rate - Afr Amer 102 mL/min (>60); Globulin 4.2 g/dL (2.2-4.2); Glucose 212 mg/dL (74-106); Potassium 3.9 mmol/L (3.5-5.1); Protein, Total 6.8 g/dL (6.4-8.2); Sodium Level 140 mmol/L (136-145); Thyroid Stim Hormone (TSH) 2.66 uIU/mL (0.358-3.74)
[2021-10-10 09:45] LABS: Hemoglobin A1c 7.5 % (3.8-5.6)
== END ==
LOC: OLS.SW300 05:00
PROVIDERS: PCP Family Medicine Geriatric Medicine; Visit Provider Family Medicine
DX: E11.9 Type 2 diabetes mellitus without complications (principal); R06.02 Shortness of breath
CPT/HCPCS: 36415; 80053; 83036; 84443; 85027

== ENCOUNTER → 2021-12-18 | Outpatient (REF) | payer MEDICARE, SELFPAY ==
[2021-12-18 08:16] LABS: Absolute Lymphocyte Count 1.57 X10^3/uL (0.83-4.51); Absolute Neutrophil Count 5.2 X10^3/uL (2.0-7.7); Basophil# 0.06 X10^3/uL; Basophil% 0.8 % (0-1); Eosinophil# 0.43 X10^3/uL; Eosinophils% 5.5 % (0-5); Hematocrit 43.8 % (40-54); Hemoglobin 14.1 g/dL (13.0-16.5); Lymphocyte # 1.57 X10^3/ul (0.83-4.51); Lymphocyte % 19.9 % (19-41); Mean Corp Hgb Conc 32.2 g/dL (32-36); Mean Corpuscular Hgb 27.4 pg (27.0-32.0); Mean Corpuscular Volume 85.2 fL (80-94); Mean Platelet Vol. 11.6 fl (6.2-12.0); Monocyte% 7.6 % (0-10); NRBC Flagged by Analyzer 0 % (0-5); Neutrophil # 5.19 X10^3/uL (2.7-7.7); Neutrophil % 65.8 % (47-70); Platelet Count 216 K/mm3 (150-450); RBC Distribution Width CV 14.5 % (11.6-14.6); Red Blood Count 5.14 M/mm3 (4.6-6.2); White Blood Count 7.9 K/mm3 (4.4-11.0)
[2021-12-18 08:26] LABS: ALB/GLOB Ratio 0.6 RATIO (0.9-2.4); AST(SGOT) 13 U/L (15-37); Alanine Aminotransfer ALT/SGPT 22 U/L (16-61); Albumin, Serum 2.7 g/dL (3.2-5.0); Alkaline Phosphatase 107 U/L (45-117); Anion Gap 8 (5-15); BUN 30 mg/dL (7-18); BUN/Creat Ratio 31.3 RATIO (10-20); Bilirubin, Direct 0.08 mg/dL (0.00-0.30); Calcium,Total 9.9 mg/dL (8.5-10.1); Chloride 102 mmol/L (98-107); Cholesterol 111 mg/dL (200); Creatinine, Serum 0.96 mg/dL (0.70-1.30); EST Glomerular Filtration Rate 82 mL/min (>60); Est Glom Filt Rate - Afr Amer 99 mL/min (>60); Globulin 4.5 g/dL (2.2-4.2); Glucose 145 mg/dL (74-106); High Density Lipoprotein 29 mg/dL; Potassium 3.4 mmol/L (3.5-5.1); Protein, Total 7.2 g/dL (6.4-8.2); Sodium Level 138 mmol/L (136-145); Triglycerides 142 mg/dL; Very Low Density Lipoprotein 28 mg/dL (5-40)
[2021-12-18 08:31] LABS: Hemoglobin A1c 8.1 % (3.8-5.6)
== END ==
LOC: OLS.SW 06:05
PROVIDERS: PCP Family Medicine Geriatric Medicine; Visit Provider Family Medicine
DX: I10 Essential (primary) hypertension (principal); N17.9 Acute kidney failure, unspecified; I25.709 Atherosclerosis of coronary artery bypass graft(s), unspecified, with unspecified angina pectoris; E11.9 Type 2 diabetes mellitus without complications; E78.5 Hyperlipidemia, unspecified; R74.8 Abnormal levels of other serum enzymes
CPT/HCPCS: 36415; 80053; 80061; 82248; 83036; 85025

== ENCOUNTER 2022-01-06 10:39 | Emergency (ER) | payer OTHER, SELFPAY ==
[2022-01-06] VITALS (7 sets, daily range): BP systolic 118–152; BP diastolic 80–125; PULSE 102–111; RESP 13–18; TEMP 36.7; O2SAT 88–93; BMI 45.1
--- NOTE | 2022-01-06 10:55 | EX.ED.VIS.UR ---
HPI HPI - URI History of Present Illness Chief Complaint: Cold Sx Informant: patient Onset/Context/Timing Onset: Days Context: Gradual Onset Timing: Continuous Current Severity: Mild Maximum Severity: Mild Associated Symptoms Associated Symptoms: Positive for Nonproductive cough; Negative for Hemoptysis Narrative Narrative: 76-year-old male history of diabetes, V. tach, pulmonary emboli, stroke with left-sided paralysis and reportedly on Eliquis. Patient is a [facility] resident states he is had URI symptoms for approximately a week. Reportedly was COVID-negative. States he is having a cough and shortness of breath. States the cough is nonproductive. He denies chest pain. He denies fever or chills. He denies nausea or vomiting. States there are multiple residents at extended-care facility with similar symptoms. Prior similar symptoms: Yes Recent Illness/Hospitalization: No ROS ROS ED ROS Narrative Cough. Review of Systems ROS Unobtainable: Denies due to encephalopathy Constitutional Constitutional ED: Denies chills or fever(s) Eyes Eyes: Denies blurry vision ENT ENT ED: Denies ear pain Cardiovascular Cardiovascular: Denies chest pain Respiratory/Chest Respiratory/Chest: Reports cough Gastrointestinal Gastrointestinal: Denies abdominal pain Genitourinary Genitourinary ED: Denies dysuria or hematuria Musculoskeletal Musculoskeletal: Denies arthralgias Integumentary Denies abscess Neurologic Neurologic: Denies headache(s) Psychiatric Psychiatric: Denies anxiety or depression Endocrine Endocrinology: Denies cold intolerance Hematologic/Lymphatic Hematologic/Lymphatic: Denies easy bleeding Allergic/Immunologic Allergic/Immunologic ED: Denies mouth swelling or tongue swelling PFSH [facility], LAT[facility] Medical History Acute kidney injury Acute right MCA stroke BPH (benign prostatic hyperplasia) BPH (benign prostatic hyperplasia) BPH with obstruction/lower urinary tract symptoms Debility Dehydration Diarrhea Edema Essential hypertension GERD (gastroesophageal reflux disease) Insomnia Major depressive disorder Nausea & vomiting Normal pressure hydrocephalus Normal pressure hydrocephalus Osteoarthritis Paroxysmal ventricular tachycardia Pulmonary embolism Pulmonary hypertension Pure hypercholesterolemia Stroke SVT (supraventricular tachycardia) Type 2 diabetes mellitus Home Medications tamsulosin 0.4 mg capsule 0.4 mg PO BID prostate 02/13/16 [History Last Taken 01/12/19] atorvastatin 80 mg tablet 80 mg PO QHS cholesterol 01/20/19 [History Last Taken Unknown] nystatin 100,000 unit/gram topical powder 1 applic topical BID redness 01/20/19 [History Last Taken Unknown] Mineral Oil/Petrolatum,White [Eucerin] 1 applic topical QHS 02/05/19 [Rx Last Taken Unknown] apixaban 5 mg tablet 5 mg PO BID 02/05/19 [Rx Last Taken Unknown] losartan 100 mg tablet 100 mg PO DAILY 02/05/19 [Rx Last Taken Unknown] lactobacillus combination no.9 4 billion cell capsule (Adult 50 Plus Probiotic) 4,000 mmu cells PO DAILY 04/02/19 [History Last Taken Unknown] baclofen 5 mg tablet 5 mg PO QHS 10/06/19 [History Last Taken Unknown] hydrochlorothiazide 25 mg tablet 25 mg PO DAILY 10/06/19 [History Last Taken Unknown] verapamil 180 mg tablet,extended release 180 mg PO DAILY 10/06/19 [History Last Taken Unknown] acetaminophen 325 mg tablet 650 mg PO Q4H PRN 05/23/20 [History Last Taken Unknown] acetaminophen 650 mg rectal suppository 650 mg CA Q4H PRN 05/23/20 [History Last Taken Unknown] baclofen 5 mg tablet 5 mg PO BID 05/23/20 [History Last Taken Unknown] bisacodyl 10 mg rectal suppository 10 mg CA DAILY PRN 05/23/20 [History Last Taken Unknown] doxepin 10 mg capsule 10 mg PO QHS 05/23/20 [History Last Taken Unknown] guaifenesin 100 mg/5 mL oral liquid 200 mg (10 mL) PO Q4H PRN cough #10 mL 05/23/20 [Rx Last Taken Unknown] insulin aspart U-100 100 unit/mL subcutaneous solution (Novolog U-100 Insulin aspart) 5 unit subcut TID 05/23/20 [History Last Taken Unknown] insulin glargine 100 unit/mL (3 mL) subcutaneous pen 10 unit (0.1 mL) subcut QHS #3 mL 05/23/20 [Rx Last Taken Unknown] loperamide 2 mg capsule 2 mg PO Q4H PRN 05/23/20 [History Last Taken Unknown] magnesium hydroxide 400 mg/5 mL oral suspension (Milk of Magnesia) 30 ml PO DAILY PRN 05/23/20 [History Last Taken Unknown] mineral oil (Fleet Mineral Oil enema) 118 ml CA DAILY PRN 05/23/20 [History Last Taken Unknown] ondansetron HCl 4 mg tablet (Zofran) 4 mg PO Q8H PRN nausea and vomiting 05/23/20 [History Last Taken Unknown] azithromycin 250 mg tablet (Zithromax Z-Dario) 250 mg PO DAILY 4 days #4 tabs 01/06/22 [Rx Last Taken Unknown] Allergy/AdvReac Type Severity Reaction Status Date / Time No Known Allergies Allergy Verified 01/06/22 10:45 Family History Father , age 35 Gisella Gehrig disease Surgical History H/O nasal septoplasty H/O vasectomy Hx of cholecystectomy Social History Smoking Status: Never smoker EXAM Physical Exam Narrative Exam Narrative: 76-year-old male no acute distress. Vital signs stable afebrile. Initial pulse ox 92% on room air no hypoxia. H EENT exam unremarkable. Neck nontender no JVD. Lungs dry cough but no rales, rhonchi or wheezing. Heart regular rhythm rate about 110 no murmur. Abdomen soft nontender. He has left-sided paralysis in the left upper and lower extremity from a prior stroke. Normal last cleaner strength and movement in both the right upper and right lower extremity. Nontender no edema. Neurologically is awake and alert. Again with a left-sided paralysis. Const Vital Signs: 01/06/22 10:41 01/06/22 10:45 01/06/22 11:02 Temperature 98.1 F Temperature Source Oral Pulse Rate 111 H 108 H Respiratory Rate 15 15 Respiratory Effort Normal Non-Labored Respiratory Pattern Normal Blood Pressure 152/125 H 138/91 H Blood Pressure Mean 134 106 Pulse Ox 92 90 Oxygen Delivery Method Room Air Room Air 01/06/22 11:03 01/06/22 13:43 01/06/22 13:44 Temperature 98.1 F Temperature Source Oral Pulse Rate 103 H 102 H Respiratory Rate 18 18 Respiratory Effort Respiratory Pattern Blood Pressure 138/91 H 145/80 H Blood Pressure Mean 106 101 Pulse Ox 93 88 92 Oxygen Delivery Method Room Air Room Air Room Air 01/06/22 14:51 Temperature Temperature Source Pulse Rate 107 H Respiratory Rate 13 Respiratory Effort Respiratory Pattern Blood Pressure 136/92 H Blood Pressure Mean 106 Pulse Ox 92 Oxygen Delivery Method Room Air Positive well nourished, well developed and obese; Negative for cachectic or contractures General Appearance ED: well developed and NAD; Negative for cachectic, contractures, cyanotic or diaphoretic Nutritional Appearance: obese; Negative for cachectic HEENT Reports moist mucous membranes normocephalic and atraumatic; Negative for scalp tenderness Face and Sinus: Negative for sinus tenderness Throat: posterior oropharynx normal; Negative for tonsils abnormal Eyes PERRL and EOMs intact bilaterally General Eye ED: Negative for pale conjunctiva or scleral icterus Neck no lymphadenopathy, supple, no meningeal signs and no JVD General: Negative for anterior neck swelling or lymphadenopathy Resp normal respiratory effort and clear to auscultation bilaterally Effort and Inspection: Negative for retractions Auscultation: Negative for rales, rhonchi or wheezes Cardio S1 normal heart sound, S2 normal heart sound and no murmurs Rate: regular rate; Negative for bradycardia Rhythm: regular rhythm; Negative for abnormal rhythm GI non-tender, non-distended and no masses Inspection: Negative for abdominal distention Auscultation: normoactive bowel sounds Palpation: soft; Negative for tender or guarding Back/Spine no CVA tenderness Extremity normal to inspection; Negative for full ROM Extremity Narrative: Left upper and lower extremity paralysis from prior CVA. General Extremety ED: Negative for cyanosis or tenderness General Extremity: Negative for cyanosis Neuro Neuro Narrative: Left upper and lower extremity paralysis from prior CVA. Sensorium / Orientation: oriented to person and oriented to place Psych mental status grossly normal Attitude: No agitated Mood & Affect: Negative for depressed, anxious or tearful Skin Lesions: no lesions Rashes: no rashes Trauma: Negative for abrasion, laceration or puncture MDM MDM MDM Narrative Medical decision making narrative: 76-year-old from extended-care facility with URI symptoms. Chest x-ray, COVID and influenza swabs are being obtained. Repeat exam unchanged. Given the patient's week history of symptoms and his chest x-ray findings he will be started on Zithromax Z-Dario. Given first dose here. Then to 250 mg-day for 4 more days. Discussed with the patient. Radiography Diagnostic Testing: Clinical Impression(s) from Imaging Studies Chest X-Ray 01/06/22 11:10 IMPRESSION: Right-sided peribronchial thickening consistent with acute inflammatory or infectious process. Electronically Signed: Emanuel Desouza MD at 11:39 EST , Chest x-ray, portable, single view interpreted by myself and the radiologist. Shows right Bronchial thickening consistent with either inflammatory process, infectious etiology or pneumonia. He will be started on Zithromax. Rhythm Strip Rhythm Strip: Junctional Rate: 102 EKG Initial EKG: Attestation: I personally reviewed and interpreted this EKG as follows: Interpretation: Junctional Comments: Accelerated junctional rhythm rate of 102. No acute signs of SD or ischemia. Discharge Plan Triage Chief Complaint: Cold Sx Other Complaint: General Illness ED Provider: Yahir Calle Dx/Rx/DC Orders Clinical Impression: Bronchitis, Type 2 diabetes mellitus Instructions: ED Upper Resp Infec Abx Tx Prescriptions: New azithromycin [Zithromax Z-Dario] 250 mg tablet 250 mg PO DAILY 4 Days Qty: 4 0RF Rx Instructions: start on day 2 of therapy No Action Adult 50 Plus Probiotic 4 billion cell capsule 4,000 mmu cells PO DAILY Rx Instructions: administer with a meal baclofen 5 mg tablet 5 mg PO QHS hydrochlorothiazide 25 mg tablet 25 mg PO DAILY verapamil 180 mg tablet extended release 180 mg PO DAILY atorvastatin 80 MG tablet 80 mg PO QHS nystatin 1 APPLIC bottle 1 applic topical BID Protocol: *Topical Application Instructions APPLICATION INSTRUCTIONS: GROIN/UNDER ABDOMEN losartan 100 MG tablet 100 mg PO DAILY 0RF apixaban 5 MG tablet 5 mg PO BID 0RF Mineral Oil/Petrolatum,White [Eucerin] 1 APPLIC Jar 1 applic topical QHS 0RF Protocol: *Topical Application Instructions APPLICATION INSTRUCTIONS: bushra lower extrem tamsulosin 0.4 MG capsule,extended release 24hr 0.4 mg PO BID acetaminophen 325 mg tablet 650 mg PO Q4H PRN acetaminophen 650 mg suppository 650 mg RC Q4H PRN baclofen 5 mg tablet 5 mg PO BID bisacodyl 10 mg suppository 10 mg RC DAILY PRN doxepin 10 mg capsule 10 mg PO QHS mineral oil [Fleet Mineral Oil] Enema 118 ml RC DAILY PRN Rx Instructions: discard any unused portion guaifenesin 100 mg/5 mL liquid 200 mg PO Q4H PRN (Reason: cough) Qty: 10 0RF insulin glargine 100 unit/mL (3 mL) insulin pen 10 unit subcut QHS Qty: 3 0RF insulin aspart U-100 [Novolog U-100 Insulin aspart] 100 unit/mL solution 5 unit SC TID ondansetron HCl [Zofran] 4 mg tablet 4 mg PO Q8H PRN (Reason: nausea and vomiting) loperamide 2 mg capsule 2 mg PO Q4H PRN Rx Instructions: administer after each loose stool until symptoms controlled; do not exceed 8 mg per 24 hrs magnesium hydroxide [Milk of Magnesia] 400 mg/5 mL suspension 30 ml PO DAILY PRN Primary Care Provider: Moisés Gallardo Chi Referrals: Moisés Gallardo Chi, MD [Primary Care Provider] - 1 Week if not improving Activity Restrictions/Additional Instructions: COVID and influenza test were both negative. Chest x-ray showed an infectious bronchitis. He will be treated with the antibiotic Zithromax. First dose given in the ER. Starting tomorrow 1 pill/day for 4 more days. Follow-up with his doctor if not improving. Disposition Disposition: Home, Self Care
--- NOTE | 2022-01-06 11:01 | EKG12_ITS ---
Test Reason : COLD SYMPTOMS Blood Pressure : / mmHG Vent. Rate : 102 BPM Atrial Rate : 000 BPM P-R Int : 000 ms QRS Dur : 112 ms QT Int : 376 ms P-R-T Axes : 000 016 057 degrees QTc Int : 490 ms Accelerated Junctional rhythm with retrograde conduction with occasional Premature ventricular comple xes Abnormal ECG Confirmed by ROSHAN SOSA, MAURICE ([id number]), editorial director RYAN PLASENCIA ([id number]) on 01/07/2022 12:05:54 PM Referred By: Confirmed By:MAURICE ISLAS MD
--- NOTE | 2022-01-06 11:10 | RAD_ITS ---
EXAM: XR CHEST, 1 VIEW CLINICAL INDICATION: cough TECHNIQUE: Frontal view of the chest. This report was created using [employer] report generation technology. COMPARISON: None. FINDINGS: LUNGS AND PLEURAL SPACES: Central peribronchial thickening within the right lung which may represent acute inflammatory or infectious process. No pneumothorax. No effusion. HEART: Normal heart size. MEDIASTINUM: No mediastinal or hilar mass. BONES/JOINTS: No acute abnormality. SOFT TISSUES: Normal. RAD/Chest 1 View (Portable) IMPRESSION: Right-sided peribronchial thickening consistent with acute inflammatory or infectious process. Electronically Signed: Emanuel Desouza MD at 11:39 EST ,
[2022-01-06] MEDS: Azithromycin 250 MG Tablet 500 MG PO (15:28)
--- NOTE | 2022-01-06 15:32 | ED.RN ---
[facility] ETA 60-90 MIN
== END 2022-01-06 16:39 | disposition home or self-care (01) ==
PROVIDERS: Emergency Provider Emergency Medicine; PCP Family Medicine Geriatric Medicine; Visit Provider Emergency Medicine
DX: J40 Bronchitis, not specified as acute or chronic (principal); I69.354 Hemiplegia and hemiparesis following cerebral infarction affecting left non-dominant side; E11.9 Type 2 diabetes mellitus without complications; Z79.4 Long term (current) use of insulin; Z20.822 Contact with and (suspected) exposure to COVID-19; I10 Essential (primary) hypertension; E78.00 Pure hypercholesterolemia, unspecified; Z79.899 Other long term (current) drug therapy; Z86.711 Personal history of pulmonary embolism
CPT/HCPCS: 71045; 87428; 93005; 99284

== ENCOUNTER → 2022-03-18 | Outpatient (REF) | payer MEDICARE, SELFPAY ==
[2022-03-18 08:40] LABS: Absolute Lymphocyte Count 1.82 X10^3/uL (0.83-4.51); Absolute Neutrophil Count 6.2 X10^3/uL (2.0-7.7); Basophil# 0.07 X10^3/uL; Basophil% 0.8 % (0-1); Eosinophil# 0.21 X10^3/uL; Eosinophils% 2.4 % (0-5); Hematocrit 45.8 % (40-54); Hemoglobin 14.1 g/dL (13.0-16.5); Lymphocyte # 1.82 X10^3/ul (0.83-4.51); Lymphocyte % 20.7 % (19-41); Mean Corp Hgb Conc 30.8 g/dL (32-36); Mean Corpuscular Hgb 26.3 pg (27.0-32.0); Mean Corpuscular Volume 85.4 fL (80-94); Mean Platelet Vol. 11.6 fl (6.2-12.0); Monocyte# 0.47 X10^3/uL; Monocyte% 5.3 % (0-10); NRBC Flagged by Analyzer 0 % (0-5); Neutrophil # 6.22 X10^3/uL (2.7-7.7); Neutrophil % 70.6 % (47-70); Platelet Count 218 K/mm3 (150-450); RBC Distribution Width CV 14.5 % (11.6-14.6); RBC Distribution Width SD 44.9 fl (35.1-43.9); Red Blood Count 5.36 M/mm3 (4.6-6.2); White Blood Count 8.8 K/mm3 (4.4-11.0)
[2022-03-18 09:07] LABS: ALB/GLOB Ratio 0.6 RATIO (0.9-2.4); AST(SGOT) 21 U/L (15-37); Alanine Aminotransfer ALT/SGPT 16 U/L (16-61); Albumin, Serum 2.6 g/dL (3.2-5.0); Alkaline Phosphatase 100 U/L (45-117); Anion Gap 9 (5-15); BUN 25 mg/dL (7-18); BUN/Creat Ratio 24.8 RATIO (10-20); Bilirubin, Direct 0.08 mg/dL (0.00-0.30); Calcium,Total 9.7 mg/dL (8.5-10.1); Chloride 105 mmol/L (98-107); Cholesterol 103 mg/dL (200); Creatinine, Serum 1.01 mg/dL (0.70-1.30); EST Glomerular Filtration Rate 77 mL/min (>60); Est Glom Filt Rate - Afr Amer 93 mL/min (>60); Globulin 4.2 g/dL (2.2-4.2); Glucose 114 mg/dL (74-106); High Density Lipoprotein 33 mg/dL; Potassium 3.5 mmol/L (3.5-5.1); Protein, Total 6.8 g/dL (6.4-8.2); Sodium Level 142 mmol/L (136-145); Triglycerides 123 mg/dL; Very Low Density Lipoprotein 25 mg/dL (5-40)
[2022-03-18 10:33] LABS: Hemoglobin A1c 7.3 % (3.8-5.6)
== END ==
LOC: OLS.SW 04:00
PROVIDERS: PCP Family Medicine Geriatric Medicine; Referring Provider Family Medicine; Visit Provider Family Medicine
DX: Z79.899 Other long term (current) drug therapy (principal); E11.9 Type 2 diabetes mellitus without complications; I10 Essential (primary) hypertension
CPT/HCPCS: 36415; 80053; 80061; 82248; 83036; 85025

== ENCOUNTER → 2022-06-04 | Outpatient (REF) | payer MEDICARE, SELFPAY ==
[2022-06-04 08:12] LABS: Mucous, Urine 0 SEEN /hpf (<or=2+); Squamous Epithelial Cells - UA 0 SEEN /hpf (0-5)
[2022-06-04 08:50] LABS: Color, Urine Yellow (Yellow); Glucose, Dipstick Normal (Normal); Ketone-Dipstick Negative (Negative); Leukocyte Esterase-Dipstick 500 /ul (Negative); Nitrite-Dipstick Negative (Negative); Occult Blood-Urine 250 /ul (Negative); Protein-Dipstick 100 mg/dl (Negative); Urine Bilirubin Dipstick Negative (Negative); Urine Clarity Sl. Cloudy (Clear); Urine Urobilinogen Normal (Normal); Urine pH 6.5 (5.0 - 8.0)
[2022-06-04 10:45] LABS: Bacteria 1+ /hpf (None Seen); Red Blood Cells-Urine 25-50 SEEN /hpf (0-5); White Blood Cells 25-50 SEEN /hpf (0-5)
== END ==
LOC: OLS.SW 04:15
PROVIDERS: PCP Family Medicine Geriatric Medicine; Visit Provider Family Medicine
DX: R31.9 Hematuria, unspecified (principal)
CPT/HCPCS: 81001; 87077; 87086; 87088; 87186

== ENCOUNTER → 2022-06-18 | Outpatient (REF) | payer MEDICARE, SELFPAY ==
[2022-06-18 08:30] LABS: Absolute Lymphocyte Count 2.26 X10^3/uL (0.83-4.51); Absolute Neutrophil Count 7.2 X10^3/uL (2.0-7.7); Basophil# 0.06 X10^3/uL; Basophil% 0.6 % (0-1); Eosinophil# 0.21 X10^3/uL; Hematocrit 42.5 % (40-54); Hemoglobin 13.2 g/dL (13.0-16.5); Lymphocyte # 2.26 X10^3/ul (0.83-4.51); Lymphocyte % 21.7 % (19-41); Mean Corp Hgb Conc 31.1 g/dL (32-36); Mean Corpuscular Hgb 26.6 pg (27.0-32.0); Mean Corpuscular Volume 85.7 fL (80-94); Monocyte# 0.61 X10^3/uL; Monocyte% 5.9 % (0-10); NRBC Flagged by Analyzer 0 % (0-5); Neutrophil # 7.23 X10^3/uL (2.7-7.7); Neutrophil % 69.3 % (47-70); Platelet Count 251 K/mm3 (150-450); RBC Distribution Width CV 15.5 % (11.6-14.6); RBC Distribution Width SD 48.5 fl (35.1-43.9); Red Blood Count 4.96 M/mm3 (4.6-6.2); White Blood Count 10.4 K/mm3 (4.4-11.0)
[2022-06-18 08:41] LABS: ALB/GLOB Ratio 0.6 RATIO (0.9-2.4); AST(SGOT) 14 U/L (15-37); Alanine Aminotransfer ALT/SGPT 20 U/L (16-61); Albumin, Serum 2.6 g/dL (3.2-5.0); Alkaline Phosphatase 96 U/L (45-117); Anion Gap 5 (5-15); BUN 24 mg/dL (7-18); BUN/Creat Ratio 24.6 RATIO (10-20); Bilirubin, Direct 0.14 mg/dL (0.00-0.30); Calcium,Total 9.8 mg/dL (8.5-10.1); Chloride 106 mmol/L (98-107); Cholesterol 103 mg/dL (200); Creatinine, Serum 0.97 mg/dL (0.70-1.30); EST Glomerular Filtration Rate 80 mL/min (>60); Est Glom Filt Rate - Afr Amer 97 mL/min (>60); Globulin 4.2 g/dL (2.2-4.2); Glucose 133 mg/dL (74-106); Hemoglobin A1c 6.8 % (3.8-5.6); High Density Lipoprotein 31 mg/dL; Potassium 3.3 mmol/L (3.5-5.1); Protein, Total 6.8 g/dL (6.4-8.2); Sodium Level 139 mmol/L (136-145); Triglycerides 113 mg/dL; Very Low Density Lipoprotein 23 mg/dL (5-40)
== END ==
LOC: OLS.SW 05:41
PROVIDERS: PCP Family Medicine Geriatric Medicine; Visit Provider Family Medicine
DX: N17.9 Acute kidney failure, unspecified (principal); E78.5 Hyperlipidemia, unspecified; I10 Essential (primary) hypertension; I25.709 Atherosclerosis of coronary artery bypass graft(s), unspecified, with unspecified angina pectoris; R74.8 Abnormal levels of other serum enzymes; Z79.899 Other long term (current) drug therapy
CPT/HCPCS: 36415; 80053; 80061; 82248; 83036; 85025

== ENCOUNTER → 2022-06-26 | Outpatient (REF) | payer MEDICARE, SELFPAY ==
[2022-06-26 09:23] LABS: Potassium 3.2 mmol/L (3.5-5.1)
== END ==
LOC: OLS.SW 05:00
PROVIDERS: PCP Family Medicine Geriatric Medicine; Visit Provider Family Medicine
DX: E87.6 Hypokalemia (principal)
CPT/HCPCS: 36415; 84132

== ENCOUNTER → 2022-09-16 | Outpatient (REF) | payer MEDICARE, SELFPAY ==
[2022-09-16 09:33] LABS: Absolute Lymphocyte Count 1.96 X10^3/uL (0.83-4.51); Absolute Neutrophil Count 6.2 X10^3/uL (2.0-7.7); Basophil# 0.07 X10^3/uL; Basophil% 0.8 % (0-1); Eosinophils% 3.3 % (0-5); Hematocrit 42.3 % (40-54); Hemoglobin 13.2 g/dL (13.0-16.5); Lymphocyte # 1.96 X10^3/ul (0.83-4.51); Lymphocyte % 21.8 % (19-41); Mean Corp Hgb Conc 31.2 g/dL (32-36); Mean Corpuscular Hgb 27.1 pg (27.0-32.0); Mean Corpuscular Volume 86.9 fL (80-94); Mean Platelet Vol. 10.8 fl (6.2-12.0); Monocyte# 0.48 X10^3/uL; Monocyte% 5.3 % (0-10); NRBC Flagged by Analyzer 0.3 % (0-5); Neutrophil # 6.15 X10^3/uL (2.7-7.7); Neutrophil % 68.2 % (47-70); POSITIVE MORPHOLOGY YES; Platelet Count 239 K/mm3 (150-450); RBC Distribution Width CV 14.4 % (11.6-14.6); RBC Distribution Width SD 45.9 fl (35.1-43.9); Red Blood Count 4.87 M/mm3 (4.6-6.2)
[2022-09-16 09:35] LABS: Differential Indicated SCAN CRITERIA MET
[2022-09-16 09:45] LABS: ALB/GLOB Ratio 0.6 RATIO (0.9-2.4); AST(SGOT) 14 U/L (15-37); Alanine Aminotransfer ALT/SGPT 19 U/L (16-61); Albumin, Serum 2.5 g/dL (3.2-5.0); Alkaline Phosphatase 105 U/L (45-117); Anion Gap 3 (5-15); BUN 28 mg/dL (7-18); Calcium,Total 9.7 mg/dL (8.5-10.1); Chloride 105 mmol/L (98-107); Cholesterol 122 mg/dL (200); EST Glomerular Filtration Rate 78 mL/min (>60); Est Glom Filt Rate - Afr Amer 94 mL/min (>60); Globulin 4.3 g/dL (2.2-4.2); Glucose 155 mg/dL (74-106); High Density Lipoprotein 30 mg/dL; Potassium 3.5 mmol/L (3.5-5.1); Protein, Total 6.8 g/dL (6.4-8.2); Sodium Level 139 mmol/L (136-145); Triglycerides 139 mg/dL; Very Low Density Lipoprotein 28 mg/dL (5-40)
[2022-09-16 10:15] LABS: Hemoglobin A1c 7.3 % (3.8-5.6)
== END ==
LOC: OLS.SW 05:00
PROVIDERS: PCP Family Medicine Geriatric Medicine; Visit Provider Family Medicine
DX: E11.9 Type 2 diabetes mellitus without complications (principal); I10 Essential (primary) hypertension; I25.709 Atherosclerosis of coronary artery bypass graft(s), unspecified, with unspecified angina pectoris; R74.8 Abnormal levels of other serum enzymes; E78.5 Hyperlipidemia, unspecified
CPT/HCPCS: 36415; 80053; 80061; 82248; 83036; 85025

== ENCOUNTER → 2022-09-18 | Outpatient (REF) | payer MEDICARE, SELFPAY ==
[2022-09-18 09:02] LABS: Mucous, Urine 0 SEEN /hpf (<or=2+); Squamous Epithelial Cells - UA 0 SEEN /hpf (0-5)
[2022-09-18 09:36] LABS: Color, Urine Yellow (Yellow); Glucose, Dipstick Normal (Normal); Ketone-Dipstick Negative (Negative); Leukocyte Esterase-Dipstick 500 /ul (Negative); Nitrite-Dipstick Negative (Negative); Occult Blood-Urine 250 /ul (Negative); Protein-Dipstick 30 mg/dl (Negative); Urine Bilirubin Dipstick Negative (Negative); Urine Clarity Sl. Cloudy (Clear); Urine Urobilinogen Normal (Normal)
[2022-09-18 09:55] LABS: Bacteria 1+ /hpf (None Seen); Red Blood Cells-Urine > 100 SEEN /hpf (0-5); White Blood Cells >100 SEEN /hpf (0-5)
== END ==
LOC: OLS.SW 02:00
PROVIDERS: PCP Family Medicine Geriatric Medicine; Visit Provider Family Medicine
DX: R31.9 Hematuria, unspecified (principal)
CPT/HCPCS: 81001; 87077; 87086; 87088; 87186

== ENCOUNTER → 2022-09-30 | Outpatient (REF) | payer MEDICARE, SELFPAY ==
[2022-09-30 08:48] LABS: T4 Free Direct 0.97 ng/dL (0.76-1.46); Thyroid Stim Hormone (TSH) 2.99 uIU/mL (0.358-3.74)
== END ==
LOC: OLS.SW 05:00
PROVIDERS: PCP Family Medicine Geriatric Medicine; Referring Provider Family Medicine; Visit Provider Family Medicine
DX: I10 Essential (primary) hypertension (principal)
CPT/HCPCS: 36415; 84439; 84443

== ENCOUNTER → 2022-11-18 | Outpatient (REF) | payer MEDICARE, SELFPAY ==
[2022-11-18 08:26] LABS: Color, Urine Amber (Yellow); Glucose, Dipstick Normal (Normal); Ketone-Dipstick Negative (Negative); Leukocyte Esterase-Dipstick 500 /ul (Negative); Nitrite-Dipstick Positive (Negative); Occult Blood-Urine 250 /ul (Negative); Protein-Dipstick 100 mg/dl (Negative); Urine Bilirubin Dipstick Negative (Negative); Urine Clarity Cloudy (Clear); Urine Urobilinogen Normal (Normal)
[2022-11-18 08:33] LABS: Red Blood Cells-Urine 50-100 SEEN /hpf (0-5); Squamous Epithelial Cells - UA 0-5 SEEN /hpf (0-5); White Blood Cells >100 SEEN /hpf (0-5)
[2022-11-18 08:34] LABS: Bacteria 2+ /hpf (None Seen); Mucous, Urine 1+ /hpf (<or=2+); Transitional Epithelial - Ur 0 SEEN /hpf (0-5)
== END ==
LOC: OLS.SW 04:41
PROVIDERS: PCP Family Medicine Geriatric Medicine; Visit Provider Family Medicine
DX: N39.0 Urinary tract infection, site not specified (principal)
CPT/HCPCS: 81001; 87077; 87086; 87088; 87186

== ENCOUNTER → 2022-12-16 | Outpatient (REF) | payer MEDICARE, SELFPAY ==
[2022-12-16 09:21] LABS: Absolute Lymphocyte Count 1.98 X10^3/uL (0.83-4.51); Absolute Neutrophil Count 5.8 X10^3/uL (2.0-7.7); Basophil# 0.06 X10^3/uL; Basophil% 0.7 % (0-1); Eosinophil# 0.31 X10^3/uL; Eosinophils% 3.6 % (0-5); Hematocrit 43.4 % (40-54); Hemoglobin 13.6 g/dL (13.0-16.5); Lymphocyte # 1.98 X10^3/ul (0.83-4.51); Mean Corp Hgb Conc 31.3 g/dL (32-36); Mean Corpuscular Hgb 26.9 pg (27.0-32.0); Mean Corpuscular Volume 85.8 fL (80-94); Mean Platelet Vol. 11.5 fl (6.2-12.0); Monocyte# 0.47 X10^3/uL; Monocyte% 5.5 % (0-10); NRBC Flagged by Analyzer 0 % (0-5); Neutrophil # 5.76 X10^3/uL (2.7-7.7); Neutrophil % 66.7 % (47-70); Platelet Count 229 K/mm3 (150-450); RBC Distribution Width CV 14.4 % (11.6-14.6); RBC Distribution Width SD 45.4 fl (35.1-43.9); Red Blood Count 5.06 M/mm3 (4.6-6.2); White Blood Count 8.6 K/mm3 (4.4-11.0)
[2022-12-16 09:40] LABS: ALB/GLOB Ratio 0.6 RATIO (0.9-2.4); AST(SGOT) 13 U/L (15-37); Alanine Aminotransfer ALT/SGPT 18 U/L (16-61); Albumin, Serum 2.6 g/dL (3.2-5.0); Alkaline Phosphatase 108 U/L (45-117); Anion Gap 6 (5-15); BUN 25 mg/dL (7-18); BUN/Creat Ratio 25.5 RATIO (10-20); Bilirubin, Direct 0.09 mg/dL (0.00-0.30); Chloride 105 mmol/L (98-107); Cholesterol 100 mg/dL (200); Creatinine, Serum 0.98 mg/dL (0.70-1.30); EST Glomerular Filtration Rate 79 mL/min (>60); Est Glom Filt Rate - Afr Amer 96 mL/min (>60); Globulin 4.4 g/dL (2.2-4.2); Glucose 80 mg/dL (74-106); High Density Lipoprotein 31 mg/dL; Potassium 3.2 mmol/L (3.5-5.1); Sodium Level 141 mmol/L (136-145); Triglycerides 131 mg/dL; Very Low Density Lipoprotein 26 mg/dL (5-40)
== END ==
LOC: OLS.SW 05:00
PROVIDERS: PCP Family Medicine Geriatric Medicine; Visit Provider Family Medicine
DX: N17.9 Acute kidney failure, unspecified (principal); I10 Essential (primary) hypertension; I25.709 Atherosclerosis of coronary artery bypass graft(s), unspecified, with unspecified angina pectoris; E11.9 Type 2 diabetes mellitus without complications; R74.8 Abnormal levels of other serum enzymes
CPT/HCPCS: 36415; 80053; 80061; 82248; 83036; 85025

== ENCOUNTER → 2023-01-15 | Outpatient (REF) | payer MEDICARE, SELFPAY ==
[2023-01-15 09:31] LABS: Anion Gap 6 (5-15); BUN 22 mg/dL (7-18); Calcium,Total 9.3 mg/dL (8.5-10.1); Chloride 104 mmol/L (98-107); Creatinine, Serum 0.96 mg/dL (0.70-1.30); EST Glomerular Filtration Rate 82 mL/min (>60); Est Glom Filt Rate - Afr Amer 99 mL/min (>60); Glucose 78 mg/dL (74-106); Potassium 3.1 mmol/L (3.5-5.1); Sodium Level 138 mmol/L (136-145)
== END ==
LOC: OLS.SW 04:00
PROVIDERS: PCP Family Medicine Geriatric Medicine; Referring Provider Internal Medicine; Visit Provider Internal Medicine
DX: I10 Essential (primary) hypertension (principal)
CPT/HCPCS: 36415; 80048

== ENCOUNTER → 2023-03-17 | Outpatient (REF) | payer MEDICARE, SELFPAY ==
--- OUTSIDE RECORDS SUMMARY | 2023-03-17 05:19 | XMS RPT_ITS | CCD ---
Author Name Unknown Address [address] [place] [address] Organization [facility] Care Team Providers Care Trouble Shooter Name Role Phone Sun Renteria Unavailable Unavailable Tesha HASKINS, Millicent Archibald Unavailable Kasie Vaughan Unavailable Tesha HASKINS, Millicent Archibald Unavailable Tesha HASKINS, Millicent Archibald Unavailable Nikolas Prasad Unavailable Unavailable Nolberto Guerrerossica N Unavailable Yolanda Rema N Unavailable Guerrero Rema N Unavailable PROVIDER, UNKNOWN Unavailable Unavailable STEPHANY, CONNIE-CHI Unavailable Unavailable GENTRY MAGAÑA Unavailable Unavailable ABUQAYYAS, JOEL Unavailable Unavailable NO REFERRING DR Unavailable Unavailable MADISON CANDELARIO Unavailable Unavailable ASIF GUTIERREZ Unavailable Unavailable MIGEL PRINGLE Unavailable Unavailable MAL BALDWIN Unavailable Unavailable MIGEL PRINGLE Unavailable Unavailable Sun Renteria Unavailable Unavailable Kasie Vaughan Unavailable Nikolas Prasad Unavailable Unavailable Medications Completed/Discontinued Medications Medication Drug Class(es) Dates Sig (Normalized) Sig (Original) amiodarone hydrochloride 200 mg oral tablet (5 sources) Antiarrhythmic Start: 10-23-2016 take 1 tablet by mouth once daily AMIODARONE HCL 200 MG TABS One tablet by mouth daily AMIODARONE HCL [id number] Millicent Graff PA-C amLODIPine 5 mg / hydroCHLOROthiazide 12.5 mg / olmesartan medoxomil 40 mg oral tablet (20 sources) Thiazide Diuretic, Dihydropyridine Calcium Channel Audrey, Angiotensin 2 Receptor Audrey Start: 09-24-2013 End: 12-04-2015 take 1 tablet by mouth once daily TRIBENZOR 40-5-12.5 MG TABS One tablet by mouth daily OLMESARTAN-AMLO DIPINE-HCTZ [id number] Niki Mart RN Problems Active Problems Problem Classification Problem Date Documented Date Episodic/Chronic Acute and unspecified renal failure (2 sources) Acute kidney failure, unspecified; Translations: [Acute kidney failure, unspecified] Onset: 07-05-2017 Episodic Cardiac dysrhythmias (11 sources) Supraventricular tachycardia; Translations: [Supraventricular tachycardia] Onset: 07-17-2016 07-17-2016 Chronic Conduction disorders (2 sources) Atrioventricular block, complete; Translations: [Atrioventricular block, complete] Onset: 07-05-2017 Chronic Congestive heart failure; nonhypertensive (2 sources) Unspecified diastolic (congestive) heart failure; Translations: [Unspecified diastolic (congestive) heart failure] Onset: 07-05-2017 Chronic Coronary atherosclerosis and other heart disease (2 sources) Other forms of acute ischemic heart disease; Translations: [Other forms of acute ischemic heart disease] Onset: 07-05-2017 Chronic Delirium, dementia amnestic and other cognitive disorders (1 source) Unspecified 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; Translations: [UNS MENTAL D/O DUE PHYSI] Onset: 05-16-2016 Chronic Diabetes mellitus with complications (4 sources) Type 2 diabetes mellitus with hyperglycemia; Translations: [Type 2 diabetes mellitus with hyperosmolarity without nonketotic hyperglycemic-hyperosm olar coma (NKHHC)] Onset: 07-05-2017 Chronic Diabetes mellitus without complication (13 sources) Diabetes mellitus; Translations: [Type 2 diabetes mellitus without complications] Onset: 09-24-2013 09-24-2013 Chronic Disorders of lipid metabolism (15 sources) Hyperlipidemia; Translations: [Hyperlipidemia, unspecified] Onset: 09-24-2013 09-24-2013 Chronic Essential hypertension (13 sources) Hypertensive disorder; Translations: [Essential (primary) hypertension] Onset: 09-24-2013 09-24-2013 Chronic Fluid and electrolyte disorders (4 sources) Acidosis; Translations: [Hypokalemia] Onset: 07-05-2017 Episodic Genitourinary symptoms and ill-defined conditions (1 source) Unspecified urinary incontinence; Translations: [UNSPECIFIED URINARY INCO] Onset: 05-16-2016 Chronic Hyperplasia of prostate (3 sources) Benign prostatic hyperplasia without lower urinary tract symptoms; Translations: [Benign prostatic hyperplasia without lower urinry tract symp] Onset: 05-16-2016 Chronic Hypertension with complications and secondary hypertension (2 sources) Hypertensive heart disease with heart failure; Translations: [Hypertensive heart disease with heart failure] Onset: 07-05-2017 Chronic Mood disorders (2 sources) Major depressive disorder, single episode, unspecified; Translations: [Major depressive disorder, single episode, unspecified] Onset: 07-05-2017 Nutritional deficiencies (2 sources) Vitamin D deficiency, unspecified; Translations: [Vitamin D deficiency, unspecified] Onset: 07-05-2017 Chronic Osteoarthritis (16 sources) Osteoarthritis of knee; Translations: [Localized, primary osteoarthritis] Onset: 12-05-2014 12-13-2014 Chronic Other aftercare (2 sources) exterminator helper (current) use of insulin; Translations: [alf (current) use of insulin] Onset: 07-05-2017 Episodic Other inflammatory condition of skin (2 sources) Sunburn, unspecified; Translations: [Sunburn, unspecified] Onset: 07-05-2017 Episodic Other nervous system disorders (8 sources) Metabolic encephalopathy; Translations: [(Idiopathic) normal pressure hydrocephalus] Onset: 05-16-2016 Chronic Other nutritional; endocrine; and metabolic disorders (20 sources) Body mass index (BMI) 50-59.9 , adult; Translations: [Body mass index (BMI) 60.0-69.9, adult] Onset: 09-30-2013 07-17-2016 Chronic Other nutritional; endocrine; and metabolic disorders (10 sources) Body mass index (BMI) 60.0-69.9, adult; Translations: [Obstructive sleep apnea (adult) (pediatric)] Onset: 09-30-2013 09-30-2013 Chronic Pulmonary heart disease (7 sources) Pulmonary embolism; Translations: [Personal history of pulmonary embolism] Onset: 10-23-2016 10-23-2016 Episodic Unclassified (2 sources) Patient's other noncompliance with medication regimen; Translations: [Patient's other noncompliance with medication regimen] Onset: 07-05-2017 Episodic Unclassified (9 sources) Preoperative cardiovascular examination ; Translations: [Encounter for preprocedural cardiovascular examination] Onset: 09-24-2013 09-24-2013 Unclassified (1 source) Finding of body mass index; Translations: [Body mass index (BMI) 60.0-69.9, adult] Onset: 09-30-2013 09-30-2013 Past or Other Problems Problem Classification Problem Date Documented Da te Episodic/Chronic Other connective tissue disease (3 sources) Repeated falls; Translations: [Repeated falls] Onset: 05-16-2016 Episodic Other gastrointestinal disorders (1 source) Full incontinence of feces; Translations: [FULL INCONTINENCE OF FEC] Onset: 05-16-2016 Episodic Other lower respiratory disease (12 sources) Dyspnea; Translations: [Shortness of breath] Onset: 09-30-2013 09-30-2013 Episodic Other non-traumatic joint disorders (20 sources) Knee pain; Translations: [Pain in unspecified knee] Onset: 12-05-2014 12-05-2014 Episodic Spondylosis; intervertebral disc disorders; other back problems (1 source) Dorsalgia, unspecified; Translations: [DORSALGIA UNSPECIFIED] Onset: 05-16-2016 Episodic Syncope (9 sources) Syncope and collapse; Translations: [Syncope and collapse] Onset: 07-17-2016 07-17-2016 Episodic Results Test Name Value Interpretation Reference Range Facil ity Vital Signs Date Time Vital Sign Value Performing Clinician William yee 10-23-2016 15:44-0400 BMI (Body Mass Index) 53.44 kg/m2 [facility] Work Phone: 10-23-2016 15:44-0400 BP Diastolic 70 mm[Hg] [facility] Work Phone: 10-23-2016 15:44-0400 BP Systolic 110 mm[Hg] [facility] Work Phone: 10-23-2016 15:44-0400 Weight 112.04 kg [facility] Work Phone: 07-17-2016 11:46-0400 BMI (Body Mass Index) 54.74 kg/m2 Millicent Parkinson RN [facility] Work Phone: 07-17-2016 11:46-0400 BP Diastolic 94 mm[Hg] Millicent Parkinson RN [facility] Work Phone: 07-17-2016 11:46-0400 BP Systolic 138 mm[Hg] Millicent Parkinson RN [facility] Work Phone: 07-17-2016 11:46-0400 Pulse (Heart Rate) 68 /min [facility] Work Phone: 07-17-2016 11:46-0400 Respiratory Rate 16 /min [facility] Work Phone: 07-17-2016 11:46-0400 Weight 114.76 kg Millicent Parkinson RN [facility] Work Phone: 01-27-2015 09:46-0500 BMI (Body Mass Index) 60.58 kg/m2 [facility] Work Phone: 01-27-2015 09:46-0500 Body weight 127.01 kg Harumi DeFinis [facility] Work Phone: 01-27-2015 09:46-0500 BP Diastolic 78 mm[Hg] Harumi DeFinis [facility] Work Phone: 01-27-2015 09:46-0500 BP Systolic 124 mm[Hg] Harumi DeFinis [facility] Work Phone: 01-27-2015 09:46-0500 BSA (Body Surface Area) 2.08 m2 Harumi DeFinis [facility] Work Phone: 01-27-2015 09:46-0500 Pulse (Heart Rate) 72 /min Harumi DeFinis [facility] Work Phone: 01-27-2015 09:46-0500 Respiratory Rate 16 /min Harumi DeFinis [facility] Work Phone: 01-27-2015 09:46-0500 Weight 127.01 kg Harumi DeFinis [facility] Work Phone: 09-30-2013 11:55-0400 Heart rate 66 /min Harumi DeFinis [facility] Work Phone: 09-30-2013 11:34-0400 Height 144.78 cm Nikolas Prasad [facility] Work Phone: Encounters Encounter Date Encounter Type Care Provider Facility Start: 07-05-2017 Evaluation and manag ement of inpatient UNKNOWN PROVIDER [facility] Start: 05-16-2016 End: 05-24-2016 Evaluation and management of inpatient JOEL KUMARUQAYJOCELYN Facility:[facility] Procedures Date Procedure Procedure Detail Performing Clinician Start: 10-23-2016 End: 10-23-2016 Follow Up Appt Other Millicent Graff PA-C Work Phone: Start: 10-23-2016 End: 10-23-2016 Follow Up Appt Other Millicent Graff PA-C Work Phone: Start: 07-17-2016 End: 10-23-2016 Follow Up Appt 3 months Nitesh Fernandez MD Start: 07-17-2016 End: 10-23-2016 PFM Nitesh Fernandez MD Start: 07-17-2016 End: 07-17-2016 Dietary management education, guidance, and counseling Kasie Vaughan Start: 07-17-2016 End: 10-23-2016 Follow Up Appt 3 months Nitesh Fernandez MD Start: 07-17-2016 End: 10-23-2016 PFM Nitesh Fernandez MD Start: 05-20-2016 DRAIN LUNBAR SP CORD DRN PROVIDER UNKNOW N Start: 03-06-2016 End: 03-06-2016 Dietary management education, guidance, and counseling Nikolas Prasad Start: 03-06-2016 End: 03-06-2016 Documentation of current medications Nikolas Prasad Start: 01-27-2015 End: 01-27-2015 Follow Up Appt Other Nitesh Fernandez MD Start: 01-27-2015 End: 01-27-2015 PFM Nitesh Fernandez MD Start: 01-27-2015 End: 01-27-2015 Follow Up Appt Other Nitesh Fernandez MD Start: 01-27-2015 End: 01-27-2015 PFM Nitesh Fernandez MD Start: 12-07-2014 End: 10-23-2016 Physical Therapy General Connor Moreno Work Phone: Start: 12-07-2014 End: 10-23-2016 Physical Therapy General Connor Moreno Work Phone: Start: 12-05-2014 End: 10-23-2016 Radiologic exam knee complete 4/more views Connor Moreno Work Phone: Start: 12-05-2014 End: 10-23-2016 X-ray exam, knee, 4 or more Connor Moreno Work Phone: Start: 01-17-2014 End: 01-17-2014 Follow Up Appt 1 year Nitesh Ralph Start: 01-17-2014 End: 01-17-2014 PFM Nitesh Fernandez MD Start: 01-17-2014 End: 01-17-2014 Follow Up Appt 1 year Nitesh Ralph Start: 01-17-2014 End: 01-17-2014 PFM Nitesh Fernandez MD Start: 09-30-2013 End: 09-30-2013 Ecg routine ecg w/least 12 lds w/i&r Nitesh Fernandez MD Start: 09-30-2013 End: 10-23-2016 Echocardiography Nitesh Fernandez MD Start: 09-30-2013 End: 09-30-2013 Follow Up Appt 3 months Nitesh Fernandez MD Start: 09-30-2013 End: 10-23-2016 Nuclear stress test -Lexiscan Nitesh Fernandez MD Start: 09-30-2013 End: 09-30-2013 PFM Nitesh Fernandez MD Start: 09-30-2013 End: 10-23-2016 Echocardiography Nitesh Fernandez MD Start: 09-30-2013 End: 09-30-2013 Electrocardiogram, complete Nitesh Fernandez MD Start: 09-30-2013 End: 09-30-2013 Follow Up Appt 3 months Nitesh Fernandez MD Start: 09-30-2013 End: 10-23-2016 Nuclear stress test -Lexiscan Nitesh Fernandez MD Start: 09-30-2013 End: 09-30-2013 PFM Nitesh Fernandez MD Start: 09-24-2013 Preoperative cardiovascular examination PRE-OPERATIVE CARDIOVASCULAR EXAMINATION Sun Renteria Start: 09-24-2013 Preoperative cardiovascular examination PRE-OPERATIVE CARDIOVASCULAR EXAMINATION Nikolas Prasad Plan of Treatment Date Care Activity Detail Author Start: 02-26-2017 End: 02-26-2017 Appointment Appointment [facility] Work Phone: Start: 01-08-2017 End: 01-08-2017 Appointment Appointment [facility] Work Phone: Start: 10-23-2016 End: 10-23-2016 Appointment Appointment [facility] Work Phone: Start: 10-23-2016 End: 10-23-2016 Follow Up Appt Other Follow Up Appt Other [facility] Work Phone: Start: 10-23-2016 End: 10-23-2016 Follow Up Appt Other Follow Up Appt Other [facility] Work Phone: Start: 07-17-2016 End: 07-17-2016 Echocardiography Echocardiogram (complete) [facility] Work Phone: Start: 07-17-2016 End: 07-18-2016 EPS Referral EPS Referral John Alcocer MD, [address], [place], [address] [facility] Work Phone: Start: 07-17-2016 End: 10-23-2016 Follow Up Appt 3 months Follow Up Appt 3 months [facility] Work Phone: Start: 07-17-2016 End: 10-23-2016 PFM PFM [facility] Work Phone: Start: 07-17-2016 End: 07-17-2016 Appointment Appointment [facility] Work Phone: Start: 07-17-2016 End: 07-17-2016 Appointment Appointment [facility] Work Phone: Start: 07-17-2016 End: 07-17-2016 Echocardiography Echocardiogram (complete) [facility] Work Phone: Start: 07-17-2016 End: 07-18-2016 EPS Referral EPS Referral John Alcocer MD, [address] [place] [address], [address], [place], [address] [facility] Work Phone: Start: 07-17-2016 End: 10-23-2016 Follow Up Appt 3 months Follow Up Appt 3 months [facility] Work Phone: Start: 07-17-2016 End: 10-23-2016 PFM PFM [facility] Work Phone: Start: 01-27-2015 End: 01-27-2015 Follow Up Appt Other Follow Up Appt Other [facility] Work Phone: Start: 01-27-2015 End: 01-27-2015 PFM PFM [facility] Work Phone: Start: 01-27-2015 End: 01-27-2015 Follow Up Appt Other Follow Up Appt Other [facility] Work Phone: Start: 01-27-2015 End: 01-27-2015 PFM PFM [facility] Work Phone: Start: 12-07-2014 End: 12-07-2014 Physical Therapy General Physical Therapy [facility], [address] [place] [address], [id number] [facility] Work Phone: Start: 12-07-2014 End: 12-07-2014 Physical Therapy General Physical Therapy [facility], [address] [place] [address], [id number] [facility] Work Phone: Start: 12-05-2014 End: 10-23-2016 Radiologic exam knee complete 4/more views X-Ray, Knee [facility] Work Phone: Start: 12-05-2014 End: 10-23-2016 X-ray exam, knee, 4 or more X-Ray, Knee [facility] Work Phone: Start: 01-17-2014 End: 01-17-2014 Follow Up Appt 1 year Follow Up Appt 1 year [facility] Work Phone: Start: 01-17-2014 End: 01-17-2014 PFM PFM [facility] Work Phone: Start: 01-17-2014 End: 01-17-2014 Follow Up Appt 1 year Follow Up Appt 1 year [facility] Work Phone: Start: 01-17-2014 End: 01-17-2014 PFM PFM [facility] Work Phone: Start: 09-30-2013 End: 09-30-2013 Ecg routine ecg w/least 12 lds w/i&r EKG (In office) [facility] Work Phone: Start: 09-30-2013 End: 09-30-2013 Echocardiography Echocardiogram (complete) [facility] Work Phone: Start: 09-30-2013 End: 09-30-2013 Follow Up Appt 3 months Follow Up Appt 3 months [facility] Work Phone: Start: 09-30-2013 End: 09-30-2013 Nuclear stress test -Lexiscan Nuclear stress test -Lexiscan [facility] Work Phone: Start: 09-30-2013 End: 09-30-2013 PFM PFM [facility] Work Phone: Start: 09-30-2013 End: 09-30-2013 Echocardiography Echocardiogram (complete) [facility] Work Phone: Start: 09-30-2013 End: 09-30-2013 Electrocardiogram, complete EKG (In office) [facility] Work Phone: Start: 09-30-2013 End: 09-30-2013 Follow Up Appt 3 months Follow Up Appt 3 months [facility] Work Phone: Start: 09-30-2013 End: 10-01-2013 Nuclear stress test -Lexiscan Nuclear stress test -Lexiscan [facility] Work Phone: Start: 09-30-2013 End: 09-30-2013 PFM PFM [facility] Work Phone: Payers Date Payer Category Payer Policy ID Medicare [id number] Private Health Insurance Summary Purpose Family History No Family History Records FoundNo Family History Records Found Advance Directives No Advanced Directives Records FoundNo Advanced Directives Records Found Additional Source Comments (unrecognized sect ion and content) No Status Records FoundNo Status Records Found INFORMATION SOURCE (unrecogn ized section and content) DATE CREATED AUTHOR AUTHOR'S ORGANIZ ATION 08/06/2017 [facility] FOR RECORDS PERTAINING TO PATIENTS WHO ARE OR HAVE BEEN ENROLLED IN A CHEMICAL DEPENDENCY/SUBSTANCEABUSE PROGRAM, SOME INFORMATION MAY BE OMITTED. This clinical summary was aggregated from multiple sources. Caution should be exercised in using it in the provision of clinical care. This summary normalizes information from multiple sources, and as a consequence, information in this document may materially change the coding, format and clinical context of patient data. In addition, data may be omitted in some cases. CLINICAL DECISIONS SHOULD BE BASED ON THE PRIMARY CLINICAL RECORDS. [employer] provides no warranty or guarantee of the accuracy or completeness of information in this document.
[2023-03-17 08:25] LABS: Absolute Lymphocyte Count 1.92 X10^3/uL (0.83-4.51); Absolute Neutrophil Count 7.1 X10^3/uL (2.0-7.7); Basophil# 0.06 X10^3/uL; Basophil% 0.6 % (0-1); Eosinophil# 0.24 X10^3/uL; Eosinophils% 2.4 % (0-5); Hematocrit 41.9 % (40-54); Lymphocyte # 1.92 X10^3/ul (0.83-4.51); Lymphocyte % 19.2 % (19-41); Mean Corpuscular Hgb 26.5 pg (27.0-32.0); Mean Corpuscular Volume 85.5 fL (80-94); Mean Platelet Vol. 10.9 fl (6.2-12.0); Monocyte# 0.66 X10^3/uL; Monocyte% 6.6 % (0-10); NRBC Flagged by Analyzer 0 % (0-5); Neutrophil # 7.05 X10^3/uL (2.7-7.7); Neutrophil % 70.6 % (47-70); Platelet Count 255 K/mm3 (150-450); RBC Distribution Width CV 14.8 % (11.6-14.6); RBC Distribution Width SD 46.2 fl (35.1-43.9)
[2023-03-17 08:51] LABS: ALB/GLOB Ratio 0.6 RATIO (0.9-2.4); AST(SGOT) 12 U/L (15-37); Alanine Aminotransfer ALT/SGPT 25 U/L (16-61); Albumin, Serum 2.5 g/dL (3.2-5.0); Alkaline Phosphatase 101 U/L (45-117); Anion Gap 5 (5-15); BUN 31 mg/dL (7-18); BUN/Creat Ratio 29.2 RATIO (10-20); Bilirubin, Direct 0.11 mg/dL (0.00-0.30); Calcium,Total 10.3 mg/dL (8.5-10.1); Chloride 106 mmol/L (98-107); Cholesterol 109 mg/dL (200); Creatinine, Serum 1.06 mg/dL (0.70-1.30); EST Glomerular Filtration Rate 72 mL/min (>60); Est Glom Filt Rate - Afr Amer 88 mL/min (>60); Globulin 4.2 g/dL (2.2-4.2); Glucose 97 mg/dL (74-106); High Density Lipoprotein 31 mg/dL; Potassium 3.6 mmol/L (3.5-5.1); Protein, Total 6.7 g/dL (6.4-8.2); Sodium Level 140 mmol/L (136-145); Triglycerides 118 mg/dL; Very Low Density Lipoprotein 24 mg/dL (5-40)
[2023-03-17 12:01] LABS: Hemoglobin A1c 6.8 % (3.8-5.6)
== END ==
LOC: OLS.SW 05:00
PROVIDERS: PCP Family Medicine Geriatric Medicine; Visit Provider Family Medicine
DX: N17.9 Acute kidney failure, unspecified (principal); I10 Essential (primary) hypertension; E11.9 Type 2 diabetes mellitus without complications; R74.8 Abnormal levels of other serum enzymes
CPT/HCPCS: 36415; 80053; 80061; 82248; 83036; 85025

== ENCOUNTER → 2023-03-28 | Outpatient (REF) | payer MEDICARE, SELFPAY ==
--- OUTSIDE RECORDS SUMMARY | 2023-03-28 04:57 | XMS RPT_ITS | CCD ---
Author Name Unknown Address [address] [place] [address] Organization [facility] Care Team Providers Care Music Historian Name Role Phone Sun Renteria Unavailable Unavailable [...] One tablet by mouth daily AMIODARONE HCL [id number] Millicent Graff PA-C amLODIPine 5 mg / hydroCHLOROthiazide 12.5 mg / olmesartan medoxomil 40 mg oral tablet (20 sources) Thiazide Diuretic, Dihydropyridine Calcium Channel Audrey, Angiotensin 2 Receptor Audery Start: 09-24-2013 End: 12-04-2015 take 1 tablet by mouth once daily TRIBENZOR 40-5-12.5 MG TABS One tablet by mouth daily OLMESARTAN-AMLO DIPINE-HCTZ [id number] Niki Mart RN Problems Active Problems Problem [...] 12-05-2014 12-13-2014 Chronic Other aftercare (2 sources) snf (current) use of insulin; Translations: [snf (current) use of insulin] Onset: 07-05-2017 Episodic [...] BP Diastolic 94 mm[Hg] Millicent Parkinson RN [facility] Work Phone: 07-17-2016 11:46-0400 BP Systolic 138 mm[Hg] Millicent Parkinson RN [facility] Work Phone: 07-17-2016 11:46-0400 Pulse (Heart Rate) 68 /min [facility] Work Phone: 07-17-2016 11:46-0400 Respiratory Rate 16 /min [facility] Work Phone: 07-17-2016 11:46-0400 Weight 114.76 kg Millicent Parkinson RN [facility] Work Phone: 01-27-2015 09:46-0500 BMI (Body Mass Index) 60.58 kg/m2 [facility] Work Phone: 01-27-2015 09:46-0500 Body weight 127.01 kg Harumi DeFinis [facility] Work Phone: 01-27-2015 09:46-0500 BP Diastolic 78 mm[Hg] Harumi DeFinis [facility] Work Phone: 01-27-2015 09:46-0500 BP Systolic 124 mm[Hg] Harumi DeFinis [facility] Work Phone: 01-27-2015 09:46-0500 BSA (Body Surface Area) 2.08 m2 Harumi DeFinis [facility] Work Phone: 01-27-2015 09:46-0500 Pulse (Heart Rate) 72 /min Harumi DeFinis [facility] Work Phone: 01-27-2015 09:46-0500 Respiratory Rate 16 /min Harumi DeFinis [facility] Work Phone: 01-27-2015 09:46-0500 Weight 127.01 kg Harumi DeFinis [facility] Work Phone: 09-30-2013 11:55-0400 Heart rate 66 /min Harumi DeFinis [facility] Work Phone: 09-30-2013 11:34-0400 Height 144.78 cm Nikolas Prasad [facility] Work Phone: Encounters Encounter Date Encounter Type Care Provider Facility Start: 07-05-2017 Evaluation and manag ement of inpatient UNKNOWN PROVIDER [facility] Start: 05-16-2016 End: 05-24-2016 Evaluation and management of inpatient JOEL KUMARUQAYJOCELYN Facility:[facility] Procedures Date Procedure Procedure Detail Performing Clinician [...] Author Start: 02-26-2017 End: 02-26-2017 Appointment Appointment [facility] Work Phone: Start: 01-08-2017 End: 01-08-2017 Appointment Appointment [facility] Work Phone: Start: 10-23-2016 End: 10-23-2016 Appointment Appointment [facility] Work Phone: Start: 10-23-2016 End: 10-23-2016 Follow Up Appt Other Follow Up Appt Other [facility] Work Phone: Start: 10-23-2016 End: 10-23-2016 Follow Up Appt Other Follow Up Appt Other [facility] Work Phone: Start: 07-17-2016 End: 07-17-2016 Echocardiography Echocardiogram (complete) [facility] Work Phone: Start: 07-17-2016 End: 07-18-2016 EPS Referral EPS Referral John Alcocer MD, [address], [place], [address] [facility] Work Phone: Start: 07-17-2016 End: 10-23-2016 Follow Up Appt 3 months Follow Up Appt 3 months [facility] Work Phone: Start: 07-17-2016 End: 10-23-2016 PFM PFM [facility] Work Phone: Start: 07-17-2016 End: 07-17-2016 Appointment Appointment [facility] Work Phone: Start: 07-17-2016 End: 07-17-2016 Appointment Appointment [facility] Work Phone: Start: 07-17-2016 End: 07-17-2016 Echocardiography Echocardiogram (complete) [facility] Work Phone: Start: 07-17-2016 End: 07-18-2016 EPS Referral EPS Referral John Alcocer MD, [address] [place] [address], [address], [place], [address] [facility] Work Phone: Start: 07-17-2016 End: 10-23-2016 Follow Up Appt 3 months Follow Up Appt 3 months [facility] Work Phone: Start: 07-17-2016 End: 10-23-2016 PFM PFM [facility] Work Phone: Start: 01-27-2015 End: 01-27-2015 Follow Up Appt Other Follow Up Appt Other [facility] Work Phone: Start: 01-27-2015 End: 01-27-2015 PFM PFM [facility] Work Phone: Start: 01-27-2015 End: 01-27-2015 Follow Up Appt Other Follow Up Appt Other [facility] Work Phone: Start: 01-27-2015 End: 01-27-2015 PFM PFM [facility] Work Phone: Start: 12-07-2014 End: 12-07-2014 Physical Therapy General Physical Therapy [facility], [address] [place] [address], [id number] [facility] Work Phone: Start: 12-07-2014 End: 12-07-2014 Physical Therapy General Physical Therapy [facility], [address] [place] [address], [id number] [facility] Work Phone: Start: 12-05-2014 End: 10-23-2016 Radiologic exam knee complete 4/more views X-Ray, Knee [facility] Work Phone: Start: 12-05-2014 End: 10-23-2016 X-ray exam, knee, 4 or more X-Ray, Knee [facility] Work Phone: Start: 01-17-2014 End: 01-17-2014 Follow Up Appt 1 year Follow Up Appt 1 year [facility] Work Phone: Start: 01-17-2014 End: 01-17-2014 PFM PFM [facility] Work Phone: Start: 01-17-2014 End: 01-17-2014 Follow Up Appt 1 year Follow Up Appt 1 year [facility] Work Phone: Start: 01-17-2014 End: 01-17-2014 PFM PFM [facility] Work Phone: Start: 09-30-2013 End: 09-30-2013 Ecg routine ecg w/least 12 lds w/i&r EKG (In office) [facility] Work Phone: Start: 09-30-2013 End: 09-30-2013 Echocardiography Echocardiogram (complete) [facility] Work Phone: Start: 09-30-2013 End: 09-30-2013 Follow Up Appt 3 months Follow Up Appt 3 months [facility] Work Phone: Start: 09-30-2013 End: 09-30-2013 Nuclear stress test -[facility] Nuclear stress test -[facility] Work Phone: Start: 09-30-2013 End: 09-30-2013 PFM PFM [facility] Work Phone: Start: 09-30-2013 End: 09-30-2013 Echocardiography Echocardiogram (complete) [facility] Work Phone: Start: 09-30-2013 End: 09-30-2013 Electrocardiogram, complete EKG (In office) [facility] Work Phone: Start: 09-30-2013 End: 09-30-2013 Follow Up Appt 3 months Follow Up Appt 3 months [facility] Work Phone: Start: 09-30-2013 End: 10-01-2013 Nuclear stress test -[facility] Nuclear stress test -[facility] Work Phone: Start: 09-30-2013 End: 09-30-2013 PFM PFM [facility] Work Phone: Payers Date Payer Category Payer Policy ID Medicare [id number] Private Health Insurance Summary Purpose Family History No Family History Records FoundNo Family History Records Found Advance Directives No Advanced Directives Records FoundNo Advanced Directives Records Found Additional Source Comments (unrecognized sect ion and content) No Status Records FoundNo Status Records Found INFORMATION SOURCE (unrecogn ized section and content) DATE CREATED AUTHOR AUTHOR'S ORGANIZ ATION 08/06/2017 [facility] FOR RECORDS PERTAINING TO PATIENTS WHO [...] BE BASED ON THE PRIMARY CLINICAL RECORDS. [employer] provides no warranty or guarantee of the accuracy or completeness of information in this document.
[2023-03-28 08:54] LABS: T4 Free Direct 0.98 ng/dL (0.76-1.46); Thyroid Stim Hormone (TSH) 2.04 uIU/mL (0.358-3.74)
== END ==
LOC: OLS.SW 05:00
PROVIDERS: PCP Family Medicine Geriatric Medicine; Visit Provider Family Medicine
DX: E03.9 Hypothyroidism, unspecified (principal)
CPT/HCPCS: 36415; 84439; 84443

== ENCOUNTER → 2023-06-16 05:00 | Outpatient (REF) | payer MEDICARE, SELFPAY ==
[2023-06-16 09:22] LABS: Absolute Lymphocyte Count 2.09 X10^3/uL (0.83-4.51); Absolute Neutrophil Count 6.1 X10^3/uL (2.0-7.7); Basophil# 0.06 X10^3/uL; Basophil% 0.7 % (0-1); Eosinophil# 0.25 X10^3/uL; Eosinophils% 2.7 % (0-5); Hematocrit 43.8 % (40-54); Hemoglobin 13.7 g/dL (13.0-16.5); Lymphocyte # 2.09 X10^3/ul (0.83-4.51); Lymphocyte % 22.9 % (19-41); Mean Corp Hgb Conc 31.3 g/dL (32-36); Mean Corpuscular Hgb 25.8 pg (27.0-32.0); Mean Corpuscular Volume 82.3 fL (80-94); Mean Platelet Vol. 10.9 fl (6.2-12.0); Monocyte# 0.55 X10^3/uL; NRBC Flagged by Analyzer 0 % (0-5); Neutrophil # 6.14 X10^3/uL (2.7-7.7); Neutrophil % 67.3 % (47-70); Platelet Count 250 K/mm3 (150-450); RBC Distribution Width CV 15.1 % (11.6-14.6); RBC Distribution Width SD 45.3 fl (35.1-43.9); Red Blood Count 5.32 M/mm3 (4.6-6.2); White Blood Count 9.1 K/mm3 (4.4-11.0)
[2023-06-16 10:24] LABS: ALB/GLOB Ratio 0.6 RATIO (0.9-2.4); AST(SGOT) 19 U/L (15-37); Alanine Aminotransfer ALT/SGPT 16 U/L (16-61); Albumin, Serum 2.7 g/dL (3.2-5.0); Alkaline Phosphatase 97 U/L (45-117); Anion Gap 5 (5-15); BUN 30 mg/dL (7-18); BUN/Creat Ratio 25.9 RATIO (10-20); Bilirubin, Direct 0.14 mg/dL (0.00-0.30); Calcium,Total 9.9 mg/dL (8.5-10.1); Chloride 104 mmol/L (98-107); Cholesterol 104 mg/dL (200); Creatinine, Serum 1.16 mg/dL (0.70-1.30); EST Glomerular Filtration Rate 65 mL/min (>60); Est Glom Filt Rate - Afr Amer 79 mL/min (>60); Globulin 4.3 g/dL (2.2-4.2); Glucose 84 mg/dL (74-106); High Density Lipoprotein 33 mg/dL; Potassium 3.4 mmol/L (3.5-5.1); Sodium Level 138 mmol/L (136-145); Triglycerides 103 mg/dL; Very Low Density Lipoprotein 21 mg/dL (5-40)
[2023-06-16 11:22] LABS: Hemoglobin A1c 6.2 % (3.8-5.6)
== END ==
LOC: OLS.SW 05:00
PROVIDERS: PCP Family Medicine Geriatric Medicine; Visit Provider Family Medicine
DX: I25.709 Atherosclerosis of coronary artery bypass graft(s), unspecified, with unspecified angina pectoris (principal); I10 Essential (primary) hypertension; N17.9 Acute kidney failure, unspecified; E11.9 Type 2 diabetes mellitus without complications; R74.8 Abnormal levels of other serum enzymes
CPT/HCPCS: 36415; 80053; 80061; 82248; 83036; 85025

== ENCOUNTER → 2023-07-12 07:07 | Outpatient (REF) | payer MEDICARE, SELFPAY ==
[2023-07-12 07:11] LABS: Mucous, Urine 0 SEEN /hpf (<or=2+); Squamous Epithelial Cells - UA 0 SEEN /hpf (0-5)
[2023-07-12 07:26] LABS: Color, Urine Yellow (Yellow); Glucose, Dipstick Normal (Normal); Ketone-Dipstick Negative (Negative); Leukocyte Esterase-Dipstick 500 /ul (Negative); Nitrite-Dipstick Negative (Negative); Occult Blood-Urine 250 /ul (Negative); Protein-Dipstick 100 mg/dl (Negative); Urine Bilirubin Dipstick Negative (Negative); Urine Clarity Turbid (Clear); Urine Urobilinogen Normal (Normal)
[2023-07-12 09:30] LABS: Bacteria 2+ /hpf (None Seen); Red Blood Cells-Urine 25-50 SEEN /hpf (0-5); White Blood Cells >100 SEEN /hpf (0-5)
== END ==
LOC: OLS.SW 07:07
PROVIDERS: PCP Family Medicine Geriatric Medicine; Visit Provider Family Medicine
DX: N39.0 Urinary tract infection, site not specified (principal)
CPT/HCPCS: 81001

== ENCOUNTER → 2023-08-05 05:25 | Outpatient (REF) | payer MEDICARE, SELFPAY ==
[2023-08-05 09:34] LABS: ALB/GLOB Ratio 0.6 RATIO (0.9-2.4); AST(SGOT) 14 U/L (15-37); Alanine Aminotransfer ALT/SGPT 20 U/L (16-61); Albumin, Serum 2.6 g/dL (3.2-5.0); Alkaline Phosphatase 103 U/L (45-117); Anion Gap 3 (5-15); BUN 31 mg/dL (7-18); BUN/Creat Ratio 29.8 RATIO (10-20); Calcium,Total 9.7 mg/dL (8.5-10.1); Chloride 105 mmol/L (98-107); Creatinine, Serum 1.04 mg/dL (0.70-1.30); EST Glomerular Filtration Rate 74 mL/min (>60); Est Glom Filt Rate - Afr Amer 89 mL/min (>60); Globulin 4.2 g/dL (2.2-4.2); Glucose 107 mg/dL (74-106); Protein, Total 6.8 g/dL (6.4-8.2); Sodium Level 139 mmol/L (136-145)
[2023-08-05 09:37] LABS: Hemoglobin A1c 6.6 % (3.8-5.6)
== END ==
LOC: OLS.SW 05:25
PROVIDERS: PCP Family Medicine Geriatric Medicine; Visit Provider Family Medicine
DX: I10 Essential (primary) hypertension (principal); E11.9 Type 2 diabetes mellitus without complications
CPT/HCPCS: 36415; 80053; 83036

== ENCOUNTER → 2023-09-15 | Outpatient (REF) | payer MEDICARE, SELFPAY ==
[2023-09-15 08:51] LABS: Absolute Neutrophil Count 6.7 X10^3/uL (2.0-7.7); Basophil# 0.06 X10^3/uL; Basophil% 0.6 % (0-1); Eosinophil# 0.25 X10^3/uL; Eosinophils% 2.6 % (0-5); Hematocrit 41.8 % (40-54); Hemoglobin 12.7 g/dL (13.0-16.5); Mean Corp Hgb Conc 30.4 g/dL (32-36); Mean Corpuscular Hgb 25.5 pg (27.0-32.0); Mean Corpuscular Volume 83.9 fL (80-94); Mean Platelet Vol. 10.7 fl (6.2-12.0); Monocyte# 0.54 X10^3/uL; Monocyte% 5.7 % (0-10); NRBC Flagged by Analyzer 0 % (0-5); Neutrophil # 6.71 X10^3/uL (2.7-7.7); Neutrophil % 70.6 % (47-70); Platelet Count 255 K/mm3 (150-450); RBC Distribution Width CV 15.8 % (11.6-14.6); RBC Distribution Width SD 47.8 fl (35.1-43.9); Red Blood Count 4.98 M/mm3 (4.6-6.2); White Blood Count 9.5 K/mm3 (4.4-11.0)
[2023-09-15 09:23] LABS: ALB/GLOB Ratio 0.6 RATIO (0.9-2.4); AST(SGOT) 15 U/L (15-37); Alanine Aminotransfer ALT/SGPT 20 U/L (16-61); Albumin, Serum 2.6 g/dL (3.2-5.0); Alkaline Phosphatase 111 U/L (45-117); Anion Gap 4 (5-15); BUN 32 mg/dL (7-18); BUN/Creat Ratio 27.4 RATIO (10-20); Bilirubin, Direct 0.11 mg/dL (0.00-0.30); Calcium,Total 8.8 mg/dL (8.5-10.1); Chloride 105 mmol/L (98-107); Cholesterol 118 mg/dL (200); Creatinine, Serum 1.17 mg/dL (0.70-1.30); EST Glomerular Filtration Rate 64 mL/min (>60); Est Glom Filt Rate - Afr Amer 78 mL/min (>60); Globulin 4.4 g/dL (2.2-4.2); Glucose 141 mg/dL (74-106); High Density Lipoprotein 32 mg/dL; Potassium 3.4 mmol/L (3.5-5.1); Sodium Level 140 mmol/L (136-145); Triglycerides 182 mg/dL; Very Low Density Lipoprotein 36 mg/dL (5-40)
[2023-09-15 10:42] LABS: Hemoglobin A1c 6.5 % (3.8-5.6)
== END ==
LOC: OLS.SW 05:00
PROVIDERS: PCP Family Medicine Geriatric Medicine; Visit Provider Family Medicine
DX: E78.5 Hyperlipidemia, unspecified (principal); R74.8 Abnormal levels of other serum enzymes; E11.9 Type 2 diabetes mellitus without complications
CPT/HCPCS: 36415; 80053; 80061; 82248; 83036; 85025